=== PATIENT | male | born 1955 | race African-American/Black ===

== ENCOUNTER 2018-11-11 17:19 | Emergency (ER) | payer OTHER ==
[2018-11-11 18:23] LABS: Absolute Lymphocytes (CBC) 0.7 K/uL (0.7-4.9); Absolute Monocytes 1.1 K/uL (0.1-1.3); Absolute Neutrophil 7.7 K/uL (1.8-8.0); Basophils % 0.6 % (0-1.3); Eosinophils % 0.1 % (0-4.4); Hematocrit 41.5 % (39.6-49.0); Lymphocytes % 7.7 % (15.3-44.8); MPV 9.6 fL (7.6-11.3); Monocytes % 11.7 % (3.3-12.3); RBC Red Blood Cell Count 5.06 M/uL (4.33-5.43)
--- NOTE | 2018-11-11 18:27 | RAD REPORT ---
EXAM DESCRIPTION: Arnlod Single View11/11/2018 6:13 pm CLINICAL HISTORY: Chest pain COMPARISON: none FINDINGS: The lungs appear clear of acute infiltrate. The heart is mildly enlarged for IMPRESSION: No acute abnormalities displayed
[2018-11-11 18:48] LABS: ALT/SGPT 23 U/L (12-78); AST/SGOT 19 U/L (15-37); Albumin 4.2 g/dL (3.4-5.0); Alkaline Phosphatase 51 U/L (45-117); BUN Blood Urea Nitrogen 19 mg/dL (7-18); Bicarbonate 22 mmol/L (21-32); Bilirubin Direct 0.2 mg/dL (0-0.2); Bilirubin Total 0.6 mg/dL (0.2-1.0); Glucose Level 144 mg/dL (74-106); Magnesium 2.1 mg/dL (1.8-2.4); NT PRO-BNP 443 pg/mL (<125); Protein, Total 7.9 g/dL (6.4-8.2); Sodium Level 138 mmol/L (136-145); Troponin (Emerg Dept Use Only) < 0.02 ng/mL (0.0-0.045)
[2018-11-11] MEDS ORDERED: KETOROLAC 30 MG/ML INJ ONE ×2 (19:30→22:33)
[2018-11-11] MEDS ORDERED: FENTANYL CITR 100 MCG/2 ML ONE (20:06)
--- NOTE | 2018-11-11 20:35 | RAD REPORT ---
EXAM DESCRIPTION: CT - Angio Aorta For Dissection - 11/11/2018 8:13 pm CLINICAL HISTORY: . Chest and abd pain COMPARISON: None TECHNIQUE: Computed tomography angiography of the chest, abdomen pelvis were obtained. 100 cc Isovue 370 was administered intravenously. Coronal and sagittal reconstruction were performed. MIP 3D reconstruction was performed All CT scans are performed using dose optimization technique as appropriate and may include automated exposure control or mA/KV adjustment according to patient size. FINDINGS: A bovine aorta. An aortic dissection is not seen. An aortic aneurysm is not displayed. Mi nimal narrowing of the proximal descending thoracic aorta. The celiac, SMA and EMILY are patent . Mild left lower lobe opacities. Minimal left pleural effusion A pericardial effusion is not seen. 6 millimeter enhancing lesion left lobe liver. Spleen, pancreas, right adrenal and kidneys demonstrate no significant abnormality. 1 centimeter left adrenal nodule. The appendix is normal. There no evidence diverticulitis. Wall of the descending colon and sigmoid co yahaira appear mildly thickened Sclerosis involves the vertebral endplates of T6 and T7 vertebral bodies. Fusion involves the vertebral bodies of L3 and L4 presumably chronic. IMPRESSION: Negative for an aortic dissection. Minimal coarctation descending thoracic aorta Mild left lower lobe opacities probably pneumonia Mild apparent thickening of the wall of the left colon could indicate colitis or be secondary to inco mplete distention. Sclerosis involving the vertebral endplates of T6 and T7 could be degenerative in nature. An infectio us/inflammatory process can also have this appearance and should be correlated clinically with approp riate lab values. 1 centimeter left adrenal nodule
--- NOTE | 2018-11-11 21:28 | ER ---
Nurse's Notes [facility] [place] [place] Name: Adrian He Age: 63 yrs Sex: Male : 1955 Arrival Date: 11/11/2018 Time: 17:20 Bed 20 Private MD: Diagnosis: Chest pain, unspecified;Pneumonia, unspecified organism Presentation: 11/11 17:23 Presenting complaint: Patient states: i started having chest pain started this morning, tw2 my left shoulder area hurts and my clavicle hurts, it hurts to breath in hard. Transition of care: patient was not received from another setting of care. Onset of symptoms was November 11, 2018. Risk Assessment: Do you want to hurt yourself or someone else? Patient reports no desire to harm self or others. Initial Sepsis Screen: Does the patient meet any 2 criteria? No. Patient's initial sepsis screen is negative. Does the patient have a suspected source of infection? No. Patient's initial sepsis screen is negative. Care prior to arrival: None. 17:23 Method Of Arrival: Ambulatory tw2 17:23 Acuity: LACHELLE 3 tw2 Triage Assessment: 17:27 General: Appears uncomfortable, Behavior is cooperative. Pain: Complains of pain in tw2 chest. Cardiovascular: Reports chest pain, diaphoresis, pt is clammy. Historical: - Allergies: 17:26 No Known Allergies; tw2 - Home Meds: 17:26 amlodipine-benazepril 10-40 mg oral cap 1 cap once daily [Active]; levocetirizine 5 mg tw2 oral tab 1 tab once daily [Active]; Duexis 800-26.6 mg oral tab 1 tab 3 times per day [Active]; Janumet XR 100-1,000 mg oral TM24 1 tab once daily [Active]; Vitamin B-12 5000 mg Oral TbER [Active]; - PMHx: 17:26 Hypertension; tw2 - PSHx: 17:26 open heart surgery; tw2 - Immunization history:: Adult Immunizations. - Social history:: Smoking status: Patient uses tobacco products, chewing tobacco. - Ebola Screening: : Patient denies travel to an Ebola-affected area in the 21 days before illness onset. Screenin:58 Abuse screen: Denies threats or abuse. Denies injuries from another. Nutritional bp screening: No deficits noted. Tuberculosis screening: No symptoms or risk factors identified. Fall Risk None identified. Assessment: 17:30 General: Appears in no apparent distress. comfortable, Behavior is calm, cooperative, bp appropriate for age. Pain: Complains of pain in chest Pain radiates to left arm Pain began THIS MORNING. Neuro: No deficits noted. Cardiovascular: Rhythm is sinus rhythm. Respiratory: Airway is patent Respiratory effort is even, unlabored, Respiratory pattern is regular, symmetrical. GI: No signs and/or symptoms were reported involving the gastrointestinal system. : No signs and/or symptoms were reported regarding the genitourinary system. EENT: No deficits noted. Derm: No deficits noted. Musculoskeletal: Circulation, motion, and sensation intact. Range of motion: intact in all extremities. 19:15 Reassessment:. General: Appears in no apparent distress. uncomfortable, Behavior is cc3 calm, cooperative, appropriate for age. General: Received this male patient from morning shift RN Luis Carlos as a case of chest pain. With IV cannula gauge 22 at the right ACV saline locked.. Pain: Complains of pain in chest Pain radiates to left arm Pain began this morning. Neuro: Level of Consciousness is awake, alert, obeys commands, Oriented to person, place, time, situation, Appropriate for age. Cardiovascular: Rhythm is sinus rhythm. Respiratory: Airway is patent Respiratory effort is even, unlabored, Respiratory pattern is regular, symmetrical. GI: Abdomen is round non-distended. : No signs and/or symptoms were reported regarding the genitourinary system. EENT: No signs and/or symptoms were reported regarding the EENT system. Derm: No signs and/or symptoms reported regarding the dermatologic system. Musculoskeletal: Circulation, motion, and sensation intact. Range of motion: intact in all extremities. 20:19 Reassessment: Patient and/or family updated on plan of care and expected duration. Pain cc3 level reassessed. Patient is alert, oriented x 3, equal unlabored respirations, skin warm/dry/pink. Patient came back from CT scan department, awaiting result. Patient said his chest pain's relieved with NRS now of 2/10. 21:45 Reassessment: Patient appears in no apparent distress at this time. Patient and/or cc3 family updated on plan of care and expected duration. Pain level reassessed. Patient is alert, oriented x 3, equal unlabored respirations, skin warm/dry/pink. Dr. Lira discharged the patient home with prescription given. IV cannula removed and patient just went to the bathroom before leaving. Patient states symptoms have improved. 22:05 Reassessment: Patient and/or family updated on plan of care and expected duration. Pain cc3 level reassessed. Patient is alert, oriented x 3, equal unlabored respirations, skin warm/dry/pink. Patient came out of the bathroom and stated that he's having left side chest pain now, informed Dr. Lira and discharge on hold. 23:20 Reassessment: Patient appears in no apparent distress at this time. Patient and/or cc3 family updated on plan of care and expected duration. Pain level reassessed. Patient is alert, oriented x 3, equal unlabored respirations, skin warm/dry/pink. Patient denies pain at this time. Patient states feeling better. Patient states symptoms have improved. 23:50 Reassessment: Patient appears in no apparent distress at this time. Patient comfortably cc3 sleeping, kept undisturbed. 11/12 00:20 Reassessment: Patient appears in no apparent distress at this time. Patient and/or cc3 family updated on plan of care and expected duration. Pain level reassessed. Patient is alert, oriented x 3, equal unlabored respirations, skin warm/dry/pink. Patient for transfer to [facility], report called and handed over to staff Kelly Owens. Patient said his pain is relieved when he's not moving but when he moves that's when he's having pain again. Patient states symptoms have improved. 00:55 Reassessment: Patient appears in no apparent distress at this time. Patient and/or cc3 family updated on plan of care and expected duration. Pain level reassessed. Patient is alert, oriented x 3, equal unlabored respirations, skin warm/dry/pink. [facility] came for patient transport. Patient left ER vitally stable by ambulance stretcher. Patient states symptoms have improved. Vital Signs: 11/11 17:24 BP 150 / 73; Pulse 61; Resp 17; Temp 97.6(TE); Pulse Ox 98% on R/A; Weight 89.81 kg tw2 (R); Height 5 ft. 11 in. (180.34 cm) (R); Pain 5/10; 18:18 BP 161 / 77; Pulse 67; Resp 14; Pulse Ox 98% ; bp 19:22 BP 162 / 68; Pulse 66; Resp 17 S; Temp 98.6(O); Pulse Ox 96% on R/A; cc3 20:28 BP 160 / 66; Pulse 63; Resp 19 S; Temp 98.5(O); Pulse Ox 97% on R/A; Pain 2/10; cc3 21:45 BP 161 / 67; Pulse 63; Resp 19 S; Pulse Ox 97% on R/A; cc3 22:15 BP 168 / 76; Pulse 67; Resp 16 S; Temp 98.5(O); Pulse Ox 97% on R/A; cc3 23:38 BP 119 / 73; Pulse 63; Resp 20 S; Temp 98.5(O); Pulse Ox 96% on R/A; cc3 05 00:32 BP 124 / 66; Pulse 64; Resp 20 S; Temp 99.2(TE); Pulse Ox 97% on R/A; cc3 11/11 17:24 Body Mass Index 27.62 (89.81 kg, 180.34 cm) tw2 ED Course: 11/11 17:20 Patient arrived in ED. mr 17:23 Triage completed. tw2 17:23 Arm band placed on. EKG completed in triage. Results shown to MD. tw2 17:37 Luis Carlos Carter, RN is Primary Nurse. bp 17:54 Bryant Beaver MD is Attending Physician. kdr 17:57 Initial lab(s) drawn, by ga, sent to lab. Inserted saline lock: 22 gauge in right jb1 antecubital area, using aseptic technique. Blood collected. 17:58 Patient has correct armband on for positive identification. Bed in low position. Call bp light in reach. Side rails up X2. Adult w/ patient. clerk to justice on. Pulse ox on. NIBP on. 18:15 XRAY Chest (1 view) In Process Unspecified. EDMS 19:15 Patient maintains SpO2 saturation greater than 95% on room air. cc3 19:25 Attending Physician role handed off by Bryant Beaver MD gs 19:25 Aakash Lira MD is Attending Physician. gs 20:13 CT Aorta for Dissection In Process Unspecified. EDMS 21:40 IV discontinued, intact, bleeding controlled, No redness/swelling at site. Pressure cc3 dressing applied. 22:07 Primary Nurse role handed off by Luis Carlos Carter RN ed1 22:25 Inserted saline lock: 20 gauge in right antecubital area, using aseptic technique. cc3 Blood collected. inserted by cogeneration technician Zaki. 11/12 01:00 No provider procedures requiring assistance completed. Patient transferred, IV remains cc3 in place. Administered Medications: 11/11 19:17 Drug: TORadol - Ketorolac 15 mg Route: IVP; Site: right antecubital; cc3 19:45 Follow up: Response: No adverse reaction; Pain is unchanged, physician notified cc3 19:55 Drug: fentaNYL (PF) 50 mcg Route: IVP; Site: right antecubital; cc3 20:30 Follow up: Response: No adverse reaction; Pain is decreased cc3 22:08 CANCELLED (Physician Discretion): [place] 5 mg-325 mg 1 tabs PO once cc3 22:20 Drug: Albuterol 2.5 mg Route: Inhalation; cc3 22:45 Follow up: Response: No adverse reaction; Marked relief of symptoms cc3 22:35 Drug: NS 0.9% 1000 ml Route: IV; Rate: 125 ml/hr; Site: right antecubital; cc3 11/12 00:35 Follow up: Response: No adverse reaction; IV Status: Infusion continued upon transfer cc3 11/11 22:37 Drug: TORadol - Ketorolac 15 mg Route: IVP; Site: right antecubital; cc3 11/12 00:20 Follow up: Response: No adverse reaction; Pain is decreased cc3 11/11 22:50 Drug: Rocephin - (cefTRIAXone) 1 grams Route: IVPB; Infused Over: 30 mins; Site: right cc3 antecubital; 23:00 Follow up: Response: No adverse reaction; IV Status: Completed infusion; IV Intake: [id number] Intake: 23:00 IV: 10ml; Total: 10ml. cc3 Outcome: 21:28 Discharge ordered by MD. jurado 23:54 ER care complete, transfer ordered by MD. jurado 11/12 01:00 Transferred by ground EMS Transfer form completed. Note: [facility] cc3 Condition: stable Instructed on the need for transfer, Demonstrated understanding of instructions. 01:06 Patient left the ED. cc3 Signatures: Dispatcher [employer] EDMS Bassam Appiah jb1 Bryant Beaver MD MD kdr Rivera, Mary mr RenzoShelly, RN RN ed1 Flaca Mead RN RN tw2 Aakash Lira MD MD gs Peltier, Brian, RN RN Char Cao cc3 Corrections: (The following items were deleted from the chart) 11/11 20:27 20:19 Reassessment: Patient and/or family updated on plan of care and expected cc3 duration. Pain level reassessed. Patient is alert, oriented x 3, equal unlabored respirations, skin warm/dry/pink. Patient came back from CT scan department, awaiting result. cc3 23:32 22:05 Reassessment: Patient and/or family updated on plan of care and expected cc3 duration. Pain level reassessed. Patient is alert, oriented x 3, equal unlabored respirations, skin warm/dry/pink. Patient came out of the bathroom and stated that he's having left side chest pain now, informed Dr. Lira. cc3 23:36 20:28 BP 160 / 66; Pulse 63bpm; Resp 19bpm; Spontaneous; Pulse Ox 97% RA; Temp 98.5F cc3 Oral; cc3 11/12 00:33 00:32 BP 124 / 66; Pulse 64bpm; Resp 20bpm; Spontaneous; Pulse Ox 97% RA; cc3 cc3 00:38 11/11 09:55 fentaNYL (PF) 50 mcg IVP in right antecubital cc3 cc3 11/12 00:43 11/11 23:50 Reassessment: Patient appears in no apparent distress at this time. Patient cc3 and/or family updated on plan of care and expected duration. Pain level reassessed. Patient comfortably sleeping, kept undisturbed. cc3 11/12 00:46 00:32 BP 124 / 66; Pulse 64bpm; Resp 20bpm; Spontaneous; Pulse Ox 97% RA; Temp 98.1F cc3 Oral; cc3
--- NOTE | 2018-11-11 21:28 | EDPHYS ---
Physician Documentation [facility] Name: Adrian He Age: 63 yrs Sex: Male : 1955 Arrival Date: 11/11/2018 Time: 17:20 Bed 20 Private MD: ED Physician Aakash Lira HPI: 11/11 18:42 This 63 yrs old Black Male presents to ER via Ambulatory with complaints of Chest Pain. kdr 18:42 The patient or guardian reports chest pain that is located primarily in the Began in kdr his right shoulder this morning after he awoke. Then through the day, it migrated into his right chest and across into his left chest and shoulder. He had some associated SOB and diaphoresis. Pain still present in his left chest and shoulder. Onset: suddenly, this morning. Associated signs and symptoms: Pertinent positives: diaphoresis, nausea, shortness of breath. The chest pain is described as aching, crushing, sharp. Duration: The patient or guardian reports a single episode, that is still ongoing, and unchanged. Modifying factors: The symptoms are alleviated by nothing. the symptoms are aggravated by activity, cough, deep breath, exertion, movement, twisting torso. Severity of pain: At its worst the pain was moderate severe just prior to arrival, in the emergency department the pain is unchanged. The patient has not experienced similar symptoms in the past. Historical: - Allergies: 17:26 No Known Allergies; tw2 - Home Meds: 17:26 amlodipine-benazepril 10-40 mg oral cap 1 cap once daily [Active]; levocetirizine 5 mg tw2 oral tab 1 tab once daily [Active]; Duexis 800-26.6 mg oral tab 1 tab 3 times per day [Active]; Janumet XR 100-1,000 mg oral TM24 1 tab once daily [Active]; Vitamin B-12 5000 mg Oral TbER [Active]; - PMHx: 17:26 Hypertension; tw2 - PSHx: 17:26 open heart surgery; tw2 - Immunization history:: Adult Immunizations. - Social history:: Smoking status: Patient uses tobacco products, chewing tobacco. - Ebola Screening: : Patient denies travel to an Ebola-affected area in the 21 days before illness onset. ROS: 18:42 Constitutional: Negative for fever, chills, and weight loss, Eyes: Negative for injury, kdr pain, redness, and discharge, ENT: Negative for injury, pain, and discharge, Neck: Negative for injury, pain, and swelling, Back: Negative for injury and pain, : Negative for injury, bleeding, discharge, and swelling, MS/Extremity: Negative for injury and deformity, Skin: Negative for injury, rash, and discoloration, Neuro: Negative for headache, weakness, numbness, tingling, and seizure activity. Psych: Negative for depression, anxiety, suicide ideation, homicidal ideation, and hallucinations, Allergy/Immunology: Negative for hives, rash, and allergies, Endocrine: Negative for neck swelling, polydipsia, polyuria, polyphagia, and marked weight changes, Hematologic/Lymphatic: Negative for swollen nodes, abnormal bleeding, and unusual bruising. 18:42 Cardiovascular: Positive for chest pain, Negative for edema, orthopnea, palpitations. 18:42 Respiratory: Positive for shortness of breath, at rest. Negative for cough, dyspnea on exertion, hemoptysis. 18:42 Abdomen/GI: Positive for nausea, Negative for vomiting, diarrhea, constipation. Exam: 18:42 Constitutional: This is a well developed, well nourished patient who is awake, alert, kdr and in mild distress. Head/Face: Normocephalic, atraumatic. Eyes: Pupils equal round and reactive to light, extra-ocular motions intact. Lids and lashes normal. Conjunctiva and sclera are non-icteric and not injected. Cornea within normal limits. Periorbital areas with no swelling, redness, or edema. Neck: Trachea midline, no thyromegaly or masses palpated, and no cervical lymphadenopathy. Supple, full range of motion without nuchal rigidity, or vertebral point tenderness. No Meningismus. Chest/axilla: Normal chest wall appearance and motion. Nontender with no deformity. No lesions are appreciated. Cardiovascular: Regular rate and rhythm with a normal S1 and S2. No gallops, murmurs, or rubs. Normal PMI, no JVD. No pulse deficits. Respiratory: Lungs have equal breath sounds bilaterally, clear to auscultation and percussion. No rales, rhonchi or wheezes noted. No increased work of breathing, no retractions or nasal flaring. Abdomen/GI: Soft, non-tender, with normal bowel sounds. No distension or tympany. No guarding or rebound. No evidence of tenderness throughout. Back: No spinal tenderness. No costovertebral tenderness. Full range of motion. Skin: Warm, dry with normal turgor. Normal color with no rashes, no lesions, and no evidence of cellulitis. MS/ Extremity: Pulses equal, no cyanosis. Neurovascular intact. Full, normal range of motion. Neuro: Awake and alert, GCS 15, oriented to person, place, time, and situation. Cranial nerves II-XII grossly intact. Motor strength 5/5 in all extremities. Sensory grossly intact. Cerebellar exam normal. Normal gait. Psych: Awake, alert, with orientation to person, place and time. Behavior, mood, and affect are within normal limits. 21:28 ECG was reviewed by the Attending Physician. gs Vital Signs: 17:24 BP 150 / 73; Pulse 61; Resp 17; Temp 97.6(TE); Pulse Ox 98% on R/A; Weight 89.81 kg tw2 (R); Height 5 ft. 11 in. (180.34 cm) (R); Pain 5/10; 18:18 BP 161 / 77; Pulse 67; Resp 14; Pulse Ox 98% ; bp 19:22 BP 162 / 68; Pulse 66; Resp 17 S; Temp 98.6(O); Pulse Ox 96% on R/A; cc3 20:28 BP 160 / 66; Pulse 63; Resp 19 S; Temp 98.5(O); Pulse Ox 97% on R/A; Pain 2/10; cc3 21:45 BP 161 / 67; Pulse 63; Resp 19 S; Pulse Ox 97% on R/A; cc3 22:15 BP 168 / 76; Pulse 67; Resp 16 S; Temp 98.5(O); Pulse Ox 97% on R/A; cc3 23:38 BP 119 / 73; Pulse 63; Resp 20 S; Temp 98.5(O); Pulse Ox 96% on R/A; cc3 11/12 00:32 BP 124 / 66; Pulse 64; Resp 20 S; Temp 99.2(TE); Pulse Ox 97% on R/A; cc3 11/11 17:24 Body Mass Index 27.62 (89.81 kg, 180.34 cm) tw2 MDM: 11/11 19:25 Patient medically screened. gs 21:25 Differential diagnosis: abnormal EKG, acute myocardial infarction, chest wall pain, gs thoracic aortic disection. Data reviewed: vital signs, nurses notes. Counseling: I had a detailed discussion with the patient and/or guardian regarding: the historical points, exam findings, and any diagnostic results supporting the discharge/admit diagnosis, lab results, radiology results, the need for outpatient follow up. 11/11 17:56 Order name: Basic Metabolic Panel; Complete Time: 21: [facility] 11/11 17:56 Order name: CBC with Diff; Complete Time: 21: [facility] 11/11 17:56 Order name: LFT's; Complete Time: 21: [facility] 11/11 17:56 Order name: Magnesium; Complete Time: 21: [facility] 11/11 17:56 Order name: NT PRO-BNP; Complete Time: 21: [facility] 11/11 17:56 Order name: PT-INR; Complete Time: 21: [facility] 11/11 17:56 Order name: Troponin (emerg Dept Use Only); Complete Time: 21: [facility] 11/11 17:56 Order name: XRAY Chest (1 view); Complete Time: 21: [facility] 11/11 19:47 Order name: CT Aorta for Dissection; Complete Time: 21:15 cc3 11/11 19:48 Order name: Troponin (emerg Dept Use Only); Complete Time: 21:15 cc3 11/11 17:56 Order name: Cardiac monitoring; Complete Time: 17:57 [facility] 11/11 17:56 Order name: EKG - Nurse/Tech; Complete Time: 17:57 [facility] 11/11 17:56 Order name: IV Saline Lock; Complete Time: 17:57 [facility] 11/11 17:56 Order name: Labs collected and sent; Complete Time: 17:57 [facility] 11/11 17:56 Order name: O2 Per Protocol; Complete Time: 17:57 kdr 11/11 17:56 Order name: O2 Sat Monitoring; Complete Time: 17:57 [facility] 11/11 17:57 Order name: EKG Electrocardiogram; Complete Time: 17:57 EDMS 11/11 19:47 Order name: EKG; Complete Time: 19:48 cc3 11/11 19:47 Order name: EKG - Nurse/Tech; Complete Time: 20:12 cc3 11/11 22:14 Order name: IV Saline Lock; Complete Time: 22:46 gs EC:28 Rate is 64 beats/min. Rhythm is regular. OK interval is prolonged. QRS interval is gs prolonged. No ST changes noted. Clinical impression: Abnormal EKG without significant change. Interpreted by me. Administered Medications: 19:17 Drug: TORadol - Ketorolac 15 mg Route: IVP; Site: right antecubital; 3 19:45 Follow up: Response: No adverse reaction; Pain is unchanged, physician notified cc3 19:55 Drug: fentaNYL (PF) 50 mcg Route: IVP; Site: right antecubital; cc3 20:30 Follow up: Response: No adverse reaction; Pain is decreased cc3 22:08 CANCELLED (Physician Discretion): [place] 5 mg-325 mg 1 tabs PO once cc3 22:20 Drug: Albuterol 2.5 mg Route: Inhalation; cc3 22:45 Follow up: Response: No adverse reaction; Marked relief of symptoms cc3 22:35 Drug: NS 0.9% 1000 ml Route: IV; Rate: 125 ml/hr; Site: right antecubital; 3 11/12 00:35 Follow up: Response: No adverse reaction; IV Status: Infusion continued upon transfer 3 11/11 22:37 Drug: TORadol - Ketorolac 15 mg Route: IVP; Site: right antecubital; 3 11/12 00:20 Follow up: Response: No adverse reaction; Pain is decreased 3 11/11 22:50 Drug: Rocephin - (cefTRIAXone) 1 grams Route: IVPB; Infused Over: 30 mins; Site: right 3 antecubital; 23:00 Follow up: Response: No adverse reaction; IV Status: Completed infusion; IV Intake: [id number] Disposition: 23:53 Critical Care:. Disposition: 11/11/18 23:54 Transfer ordered to [facility]. Diagnosis are Chest pain, unspecified, Pneumonia, unspecified organism. - Reason for transfer: Higher level of care. - Accepting physician is daisha. - Condition is Stable. - Problem is new. - Symptoms have improved. Critical care time excluding procedures: 23:53 Critical care time: Bedside Care: 10 minutes, Consultation: 10 minutes, Family gs Intervention: 10 minutes. Total time: 30 minutes Signatures: Dispatcher [employer] EDMS Bryant Beaver MD MD [facility] Lydia Swanson RN RN Flaca Mead RN RN 2 Aakash Lira MD MD Char Murdock cc3 Corrections: (The following items were deleted from the chart) 22:08 22:03 [place] 5 mg-325 mg 1 tabs PO once ordered. cc3 cc3 22:08 22:08 [place] 5 mg-325 mg 1 tabs PO once ordered. cc3 cc3 22:14 21:28 11/11/2018 21:28 Discharged to Home. Impression: Chest pain, unspecified; Pneumonia, unspecified organism. Condition is Stable. Forms are Medication Reconciliation Form, Thank You Letter, Antibiotic Education, Prescription Opioid Use. Follow up: Private Physician; When: 1 - 2 days; Reason: Re-evaluation by your physician. 11/12 01:06 11/11 23:54 11/11/2018 23:54 Transfer ordered to [facility]. Diagnosis is Chest cc3 pain, unspecified; Pneumonia, unspecified organism. Reason for transfer: Higher level of care. Accepting physician is daisha. Condition is Stable. Problem is new. Symptoms have improved.
[2018-11-11] MEDS ORDERED: HYDROCODONE/APAP 5/325 MG TAB ONE (22:18)
[2018-11-11] MEDS ORDERED: ALBUTEROL 2.5 MG/3 ML NEB SOL ONE (22:33)
[2018-11-11] MEDS ORDERED: NA CHLORIDE 0.9% 1,000 ML ONE (22:33)
[2018-11-11] MEDS ORDERED: CEFTRIAXONE/SWI 1gm 1 GM/10 ML SYR ONE (22:33)
--- NOTE | 2018-11-12 07:26 | EKG ---
Test Date: 2018-11-11 Test Time: 19:59:37 Reading Interventionist: ASAD MEASUREMENT RESULTS: Intervals: Rate: 68 VT: 312 QRSD: 236 QT: 558 QTc: 593 [place]: P: -46 VT: 312 QRS: 128 T: 28 INTERPRETIVE STATEMENTS: Unusual P axis, possible ectopic atrial rhythm Right bundle branch block Left posterior fascicular block Bifascicular block Abnormal ECG Compared to ECG 11/11/2018 17:34:46 Sinus rhythm no longer present First degree AV block no longer present Bifascicular block still present Electronically Signed On 11-12-18 07:25:29 CDT by Mio Bravo
--- NOTE | 2018-11-12 07:26 | EKG ---
Test Date: 2018-11-11 Test Time: 17:34:46 Procurement Manager: ORLY MEASUREMENT RESULTS: Intervals: Rate: 64 CT: 344 QRSD: 234 QT: 516 QTc: 532 [place]: P: CT: 344 QRS: 118 T: 40 INTERPRETIVE STATEMENTS: Sinus rhythm with 1st degree AV block Right bundle branch block Left posterior fascicular block Bifascicular block Abnormal ECG Compared to ECG 08/22/2005 09:59:54 Left posterior fascicular block now present Ventricular premature complex(es) no longer present Left anterior fascicular block no longer present Bifascicular block still present Electronically Signed On 11-12-18 07:25:37 CDT by Mio Bravo
== END 2018-11-12 01:06 | disposition short-term general hospital (02) ==
LOC: ER 17:19
DX: J18.9 Pneumonia, unspecified organism (principal); I10 Essential (primary) hypertension; Z72.0 Tobacco use
CPT/HCPCS: 36415; 71045; 71275; 74175; 80048; 80076; 83735; 83880; 84484; 85025; 85610; 93005; 96361; 96374; 96375; 99285; J0696; J3010; J7030; Q9967

== ENCOUNTER 2023-06-01 16:26 | Emergency (ER) | payer OTHER ==
--- OUTSIDE RECORDS SUMMARY | 2023-06-01 16:38 | XMS REPORT | Continuity of Care Document ---
Author Name Unknown Address [address] [facility] [address] [place] [address] [facility] thconnect Address [address] [facility]. 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 Name Role Phone Jas Maravilla Primary Care Physician [phone] Rakesh Zacarias Attending Clinician UnavailRakesh Bonner Attending Clinician UnavailSHANTANU Hoang Attending Clinician Unavailable LOPEZ TUTTLE Attending Clinician Unavailable LOPEZ TUTTLE Attending Clinician Unavailable RADHA DALTON Attending Clinician UnavailROGE Fam Attending Clinician Unavailable ROGE BEDOYA Attending Clinician Unavailable Vtc-Lab Attending Clinician Unavailable SUSANNE IBRAHIM Attending Clinician Unav ailable Doctor Unassigned, [place] Attending Clinician U navailable [place] IBANEZ, Susanne Attending Clinician + Shantanu Garza MD Attending Clinician [phone], [facility] Attending Clinician Unavailable TIFFANY MENDEZ Attending Clinician Unavaila DARYL Vergara Attending Clinician Unavailable Daryl Awad MD Attending Clinician [phone] Jeremy Galeas MD Attending Clinician Unavailable JULIUS TODD Attending Clinician Unavailable Team, [facility] Attending Clinicia n Unavailable SHELLI JEAN Attending Clinician Unavailable JOSE LUIS WHITAKER Attending Clinician Unavailable Jose Luis Whitaker MD Attending Clinician [phone] Julius Todd MD Attending Clinician [phone] Only, [facility] Attending Clinician U navailable Jolene FORK REPAIRER, Sherketha S Attending Clinician Vanesa Magallanes MD, Brissa Zaragoza Attending Clinician [phone] BRISSA MAGALLANES Attending Clinician Unavailable LUIS CARLOS CHAN Attending Clinician Unavailable Yifan PT, Yehuda M Attending Clinician Luis Carlos Iverson MD Attending Clinician [phone] Justine Bahena PTA Attending Clinician Unav sharronable Zarina Muñoz PTA Attending Clinic blade Unavailable Isa Garcia MD Attending Clinician [phone] Stephanie Chaudhary MD Attending Clinician [phone] Aroldo BROOD HATCHERY MANAGER, Sarah Phipps Attending Clinician Unavaila Pavan Lewis MD Attending Clinician + [phone] Vls-Lab Attending Clinician Unavailable UBALDO WAN Attending Clinician Unavailable DEEPIKA OSUNA Attending Clinician Unavail able Deepika Osuna MD Attending Clinician [phone] CORKY CHA Attending Clinician Unavailable Corky Cha MD Attending Clinician [phone] [place]_C Attending Clinician Unavailable BYRON BALBUENA Attending Clinician UnavailByron Malik Attending Clinician [phone] LAVERNE SAMUELS Attending Clinician Rakesh Camarillo Admitting Clinician UnavailJULUIS Rivas Admitting Clinician Unavailable TANIA ELLIOTT Admitting Clinician WESLEY Crespo Admitting Clinician Unavailable CORKY CHA Admitting Clinician Unavailable Corky Cha MD Admitting Clinician Og[place]ree_C Admitting Clinician Unavailable Payers Payer Name Policy Type Policy Number Effective Date Expirati on Date Source [employer] (MEDICARE REPLACEMENT HMO) [id number] 00:00:00 MEDICARE PART A \\T\\ B [id number] 2020 00:00:00 [place]: [employer] [id number] 2020 00:00:00 [employer] [id number] 2011 00:00:00 Problems Condition Name Condition Details Condition Category Status Onset Date Resolution Date Last Treatment Date Treating Clinician Comments Source Positive FIT (fecal immunochem ical test) Positive FIT (fecal immunochem ical test) Disease Active 2021-06 00:00: 00 Overview: Formattin g of this note might be different from the original. Added automatic ally from request for surgery [id number] [facility] Iron deficiency Iron deficiency Disease Active 2021-06 00:00: 00 Overview: Formattin g of this note might be different from the original. Added automatic ally from request for surgery [id number] [facility] Acute pain of right shoulder due to trauma Acute pain of right shoulder due to trauma Disease Active 09-25 00:00: 00 [facility] Acute pain of right shoulder due to trauma Acute pain of right shoulder due to trauma Disease Active 09-25 00:00: 00 [facility] Decreased ROM of right shoulder Decreased ROM of right shoulder Disease Active 09-25 00:00: 00 [facility] Decreased strength of upper extremity Decreased strength of upper extremity Disease Active 09-25 00:00: 00 [facility] Low back pain without sciatica Low back pain without sciatica Disease Active 2022-0 4-06 00:00: 00 [facility] Decreased strength of lower extremity Decreased strength of lower extremity Disease Active 4 00:00: 00 [facility] Primary hypertensi on Primary hypertensi on Disease Active 2 00:00: 00 [facility] Diabetes Diabetes Disease Active 2 00:00: 00 [facility] Chronic systolic heart failure Chronic systolic heart failure Disease Active 08-16 00:00: 00 [facility] Pacemaker Pacemaker Disease Active 08-16 00:00: 00 [facility] Chest pain Chest pain Disease Active 11-12 00:00: 00 [facility] Allergies, Adverse Reactions, Alerts Allergy Name Allergy Type Status Severity Reaction(s) Onset Date Inactive Date Treating Clinician Comments Source No Known Allergie s Drug Active [facility] NO KNOWN ALLERGIE S Drug Class Active [facility] Social History Social Habit Start Date Stop Date Quantity Comments Source Gender identity [facility] Sexual orientation U [facility] Alcohol intake 2023-06-01 00:00:00 2023-06-01 00:00:00 0 /d [facility] Exposure to SARS-CoV-2 (event) 2022-10-20 00:00:00 2022-10-30 10:14:00 Not sure [facility] History of Social function 2022-05-20 00:00:00 2022-05-20 00:00:00 [facility] Sex Ass[birth year] At 1955 00:00:00 1955 00:00:00 [facility] Smoking Status Start Date Stop Date Source Never smoked tobacco [facility] Tobacco smoking consumption unknown [facility] Medications Ordered Medication Name Filled Medication Name Start Date Stop Date Current Medication? Ordering Clinician Indication Dosage Frequency Signature (SIG) Comments Components Source DUNIA ROOT, BULK, [facility] 2022-06 15:48: 22 Yes 750mg 750 mg. [facility] DUNIA ROOT, BULK, [facility] 2022-06 15:48: 22 Yes 750mg 750 mg. [facility] DUNIA ROOT, BULK, [facility] 2022-06 15:48: 22 Yes 750mg 750 mg. [facility] DUNIA ROOT, BULK, [facility] 2022-06 15:48: 22 Yes 750mg 750 mg. [facility] DUNIA ROOT, BULK, [facility] 2022-06 15:48: 22 Yes 750mg 750 mg. [facility] DUNIA ROOT, BULK, [facility] 2022-06 15:48: 22 Yes 750mg 750 mg. [facility] DUNIA ROOT, BULK, [facility] 2022-06 15:48: 22 Yes 750mg 750 mg. [facility] DUNIA ROOT, BULK, [facility] 2022-06 15:48: 22 Yes 750mg 750 mg. [facility] DUNIA ROOT, BULK, [facility] 2022-06 15:48: 22 Yes 750mg 750 mg. [facility] Garlic 1,000 mg Cap 2022-06 15:48: 17 Yes Take by mouth. [facility] Garlic 1,000 mg Cap 2022-06 15:48: 17 Yes Take by mouth. [facility] Garlic 1,000 mg Cap 2022-06 15:48: 17 Yes Take by mouth. [facility] Garlic 1,000 mg Cap 2022-06 15:48: 17 Yes Take by mouth. [facility] Garlic 1,000 mg Cap 2022-06 15:48: 17 Yes Take by mouth. [facility] Garlic 1,000 mg Cap 2022-06 15:48: 17 Yes Take by mouth. [facility] Garlic 1,000 mg Cap 2022-06 15:48: 17 Yes Take by mouth. [facility] Garlic 1,000 mg Cap 2022-06 15:48: 17 Yes Take by mouth. [facility] Garlic 1,000 mg Cap 2022-06 15:48: 17 Yes Take by mouth. [facility] docosahexae noic acid/epa (FISH OIL ORAL) 2022-06 15:48: 07 Yes Take by mouth. [facility] docosahexae noic acid/epa (FISH OIL ORAL) 2022-06 15:48: 07 Yes Take by mouth. [facility] docosahexae noic acid/epa (FISH OIL ORAL) 2022-06 15:48: 07 Yes Take by mouth. [facility] docosahexae noic acid/epa (FISH OIL ORAL) 2022-06 15:48: 07 Yes Take by mouth. [facility] docosahexae noic acid/epa (FISH OIL ORAL) 2022-06 15:48: 07 Yes Take by mouth. [facility] docosahexae noic acid/epa (FISH OIL ORAL) 2022-06 15:48: 07 Yes Take by mouth. [facility] docosahexae noic acid/epa (FISH OIL ORAL) 2022-06 15:48: 07 Yes Take by mouth. [facility] docosahexae noic acid/epa (FISH OIL ORAL) 2022-06 15:48: 07 Yes Take by mouth. [facility] docosahexae noic acid/epa (FISH OIL ORAL) 2022-06 15:48: 07 Yes Take by mouth. [facility] rosuvastati n 10 mg tablet 2022-06 15:46: 44 Yes 10mg Take 1 tablet by mouth at bedtime. [facility] rosuvastati n 10 mg tablet 2022-06 15:46: 44 Yes 10mg Take 1 tablet by mouth at bedtime. [facility] rosuvastati n 10 mg tablet 2022-06 15:46: 44 Yes 10mg Take 1 tablet by mouth at bedtime. [facility] rosuvastati n 10 mg tablet 2022-06 15:46: 44 Yes 10mg Take 1 tablet by mouth at bedtime. [facility] rosuvastati n 10 mg tablet 2022-06 15:46: 44 Yes 10mg Take 1 tablet by mouth at bedtime. [facility] rosuvastati n 10 mg tablet 2022-06 15:46: 44 Yes 10mg Take 1 tablet by mouth at bedtime. [facility] rosuvastati n 10 mg tablet 2022-06 15:46: 44 Yes 10mg Take 1 tablet by mouth at bedtime. [facility] furosemide 40 mg tablet 2022-06 15:43: 32 Yes 40mg Take 1 tablet by mouth in the morning. [facility] furosemide 40 mg tablet 2022-06 15:43: 32 Yes 40mg Take 1 tablet by mouth in the morning. [facility] furosemide 40 mg tablet 2022-06 15:43: 32 Yes 40mg Take 1 tablet by mouth in the morning. [facility] furosemide 40 mg tablet 2022-06 15:43: 32 Yes 40mg Take 1 tablet by mouth in the morning. [facility] furosemide 40 mg tablet 2022-06 15:43: 32 Yes 40mg Take 1 tablet by mouth in the morning. [facility] furosemide 40 mg tablet 2022-06 15:43: 32 Yes 40mg Take 1 tablet by mouth in the morning. [facility] furosemide 40 mg tablet 2022-06 15:43: 32 Yes 40mg Take 1 tablet by mouth in the morning. [facility] furosemide 40 mg tablet 2022-06 15:43: 32 Yes 40mg Take 1 tablet by mouth in the morning. [facility] furosemide 40 mg tablet 2022-06 15:43: 32 Yes 40mg Take 1 tablet by mouth in the morning. [facility] apixaban (ELIQUIS) 5 mg tablet 2022-06 15:43: 30 Yes Take by mouth. [facility] apixaban (ELIQUIS) 5 mg tablet 2022-06 15:43: 30 Yes Take by mouth. [facility] apixaban (ELIQUIS) 5 mg tablet 2022-06 15:43: 30 Yes Take by mouth. [facility] apixaban (ELIQUIS) 5 mg tablet 2022-06 15:43: 30 Yes Take by mouth. [facility] apixaban (ELIQUIS) 5 mg tablet 2022-06 15:43: 30 Yes Take by mouth. [facility] apixaban (ELIQUIS) 5 mg tablet 2022-06 15:43: 30 Yes Take by mouth. [facility] apixaban (ELIQUIS) 5 mg tablet 2022-06 15:43: 30 Yes Take by mouth. [facility] apixaban (ELIQUIS) 5 mg tablet 2022-06 15:43: 30 Yes Take by mouth. [facility] apixaban (ELIQUIS) 5 mg tablet 2022-06 15:43: 30 Yes Take by mouth. [facility] amiodarone 200 mg tablet 2022-06 15:43: 27 Yes 200mg Take 1 tablet by mouth. [facility] amiodarone 200 mg tablet 2022-06 15:43: 27 Yes 200mg Take 1 tablet by mouth. [facility] amiodarone 200 mg tablet 2022-06 15:43: 27 Yes 200mg Take 1 tablet by mouth. [facility] amiodarone 200 mg tablet 2022-06 15:43: 27 Yes 200mg Take 1 tablet by mouth. [facility] amiodarone 200 mg tablet 2022-06 15:43: 27 Yes 200mg Take 1 tablet by mouth. [facility] amiodarone 200 mg tablet 2022-06 15:43: 27 Yes 200mg Take 1 tablet by mouth. [facility] amiodarone 200 mg tablet 2022-06 15:43: 27 Yes 200mg Take 1 tablet by mouth. [facility] amiodarone 200 mg tablet 2022-06 15:43: 27 Yes 200mg Take 1 tablet by mouth. [facility] amiodarone 200 mg tablet 2022-06 15:43: 27 Yes 200mg Take 1 tablet by mouth. [facility] papaverine- phentolamin e-PGE1 150mg-5mg-5 0mcg Soln 2022-06 13:41: 59 04-07 00:00 :00 No Inject as directed. [facility] papaverine- phentolamin e-PGE1 150mg-5mg-5 0mcg Soln 2022-06 13:41: 59 04-07 00:00 :00 No Inject as directed. [facility] papaverine- phentolamin e-PGE1 150mg-5mg-5 0mcg [facility] 2022-06 13:41: 59 04-07 00:00 :00 No Inject as directed. [facility] papaverine- phentolamin e-PGE1 150mg-5mg-5 0mcg [facility] 2022-06 13:41: 59 04-07 00:00 :00 No Inject as directed. [facility] apixaban (ELIQUIS) 5 mg tablet 2022-06 08:28: 34 Yes Take by mouth. [facility] furosemide 40 mg tablet 2022-06 08:28: 34 Yes 40mg Take 1 tablet by mouth in the morning. [facility] DUNIA ROOT, BULK, MISC 2022-06 08:28: 34 Yes 750mg 750 mg. [facility] docosahexae noic acid/epa (FISH OIL ORAL) 2022-06 08:28: 34 Yes Take by mouth. [facility] Garlic 1,000 mg Cap 2022-06 08:28: 34 Yes Take by mouth. [facility] amiodarone 200 mg tablet 2022-06 08:28: 34 Yes 200mg Take 1 tablet by mouth. [facility] papaverine- phentolamin e-PGE1 150mg-5mg-5 0mcg Soln 2022-06 08:28: 34 Yes Inject as directed. [facility] apixaban (ELIQUIS) 5 mg tablet 2022-06 08:28: 34 Yes Take by mouth. [facility] furosemide 40 mg tablet 2022-06 08:28: 34 Yes 40mg Take 1 tablet by mouth in the morning. [facility] DUNIA ROOT, BULK, [facility] 2022-06 08:28: 34 Yes 750mg 750 mg. [facility] docosahexae noic acid/epa (FISH OIL ORAL) 2022-06 08:28: 34 Yes Take by mouth. [facility] Garlic 1,000 mg Cap 2022-06 08:28: 34 Yes Take by mouth. [facility] amiodarone 200 mg tablet 2022-06 08:28: 34 Yes 200mg Take 1 tablet by mouth. [facility] apixaban (ELIQUIS) 5 mg tablet 2022-06 08:28: 34 Yes Take by mouth. [facility] furosemide 40 mg tablet 2022-06 08:28: 34 Yes 40mg Take 1 tablet by mouth in the morning. [facility] DUNIA ROOT, BULK, [facility] 2022-06 08:28: 34 Yes 750mg 750 mg. [facility] docosahexae noic acid/epa (FISH OIL ORAL) 2022-06 08:28: 34 Yes Take by mouth. [facility] Garlic 1,000 mg Cap 2022-06 08:28: 34 Yes Take by mouth. [facility] amiodarone 200 mg tablet 2022-06 08:28: 34 Yes 200mg Take 1 tablet by mouth. [facility] apixaban (ELIQUIS) 5 mg tablet 2022-06 08:28: 34 Yes Take by mouth. [facility] furosemide 40 mg tablet 2022-06 08:28: 34 Yes 40mg Take 1 tablet by mouth in the morning. [facility] DUNIA ROOT, BULK, [facility] 2022-06 08:28: 34 Yes 750mg 750 mg. [facility] docosahexae noic acid/epa (FISH OIL ORAL) 2022-06 08:28: 34 Yes Take by mouth. [facility] Garlic 1,000 mg Cap 2022-06 08:28: 34 Yes Take by mouth. [facility] amiodarone 200 mg tablet 2022-06 08:28: 34 Yes 200mg Take 1 tablet by mouth. [facility] apixaban (ELIQUIS) 5 mg tablet 2022-06 08:28: 34 Yes Take by mouth. [facility] furosemide 40 mg tablet 2022-06 08:28: 34 Yes 40mg Take 1 tablet by mouth in the morning. [facility] DUNIA ROOT, BULK, [facility] 2022-06 08:28: 34 Yes 750mg 750 mg. [facility] docosahexae noic acid/epa (FISH OIL ORAL) 2022-06 08:28: 34 Yes Take by mouth. [facility] Garlic 1,000 mg Cap 2022-06 08:28: 34 Yes Take by mouth. [facility] amiodarone 200 mg tablet 2022-06 08:28: 34 Yes 200mg Take 1 tablet by mouth. [facility] apixaban (ELIQUIS) 5 mg tablet 2022-06 08:28: 34 Yes Take by mouth. [facility] furosemide 40 mg tablet 2022-06 08:28: 34 Yes 40mg Take 1 tablet by mouth in the morning. [facility] DUNIA ROOT, BULK, [facility] 2022-06 08:28: 34 Yes 750mg 750 mg. [facility] docosahexae noic acid/epa (FISH OIL ORAL) 2022-06 08:28: 34 Yes Take by mouth. [facility] Garlic 1,000 mg Cap 2022-06 08:28: 34 Yes Take by mouth. [facility] amiodarone 200 mg tablet 2022-06 08:28: 34 Yes 200mg Take 1 tablet by mouth. [facility] apixaban (ELIQUIS) 5 mg tablet 2022-06 08:28: 34 Yes Take by mouth. [facility] furosemide 40 mg tablet 2022-06 08:28: 34 Yes 40mg Take 1 tablet by mouth in the morning. [facility] DUNIA ROOT, BULK, [facility] 2022-06 08:28: 34 Yes 750mg 750 mg. [facility] docosahexae noic acid/epa (FISH OIL ORAL) 2022-06 08:28: 34 Yes Take by mouth. [facility] Garlic 1,000 mg Cap 2022-06 08:28: 34 Yes Take by mouth. [facility] amiodarone 200 mg tablet 2022-06 08:28: 34 Yes 200mg Take 1 tablet by mouth. [facility] apixaban (ELIQUIS) 5 mg tablet 2022-06 08:28: 34 Yes Take by mouth. [facility] furosemide 40 mg tablet 2022-06 08:28: 34 Yes 40mg Take 1 tablet by mouth in the morning. [facility] DUNIA ROOT, BULK, [facility] 2022-06 08:28: 34 Yes 750mg 750 mg. [facility] docosahexae noic acid/epa (FISH OIL ORAL) 2022-06 08:28: 34 Yes Take by mouth. [facility] Garlic 1,000 mg Cap 2022-06 08:28: 34 Yes Take by mouth. [facility] amiodarone 200 mg tablet 2022-06 08:28: 34 Yes 200mg Take 1 tablet by mouth. [facility] apixaban (ELIQUIS) 5 mg tablet 2022-06 08:28: 34 Yes Take by mouth. [facility] furosemide 40 mg tablet 2022-06 08:28: 34 Yes 40mg Take 1 tablet by mouth in the morning. [facility] DUNIA ROOT, BULK, MISC 2022-06 08:28: 34 Yes 750mg 750 mg. [facility] docosahexae noic acid/epa (FISH OIL ORAL) 2022-06 08:28: 34 Yes Take by mouth. [facility] Garlic 1,000 mg Cap 2022-06 08:28: 34 Yes Take by mouth. [facility] amiodarone 200 mg tablet 2022-06 08:28: 34 Yes 200mg Take 1 tablet by mouth. [facility] apixaban (ELIQUIS) 5 mg tablet 2022-06 08:28: 34 Yes Take by mouth. [facility] furosemide 40 mg tablet 2022-06 08:28: 34 Yes 40mg Take 1 tablet by mouth in the morning. [facility] DUNIA ROOT, BULK, [facility] 2022-06 08:28: 34 Yes 750mg 750 mg. [facility] docosahexae noic acid/epa (FISH OIL ORAL) 2022-06 08:28: 34 Yes Take by mouth. [facility] Garlic 1,000 mg Cap 2022-06 08:28: 34 Yes Take by mouth. [facility] amiodarone 200 mg tablet 2022-06 08:28: 34 Yes 200mg Take 1 tablet by mouth. [facility] apixaban (ELIQUIS) 5 mg tablet 2022-06 08:28: 34 Yes Take by mouth. [facility] furosemide 40 mg tablet 2022-06 08:28: 34 Yes 40mg Take 1 tablet by mouth in the morning. [facility] DUNIA ROOT, BULK, [facility] 2022-06 08:28: 34 Yes 750mg 750 mg. [facility] docosahexae noic acid/epa (FISH OIL ORAL) 2022-06 08:28: 34 Yes Take by mouth. [facility] Garlic 1,000 mg Cap 2022-06 08:28: 34 Yes Take by mouth. [facility] amiodarone 200 mg tablet 2022-06 08:28: 34 Yes 200mg Take 1 tablet by mouth. [facility] apixaban (ELIQUIS) 5 mg tablet 2022-06 08:28: 34 Yes Take by mouth. [facility] furosemide 40 mg tablet 2022-06 08:28: 34 Yes 40mg Take 1 tablet by mouth in the morning. [facility] DUNIA ROOT, BULK, [facility] 2022-06 08:28: 34 Yes 750mg 750 mg. [facility] docosahexae noic acid/epa (FISH OIL ORAL) 2022-06 08:28: 34 Yes Take by mouth. [facility] Garlic 1,000 mg Cap 2022-06 08:28: 34 Yes Take by mouth. [facility] amiodarone 200 mg tablet 2022-06 08:28: 34 Yes 200mg Take 1 tablet by mouth. [facility] apixaban (ELIQUIS) 5 mg tablet 2022-06 08:28: 34 Yes Take by mouth. [facility] furosemide 40 mg tablet 2022-06 08:28: 34 Yes 40mg Take 1 tablet by mouth in the morning. [facility] DUNIA ROOT, BULK, [facility] 2022-06 08:28: 34 Yes 750mg 750 mg. [facility] docosahexae noic acid/epa (FISH OIL ORAL) 2022-06 08:28: 34 Yes Take by mouth. [facility] Garlic 1,000 mg Cap 2023-1 0-17 08:28: 34 Yes Take by mouth. [facility] amiodarone 200 mg tablet 2022-06 017 08:28: 34 Yes 200mg Take 1 tablet by mouth. [facility] papaverine- phentolamin e-PGE1 150mg-5mg-5 0mcg Soln 2022-06 0-17 00:00: 00 Yes [id number] 7.5mL Inject 7.5 mL as directed as needed for Other (2-3 times/ week, every 48 hrs). [facility] papaverine- phentolamin e-PGE1 150mg-5mg-5 0mcg Soln 2022-06 0-17 00:00: 00 Yes [id number] 7.5mL Inject 7.5 mL as directed as needed for Other (2-3 times/ week, every 48 hrs). [facility] papaverine- phentolamin e-PGE1 150mg-5mg-5 0mcg Soln 2022-06 0-17 00:00: 00 Yes [id number] 7.5mL Inject 7.5 mL as directed as needed for Other (2-3 times/ week, every 48 hrs). [facility] papaverine- phentolamin e-PGE1 150mg-5mg-5 0mcg Soln 2022-06 0-17 00:00: 00 Yes [id number] 7.5mL Inject 7.5 mL as directed as needed for Other (2-3 times/ week, every 48 hrs). [facility] papaverine- phentolamin e-PGE1 150mg-5mg-5 0mcg Soln 2022- 0-17 00:00: 00 Yes [id number] 7.5mL Inject 7.5 mL as directed as needed for Other (2-3 times/ week, every 48 hrs). [facility] papaverine- phentolamin e-PGE1 150mg-5mg-5 0mcg Soln 2022- 0-17 00:00: 00 Yes [id number] 7.5mL Inject 7.5 mL as directed as needed for Other (2-3 times/ week, every 48 hrs). [facility] papaverine- phentolamin e-PGE1 150mg-5mg-5 0mcg Soln 2023-1 0-17 00:00: 00 Yes [id number] 7.5mL Inject 7.5 mL as directed as needed for Other (2-3 times/ week, every 48 hrs). [facility] papaverine- phentolamin e-PGE1 150mg-5mg-5 0mcg Soln 2023-1 0-17 00:00: 00 Yes [id number] 7.5mL Inject 7.5 mL as directed as needed for Other (2-3 times/ week, every 48 hrs). [facility] papaverine- phentolamin e-PGE1 150mg-5mg-5 0mcg Soln 2023-1 0-17 00:00: 00 Yes [id number] 7.5mL Inject 7.5 mL as directed as needed for Other (2-3 times/ week, every 48 hrs). [facility] papaverine- phentolamin e-PGE1 150mg-5mg-5 0mcg Soln 2023-1 0-17 00:00: 00 Yes [id number] 7.5mL Inject 7.5 mL as directed as needed for Other (2-3 times/ week, every 48 hrs). [facility] papaverine- phentolamin e-PGE1 150mg-5mg-5 0mcg Soln 2023-1 0-17 00:00: 00 Yes [id number] 7.5mL Inject 7.5 mL as directed as needed for Other (2-3 times/ week, every 48 hrs). [facility] papaverine- phentolamin e-PGE1 150mg-5mg-5 0mcg Soln 2023-1 0-17 00:00: 00 Yes [id number] 7.5mL Inject 7.5 mL as directed as needed for Other (2-3 times/ week, every 48 hrs). [facility] papaverine- phentolamin e-PGE1 150mg-5mg-5 0mcg Soln 2023-1 0-17 00:00: 00 Yes [id number] 7.5mL Inject 7.5 mL as directed as needed for Other (2-3 times/ week, every 48 hrs). [facility] papaverine- phentolamin e-PGE1 150mg-5mg-5 0mcg Soln 2023-1 0-17 00:00: 00 Yes [id number] 7.5mL Inject 7.5 mL as directed as needed for Other (2-3 times/ week, every 48 hrs). [facility] papaverine- phentolamin e-PGE1 150mg-5mg-5 0mcg Soln 2023-1 0-17 00:00: 00 Yes [id number] 7.5mL Inject 7.5 mL as directed as needed for Other (2-3 times/ week, every 48 hrs). [facility] papaverine- phentolamin e-PGE1 150mg-5mg-5 0mcg Soln 3-1 0-17 00:00: 00 Yes [id number] 7.5mL Inject 7.5 mL as directed as needed for Other (2-3 times/ week, every 48 hrs). [facility] papaverine- phentolamin e-PGE1 150mg-5mg-5 0mcg Soln 3-1 0-17 00:00: 00 Yes [id number] 7.5mL Inject 7.5 mL as directed as needed for Other (2-3 times/ week, every 48 hrs). [facility] papaverine- phentolamin e-PGE1 150mg-5mg-5 0mcg Soln 2023-1 0-17 00:00: 00 Yes [id number] 7.5mL Inject 7.5 mL as directed as needed for Other (2-3 times/ week, every 48 hrs). [facility] papaverine- phentolamin e-PGE1 150mg-5mg-5 0mcg Soln 2023-1 0-17 00:00: 00 Yes [id number] 7.5mL Inject 7.5 mL as directed as needed for Other (2-3 times/ week, every 48 hrs). [facility] papaverine- phentolamin e-PGE1 150mg-5mg-5 0mcg Soln 3- 0-17 00:00: 00 Yes [id number] 7.5mL Inject 7.5 mL as directed as needed for Other (2-3 times/ week, every 48 hrs). [facility] papaverine- phentolamin e-PGE1 150mg-5mg-5 0mcg Soln 2022-06 0-17 00:00: 00 Yes [id number] 7.5mL Inject 7.5 mL as directed as needed for Other (2-3 times/ week, every 48 hrs). [facility] papaverine- phentolamin e-PGE1 150mg-5mg-5 0mcg Soln 2022-06 0-17 00:00: 00 04-07 00:00 :00 No [id number] 7.5mL Inject 7.5 mL as directed as needed for Other (2-3 times/ week, every 48 hrs). [facility] papaverine- phentolamin e-PGE1 150mg-5mg-5 0mcg Soln 2022-06 0-17 00:00: 00 04-07 00:00 :00 No [id number] 7.5mL Inject 7.5 mL as directed as needed for Other (2-3 times/ week, every 48 hrs). [facility] DUNIA ROOT, BULK, [facility] 03-02 13:48: 20 Yes 750mg 750 mg. [facility] Garlic 1,000 mg Cap 03-02 13:48: 20 Yes Take by mouth. [facility] DUNIA ROOT, BULK, [facility] 03-02 13:48: 20 Yes 750mg 750 mg. [facility] Garlic 1,000 mg Cap 03-02 13:48: 20 Yes Take by mouth. [facility] DUNIA ROOT, BULK, [facility] 03-02 13:48: 20 Yes 750mg 750 mg. [facility] Garlic 1,000 mg Cap 03-02 13:48: 20 Yes Take by mouth. [facility] DUNIA ROOT, BULK, MISC 03-02 13:48: 20 Yes 750mg 750 mg. [facility] Garlic 1,000 mg Cap 03-02 13:48: 20 Yes Take by mouth. [facility] DUNIA ROOT, BULK, MISC 03-02 13:48: 20 Yes 750mg 750 mg. [facility] Garlic 1,000 mg Cap 03-02 13:48: 20 Yes Take by mouth. [facility] furosemide 40 mg tablet 03-02 13:48: 14 Yes 40mg Take 40 mg by mouth daily. [facility] furosemide 40 mg tablet 03-02 13:48: 14 Yes 40mg Take 40 mg by mouth daily. [facility] furosemide 40 mg tablet 03-02 13:48: 14 Yes 40mg Take 40 mg by mouth daily. [facility] furosemide 40 mg tablet 03-02 13:48: 14 Yes 40mg Take 40 mg by mouth daily. [facility] furosemide 40 mg tablet 03-02 13:48: 14 Yes 40mg Take 40 mg by mouth daily. [facility] docosahexae noic acid/epa (FISH OIL ORAL) 03-02 13:48: 09 Yes Take by mouth. [facility] docosahexae noic acid/epa (FISH OIL ORAL) 03-02 13:48: 09 Yes Take by mouth. [facility] docosahexae noic acid/epa (FISH OIL ORAL) 03-02 13:48: 09 Yes Take by mouth. [facility] docosahexae noic acid/epa (FISH OIL ORAL) 03-02 13:48: 09 Yes Take by mouth. [facility] docosahexae noic acid/epa (FISH OIL ORAL) 03-02 13:48: 09 Yes Take by mouth. [facility] apixaban (ELIQUIS) 5 mg tablet 2022-0 11 13:48: 06 Yes Take by mouth. [facility] apixaban (ELIQUIS) 5 mg tablet 2022-0 9-11 13:48: 06 Yes Take by mouth. [facility] apixaban (ELIQUIS) 5 mg tablet 2022-0 9-11 13:48: 06 Yes Take by mouth. [facility] apixaban (ELIQUIS) 5 mg tablet 2022-0 -11 13:48: 06 Yes Take by mouth. [facility] apixaban (ELIQUIS) 5 mg tablet 2022-0 9-11 13:48: 06 Yes Take by mouth. [facility] amiodarone 200 mg tablet 2022-0 -11 13:48: 02 Yes 200mg Take 200 mg by mouth. [facility] amiodarone 200 mg tablet 2022-0 - 13:48: 02 Yes 200mg Take 200 mg by mouth. [facility] amiodarone 200 mg tablet 2022-0 11 13:48: 02 Yes 200mg Take 200 mg by mouth. [facility] amiodarone 200 mg tablet 2022-0 11 13:48: 02 Yes 200mg Take 200 mg by mouth. [facility] amiodarone 200 mg tablet 2022-0 -11 13:48: 02 Yes 200mg Take 200 mg by mouth. [facility] rosuvastati n 10 mg tablet 2022-0 02-19 12:18: 47 02-19 00:00 :00 No 10mg Take 10 mg by mouth. [facility] rosuvastati n 10 mg tablet 2022-0 02-19 12:18: 47 02-19 00:00 :00 No 10mg Take 10 mg by mouth. [facility] rosuvastati n 10 mg tablet 2022-0 02-19 00:00: 00 Yes [id number] 10mg Take 1 tablet by mouth at bedtime. [facility] rosuvastati n 10 mg tablet 2022-0 02-19 00:00: 00 Yes [id number] 10mg Take 1 tablet by mouth at bedtime. [facility] rosuvastati n 10 mg tablet 2022-0 8 00:00: 00 Yes [id number] 10mg Take 1 tablet by mouth at bedtime. [facility] rosuvastati n 10 mg tablet 0 8 00:00: 00 Yes [id number] 10mg Take 1 tablet by mouth at bedtime. [facility] rosuvastati n 10 mg tablet 2022-0 8 00:00: 00 Yes [id number] 10mg Take 1 tablet by mouth at bedtime. [facility] rosuvastati n 10 mg tablet 2022-0 8 00:00: 00 Yes [id number] 10mg Take 1 tablet by mouth at bedtime. [facility] rosuvastati n 10 mg tablet 0 02-19 00:00: 00 04-07 00:00 :00 No [id number] 10mg Take 1 tablet by mouth at bedtime. [facility] rosuvastati n 10 mg tablet 0 02-19 00:00: 00 04-07 00:00 :00 No [id number] 10mg Take 1 tablet by mouth at bedtime. [facility] rosuvastati n 10 mg tablet 0 02-19 00:00: 00 04-07 00:00 :00 No [id number] 10mg Take 1 tablet by mouth at bedtime. [facility] rosuvastati n 10 mg tablet 0 02-19 00:00: 00 04-07 00:00 :00 No [id number] 10mg Take 1 tablet by mouth at bedtime. [facility] blood sugar diagnostic (ACCU-CHEK SMARTVIEW TEST STRIP) strip 8 00:00: 00 Yes [id number] Use as directed [facility] blood sugar diagnostic (ACCU-CHEK SMARTVIEW TEST STRIP) strip 0 8 00:00: 00 Yes [id number] Use as directed [facility] blood sugar diagnostic (ACCU-CHEK SMARTVIEW TEST STRIP) strip 2022-0 8- 00:00: 00 Yes [id number] Use as directed [facility] blood sugar diagnostic (ACCU-CHEK SMARTVIEW TEST STRIP) strip 0 8- 00:00: 00 Yes [id number] Use as directed [facility] blood sugar diagnostic (ACCU-CHEK SMARTVIEW TEST STRIP) strip 2022-0 8- 00:00: 00 Yes [id number] Use as directed [facility] blood sugar diagnostic (ACCU-CHEK SMARTVIEW TEST STRIP) strip 2022-0 8- 00:00: 00 Yes [id number] Use as directed [facility] blood sugar diagnostic (ACCU-CHEK SMARTVIEW TEST STRIP) strip 2022-0 8- 00:00: 00 Yes [id number] Use as directed [facility] blood sugar diagnostic (ACCU-CHEK SMARTVIEW TEST STRIP) strip 2022-0 8- 00:00: 00 Yes [id number] Use as directed [facility] blood sugar diagnostic (ACCU-CHEK SMARTVIEW TEST STRIP) strip 2022-0 8- 00:00: 00 Yes [id number] Use as directed [facility] blood sugar diagnostic (ACCU-CHEK SMARTVIEW TEST STRIP) strip 0 8- 00:00: 00 Yes [id number] Use as directed [facility] blood sugar diagnostic (ACCU-CHEK SMARTVIEW TEST STRIP) strip 2022-0 8- 00:00: 00 Yes [id number] Use as directed [facility] blood sugar diagnostic (ACCU-CHEK SMARTVIEW TEST STRIP) strip 2022-0 8- 00:00: 00 Yes [id number] Use as directed [facility] blood sugar diagnostic (ACCU-CHEK SMARTVIEW TEST STRIP) strip 0 8- 00:00: 00 Yes [id number] Use as directed [facility] blood sugar diagnostic (ACCU-CHEK SMARTVIEW TEST STRIP) strip 2022-0 8- 00:00: 00 Yes [id number] Use as directed [facility] blood sugar diagnostic (ACCU-CHEK SMARTVIEW TEST STRIP) strip 3-0 8- 00:00: 00 Yes [id number] Use as directed [facility] blood sugar diagnostic (ACCU-CHEK SMARTVIEW TEST STRIP) strip 2022-0 8- 00:00: 00 Yes [id number] Use as directed [facility] blood sugar diagnostic (ACCU-CHEK SMARTVIEW TEST STRIP) strip 2022-0 8- 00:00: 00 Yes [id number] Use as directed [facility] blood sugar diagnostic (ACCU-CHEK SMARTVIEW TEST STRIP) strip 2022-0 8- 00:00: 00 Yes [id number] Use as directed [facility] blood sugar diagnostic (ACCU-CHEK SMARTVIEW TEST STRIP) strip 2022-0 8- 00:00: 00 Yes [id number] Use as directed [facility] blood sugar diagnostic (ACCU-CHEK SMARTVIEW TEST STRIP) strip 2022-0 8- 00:00: 00 Yes [id number] Use as directed [facility] blood sugar diagnostic (ACCU-CHEK SMARTVIEW TEST STRIP) strip 2022-0 8- 00:00: 00 Yes [id number] Use as directed [facility] blood sugar diagnostic (ACCU-CHEK SMARTVIEW TEST STRIP) strip 2022-0 8- 00:00: 00 Yes [id number] Use as directed [facility] blood sugar diagnostic (ACCU-CHEK SMARTVIEW TEST STRIP) strip 2022-0 8- 00:00: 00 Yes [id number] Use as directed [facility] blood sugar diagnostic (ACCU-CHEK SMARTVIEW TEST STRIP) strip 2022-0 8- 00:00: 00 Yes [id number] Use as directed [facility] blood sugar diagnostic (ACCU-CHEK SMARTVIEW TEST STRIP) strip 2022-0 8- 00:00: 00 Yes [id number] Use as directed [facility] blood sugar diagnostic (ACCU-CHEK SMARTVIEW TEST STRIP) strip 2022-0 8- 00:00: 00 Yes [id number] Use as directed [facility] blood sugar diagnostic (ACCU-CHEK SMARTVIEW TEST STRIP) strip 0 8 00:00: 00 Yes [id number] Use as directed [facility] blood sugar diagnostic (ACCU-CHEK SMARTVIEW TEST STRIP) strip 0 8- 00:00: 00 Yes [id number] Use as directed [facility] blood sugar diagnostic (ACCU-CHEK SMARTVIEW TEST STRIP) strip 0 8- 00:00: 00 Yes [id number] Use as directed [facility] blood sugar diagnostic (ACCU-CHEK SMARTVIEW TEST STRIP) strip 0 8- 00:00: 00 Yes [id number] Use as directed [facility] blood sugar diagnostic (ACCU-CHEK SMARTVIEW TEST STRIP) strip 0 8- 00:00: 00 Yes [id number] Use as directed [facility] glimepiride 1 mg tablet 0 12-22 00:00: 00 Yes [id number] 1mg Take 1 tablet by mouth daily with breakfast. [facility] glimepiride 1 mg tablet 0 12-22 00:00: 00 Yes [id number] 1mg Take 1 tablet by mouth daily with breakfast. [facility] glimepiride 1 mg tablet 0 12-22 00:00: 00 Yes [id number] 1mg Take 1 tablet by mouth daily with breakfast. [facility] glimepiride 1 mg tablet 0 12-22 00:00: 00 Yes [id number] 1mg Take 1 tablet by mouth daily with breakfast. [facility] glimepiride 1 mg tablet 2022-0 12-22 00:00: 00 Yes [id number] 1mg Take 1 tablet by mouth daily with breakfast. [facility] glimepiride 1 mg tablet 0 12-22 00:00: 00 Yes [id number] 1mg Take 1 tablet by mouth daily with breakfast. [facility] glimepiride 1 mg tablet 2022-0 12-22 00:00: 00 Yes [id number] 1mg Take 1 tablet by mouth daily with breakfast. [facility] glimepiride 1 mg tablet 2022-0 - 00:00: 00 03-02 00:00 :00 No [id number] 1mg Take 1 tablet by mouth daily with breakfast. [facility] glimepiride 1 mg tablet 2022-0 7- 00:00: 00 03-02 00:00 :00 No [id number] 1mg Take 1 tablet by mouth daily with breakfast. [facility] sacubitriL- valsartan (ENTRESTO) 24-26 mg tablet 2022-0 10-30 00:00: 00 Yes 1{tbl} Take 1 tablet by mouth in the morning. [facility] sacubitriL- valsartan (ENTRESTO) 49-51 mg tablet 2022-0 10-30 00:00: 00 Yes 1{tbl} Take 1 tablet by mouth in the morning. [facility] sacubitriL- valsartan (ENTRESTO) 24-26 mg tablet 2022-0 10-30 00:00: 00 Yes 1{tbl} Take 1 tablet by mouth in the morning. [facility] sacubitriL- valsartan (ENTRESTO) 49-51 mg tablet 2022-0 10-30 00:00: 00 Yes 1{tbl} Take 1 tablet by mouth in the morning. [facility] sacubitriL- valsartan (ENTRESTO) 24-26 mg tablet 3-0 10-30 00:00: 00 Yes 1{tbl} Take 1 tablet by mouth in the morning. [facility] sacubitriL- valsartan (ENTRESTO) 49-51 mg tablet 2022-0 - 00:00: 00 Yes 1{tbl} Take 1 tablet by mouth in the morning. [facility] sacubitriL- valsartan (ENTRESTO) 24-26 mg tablet 3-0 - 00:00: 00 Yes 1{tbl} Take 1 tablet by mouth in the morning. [facility] sacubitriL- valsartan (ENTRESTO) 49-51 mg tablet 2023-0 5-11 00:00: 00 Yes 1{tbl} Take 1 tablet by mouth in the morning. [facility] sacubitriL- valsartan (ENTRESTO) 24-26 mg tablet 2023-0 5-11 00:00: 00 Yes 1{tbl} Take 1 tablet by mouth in the morning. [facility] sacubitriL- valsartan (ENTRESTO) 49-51 mg tablet 2023-0 5-11 00:00: 00 Yes 1{tbl} Take 1 tablet by mouth in the morning. [facility] sacubitriL- valsartan (ENTRESTO) 24-26 mg tablet 2023-0 5-11 00:00: 00 Yes 1{tbl} Take 1 tablet by mouth in the morning. [facility] sacubitriL- valsartan (ENTRESTO) 49-51 mg tablet 2023-0 5-11 00:00: 00 Yes 1{tbl} Take 1 tablet by mouth in the morning. [facility] sacubitriL- valsartan (ENTRESTO) 24-26 mg tablet 2023-0 5-11 00:00: 00 Yes 1{tbl} Take 1 tablet by mouth in the morning. [facility] sacubitriL- valsartan (ENTRESTO) 49-51 mg tablet 2023-0 5-11 00:00: 00 Yes 1{tbl} Take 1 tablet by mouth in the morning. [facility] sacubitriL- valsartan (ENTRESTO) 24-26 mg tablet 2023-0 5-11 00:00: 00 Yes 1{tbl} Take 1 tablet by mouth in the morning. [facility] sacubitriL- valsartan (ENTRESTO) 49-51 mg tablet 2023-0 5-11 00:00: 00 Yes 1{tbl} Take 1 tablet by mouth in the morning. [facility] sacubitriL- valsartan (ENTRESTO) 24-26 mg tablet 2023-0 5-11 00:00: 00 Yes 1{tbl} Take 1 tablet by mouth in the morning. [facility] sacubitriL- valsartan (ENTRESTO) 49-51 mg tablet 2023-0 5-11 00:00: 00 Yes 1{tbl} Take 1 tablet by mouth in the morning. [facility] sacubitriL- valsartan (ENTRESTO) 24-26 mg tablet 2023-0 5-11 00:00: 00 Yes 1{tbl} Take 1 tablet by mouth in the morning. [facility] sacubitriL- valsartan (ENTRESTO) 49-51 mg tablet 2023-0 5-11 00:00: 00 Yes 1{tbl} Take 1 tablet by mouth in the morning. [facility] sacubitriL- valsartan (ENTRESTO) 49-51 mg tablet 2023-0 5-11 00:00: 00 Yes 1{tbl} Take 1 tablet by mouth in the morning. [facility] sacubitriL- valsartan (ENTRESTO) 49-51 mg tablet 2023-0 5-11 00:00: 00 Yes 1{tbl} Take 1 tablet by mouth in the morning. [facility] sacubitriL- valsartan (ENTRESTO) 49-51 mg tablet 3-0 5-11 00:00: 00 Yes 1{tbl} Take 1 tablet by mouth in the morning. [facility] sacubitriL- valsartan (ENTRESTO) 49-51 mg tablet 2023-0 5-11 00:00: 00 Yes 1{tbl} Take 1 tablet by mouth in the morning. [facility] sacubitriL- valsartan (ENTRESTO) 49-51 mg tablet 2023-0 5-11 00:00: 00 Yes 1{tbl} Take 1 tablet by mouth in the morning. [facility] sacubitriL- valsartan (ENTRESTO) 49-51 mg tablet 2023-0 5-11 00:00: 00 Yes 1{tbl} Take 1 tablet by mouth in the morning. [facility] sacubitriL- valsartan (ENTRESTO) 49-51 mg tablet 2023-0 5-11 00:00: 00 Yes 1{tbl} Take 1 tablet by mouth in the morning. [facility] sacubitriL- valsartan (ENTRESTO) 49-51 mg tablet 2023-0 5-11 00:00: 00 Yes 1{tbl} Take 1 tablet by mouth in the morning. [facility] sacubitriL- valsartan (ENTRESTO) 49-51 mg tablet 2023-0 5-11 00:00: 00 Yes 1{tbl} Take 1 tablet by mouth in the morning. [facility] sacubitriL- valsartan (ENTRESTO) 49-51 mg tablet 2023-0 5-11 00:00: 00 Yes 1{tbl} Take 1 tablet by mouth in the morning. [facility] sacubitriL- valsartan (ENTRESTO) 49-51 mg tablet 2023-0 5-11 00:00: 00 Yes 1{tbl} Take 1 tablet by mouth in the morning. [facility] sacubitriL- valsartan (ENTRESTO) 49-51 mg tablet 2023-0 5-11 00:00: 00 Yes 1{tbl} Take 1 tablet by mouth in the morning. [facility] sacubitriL- valsartan (ENTRESTO) 49-51 mg tablet 2023-0 5-11 00:00: 00 Yes 1{tbl} Take 1 tablet by mouth in the morning. [facility] sacubitriL- valsartan (ENTRESTO) 49-51 mg tablet 2023-0 5-11 00:00: 00 Yes 1{tbl} Take 1 tablet by mouth in the morning. [facility] sacubitriL- valsartan (ENTRESTO) 49-51 mg tablet 2023-0 5-11 00:00: 00 Yes 1{tbl} Take 1 tablet by mouth in the morning. [facility] sacubitriL- valsartan (ENTRESTO) 49-51 mg tablet 2023-0 5-11 00:00: 00 Yes 1{tbl} Take 1 tablet by mouth in the morning. [facility] sacubitriL- valsartan (ENTRESTO) 49-51 mg tablet 2023-0 5-11 00:00: 00 Yes 1{tbl} Take 1 tablet by mouth in the morning. [facility] sacubitriL- valsartan (ENTRESTO) 49-51 mg tablet 2023-0 5-11 00:00: 00 Yes 1{tbl} Take 1 tablet by mouth in the morning. [facility] sacubitriL- valsartan (ENTRESTO) 49-51 mg tablet 2023-0 5-11 00:00: 00 Yes 1{tbl} Take 1 tablet by mouth in the morning. [facility] sacubitriL- valsartan (ENTRESTO) 49-51 mg tablet 2023-0 5-11 00:00: 00 Yes 1{tbl} Take 1 tablet by mouth in the morning. [facility] sacubitriL- valsartan (ENTRESTO) 49-51 mg tablet 2023-0 5-11 00:00: 00 Yes 1{tbl} Take 1 tablet by mouth in the morning. [facility] sacubitriL- valsartan (ENTRESTO) 49-51 mg tablet 2023-0 5-11 00:00: 00 Yes 1{tbl} Take 1 tablet by mouth in the morning. [facility] sacubitriL- valsartan (ENTRESTO) 49-51 mg tablet 2023-0 5-11 00:00: 00 Yes 1{tbl} Take 1 tablet by mouth in the morning. [facility] sacubitriL- valsartan (ENTRESTO) 49-51 mg tablet 2023-0 5-11 00:00: 00 Yes 1{tbl} Take 1 tablet by mouth in the morning. [facility] sacubitriL- valsartan (ENTRESTO) 49-51 mg tablet 2023-0 5-11 00:00: 00 Yes 1{tbl} Take 1 tablet by mouth in the morning. [facility] sacubitriL- valsartan (ENTRESTO) 49-51 mg tablet 10-30 00:00: 00 Yes 1{tbl} Take 1 tablet by mouth in the morning. [facility] sacubitriL- valsartan (ENTRESTO) 24-26 mg tablet 10-30 00:00: 00 03-02 00:00 :00 No 1{tbl} Take 1 tablet by mouth in the morning. [facility] sacubitriL- valsartan (ENTRESTO) 24-26 mg tablet 10-30 00:00: 00 03-02 00:00 :00 No 1{tbl} Take 1 tablet by mouth in the morning. [facility] iron sucrose (VENOFER) 500 mg in NaCl 0.9% (NS) 250 mL infusion 08-13 02:30: 00 09-10 01:29 :00 No [id number] 500mg [facility] ferric derisomalto se (MONOFERRIC ) 1,000 mg in NaCl 0.9% (NS) 100 mL infusion 07-15 06:00: 00 07-15 17:59 :00 No [id number] 1000mg [facility] ferric derisomalto se (MONOFERRIC ) 1,000 mg in NaCl 0.9% (NS) 100 mL infusion 07-15 06:00: 00 07-15 17:59 :00 No [id number] 1000mg [facility] ferric derisomalto se (MONOFERRIC ) 1,000 mg in NaCl 0.9% (NS) 100 mL infusion 07-15 06:00: 00 07-15 17:59 :00 No [id number] 1000mg [facility] ferric derisomalto se (MONOFERRIC ) 1,000 mg in NaCl 0.9% (NS) 100 mL infusion 07-15 06:00: 00 07-15 17:59 :00 No [id number] 1000mg [facility] ferric derisomalto se (MONOFERRIC ) 1,000 mg in NaCl 0.9% (NS) 100 mL infusion 07-14 18:00: 00 07-14 17:19 :08 No [id number] 1000mg [facility] ferric derisomalto se (MONOFERRIC ) 1,000 mg in NaCl 0.9% (NS) 100 mL infusion 07-14 18:00: 00 07-14 17:19 :08 No [id number] 1000mg [facility] ferric derisomalto se (MONOFERRIC ) 1,000 mg in NaCl 0.9% (NS) 100 mL infusion 07-14 18:00: 00 07-14 17:19 :08 No [id number] 1000mg [facility] terbinafine HCL 250 mg tablet 07-07 00:00: 00 Yes [id number] 250mg Take 1 tablet by mouth in the morning. [facility] terbinafine HCL 250 mg tablet 07-07 00:00: 00 Yes [id number] 250mg Take 1 tablet by mouth in the morning. [facility] terbinafine HCL 250 mg tablet 07-07 00:00: 00 Yes [id number] 250mg Take 1 tablet by mouth in the morning. [facility] terbinafine HCL 250 mg tablet 07-07 00:00: 00 Yes [id number] 250mg Take 1 tablet by mouth in the morning. [facility] terbinafine HCL 250 mg tablet 07-07 00:00: 00 Yes [id number] 250mg Take 1 tablet by mouth in the morning. [facility] terbinafine HCL 250 mg tablet 0 16 00:00: 00 Yes [id number] 250mg Take 1 tablet by mouth in the morning. [facility] terbinafine HCL 250 mg tablet 16 00:00: 00 Yes [id number] 250mg Take 1 tablet by mouth in the morning. [facility] terbinafine HCL 250 mg tablet 0 16 00:00: 00 Yes [id number] 250mg Take 1 tablet by mouth in the morning. [facility] terbinafine HCL 250 mg tablet 3-0 -16 00:00: 00 Yes [id number] 250mg Take 1 tablet by mouth in the morning. [facility] terbinafine HCL 250 mg tablet 3-0 -16 00:00: 00 Yes [id number] 250mg Take 1 tablet by mouth in the morning. [facility] terbinafine HCL 250 mg tablet 2022-0 -16 00:00: 00 Yes [id number] 250mg Take 1 tablet by mouth in the morning. [facility] terbinafine HCL 250 mg tablet 3-0 -16 00:00: 00 Yes [id number] 250mg Take 1 tablet by mouth in the morning. [facility] terbinafine HCL 250 mg tablet 2022-0 -16 00:00: 00 Yes [id number] 250mg Take 1 tablet by mouth in the morning. [facility] terbinafine HCL 250 mg tablet 2022-0 -16 00:00: 00 Yes [id number] 250mg Take 1 tablet by mouth in the morning. [facility] terbinafine HCL 250 mg tablet 2022-0 16 00:00: 00 Yes [id number] 250mg Take 1 tablet by mouth in the morning. [facility] terbinafine HCL 250 mg tablet 2022-0 -16 00:00: 00 Yes [id number] 250mg Take 1 tablet by mouth in the morning. [facility] terbinafine HCL 250 mg tablet 2022-0 -16 00:00: 00 Yes [id number] 250mg Take 1 tablet by mouth in the morning. [facility] terbinafine HCL 250 mg tablet 3-0 -16 00:00: 00 Yes [id number] 250mg Take 1 tablet by mouth in the morning. [facility] terbinafine HCL 250 mg tablet 3-0 -16 00:00: 00 03-02 00:00 :00 No [id number] 250mg Take 1 tablet by mouth in the morning. [facility] terbinafine HCL 250 mg tablet 16 00:00: 00 03-02 00:00 :00 No [id number] 250mg Take 1 tablet by mouth in the morning. [facility] ENTRESTO 49-51 mg tablet 0 07-03 00:00: 00 Yes [facility] ENTRESTO 49-51 mg tablet 0 07-03 00:00: 00 Yes [facility] ENTRESTO 49-51 mg tablet 0 07-03 00:00: 00 Yes [facility] ENTRESTO 49-51 mg tablet 0 07-03 00:00: 00 Yes [facility] ENTRESTO 49-51 mg tablet 0 07-03 00:00: 00 Yes [facility] ENTRESTO 49-51 mg tablet 0 07-03 00:00: 00 Yes [facility] ENTRESTO 49-51 mg tablet 0 07-03 00:00: 00 Yes [facility] ENTRESTO 49-51 mg tablet 0 07-03 00:00: 00 10-30 00:00 :00 No [facility] ENTRESTO 49-51 mg tablet 0 07-03 00:00: 00 10-30 00:00 :00 No [facility] glimepiride 1 mg tablet 0 06-30 00:00: 00 Yes [id number] 1mg Take 1 tablet by mouth daily with breakfast. [facility] glimepiride 1 mg tablet 2022-0 06-30 00:00: 00 Yes [id number] 1mg Take 1 tablet by mouth daily with breakfast. [facility] glimepiride 1 mg tablet 2022-0 06-30 00:00: 00 Yes [id number] 1mg Take 1 tablet by mouth daily with breakfast. [facility] glimepiride 1 mg tablet 2022-0 06-30 00:00: 00 Yes [id number] 1mg Take 1 tablet by mouth daily with breakfast. [facility] glimepiride 1 mg tablet 06-30 00:00: 00 Yes [id number] 1mg Take 1 tablet by mouth daily with breakfast. [facility] glimepiride 1 mg tablet 06-30 00:00: 00 Yes [id number] 1mg Take 1 tablet by mouth daily with breakfast. [facility] glimepiride 1 mg tablet 06-30 00:00: 00 Yes [id number] 1mg Take 1 tablet by mouth daily with breakfast. [facility] glimepiride 1 mg tablet 06-30 00:00: 00 Yes [id number] 1mg Take 1 tablet by mouth daily with breakfast. [facility] glimepiride 1 mg tablet 06-30 00:00: 00 Yes [id number] 1mg Take 1 tablet by mouth daily with breakfast. [facility] glimepiride 1 mg tablet 06-30 00:00: 00 Yes [id number] 1mg Take 1 tablet by mouth daily with breakfast. [facility] glimepiride 1 mg tablet 06-30 00:00: 00 Yes [id number] 1mg Take 1 tablet by mouth daily with breakfast. [facility] glimepiride 1 mg tablet 06-30 00:00: 00 Yes [id number] 1mg Take 1 tablet by mouth daily with breakfast. [facility] glimepiride 1 mg tablet 06-30 00:00: 00 Yes [id number] 1mg Take 1 tablet by mouth daily with breakfast. [facility] glimepiride 1 mg tablet 06-30 00:00: 00 12-22 00:00 :00 No [id number] 1mg Take 1 tablet by mouth daily with breakfast. [facility] glimepiride 1 mg tablet 06-30 00:00: 00 12-22 00:00 :00 No [id number] 1mg Take 1 tablet by mouth daily with breakfast. [facility] terbinafine HCL 250 mg tablet 2021-06 00:00: 00 Yes [id number] 250mg Take 1 tablet by mouth in the morning. [facility] terbinafine HCL 250 mg tablet 2021-06 00:00: 00 Yes [id number] 250mg Take 1 tablet by mouth in the morning. [facility] terbinafine HCL 250 mg tablet 2021-06 00:00: 00 Yes [id number] 250mg Take 1 tablet by mouth in the morning. [facility] terbinafine HCL 250 mg tablet 2021-06 00:00: 00 Yes [id number] 250mg Take 1 tablet by mouth in the morning. [facility] terbinafine HCL 250 mg tablet 2021-06 00:00: 00 Yes [id number] 250mg Take 1 tablet by mouth in the morning. [facility] terbinafine HCL 250 mg tablet 2021-06 00:00: 00 Yes [id number] 250mg Take 1 tablet by mouth in the morning. [facility] terbinafine HCL 250 mg tablet 2021-06 00:00: 00 Yes [id number] 250mg Take 1 tablet by mouth in the morning. [facility] terbinafine HCL 250 mg tablet 2021-06 00:00: 00 Yes [id number] 250mg Take 1 tablet by mouth in the morning. [facility] terbinafine HCL 250 mg tablet 2021-06 00:00: 00 Yes [id number] 250mg Take 1 tablet by mouth in the morning. [facility] terbinafine HCL 250 mg tablet 2021-06 00:00: 00 Yes [id number] 250mg Take 1 tablet by mouth in the morning. [facility] terbinafine HCL 250 mg tablet 2021-06 00:00: 00 07-07 00:00 :00 No [id number] 250mg Take 1 tablet by mouth in the morning. [facility] glimepiride 1 mg tablet 2021-06 0-14 00:00: 00 Yes [id number] 1mg Take 1 tablet by mouth daily with breakfast. [facility] terbinafine HCL 250 mg tablet 2021-06 014 00:00: 00 Yes [id number] 250mg Take 1 tablet by mouth in the morning. [facility] glimepiride 1 mg tablet 2021-06 014 00:00: 00 Yes [id number] 1mg Take 1 tablet by mouth daily with breakfast. [facility] terbinafine HCL 250 mg tablet 2021-0614 00:00: 00 Yes [id number] 250mg Take 1 tablet by mouth in the morning. [facility] glimepiride 1 mg tablet 2021-06 00:00: 00 Yes [id number] 1mg Take 1 tablet by mouth daily with breakfast. [facility] terbinafine HCL 250 mg tablet 2021-06 00:00: 00 Yes [id number] 250mg Take 1 tablet by mouth in the morning. [facility] glimepiride 1 mg tablet 2021-06 00:00: 00 Yes [id number] 1mg Take 1 tablet by mouth daily with breakfast. [facility] terbinafine HCL 250 mg tablet 2021-06 00:00: 00 Yes [id number] 250mg Take 1 tablet by mouth in the morning. [facility] glimepiride 1 mg tablet 2021-06 00:00: 00 Yes [id number] 1mg Take 1 tablet by mouth daily with breakfast. [facility] terbinafine HCL 250 mg tablet 2021-06 00:00: 00 Yes [id number] 250mg Take 1 tablet by mouth in the morning. [facility] glimepiride 1 mg tablet 2021-0614 00:00: 00 Yes [id number] 1mg Take 1 tablet by mouth daily with breakfast. [facility] terbinafine HCL 250 mg tablet 2021-06 014 00:00: 00 Yes [id number] 250mg Take 1 tablet by mouth in the morning. [facility] glimepiride 1 mg tablet 2021-06 0 00:00: 00 Yes [id number] 1mg Take 1 tablet by mouth daily with breakfast. [facility] terbinafine HCL 250 mg tablet 2021-06 014 00:00: 00 Yes [id number] 250mg Take 1 tablet by mouth in the morning. [facility] glimepiride 1 mg tablet 2021-06 00:00: 00 Yes [id number] 1mg Take 1 tablet by mouth daily with breakfast. [facility] terbinafine HCL 250 mg tablet 2021-06 00:00: 00 Yes [id number] 250mg Take 1 tablet by mouth in the morning. [facility] glimepiride 1 mg tablet 2021-06 00:00: 00 Yes [id number] 1mg Take 1 tablet by mouth daily with breakfast. [facility] terbinafine HCL 250 mg tablet 2021-06 00:00: 00 Yes [id number] 250mg Take 1 tablet by mouth in the morning. [facility] glimepiride 1 mg tablet 2021-06 00:00: 00 Yes [id number] 1mg Take 1 tablet by mouth daily with breakfast. [facility] glimepiride 1 mg tablet 2021-06 00:00: 00 Yes [id number] 1mg Take 1 tablet by mouth daily with breakfast. [facility] glimepiride 1 mg tablet 2021-06 00:00: 00 Yes [id number] 1mg Take 1 tablet by mouth daily with breakfast. [facility] glimepiride 1 mg tablet 2021-06 00:00: 00 Yes [id number] 1mg Take 1 tablet by mouth daily with breakfast. [facility] glimepiride 1 mg tablet 2021-06 00:00: 00 Yes [id number] 1mg Take 1 tablet by mouth daily with breakfast. [facility] glimepiride 1 mg tablet 2021-06 00:00: 00 Yes [id number] 1mg Take 1 tablet by mouth daily with breakfast. [facility] glimepiride 1 mg tablet 2022-1 0-14 00:00: 00 Yes [id number] 1mg Take 1 tablet by mouth daily with breakfast. [facility] glimepiride 1 mg tablet 2021-06 0-14 00:00: 00 Yes [id number] 1mg Take 1 tablet by mouth daily with breakfast. [facility] glimepiride 1 mg tablet 2021-06 0-14 00:00: 00 Yes [id number] 1mg Take 1 tablet by mouth daily with breakfast. [facility] glimepiride 1 mg tablet 2021-06 0-14 00:00: 00 Yes [id number] 1mg Take 1 tablet by mouth daily with breakfast. [facility] glimepiride 1 mg tablet 2021-06 0-14 00:00: 00 Yes [id number] 1mg Take 1 tablet by mouth daily with breakfast. [facility] glimepiride 1 mg tablet 2021-06 0-14 00:00: 00 Yes [id number] 1mg Take 1 tablet by mouth daily with breakfast. [facility] terbinafine HCL 250 mg tablet 2021-06 0-14 00:00: 00 Yes [id number] 250mg Take 1 tablet by mouth in the morning. [facility] glimepiride 1 mg tablet 2021-06 0-14 00:00: 00 06-30 00:00 :00 No [id number] 1mg Take 1 tablet by mouth daily with breakfast. [facility] glimepiride 1 mg tablet 2021-06 0-14 00:00: 00 06-30 00:00 :00 No [id number] 1mg Take 1 tablet by mouth daily with breakfast. [facility] terbinafine HCL 250 mg tablet 2021-06 0-14 00:00: 00 05-20 00:00 :00 No [id number] 250mg Take 1 tablet by mouth in the morning. [facility] terbinafine HCL 250 mg tablet 2021-06 0-14 00:00: 00 05-20 00:00 :00 No [id number] 250mg Take 1 tablet by mouth in the morning. [facility] terbinafine HCL 250 mg tablet 2021-06 0-14 00:00: 00 05-20 00:00 :00 No [id number] 250mg Take 1 tablet by mouth in the morning. [facility] terbinafine HCL 250 mg tablet 2021-06 0-14 00:00: 00 05-20 00:00 :00 No [id number] 250mg Take 1 tablet by mouth in the morning. [facility] terbinafine HCL 250 mg tablet 2021-06 0-14 00:00: 00 05-20 00:00 :00 No [id number] 250mg Take 1 tablet by mouth in the morning. [facility] pioglitazon e (ACTOS) 15 mg tablet 2021-06 0-13 00:00: 00 Yes [id number] 15mg Take 1 tablet by mouth in the morning. [facility] pioglitazon e (ACTOS) 15 mg tablet 2021-06 0-13 00:00: 00 Yes [id number] 15mg Take 1 tablet by mouth in the morning. [facility] pioglitazon e (ACTOS) 15 mg tablet 2021-06 0-13 00:00: 00 Yes [id number] 15mg Take 1 tablet by mouth in the morning. [facility] pioglitazon e (ACTOS) 15 mg tablet 2021-06 0-13 00:00: 00 Yes [id number] 15mg Take 1 tablet by mouth in the morning. [facility] pioglitazon e (ACTOS) 15 mg tablet 2021-06 0-13 00:00: 00 Yes [id number] 15mg Take 1 tablet by mouth in the morning. [facility] pioglitazon e (ACTOS) 15 mg tablet 2021-06 0-13 00:00: 00 Yes [id number] 15mg Take 1 tablet by mouth in the morning. [facility] pioglitazon e (ACTOS) 15 mg tablet 2021-06 0-13 00:00: 00 Yes [id number] 15mg Take 1 tablet by mouth in the morning. [facility] pioglitazon e (ACTOS) 15 mg tablet 2021-06 0-13 00:00: 00 Yes [id number] 15mg Take 1 tablet by mouth in the morning. [facility] pioglitazon e (ACTOS) 15 mg tablet 2021-06 0-13 00:00: 00 Yes [id number] 15mg Take 1 tablet by mouth in the morning. [facility] pioglitazon e (ACTOS) 15 mg tablet 2021-06 0-13 00:00: 00 Yes [id number] 15mg Take 1 tablet by mouth in the morning. [facility] pioglitazon e (ACTOS) 15 mg tablet 2021-06 0-13 00:00: 00 Yes [id number] 15mg Take 1 tablet by mouth in the morning. [facility] pioglitazon e (ACTOS) 15 mg tablet 2021-06 0-13 00:00: 00 Yes [id number] 15mg Take 1 tablet by mouth in the morning. [facility] pioglitazon e (ACTOS) 15 mg tablet 2021-06 0-13 00:00: 00 Yes [id number] 15mg Take 1 tablet by mouth in the morning. [facility] pioglitazon e (ACTOS) 15 mg tablet 2021-06 0-13 00:00: 00 Yes [id number] 15mg Take 1 tablet by mouth in the morning. [facility] pioglitazon e (ACTOS) 15 mg tablet 2021-06 0-13 00:00: 00 05-20 00:00 :00 No [id number] 15mg Take 1 tablet by mouth in the morning. [facility] pioglitazon e (ACTOS) 15 mg tablet 2021-06 0-13 00:00: 00 05-20 00:00 :00 No [id number] 15mg Take 1 tablet by mouth in the morning. [facility] pioglitazon e (ACTOS) 15 mg tablet 2021-06 0-13 00:00: 00 05-20 00:00 :00 No [id number] 15mg Take 1 tablet by mouth in the morning. [facility] pioglitazon e (ACTOS) 15 mg tablet 2021-06 0-13 00:00: 00 05-20 00:00 :00 No [id number] 15mg Take 1 tablet by mouth in the morning. [facility] 15 mg tablet 2021-06 0- 00:00: 00 05-20 00:00 :00 No [id number] 15mg Take 1 tablet by mouth in the morning. [facility] pioglitazon e (ACTOS) 15 mg tablet 2021-06 0 00:00: 00 04-03 00:00 :00 No [id number] 15mg Take 1 tablet by mouth in the morning. [facility] pioglit[facility] (ACTOS) 15 mg tablet 2021-06 00:00: 00 04-03 00:00 :00 No [id number] 15mg Take 1 tablet by mouth in the morning. [facility] lancets 31 gauge Misc 0 03-12 00:00: 00 Yes [id number] Use as directed [facility] sugar diagnostic (ACCU-CHEK SMARTVIEW TEST STRIP) strip 0 03-12 00:00: 00 Yes [id number] Use as directed [facility] lancets 31 gauge [facility] [place] 03-12 00:00: 00 Yes [id number] Use as directed [facility] (ACCU-CHEK SMARTVIEW TEST STRIP) strip 0 03-12 00:00: 00 Yes [id number] Use as directed [facility] lancets 31 gauge Misc 2021-0 03-12 00:00: 00 Yes [id number] Use as directed [facility] blood sugar diagnostic (ACCU-CHEK SMARTVIEW TEST STRIP) strip 0 03-12 00:00: 00 Yes [id number] Use as directed [facility] lancets 31 gauge Misc 2021-0 03-12 00:00: 00 Yes [id number] Use [facility] directed [facility] (ACCU-CHEK SMARTVIEW TEST STRIP) strip 0 9-21 00:00: 00 Yes [id number] Use as directed [facility] lancets 31 gauge Misc 2-0 9-21 00:00: 00 Yes [id number] Use as directed [facility] blood sugar diagnostic (ACCU-CHEK SMARTVIEW TEST STRIP) strip 2021-0 - 00:00: 00 Yes [id number] Use as directed [facility] lancets 31 gauge Misc 2-0 -21 00:00: 00 Yes [id number] Use as directed [facility] blood sugar diagnostic (ACCU-CHEK SMARTVIEW TEST STRIP) strip 2021-0 03-12 00:00: 00 Yes [id number] Use as directed [facility] - [facility] Yes [id number] Use as directed [facility] blood sugar diagnostic (ACCU-CHEK SMARTVIEW TEST STRIP) strip 2021-0 03-12 00:00: 00 Yes [id number] Use as directed [facility]ancets [facility] 2021-0 03-12 00:00: 00 Yes [id number] Use as directed [facility] blood sugar diagnostic (ACCU-CHEK SMARTVIEW TEST STRIP) strip 2021-0 03-12 00:00: 00 Yes [id number] Use as directed [facility] lancets 31 gauge Misc 2-0 21 00:00: 00 Yes [id number] Use as directed [facility] blood sugar diagnostic (ACCU-CHEK SMARTVIEW TEST STRIP) strip 2021-0 03-12 00:00: 00 Yes [id number] Use as directed [facility] lancets 31 gauge Misc 2-0 -21 00:00: 00 Yes [id number] Use as directed [facility] blood sugar diagnostic (ACCU-CHEK SMARTVIEW TEST STRIP) strip 2021-0 - 00:00: 00 Yes [id number] Use as directed [facility] lancets 31 gauge Misc 2-0 9-21 00:00: 00 Yes [id number] Use as directed [facility] blood sugar diagnostic (ACCU-CHEK SMARTVIEW TEST STRIP) strip 2-0 9-21 00:00: 00 Yes [id number] Use as directed [facility] lancets 31 gauge Misc 2-0 9-21 00:00: 00 Yes [id number] Use as directed [facility] blood sugar diagnostic (ACCU-CHEK SMARTVIEW TEST STRIP) strip 2021-0 9-21 00:00: 00 Yes [id number] Use as directed [facility] 2021-0 9-21 00:00: 00 Yes [id number] Use as directed [facility] blood sugar diagnostic (ACCU-CHEK SMARTVIEW TEST STRIP) strip 2021-0 - 00:00: 00 Yes [id number] Use as directed [facility] lancets 31 gauge [facility] [place]-0 9-21 00:00: 00 Yes [id number] Use as directed [facility] blood sugar diagnostic (ACCU-CHEK SMARTVIEW TEST STRIP) strip 2021-0 03-12 00:00: 00 Yes [id number] Use as directed [facility] lancets 31 gauge [facility] [place]-0 -21 00:00: 00 Yes [id number] Use as directed [facility] blood sugar diagnostic (ACCU-CHEK SMARTVIEW TEST STRIP) strip 2021-0 03-12 00:00: 00 Yes [id number] Use as directed [facility]ets [facility] -[facility]:00: 00 Yes [id number] Use as directed [facility] blood sugar diagnostic (ACCU-CHEK SMARTVIEW TEST STRIP) strip 2021-0 9-21 00:00: 00 Yes [id number] Use as directed [facility] lancets 31 gauge Misc 2-0 9-21 00:00: 00 Yes [id number] Use as directed [facility] blood sugar diagnostic (ACCU-CHEK SMARTVIEW TEST STRIP) strip 2-0 9-21 00:00: 00 Yes [id number] Use as directed [facility] lancets 31 gauge Misc 2022-0 9-21 00:00: 00 Yes [id number] Use as directed [facility] blood sugar diagnostic (ACCU-CHEK SMARTVIEW TEST STRIP) strip 2021-0 - 00:00: 00 Yes [id number] Use as directed [facility] lancets 31 [facility] 0 - 00:00: 00 Yes [id number] Use as directed [facility] blood sugar diagnostic (ACCU-CHEK SMARTVIEW TEST STRIP) strip 0 03-12 00:00: 00 Yes [id number] Use as directed [facility] lancets 31 [facility] 0 03-12 00:00: 00 Yes [id number] Use as directed [facility] blood sugar diagnostic (ACCU-CHEK SMARTVIEW TEST STRIP) strip 2021-0 03-12 00:00: 00 Yes [id number] Use as directed [facility] lancets 31 [facility] 0 03-12 00:00: 00 Yes [id number] Use as directed [facility] blood sugar diagnostic (ACCU-CHEK SMARTVIEW TEST STRIP) strip 0 03-12 00:00: 00 Yes [id number] Use as directed [facility] lancets 31 [facility] 0 03-12 00:00: 00 Yes [id number] Use as directed [facility] blood sugar diagnostic (ACCU-CHEK SMARTVIEW TEST STRIP) strip 2021-0 03-12 00:00: 00 Yes [id number] Use as directed [facility] lancets 31 [facility] 0 03-12 00:00: 00 Yes [id number] Use as directed [facility] blood sugar diagnostic (ACCU-CHEK SMARTVIEW TEST STRIP) strip 2021-0 - 00:00: 00 Yes [id number] Use as directed [facility] lancets 31 [facility] 2021-0 03-12 00:00: 00 Yes [id number] Use as directed [facility] blood sugar diagnostic (ACCU-CHEK SMARTVIEW TEST STRIP) strip 0 9-21 00:00: 00 Yes [id number] Use as directed [facility] lancets 31 gauge Misc 2-0 9-21 00:00: 00 Yes [id number] Use as directed [facility] blood sugar diagnostic (ACCU-CHEK SMARTVIEW TEST STRIP) strip 2021-0 - 00:00: 00 Yes [id number] Use as directed [facility] lancets 31 gauge Misc 2-0 -21 00:00: 00 Yes [id number] Use as directed [facility] blood sugar diagnostic (ACCU-CHEK SMARTVIEW TEST STRIP) strip 2021-0 03-12 00:00: 00 Yes [id number] Use as directed [facility] - [facility] Yes [id number] Use as directed [facility] blood sugar diagnostic (ACCU-CHEK SMARTVIEW TEST STRIP) strip 2021-0 03-12 00:00: 00 Yes [id number] Use as directed [facility] 2021-0 03-12 00:00: 00 Yes [id number] Use as directed [facility] blood sugar diagnostic (ACCU-CHEK SMARTVIEW TEST STRIP) strip 2021-0 03-12 00:00: 00 Yes [id number] Use as directed [facility] lancets 31 gauge Misc 2-0 21 00:00: 00 Yes [id number] Use as directed [facility] blood sugar diagnostic (ACCU-CHEK SMARTVIEW TEST STRIP) strip 2021-0 03-12 00:00: 00 Yes [id number] Use as directed [facility] lancets 31 gauge Misc 2-0 -21 00:00: 00 Yes [id number] Use as directed [facility] blood sugar diagnostic (ACCU-CHEK SMARTVIEW TEST STRIP) strip 2021-0 - 00:00: 00 Yes [id number] Use as directed [facility] lancets 31 gauge Misc 2-0 9-21 00:00: 00 Yes [id number] Use as directed [facility] blood sugar diagnostic (ACCU-CHEK SMARTVIEW TEST STRIP) strip 2-0 9-21 00:00: 00 Yes [id number] Use as directed [facility] lancets 31 gauge Misc 2-0 9-21 00:00: 00 Yes [id number] Use as directed [facility] blood sugar diagnostic (ACCU-CHEK SMARTVIEW TEST STRIP) strip 2-0 9-21 00:00: 00 Yes [id number] Use as directed [facility] lancets 31 gauge Misc 2-0 9-21 00:00: 00 Yes [id number] Use as directed [facility] blood sugar diagnostic (ACCU-CHEK SMARTVIEW TEST STRIP) strip 2-0 9-21 00:00: 00 Yes [id number] Use as directed [facility] lancets 31 gauge Misc 2-0 9-21 00:00: 00 Yes [id number] Use as directed [facility] blood sugar diagnostic (ACCU-CHEK SMARTVIEW TEST STRIP) strip 2021-0 -21 00:00: 00 Yes [id number] Use as directed [facility] lancets 31 gauge Misc 2-0 9-21 00:00: 00 Yes [id number] Use as directed [facility] blood sugar diagnostic (ACCU-CHEK SMARTVIEW TEST STRIP) strip 2-0 21 00:00: 00 Yes [id number] Use as directed [facility] lancets 31 gauge Misc 2-0 9-21 00:00: 00 Yes [id number] Use as directed [facility] blood sugar diagnostic (ACCU-CHEK SMARTVIEW TEST STRIP) strip 2-0 9-21 00:00: 00 Yes [id number] Use as directed [facility] lancets 31 gauge Misc 2-0 9-21 00:00: 00 Yes [id number] Use as directed [facility] lancets 31 gauge Misc 2-0 9-21 00:00: 00 Yes [id number] Use as directed [facility] lancets 31 gauge Misc 2022-0 9-21 00:00: 00 Yes [id number] Use as directed [facility] lancets 31 gauge Misc 2022-0 9-21 00:00: 00 Yes [id number] Use as directed [facility] lancets 31 gauge Misc 2022-0 9-21 00:00: 00 Yes [id number] Use as directed [facility] lancets 31 gauge Misc 2022-0 9-21 00:00: 00 Yes [id number] Use as directed [facility] lancets 31 gauge Misc 2022-0 9-21 00:00: 00 Yes [id number] Use as directed [facility] lancets 31 gauge Misc 2022-0 9-21 00:00: 00 Yes [id number] Use as directed [facility] lancets 31 gauge Misc 2022-0 9-21 00:00: 00 Yes [id number] Use as directed [facility] lancets 31 gauge Misc 2022-0 9-21 00:00: 00 Yes [id number] Use as directed [facility] lancets 31 gauge Misc 2022-0 9-21 00:00: 00 Yes [id number] Use as directed [facility] lancets 31 gauge Misc 2022-0 9-21 00:00: 00 Yes [id number] Use as directed [facility] lancets 31 gauge Misc 2022-0 9-21 00:00: 00 Yes [id number] Use as directed [facility] lancets 31 gauge Misc 2022-0 9-21 00:00: 00 Yes [id number] Use as directed [facility] lancets 31 gauge Misc 2022-0 9-21 00:00: 00 Yes [id number] Use as directed [facility] lancets 31 gauge Misc 2022-0 9-21 00:00: 00 Yes [id number] Use as directed [facility] lancets 31 gauge Misc 2022-0 9-21 00:00: 00 Yes [id number] Use as directed [facility] lancets 31 gauge Misc 2022-0 9-21 00:00: 00 Yes [id number] Use as directed [facility] lancets 31 gauge Misc 2-0 9-21 00:00: 00 Yes [id number] Use as directed [facility] lancets 31 gauge Misc 2-0 9-21 00:00: 00 Yes [id number] Use as directed [facility] lancets 31 gauge Misc 2-0 9-21 00:00: 00 Yes [id number] Use as directed [facility] lancets 31 gauge Misc 2022-0 9-21 00:00: 00 Yes [id number] Use as directed [facility] lancets 31 gauge Misc 2-0 9-21 00:00: 00 Yes [id number] Use as directed [facility] lancets 31 gauge Misc 2-0 9-21 00:00: 00 Yes [id number] Use as directed [facility] 9-21 00:00: 00 Yes [id number] Use as directed [facility] lancets 31 gauge Misc 2-0 9-21 00:00: 00 Yes [id number] Use as directed [facility] lancets 31 [facility] Misc 2-0 9-21 00:00: 00 Yes [id number] Use as directed [facility] lancets 31 [facility] Misc 2-0 9-21 00:00: 00 Yes [id number] Use as directed [facility] lancets 31 [facility] Misc 2-0 9-21 00:00: 00 Yes [id number] Use as directed [facility] lancets 31 gauge Misc 2-0 9-21 00:00: 00 Yes [id number] Use as directed [facility] lancets 31 [facility] Misc 2-0 9-21 00:00: 00 Yes [id number] Use as directed [facility] lancets 31 gauge Misc 2-0 9-21 00:00: 00 Yes [id number] Use as directed [facility] SITagliptin -metformin (JANUMET XR) 100-1,000 mg per tablet 2021-0 9-21 00:00: 00 Yes [id number] 1{tbl} Take 1 tablet by mouth in the morning. [facility] lancets 31 [facility] 0 03-12 00:00: 00 Yes [id number] Use as directed [facility] blood sugar diagnostic (ACCU-CHEK SMARTVIEW TEST STRIP) strip 03-12 00:00: 00 Yes [id number] Use as directed [facility] SITagliptin -metformin (JANUMET XR) 100-1,000 mg per tablet 03-12 00:00: 00 Yes [id number] 1{tbl} Take 1 tablet by mouth in the morning. [facility] lancets 31 [facility] 03-12 00:00: 00 Yes [id number] Use as directed [facility] blood sugar diagnostic (ACCU-CHEK SMARTVIEW TEST STRIP) strip 03-12 00:00: 00 Yes [id number] Use as directed [facility] SITagliptin -metformin (JANUMET XR) 100-1,000 mg per tablet 03-12 00:00: 00 Yes [id number] 1{tbl} Take 1 tablet by mouth in the morning. [facility] lancets 31 [facility] 03-12 00:00: 00 Yes [id number] Use as directed [facility] blood sugar diagnostic (ACCU-CHEK SMARTVIEW TEST STRIP) strip 03-12 00:00: 00 Yes [id number] Use as directed [facility] lancets 31 [facility] 0 03-12 00:00: 00 Yes [id number] Use as directed [facility] blood sugar diagnostic (ACCU-CHEK SMARTVIEW TEST STRIP) strip 0 03-12 00:00: 00 Yes [id number] Use as directed [facility] lancets 31 [facility] 0 03-12 00:00: 00 Yes [id number] Use as directed [facility] blood sugar diagnostic (ACCU-CHEK SMARTVIEW TEST STRIP) strip 0 03-12 00:00: 00 Yes [id number] Use as directed [facility] lancets 31 gauge Misc 0 03-12 00:00: 00 Yes [id number] Use as directed [facility] blood sugar diagnostic (ACCU-CHEK SMARTVIEW TEST STRIP) strip 0 03-12 00:00: 00 Yes [id number] Use as directed [facility] lancets 31 gauge Misc 0 03-12 00:00: 00 Yes [id number] Use as directed [facility] blood sugar diagnostic (ACCU-CHEK SMARTVIEW TEST STRIP) strip 0 03-12 00:00: 00 Yes [id number] Use as directed [facility] lancets 31 gauge Misc 0 03-12 00:00: 00 Yes [id number] Use as directed [facility] blood sugar diagnostic (ACCU-CHEK SMARTVIEW TEST STRIP) strip 0 03-12 00:00: 00 Yes [id number] Use as directed [facility] blood sugar diagnostic (ACCU-CHEK SMARTVIEW TEST STRIP) strip 0 03-12 00:00: 00 01-20 00:00 :00 No [id number] [facility] -[facility] (JANUMET XR) 100-1,000 mg per tablet 03-12 00:00: 00 04-03 00:00 :00 No [id number] 1{tbl} Take 1 tablet by mouth in the morning. [facility] SITagliptin -metformin (JANUMET XR) 100-1,000 mg per tablet 03-12 00:00: 00 04-03 00:00 :00 No [id number] 1{tbl} Take 1 tablet by mouth in the morning. [facility] losartan 25 mg tablet 03-03 00:00: 00 Yes [facility] losartan 25 mg tablet 03-03 00:00: 00 Yes [facility] losartan 25 mg tablet 03-03 00:00: 00 Yes [facility] losartan 25 mg tablet 2021-0 12 00:00: 00 Yes [facility] losartan 25 mg tablet 2-0 03-03 00:00: 00 Yes [facility] losartan 25 mg tablet 2-0 03-03 00:00: 00 Yes [facility] losartan 25 mg tablet 2-0 03-03 00:00: 00 Yes [facility] losartan 25 mg tablet 2-0 03-03 00:00: 00 Yes [facility] losartan 25 mg tablet 2-0 03-03 00:00: 00 Yes [facility] losartan 25 mg tablet 2-0 03-03 00:00: 00 Yes [facility] losartan 25 mg tablet 2-0 03-03 00:00: 00 Yes [facility] losartan 25 mg tablet 2-0 03-03 00:00: 00 Yes [facility] losartan 25 mg tablet 2-0 03-03 00:00: 00 Yes [facility] losartan 25 mg tablet 2-0 03-03 00:00: 00 Yes [facility] losartan 25 mg tablet 2-0 03-03 00:00: 00 Yes [facility] losartan 25 mg tablet 2-0 03-03 00:00: 00 Yes [facility] losartan 25 mg tablet 2-0 03-03 00:00: 00 Yes [facility] losartan 25 mg tablet 2-0 03-03 00:00: 00 Yes [facility] losartan 25 mg tablet 2-0 03-03 00:00: 00 Yes [facility] losartan 25 mg tablet 2-0 03-03 00:00: 00 Yes [facility] losartan 25 mg tablet 2-0 03-03 00:00: 00 Yes [facility] losartan 25 mg tablet 2-0 03-03 00:00: 00 Yes [facility] losartan 25 mg tablet 2-0 03-03 00:00: 00 Yes [facility] losartan 25 mg tablet 2-0 03-03 00:00: 00 Yes [facility] losartan 25 mg tablet 2-0 -12 00:00: 00 Yes [facility] losartan 25 mg tablet 2-0 -12 00:00: 00 Yes [facility] losartan 25 mg tablet 2-0 -12 00:00: 00 Yes [facility] losartan 25 mg tablet 2-0 -12 00:00: 00 Yes [facility] losartan 25 mg tablet 2-0 -12 00:00: 00 Yes [facility] losartan 25 mg tablet 2-0 -12 00:00: 00 Yes [facility] losartan 25 mg tablet 2-0 -12 00:00: 00 07-14 00:00 :00 No [facility] losartan 25 mg tablet 2021-0 12 00:00: 00 07-14 00:00 :00 No [facility] losartan 25 mg tablet 2-0 03-03 00:00: 00 07-14 00:00 :00 No [facility] SILDENAFIL 100 mg tablet 2021-0 11-14 00:00: 00 Yes [id number] 100mg Take 1 tablet by mouth as needed for Other (Erectile Dysfunctio n). [facility] SILDENAFIL 100 mg tablet 2021-0 11-14 00:00: 00 Yes [id number] 100mg Take 1 tablet by mouth as needed for Other (Erectile Dysfunctio n). [facility] SILDENAFIL 100 mg tablet 2021-0 11-14 00:00: 00 Yes [id number] 100mg Take 1 tablet by mouth as needed for Other (Erectile Dysfunctio n). [facility] SILDENAFIL 100 mg tablet 2-0 11-14 00:00: 00 Yes [id number] 100mg Take 1 tablet by mouth as needed for Other (Erectile Dysfunctio n). [facility] SILDENAFIL 100 mg tablet 2-0 -26 00:00: 00 Yes [id number] 100mg Take 1 tablet by mouth as needed for Other (Erectile Dysfunctio n). [facility] SILDENAFIL 100 mg tablet 2021-0 11-14 00:00: 00 Yes [id number] 100mg Take 1 tablet by mouth as needed for Other (Erectile Dysfunctio n). [facility] SILDENAFIL 100 mg tablet 0 11-14 00:00: 00 Yes [id number] 100mg Take 1 tablet by mouth as needed for Other (Erectile Dysfunctio n). [facility] SILDENAFIL 100 mg tablet 0 11-14 00:00: 00 Yes [id number] 100mg Take 1 tablet by mouth as needed for Other (Erectile Dysfunctio n). [facility] SILDENAFIL 100 mg tablet 0 11-14 00:00: 00 Yes [id number] 100mg Take 1 tablet by mouth as needed for Other (Erectile Dysfunctio n). [facility] SILDENAFIL 100 mg tablet 0 11-14 00:00: 00 Yes [id number] 100mg Take 1 tablet by mouth as needed for Other (Erectile Dysfunctio n). [facility] SILDENAFIL 100 mg tablet 0 11-14 00:00: 00 Yes [id number] 100mg Take 1 tablet by mouth as needed for Other (Erectile Dysfunctio n). [facility] SILDENAFIL 100 mg tablet 0 11-14 00:00: 00 Yes [id number] 100mg Take 1 tablet by mouth as needed for Other (Erectile Dysfunctio n). [facility] SILDENAFIL 100 mg tablet 2021-0 11-14 00:00: 00 Yes [id number] 100mg Take 1 tablet by mouth as needed for Other (Erectile Dysfunctio n). [facility] SILDENAFIL 100 mg tablet 2021-0 11-14 00:00: 00 Yes [id number] 100mg Take 1 tablet by mouth as needed for Other (Erectile Dysfunctio n). [facility] SILDENAFIL 100 mg tablet 2021-0 11-14 00:00: 00 Yes [id number] 100mg Take 1 tablet by mouth as needed for Other (Erectile Dysfunctio n). [facility] SILDENAFIL 100 mg tablet 2021-0 11-14 00:00: 00 Yes [id number] 100mg Take 1 tablet by mouth as needed for Other (Erectile Dysfunctio n). [facility] SILDENAFIL 100 mg tablet 0 11-14 00:00: 00 Yes [id number] 100mg Take 1 tablet by mouth as needed for Other (Erectile Dysfunctio n). [facility] SILDENAFIL 100 mg tablet 0 11-14 00:00: 00 Yes [id number] 100mg Take 1 tablet by mouth as needed for Other (Erectile Dysfunctio n). [facility] SILDENAFIL 100 mg tablet 0 11-14 00:00: 00 Yes [id number] 100mg Take 1 tablet by mouth as needed for Other (Erectile Dysfunctio n). [facility] SILDENAFIL 100 mg tablet 2021-0 11-14 00:00: 00 Yes [id number] 100mg Take 1 tablet by mouth as needed for Other (Erectile Dysfunctio n). [facility] SILDENAFIL 100 mg tablet 0 11-14 00:00: 00 Yes [id number] 100mg Take 1 tablet by mouth as needed for Other (Erectile Dysfunctio n). [facility] SILDENAFIL 100 mg tablet 0 11-14 00:00: 00 Yes [id number] 100mg Take 1 tablet by mouth as needed for Other (Erectile Dysfunctio n). [facility] SILDENAFIL 100 mg tablet 0 11-14 00:00: 00 Yes [id number] 100mg Take 1 tablet by mouth as needed for Other (Erectile Dysfunctio n). [facility] SILDENAFIL 100 mg tablet 2021-0 11-14 00:00: 00 Yes [id number] 100mg Take 1 tablet by mouth as needed for Other (Erectile Dysfunctio n). [facility] SILDENAFIL 100 mg tablet 2021-0 11-14 00:00: 00 Yes [id number] 100mg Take 1 tablet by mouth as needed for Other (Erectile Dysfunctio n). [facility] SILDENAFIL 100 mg tablet 2021-0 11-14 00:00: 00 Yes [id number] 100mg Take 1 tablet by mouth as needed for Other (Erectile Dysfunctio n). [facility] SILDENAFIL 100 mg tablet 2021-0 11-14 00:00: 00 Yes [id number] 100mg Take 1 tablet by mouth as needed for Other (Erectile Dysfunctio n). [facility] SILDENAFIL 100 mg tablet 2021-0 11-14 00:00: 00 Yes [id number] 100mg Take 1 tablet by mouth as needed for Other (Erectile Dysfunctio n). [facility] SILDENAFIL 100 mg tablet 2021-0 11-14 00:00: 00 Yes [id number] 100mg Take 1 tablet by mouth as needed for Other (Erectile Dysfunctio n). [facility] SILDENAFIL 100 mg tablet 0 11-14 00:00: 00 Yes [id number] 100mg Take 1 tablet by mouth as needed for Other (Erectile Dysfunctio n). [facility] SILDENAFIL 100 mg tablet 2021-0 11-14 00:00: 00 Yes [id number] 100mg Take 1 tablet by mouth as needed for Other (Erectile Dysfunctio n). [facility] SILDENAFIL 100 mg tablet 0 11-14 00:00: 00 Yes [id number] 100mg Take 1 tablet by mouth as needed for Other (Erectile Dysfunctio n). [facility] SILDENAFIL 100 mg tablet 2021-0 11-14 00:00: 00 Yes [id number] 100mg Take 1 tablet by mouth as needed for Other (Erectile Dysfunctio n). [facility] SILDENAFIL 100 mg tablet 2021-0 11-14 00:00: 00 Yes [id number] 100mg Take 1 tablet by mouth as needed for Other (Erectile Dysfunctio n). [facility] SILDENAFIL 100 mg tablet 2021-0 11-14 00:00: 00 Yes [id number] 100mg Take 1 tablet by mouth as needed for Other (Erectile Dysfunctio n). [facility] SILDENAFIL 100 mg tablet 2-0 11-14 00:00: 00 Yes [id number] 100mg Take 1 tablet by mouth as needed for Other (Erectile Dysfunctio n). [facility] SILDENAFIL 100 mg tablet 0 11-14 00:00: 00 Yes [id number] 100mg Take 1 tablet by mouth as needed for Other (Erectile Dysfunctio n). [facility] SILDENAFIL 100 mg tablet 0 11-14 00:00: 00 Yes [id number] 100mg Take 1 tablet by mouth as needed for Other (Erectile Dysfunctio n). [facility] SILDENAFIL 100 mg tablet 2021-0 11-14 00:00: 00 Yes [id number] 100mg Take 1 tablet by mouth as needed for Other (Erectile Dysfunctio n). [facility] SILDENAFIL 100 mg tablet 0 11-14 00:00: 00 Yes [id number] 100mg Take 1 tablet by mouth as needed for Other (Erectile Dysfunctio n). [facility] SILDENAFIL 100 mg tablet 0 11-14 00:00: 00 Yes [id number] 100mg Take 1 tablet by mouth as needed for Other (Erectile Dysfunctio n). [facility] SILDENAFIL 100 mg tablet 0 11-14 00:00: 00 Yes [id number] 100mg Take 1 tablet by mouth as needed for Other (Erectile Dysfunctio n). [facility] SILDENAFIL 100 mg tablet 0 11-14 00:00: 00 Yes [id number] 100mg Take 1 tablet by mouth as needed for Other (Erectile Dysfunctio n). [facility] SILDENAFIL 100 mg tablet 0 11-14 00:00: 00 Yes [id number] 100mg Take 1 tablet by mouth as needed for Other (Erectile Dysfunctio n). [facility] SILDENAFIL 100 mg tablet 2021-0 11-14 00:00: 00 Yes [id number] 100mg Take 1 tablet by mouth as needed for Other (Erectile Dysfunctio n). [facility] SILDENAFIL 100 mg tablet 2021-0 11-14 00:00: 00 Yes [id number] 100mg Take 1 tablet by mouth as needed for Other (Erectile Dysfunctio n). [facility] SILDENAFIL 100 mg tablet 2021-0 11-14 00:00: 00 Yes [id number] 100mg Take 1 tablet by mouth as needed for Other (Erectile Dysfunctio n). [facility] SILDENAFIL 100 mg tablet 2021-0 11-14 00:00: 00 Yes [id number] 100mg Take 1 tablet by mouth as needed for Other (Erectile Dysfunctio n). [facility] SILDENAFIL 100 mg tablet 2021-0 11-14 00:00: 00 Yes [id number] 100mg Take 1 tablet by mouth as needed for Other (Erectile Dysfunctio n). [facility] SILDENAFIL 100 mg tablet 2021-0 11-14 00:00: 00 Yes [id number] 100mg Take 1 tablet by mouth as needed for Other (Erectile Dysfunctio n). [facility] SILDENAFIL 100 mg tablet 2021-0 11-14 00:00: 00 Yes [id number] 100mg Take 1 tablet by mouth as needed for Other (Erectile Dysfunctio n). [facility] SILDENAFIL 100 mg tablet 2021-0 11-14 00:00: 00 Yes [id number] 100mg Take 1 tablet by mouth as needed for Other (Erectile Dysfunctio n). [facility] SILDENAFIL 100 mg tablet 2021-0 11-14 00:00: 00 Yes [id number] 100mg Take 1 tablet by mouth as needed for Other (Erectile Dysfunctio n). [facility] SILDENAFIL 100 mg tablet 2021-0 11-14 00:00: 00 Yes [id number] 100mg Take 1 tablet by mouth as needed for Other (Erectile Dysfunctio n). [facility] SILDENAFIL 100 mg tablet 2-0 11-14 00:00: 00 Yes [id number] 100mg Take 1 tablet by mouth as needed for Other (Erectile Dysfunctio n). [facility] SILDENAFIL 100 mg tablet 2-0 11-14 00:00: 00 Yes [id number] 100mg Take 1 tablet by mouth as needed for Other (Erectile Dysfunctio n). [facility] SILDENAFIL 100 mg tablet 0 11-14 00:00: 00 Yes [id number] 100mg Take 1 tablet by mouth as needed for Other (Erectile Dysfunctio n). [facility] SILDENAFIL 100 mg tablet 0 11-14 00:00: 00 Yes [id number] 100mg Take 1 tablet by mouth as needed for Other (Erectile Dysfunctio n). [facility] SILDENAFIL 100 mg tablet 0 11-14 00:00: 00 Yes [id number] 100mg Take 1 tablet by mouth as needed for Other (Erectile Dysfunctio n). [facility] SILDENAFIL 100 mg tablet 0 11-14 00:00: 00 Yes [id number] 100mg Take 1 tablet by mouth as needed for Other (Erectile Dysfunctio n). [facility] SILDENAFIL 100 mg tablet 0 11-14 00:00: 00 Yes [id number] 100mg Take 1 tablet by mouth as needed for Other (Erectile Dysfunctio n). [facility] SILDENAFIL 100 mg tablet 0 11-14 00:00: 00 Yes [id number] 100mg Take 1 tablet by mouth as needed for Other (Erectile Dysfunctio n). [facility] SILDENAFIL 100 mg tablet 0 11-14 00:00: 00 Yes [id number] 100mg Take 1 tablet by mouth as needed for Other (Erectile Dysfunctio n). [facility] SILDENAFIL 100 mg tablet 0 11-14 00:00: 00 Yes [id number] 100mg Take 1 tablet by mouth as needed for Other (Erectile Dysfunctio n). [facility] SILDENAFIL 100 mg tablet 0 11-14 00:00: 00 Yes [id number] 100mg Take 1 tablet by mouth as needed for Other (Erectile Dysfunctio n). [facility] SILDENAFIL 100 mg tablet 0 11-14 00:00: 00 Yes [id number] 100mg Take 1 tablet by mouth as needed for Other (Erectile Dysfunctio n). [facility] SILDENAFIL 100 mg tablet 0 11-14 00:00: 00 Yes [id number] 100mg Take 1 tablet by mouth as needed for Other (Erectile Dysfunctio n). [facility] SILDENAFIL 100 mg tablet 0 11-14 00:00: 00 Yes [id number] 100mg Take 1 tablet by mouth as needed for Other (Erectile Dysfunctio n). [facility] SILDENAFIL 100 mg tablet 0 11-14 00:00: 00 Yes [id number] 100mg Take 1 tablet by mouth as needed for Other (Erectile Dysfunctio n). [facility] SILDENAFIL 100 mg tablet 0 11-14 00:00: 00 Yes [id number] 100mg Take 1 tablet by mouth as needed for Other (Erectile Dysfunctio n). [facility] SILDENAFIL 100 mg tablet 0 11-14 00:00: 00 Yes [id number] 100mg Take 1 tablet by mouth as needed for Other (Erectile Dysfunctio n). [facility] SILDENAFIL 100 mg tablet 0 11-14 00:00: 00 Yes [id number] 100mg Take 1 tablet by mouth as needed for Other (Erectile Dysfunctio n). [facility] SILDENAFIL 100 mg tablet 0 11-14 00:00: 00 Yes [id number] 100mg Take 1 tablet by mouth as needed for Other (Erectile Dysfunctio n). [facility] SILDENAFIL 100 mg tablet 0 11-14 00:00: 00 Yes [id number] 100mg Take 1 tablet by mouth as needed for Other (Erectile Dysfunctio n). [facility] SILDENAFIL 100 mg tablet 0 11-14 00:00: 00 Yes [id number] 100mg Take 1 tablet by mouth as needed for Other (Erectile Dysfunctio n). [facility] SILDENAFIL 100 mg tablet 2021-0 11-14 00:00: 00 Yes [id number] 100mg Take 1 tablet by mouth as needed for Other (Erectile Dysfunctio n). [facility] SILDENAFIL 100 mg tablet 2021-0 11-14 00:00: 00 Yes [id number] 100mg Take 1 tablet by mouth as needed for Other (Erectile Dysfunctio n). [facility] SILDENAFIL 100 mg tablet 2021-0 11-14 00:00: 00 Yes [id number] 100mg Take 1 tablet by mouth as needed for Other (Erectile Dysfunctio n). [facility] SILDENAFIL 100 mg tablet 2021-0 11-14 00:00: 00 Yes [id number] 100mg Take 1 tablet by mouth as needed for Other (Erectile Dysfunctio n). [facility] SILDENAFIL 100 mg tablet 2021-0 11-14 00:00: 00 Yes [id number] 100mg Take 1 tablet by mouth as needed for Other (Erectile Dysfunctio n). [facility] rosuvastati n 10 mg tablet 2021-0 15 14:24: 28 Yes 10mg Take 10 mg by mouth. [facility] amiodarone 200 mg tablet 2021-0 15 14:24: 28 Yes 200mg Take 200 mg by mouth. [facility] rosuvastati n 10 mg tablet 2021-0 -15 14:24: 28 Yes 10mg Take 10 mg by mouth. [facility] amiodarone 200 mg tablet 2021-0 15 14:24: 28 Yes 200mg Take 200 mg by mouth. [facility] rosuvastati n 10 mg tablet 2021-0 15 14:24: 28 Yes 10mg Take 10 mg by mouth. [facility] amiodarone 200 mg tablet 2021-0 15 14:24: 28 Yes 200mg Take 200 mg by mouth. [facility] rosuvastati n 10 mg tablet 2021-0 -15 14:24: 28 Yes 10mg Take 10 mg by mouth. [facility] amiodarone 200 mg tablet 2021-0 -15 14:24: 28 Yes 200mg Take 200 mg by mouth. [facility] rosuvastati n 10 mg tablet 2021-0 -15 14:24: 28 Yes 10mg Take 10 mg by mouth. [facility] amiodarone 200 mg tablet 2021-0 3-15 14:24: 28 Yes 200mg Take 200 mg by mouth. [facility] rosuvastati n 10 mg tablet 2021-0 15 14:24: 28 Yes 10mg Take 10 mg by mouth. [facility] amiodarone 200 mg tablet 2021-0 15 14:24: 28 Yes 200mg Take 200 mg by mouth. [facility] rosuvastati n 10 mg tablet 2021-0 15 14:24: 28 Yes 10mg Take 10 mg by mouth. [facility] amiodarone 200 mg tablet 2021-0 15 14:24: 28 Yes 200mg Take 200 mg by mouth. [facility] rosuvastati n 10 mg tablet 2021-0 15 14:24: 28 Yes 10mg Take 10 mg by mouth. [facility] amiodarone 200 mg tablet 2021-0 09-03 14:24: 28 Yes 200mg Take 200 mg by mouth. [facility] rosuvastati n 10 mg tablet 2021-0 15 14:24: 28 Yes 10mg Take 10 mg by mouth. [facility] amiodarone 200 mg tablet 2021-0 15 14:24: 28 Yes 200mg Take 200 mg by mouth. [facility] rosuvastati n 10 mg tablet 2021-0 15 14:24: 28 Yes 10mg Take 10 mg by mouth. [facility] amiodarone 200 mg tablet 2021-0 15 14:24: 28 Yes 200mg Take 200 mg by mouth. [facility] rosuvastati n 10 mg tablet 2021-0 15 14:24: 28 Yes 10mg Take 10 mg by mouth. [facility] amiodarone 200 mg tablet 2021-0 15 14:24: 28 Yes 200mg Take 200 mg by mouth. [facility] rosuvastati n 10 mg tablet 2021-0 15 14:24: 28 Yes 10mg Take 10 mg by mouth. [facility] amiodarone 200 mg tablet 2021-0 15 14:24: 28 Yes 200mg Take 200 mg by mouth. [facility] rosuvastati n 10 mg tablet 2021-0 15 14:24: 28 Yes 10mg Take 10 mg by mouth. [facility] amiodarone 200 mg tablet 2021-0 15 14:24: 28 Yes 200mg Take 200 mg by mouth. [facility] rosuvastati n 10 mg tablet 2021-0 15 14:24: 28 Yes 10mg Take 10 mg by mouth. [facility] amiodarone 200 mg tablet 2021-0 15 14:24: 28 Yes 200mg Take 200 mg by mouth. [facility] rosuvastati n 10 mg tablet 2021-0 15 14:24: 28 Yes 10mg Take 10 mg by mouth. [facility] amiodarone 200 mg tablet 2021-0 15 14:24: 28 Yes 200mg Take 200 mg by mouth. [facility] rosuvastati n 10 mg tablet 2021-0 15 14:24: 28 Yes 10mg Take 10 mg by mouth. [facility] amiodarone 200 mg tablet 2021-0 15 14:24: 28 Yes 200mg Take 200 mg by mouth. [facility] rosuvastati n 10 mg tablet 2021-0 15 14:24: 28 Yes 10mg Take 10 mg by mouth. [facility] amiodarone 200 mg tablet 2021-0 15 14:24: 28 Yes 200mg Take 200 mg by mouth. [facility] rosuvastati n 10 mg tablet 2021-0 15 14:24: 28 Yes 10mg Take 10 mg by mouth. [facility] amiodarone 200 mg tablet 2021-0 15 14:24: 28 Yes 200mg Take 200 mg by mouth. [facility] rosuvastati n 10 mg tablet 2021-0 15 14:24: 28 Yes 10mg Take 10 mg by mouth. [facility] amiodarone 200 mg tablet 2021-0 15 14:24: 28 Yes 200mg Take 200 mg by mouth. [facility] rosuvastati n 10 mg tablet 2021-0 15 14:24: 28 Yes 10mg Take 10 mg by mouth. [facility] amiodarone 200 mg tablet 2021-0 15 14:24: 28 Yes 200mg Take 200 mg by mouth. [facility] rosuvastati n 10 mg tablet 2021-0 15 14:24: 28 Yes 10mg Take 10 mg by mouth. [facility] amiodarone 200 mg tablet 2021-0 15 14:24: 28 Yes 200mg Take 200 mg by mouth. [facility] rosuvastati n 10 mg tablet 2021-0 15 14:24: 28 Yes 10mg Take 10 mg by mouth. [facility] amiodarone 200 mg tablet 2021-0 15 14:24: 28 Yes 200mg Take 200 mg by mouth. [facility] rosuvastati n 10 mg tablet 2021-0 15 14:24: 28 Yes 10mg Take 10 mg by mouth. [facility] amiodarone 200 mg tablet 2021-0 15 14:24: 28 Yes 200mg Take 200 mg by mouth. [facility] rosuvastati n 10 mg tablet 2021-0 15 14:24: 28 Yes 10mg Take 10 mg by mouth. [facility] amiodarone 200 mg tablet 2021-0 15 14:24: 28 Yes 200mg Take 200 mg by mouth. [facility] rosuvastati n 10 mg tablet 2021-0 15 14:24: 28 Yes 10mg Take 10 mg by mouth. [facility] amiodarone 200 mg tablet 2021-0 15 14:24: 28 Yes 200mg Take 200 mg by mouth. [facility] rosuvastati n 10 mg tablet 2021-0 15 14:24: 28 Yes 10mg Take 10 mg by mouth. [facility] amiodarone 200 mg tablet 2021-0 15 14:24: 28 Yes 200mg Take 200 mg by mouth. [facility] rosuvastati n 10 mg tablet 2021-0 15 14:24: 28 Yes 10mg Take 10 mg by mouth. [facility] amiodarone 200 mg tablet 2021-0 09-03 14:24: 28 Yes 200mg Take 200 mg by mouth. [facility] rosuvastati n 10 mg tablet 2021-0 09-03 14:24: 28 Yes 10mg Take 10 mg by mouth. [facility] amiodarone 200 mg tablet 2021-0 09-03 14:24: 28 Yes 200mg Take 200 mg by mouth. [facility] rosuvastati n 10 mg tablet 2021-0 09-03 14:24: 28 Yes 10mg Take 10 mg by mouth. [facility] amiodarone 200 mg tablet 2021-0 09-03 14:24: 28 Yes 200mg Take 200 mg by mouth. [facility] rosuvastati n 10 mg tablet 0 09-03 14:24: 28 Yes 10mg Take 10 mg by mouth. [facility] amiodarone 200 mg tablet 2021-0 09-03 14:24: 28 Yes 200mg Take 200 mg by mouth. [facility] rosuvastati n 10 mg tablet 2021-0 15 14:24: 28 Yes 10mg Take 10 mg by mouth. [facility] amiodarone 200 mg tablet 2021-0 09-03 14:24: 28 Yes 200mg Take 200 mg by mouth. [facility] rosuvastati n 10 mg tablet 2021-0 15 14:24: 28 Yes 10mg Take 10 mg by mouth. [facility] amiodarone 200 mg tablet 2021-0 15 14:24: 28 Yes 200mg Take 200 mg by mouth. [facility] rosuvastati n 10 mg tablet 2021-0 15 14:24: 28 Yes 10mg Take 10 mg by mouth. [facility] amiodarone 200 mg tablet 2021-0 15 14:24: 28 Yes 200mg Take 200 mg by mouth. [facility] rosuvastati n 10 mg tablet 2021-0 15 14:24: 28 Yes 10mg Take 10 mg by mouth. [facility] amiodarone 200 mg tablet 2021-0 15 14:24: 28 Yes 200mg Take 200 mg by mouth. [facility] rosuvastati n 10 mg tablet 2021-0 15 14:24: 28 Yes 10mg Take 10 mg by mouth. [facility] amiodarone 200 mg tablet 2021-0 15 14:24: 28 Yes 200mg Take 200 mg by mouth. [facility] rosuvastati n 10 mg tablet 2021-0 15 14:24: 28 Yes 10mg Take 10 mg by mouth. [facility] amiodarone 200 mg tablet 2021-0 09-03 14:24: 28 Yes 200mg Take 200 mg by mouth. [facility] rosuvastati n 10 mg tablet 2021-0 15 14:24: 28 Yes 10mg Take 10 mg by mouth. [facility] amiodarone 200 mg tablet 2021-0 09-03 14:24: 28 Yes 200mg Take 200 mg by mouth. [facility] rosuvastati n 10 mg tablet 2021-0 15 14:24: 28 Yes 10mg Take 10 mg by mouth. [facility] amiodarone 200 mg tablet 2021-0 15 14:24: 28 Yes 200mg Take 200 mg by mouth. [facility] rosuvastati n 10 mg tablet 2021-0 15 14:24: 28 Yes 10mg Take 10 mg by mouth. [facility] amiodarone 200 mg tablet 2021-0 15 14:24: 28 Yes 200mg Take 200 mg by mouth. [facility] amiodarone 200 mg tablet 2021-0 15 14:24: 28 Yes 200mg Take 200 mg by mouth. [facility] amiodarone 200 mg tablet 2021-0 15 14:24: 28 Yes 200mg Take 200 mg by mouth. [facility] rosuvastati n 10 mg tablet 2021-0 15 14:24: 28 Yes 10mg Take 10 mg by mouth. [facility] amiodarone 200 mg tablet 2021-0 15 14:24: 28 Yes 200mg Take 200 mg by mouth. [facility] rosuvastati n 10 mg tablet 2021-0 15 14:24: 28 Yes 10mg Take 10 mg by mouth. [facility] amiodarone 200 mg tablet 2021-0 15 14:24: 28 Yes 200mg Take 200 mg by mouth. [facility] rosuvastati n 10 mg tablet 2021-0 09-03 14:24: 28 Yes 10mg Take 10 mg by mouth. [facility] amiodarone 200 mg tablet 2021-0 09-03 14:24: 28 Yes 200mg Take 200 mg by mouth. [facility] rosuvastati n 10 mg tablet 0 09-03 14:24: 28 Yes 10mg Take 10 mg by mouth. [facility] amiodarone 200 mg tablet 2021-0 09-03 14:24: 28 Yes 200mg Take 200 mg by mouth. [facility] rosuvastati n 10 mg tablet 2021-0 15 14:24: 28 Yes 10mg Take 10 mg by mouth. [facility] amiodarone 200 mg tablet 2021-0 09-03 14:24: 28 Yes 200mg Take 200 mg by mouth. [facility] rosuvastati n 10 mg tablet 2021-0 15 14:24: 28 Yes 10mg Take 10 mg by mouth. [facility] amiodarone 200 mg tablet 2021-0 15 14:24: 28 Yes 200mg Take 200 mg by mouth. [facility] rosuvastati n 10 mg tablet 2021-0 15 14:24: 28 Yes 10mg Take 10 mg by mouth. [facility] amiodarone 200 mg tablet 2021-0 15 14:24: 28 Yes 200mg Take 200 mg by mouth. [facility] rosuvastati n 10 mg tablet 09-03 14:24: 28 Yes 10mg Take 10 mg by mouth. [facility] amiodarone 200 mg tablet 09-03 14:24: 28 Yes 200mg Take 200 mg by mouth. [facility] rosuvastati n 10 mg tablet 09-03 14:24: 28 Yes 10mg Take 10 mg by mouth. [facility] amiodarone 200 mg tablet 09-03 14:24: 28 Yes 200mg Take 200 mg by mouth. [facility] rosuvastati n 10 mg tablet 09-03 14:24: 28 Yes 10mg Take 10 mg by mouth. [facility] amiodarone 200 mg tablet 09-03 14:24: 28 Yes 200mg Take 200 mg by mouth. [facility] rosuvastati n 10 mg tablet 09-03 14:24: 28 Yes 10mg Take 10 mg by mouth. [facility] amiodarone 200 mg tablet 09-03 14:24: 28 Yes 200mg Take 200 mg by mouth. [facility] rosuvastati n 10 mg tablet 09-03 14:24: 28 Yes 10mg Take 10 mg by mouth. [facility] amiodarone 200 mg tablet 09-03 14:24: 28 Yes 200mg Take 200 mg by mouth. [facility] DUNIA ROOT, BULK, [facility] 08-14 12:49: 52 Yes 750mg 750 mg. [facility] docosahexae noic acid/epa (FISH OIL ORAL) 08-14 12:49: 52 Yes Take by mouth. [facility] Garlic 1,000 mg Cap 08-14 12:49: 52 Yes Take by mouth. [facility] DUNIA ROOT, BULK, [facility] 08-14 12:49: 52 Yes 750mg 750 mg. [facility] docosahexae noic acid/epa (FISH OIL ORAL) 08-14 12:49: 52 Yes Take by mouth. [facility],000 [facility] Cap 08-14 12:49: 52 Yes Take by mouth. [facility], BULK, [facility] 08-14 12:49: 52 Yes 750mg 750 mg. [facility] docosahexae noic acid/epa (FISH OIL ORAL) 08-14 12:49: 52 Yes Take by mouth. [facility] Gar[facility] 1,000 mg Cap 08-14 12:49: 52 Yes Take by mouth. [facility] DUNIA ROOT, BULK, [facility] 08-14 12:49: 52 Yes 750mg 750 mg. [facility] docosahexae noic acid/epa (FISH OIL ORAL) 08-14 12:49: 52 Yes Take by mouth. [facility] Gar[facility] 1,000 mg Cap 08-14 12:49: 52 Yes Take by mouth. [facility] DUNIA ROOT, BULK, [facility] 08-14 12:49: 52 Yes 750mg 750 mg. [facility] docosahexae noic acid/epa (FISH OIL ORAL) 08-14 12:49: 52 Yes Take by mouth. [facility] Gar[facility] 1,000 mg Cap 08-14 12:49: 52 Yes Take by mouth. [facility] DUNIA ROOT, BULK, [facility] 08-14 12:49: 52 Yes 750mg 750 mg. [facility] docosahexae noic acid/epa (FISH OIL ORAL) 08-14 12:49: 52 Yes Take by mouth. [facility] Gar[facility] 1,000 mg Cap 08-14 12:49: 52 Yes Take by mouth. [facility] DUNIA ROOT, BULK, [facility] 08-14 12:49: 52 Yes 750mg 750 mg. [facility] docosahexae noic acid/epa (FISH OIL ORAL) 08-14 12:49: 52 Yes Take by mouth. [facility] Garlic 1,000 mg Cap 08-14 12:49: 52 Yes Take by mouth. [facility], BULK, [facility] 08-14 12:49: 52 Yes 750mg 750 mg. [facility] docosahexae noic acid/epa (FISH OIL ORAL) 08-14 12:49: 52 Yes Take by mouth. [facility] Garlic 1,000 mg Cap 08-14 12:49: 52 Yes Take by mouth. [facility] DUNIA ROOT, BULK, [facility] 08-14 12:49: 52 Yes 750mg 750 mg. [facility] docosahexae noic acid/epa (FISH OIL ORAL) 08-14 12:49: 52 Yes Take by mouth. [facility] Garlic 1,000 mg Cap 08-14 12:49: 52 Yes Take by mouth. [facility] DUNIA ROOT, BULK, [facility] 08-14 12:49: 52 Yes 750mg 750 mg. [facility] docosahexae noic acid/epa (FISH OIL ORAL) 08-14 12:49: 52 Yes Take by mouth. [facility] Garlic 1,000 mg Cap 08-14 12:49: 52 Yes Take by mouth. [facility] DUNIA ROOT, BULK, [facility] 08-14 12:49: 52 Yes 750mg 750 mg. [facility] docosahexae noic acid/epa (FISH OIL ORAL) 08-14 12:49: 52 Yes Take by mouth. [facility] Garlic 1,000 mg Cap 08-14 12:49: 52 Yes Take by mouth. [facility] DUNIA ROOT, BULK, [facility] 08-14 12:49: 52 Yes 750mg 750 mg. [facility] docosahexae noic acid/epa (FISH OIL ORAL) 08-14 12:49: 52 Yes Take by mouth. [facility] Garlic 1,000 mg Cap 08-14 12:49: 52 Yes Take by mouth. [facility] ROOT, BULK, [facility] 08-14 12:49: 52 Yes 750mg 750 mg. [facility] docosahexae noic acid/epa (FISH OIL ORAL) 08-14 12:49: 52 Yes Take by mouth. [facility] Garlic 1,000 mg Cap 08-14 12:49: 52 Yes Take by mouth. [facility], BULK, [facility] 08-14 12:49: 52 Yes 750mg 750 mg. [facility] docosahexae noic acid/epa (FISH OIL ORAL) 08-14 12:49: 52 Yes Take by mouth. [facility] Garlic 1,000 mg Cap 08-14 12:49: 52 Yes Take by mouth. [facility] DUNIA ROOT, BULK, [facility] 08-14 12:49: 52 Yes 750mg 750 mg. [facility] docosahexae noic acid/epa (FISH OIL ORAL) 08-14 12:49: 52 Yes Take by mouth. [facility] Garlic 1,000 mg Cap 08-14 12:49: 52 Yes Take by mouth. [facility], BULK, [facility] 08-14 12:49: 52 Yes 750mg 750 mg. [facility] docosahexae noic acid/epa (FISH OIL ORAL) 08-14 12:49: 52 Yes Take by mouth. [facility] Garlic 1,000 mg Cap 08-14 12:49: 52 Yes Take by mouth. [facility], BULK, [facility] 08-14 12:49: 52 Yes 750mg 750 mg. [facility] docosahexae noic acid/epa (FISH OIL ORAL) 08-14 12:49: 52 Yes Take by mouth. [facility] Garlic 1,000 mg Cap 08-14 12:49: 52 Yes Take by mouth. [facility] DUNIA ROOT, BULK, [facility] 08-14 12:49: 52 Yes 750mg 750 mg. [facility] docosahexae noic acid/epa (FISH OIL ORAL) 08-14 12:49: 52 Yes Take by mouth. [facility] Garlic 1,000 mg Cap 08-14 12:49: 52 Yes Take by mouth. [facility] DUNIA ROOT, BULK, [facility] 08-14 12:49: 52 Yes 750mg 750 mg. [facility] docosahexae noic acid/epa (FISH OIL ORAL) 08-14 12:49: 52 Yes Take by mouth. [facility] Garlic 1,000 mg Cap 08-14 12:49: 52 Yes Take by mouth. [facility] DUNIA ROOT, BULK, [facility] 08-14 12:49: 52 Yes 750mg 750 mg. [facility] docosahexae noic acid/epa (FISH OIL ORAL) 08-14 12:49: 52 Yes Take by mouth. [facility] Garlic 1,000 mg Cap 08-14 12:49: 52 Yes Take by mouth. [facility] DUNIA ROOT, BULK, [facility] 08-14 12:49: 52 Yes 750mg 750 mg. [facility] docosahexae noic acid/epa (FISH OIL ORAL) 08-14 12:49: 52 Yes Take by mouth. [facility] Garlic 1,000 mg Cap 08-14 12:49: 52 Yes Take by mouth. [facility] DUNIA ROOT, BULK, [facility] 08-14 12:49: 52 Yes 750mg 750 mg. [facility] docosahexae noic acid/epa (FISH OIL ORAL) 08-14 12:49: 52 Yes Take by mouth. [facility] Garlic 1,000 mg Cap 08-14 12:49: 52 Yes Take by mouth. [facility] DUNIA ROOT, BULK, [facility] 08-14 12:49: 52 Yes 750mg 750 mg. [facility] docosahexae noic acid/epa (FISH OIL ORAL) 08-14 12:49: 52 Yes Take by mouth. [facility] Garlic 1,000 mg Cap 08-14 12:49: 52 Yes Take by mouth. [facility] DUNIA ROOT, BULK, [facility] 08-14 12:49: 52 Yes 750mg 750 mg. [facility] docosahexae noic acid/epa (FISH OIL ORAL) 08-14 12:49: 52 Yes Take by mouth. [facility] Garlic 1,000 mg Cap 08-14 12:49: 52 Yes Take by mouth. [facility] DUNIA ROOT, BULK, [facility] 08-14 12:49: 52 Yes 750mg 750 mg. [facility] docosahexae noic acid/epa (FISH OIL ORAL) 08-14 12:49: 52 Yes Take by mouth. [facility] Garlic 1,000 mg Cap 08-14 12:49: 52 Yes Take by mouth. [facility]UNIA [facility], BULK, [facility] 08-14 12:49: 52 Yes 750mg 750 mg. [facility] docosahexae noic acid/epa (FISH OIL ORAL) 08-14 12:49: 52 Yes Take by mouth. [facility] Garlic 1,000 mg Cap 08-14 12:49: 52 Yes Take by mouth. [facility] DUNIA ROOT, BULK, [facility] 08-14 12:49: 52 Yes 750mg 750 mg. [facility] docosahexae noic acid/epa (FISH OIL ORAL) 08-14 12:49: 52 Yes Take by mouth. [facility] Garlic 1,000 mg Cap 08-14 12:49: 52 Yes Take by mouth. [facility] DUNIA [facility]OT, BULK, [facility] 08-14 12:49: 52 Yes 750mg 750 mg. [facility] docosahexae noic acid/epa (FISH OIL ORAL) 08-14 12:49: 52 Yes Take by mouth. [facility] Garlic 1,000 mg Cap 08-14 12:49: 52 Yes Take by mouth. [facility], BULK, [facility] 08-14 12:49: 52 Yes 750mg 750 mg. [facility] docosahexae noic acid/epa (FISH OIL ORAL) 08-14 12:49: 52 Yes Take by mouth. [facility] Garlic 1,000 mg Cap 08-14 12:49: 52 Yes Take by mouth. [facility] DUNIA [facility]OT, BULK, [facility] 08-14 12:49: 52 Yes 750mg 750 mg. [facility] docosahexae noic acid/epa (FISH OIL ORAL) 08-14 12:49: 52 Yes Take by mouth. [facility] Garlic 1,000 mg Cap 08-14 12:49: 52 Yes Take by mouth. [facility] DUNIA ROOT, BULK, [facility] 08-14 12:49: 52 Yes 750mg 750 mg. [facility] docosahexae noic acid/epa (FISH OIL ORAL) 08-14 12:49: 52 Yes Take by mouth. [facility] Garlic 1,000 mg Cap 08-14 12:49: 52 Yes Take by mouth. [facility] DUNIA [facility]OT, BULK, [facility] 08-14 12:49: 52 Yes 750mg 750 mg. [facility] docosahexae noic acid/epa (FISH OIL ORAL) 08-14 12:49: 52 Yes Take by mouth. [facility] Garlic 1,000 mg Cap 08-14 12:49: 52 Yes Take by mouth. [facility] DUNIA ROOT, BULK, [facility] 08-14 12:49: 52 Yes 750mg 750 mg. [facility] docosahexae noic acid/epa (FISH OIL ORAL) 08-14 12:49: 52 Yes Take by mouth. [facility] Garlic 1,000 mg Cap 08-14 12:49: 52 Yes Take by mouth. [facility] DUNIA ROOT, BULK, [facility] 08-14 12:49: 52 Yes 750mg 750 mg. [facility] docosahexae noic acid/epa (FISH OIL ORAL) 08-14 12:49: 52 Yes Take by mouth. [facility] Garlic 1,000 mg Cap 08-14 12:49: 52 Yes Take by mouth. [facility] DUNIA ROOT, BULK, [facility] 08-14 12:49: 52 Yes 750mg 750 mg. [facility] docosahexae noic acid/epa (FISH OIL ORAL) 08-14 12:49: 52 Yes Take by mouth. [facility] Garlic 1,000 mg Cap 08-14 12:49: 52 Yes Take by mouth. [facility], BULK, [facility] 08-14 12:49: 52 Yes 750mg 750 mg. [facility] docosahexae noic acid/epa (FISH OIL ORAL) 08-14 12:49: 52 Yes Take by mouth. [facility] Garlic 1,000 mg Cap 08-14 12:49: 52 Yes Take by mouth. [facility], BUL[facility], [facility] 08-14 12:49: 52 Yes 750mg 750 mg. [facility] docosahexae noic acid/epa (FISH OIL ORAL) 08-14 12:49: 52 Yes Take by mouth. [facility] Garlic 1,000 mg Cap 08-14 12:49: 52 Yes Take by mouth. [facility]IA [facility], BULK, [facility] 08-14 12:49: 52 Yes 750mg 750 mg. [facility] docosahexae noic acid/epa (FISH OIL ORAL) 08-14 12:49: 52 Yes Take by mouth. [facility] Garlic 1,000 mg Cap 08-14 12:49: 52 Yes Take by mouth. [facility]UNIA [facility]OT, BULK, [facility] 08-14 12:49: 52 Yes 750mg 750 mg. [facility] docosahexae noic acid/epa (FISH OIL ORAL) 08-14 12:49: 52 Yes Take by mouth. [facility] Garlic 1,000 mg Cap 08-14 12:49: 52 Yes Take by mouth. [facility] DUNIA ROOT, BULK, [facility] 08-14 12:49: 52 Yes 750mg 750 mg. [facility] docosahexae noic acid/epa (FISH OIL ORAL) 08-14 12:49: 52 Yes Take by mouth. [facility] Garlic 1,000 mg Cap 08-14 12:49: 52 Yes Take by mouth. [facility] DUNIA ROOT, BULK, [facility] 08-14 12:49: 52 Yes 750mg 750 mg. [facility] docosahexae noic acid/epa (FISH OIL ORAL) 08-14 12:49: 52 Yes Take by mouth. [facility] Garlic 1,000 mg Cap 08-14 12:49: 52 Yes Take by mouth. [facility] D[place]IA ROOT, BULK, [facility] 08-14 12:49: 52 Yes 750mg 750 mg. [facility] doc[facility]hex[facility] noic [facility]/epa (FISH OIL ORAL) 08-14 12:49: 52 Yes Take by mouth. [facility] Garlic 1,000 mg Cap 08-14 12:49: 52 Yes Take by mouth. [facility], [facility] 08-14 12:49: 52 Yes 750mg 750 mg. [facility] doc[facility]hexae noic acid/epa (FISH OIL ORAL) 08-14 12:49: 52 Yes Take by mouth. [facility] Garlic 1,000 mg Cap 08-14 12:49: 52 Yes Take by mouth. [facility] DUNIA ROOT, BULK, [facility] 08-14 12:49: 52 Yes 750mg 750 mg. [facility] docosahexae noic acid/epa (FISH OIL ORAL) 08-14 12:49: 52 Yes Take by mouth. [facility] 1,000 mg Cap 08-14 12:49: 52 Yes Take by mouth. [facility] [place] [facility], [facility] 08-14 12:49: 52 Yes 750mg 750 mg. [facility] docosahexae noic acid/epa (FISH OIL ORAL) 08-14 12:49: 52 Yes Take by mouth. [facility] Garlic 1,000 mg Cap 08-14 12:49: 52 Yes Take by mouth. [facility] [place] [facility], [facility] 08-14 12:49: 52 Yes 750mg 750 mg. [facility] docosahexae noic acid/epa (FISH OIL ORAL) 08-14 12:49: 52 Yes Take by mouth. [facility] Garlic 1,000 mg Cap 08-14 12:49: 52 Yes Take by mouth. [facility] DUNIA ROOT, BULK, [facility] 08-14 12:49: 52 Yes 750mg 750 mg. [facility] docosahexae noic acid/epa (FISH OIL ORAL) 08-14 12:49: 52 Yes Take by mouth. [facility] Garlic 1,000 mg Cap 08-14 12:49: 52 Yes Take by mouth. [facility] DUNIA ROOT, BULK, [facility] 08-14 12:49: 52 Yes 750mg 750 mg. [facility] docosahexae noic acid/epa (FISH OIL ORAL) 08-14 12:49: 52 Yes Take by mouth. [facility] Garlic 1,000 mg Cap 08-14 12:49: 52 Yes Take by mouth. [facility] DUNIA ROOT, BULK, [facility] 08-14 12:49: 52 Yes 750mg 750 mg. [facility] docosahexae noic acid/epa (FISH OIL ORAL) 08-14 12:49: 52 Yes Take by mouth. [facility] Garlic 1,000 mg Cap 08-14 12:49: 52 Yes Take by mouth. [facility] DUNIA ROOT, BULK, [facility] 08-14 12:49: 52 Yes 750mg 750 mg. [facility] docosahexae noic acid/epa (FISH OIL ORAL) 08-14 12:49: 52 Yes Take by mouth. [facility] Garlic 1,000 mg Cap 08-14 12:49: 52 Yes Take by mouth. [facility] DUNIA ROOT, BULK, [facility] 08-14 12:49: 52 Yes 750mg 750 mg. [facility] docosahexae noic acid/epa (FISH OIL ORAL) 08-14 12:49: 52 Yes Take by mouth. [facility] Garlic 1,000 mg Cap 08-14 12:49: 52 Yes Take by mouth. [facility] DUNIA ROOT, BULK, MISC 08-14 12:49: 52 Yes 750mg 750 mg. [facility] docosahexae noic acid/epa (FISH OIL ORAL) 08-14 12:49: 52 Yes Take by mouth. [facility] Garlic 1,000 mg Cap 08-14 12:49: 52 Yes Take by mouth. [facility] DUNIA ROOT, BULK, [facility] 08-14 12:49: 52 Yes 750mg 750 mg. [facility] docosahexae noic acid/epa (FISH OIL ORAL) 08-14 12:49: 52 Yes Take by mouth. [facility] Garlic 1,000 mg Cap 08-14 12:49: 52 Yes Take by mouth. [facility] apixaban (ELIQUIS) 5 mg tablet 08-14 12:48: 15 Yes Take by mouth. [facility] furosemide 40 mg tablet 08-14 12:48: 15 Yes 40mg Take 40 mg by mouth daily. [facility] apixaban (ELIQUIS) 5 mg tablet 08-14 12:48: 15 Yes Take by mouth. [facility] furosemide 40 mg tablet 08-14 12:48: 15 Yes 40mg Take 40 mg by mouth daily. [facility] apixaban (ELIQUIS) 5 mg tablet 08-14 12:48: 15 Yes Take by mouth. [facility] furosemide 40 mg tablet 08-14 12:48: 15 Yes 40mg Take 40 mg by mouth daily. [facility] apixaban (ELIQUIS) 5 mg tablet 08-14 12:48: 15 Yes Take by mouth. [facility] furosemide 40 mg tablet 2021-0 08-14 12:48: 15 Yes 40mg Take 40 mg by mouth daily. [facility] apixaban (ELIQUIS) 5 mg tablet 0 08-14 12:48: 15 Yes Take by mouth. [facility] furosemide 40 mg tablet 2021-0 08-14 12:48: 15 Yes 40mg Take 40 mg by mouth daily. [facility] apixaban (ELIQUIS) 5 mg tablet 0 08-14 12:48: 15 Yes Take by mouth. [facility] furosemide 40 mg tablet 2021-0 08-14 12:48: 15 Yes 40mg Take 40 mg by mouth daily. [facility] apixaban (ELIQUIS) 5 mg tablet 08-14 12:48: 15 Yes Take by mouth. [facility] furosemide 40 mg tablet 08-14 12:48: 15 Yes 40mg Take 40 mg by mouth daily. [facility] apixaban (ELIQUIS) 5 mg tablet 0 08-14 12:48: 15 Yes Take by mouth. [facility] furosemide 40 mg tablet 0 08-14 12:48: 15 Yes 40mg Take 40 mg by mouth daily. [facility] apixaban (ELIQUIS) 5 mg tablet 0 08-14 12:48: 15 Yes Take by mouth. [facility] furosemide 40 mg tablet 2021-0 08-14 12:48: 15 Yes 40mg Take 40 mg by mouth daily. [facility] apixaban (ELIQUIS) 5 mg tablet 0 08-14 12:48: 15 Yes Take by mouth. [facility] furosemide 40 mg tablet 2021-0 08-14 12:48: 15 Yes 40mg Take 40 mg by mouth daily. [facility] apixaban (ELIQUIS) 5 mg tablet 2021-0 08-14 12:48: 15 Yes Take by mouth. [facility] furosemide 40 mg tablet 2021-0 08-14 12:48: 15 Yes 40mg Take 40 mg by mouth daily. [facility] apixaban (ELIQUIS) 5 mg tablet 08-14 12:48: 15 Yes Take by mouth. [facility] furosemide 40 mg tablet 2021-0 08-14 12:48: 15 Yes 40mg Take 40 mg by mouth daily. [facility] apixaban (ELIQUIS) 5 mg tablet 08-14 12:48: 15 Yes Take by mouth. [facility] furosemide 40 mg tablet 0 08-14 12:48: 15 Yes 40mg Take 40 mg by mouth daily. [facility] apixaban (ELIQUIS) 5 mg tablet 08-14 12:48: 15 Yes Take by mouth. [facility] furosemide 40 mg tablet 08-14 12:48: 15 Yes 40mg Take 40 mg by mouth daily. [facility] apixaban (ELIQUIS) 5 mg tablet 08-14 12:48: 15 Yes Take by mouth. [facility] furosemide 40 mg tablet 0 08-14 12:48: 15 Yes 40mg Take 40 mg by mouth daily. [facility] apixaban (ELIQUIS) 5 mg tablet 08-14 12:48: 15 Yes Take by mouth. [facility] furosemide 40 mg tablet 0 08-14 12:48: 15 Yes 40mg Take 40 mg by mouth daily. [facility] apixaban (ELIQUIS) 5 mg tablet 0 08-14 12:48: 15 Yes Take by mouth. [facility] furosemide 40 mg tablet 2021-0 08-14 12:48: 15 Yes 40mg Take 40 mg by mouth daily. [facility] apixaban (ELIQUIS) 5 mg tablet 0 08-14 12:48: 15 Yes Take by mouth. [facility] furosemide 40 mg tablet 0 08-14 12:48: 15 Yes 40mg Take 40 mg by mouth daily. [facility] apixaban (ELIQUIS) 5 mg tablet 08-14 12:48: 15 Yes Take by mouth. [facility] furosemide 40 mg tablet 0 08-14 12:48: 15 Yes 40mg Take 40 mg by mouth daily. [facility] apixaban (ELIQUIS) 5 mg tablet 08-14 12:48: 15 Yes Take by mouth. [facility] furosemide 40 mg tablet 08-14 12:48: 15 Yes 40mg Take 40 mg by mouth daily. [facility] apixaban (ELIQUIS) 5 mg tablet 08-14 12:48: 15 Yes Take by mouth. [facility] furosemide 40 mg tablet 08-14 12:48: 15 Yes 40mg Take 40 mg by mouth daily. [facility] apixaban (ELIQUIS) 5 mg tablet 08-14 12:48: 15 Yes Take by mouth. [facility] furosemide 40 mg tablet 08-14 12:48: 15 Yes 40mg Take 40 mg by mouth daily. [facility] apixaban (ELIQUIS) 5 mg tablet 08-14 12:48: 15 Yes Take by mouth. [facility] furosemide 40 mg tablet 08-14 12:48: 15 Yes 40mg Take 40 mg by mouth daily. [facility] apixaban (ELIQUIS) 5 mg tablet 08-14 12:48: 15 Yes Take by mouth. [facility] furosemide 40 mg tablet 0 08-14 12:48: 15 Yes 40mg Take 40 mg by mouth daily. [facility] apixaban (ELIQUIS) 5 mg tablet 0 08-14 12:48: 15 Yes Take by mouth. [facility] furosemide 40 mg tablet 0 08-14 12:48: 15 Yes 40mg Take 40 mg by mouth daily. [facility] apixaban (ELIQUIS) 5 mg tablet 0 08-14 12:48: 15 Yes Take by mouth. [facility] furosemide 40 mg tablet 2021-0 08-14 12:48: 15 Yes 40mg Take 40 mg by mouth daily. [facility] apixaban (ELIQUIS) 5 mg tablet 0 08-14 12:48: 15 Yes Take by mouth. [facility] furosemide 40 mg tablet 2021-0 08-14 12:48: 15 Yes 40mg Take 40 mg by mouth daily. [facility] apixaban (ELIQUIS) 5 mg tablet 0 08-14 12:48: 15 Yes Take by mouth. [facility] furosemide 40 mg tablet 0 08-14 12:48: 15 Yes 40mg Take 40 mg by mouth daily. [facility] apixaban (ELIQUIS) 5 mg tablet 08-14 12:48: 15 Yes Take by mouth. [facility] furosemide 40 mg tablet 08-14 12:48: 15 Yes 40mg Take 40 mg by mouth daily. [facility] apixaban (ELIQUIS) 5 mg tablet 0 08-14 12:48: 15 Yes Take by mouth. [facility] furosemide 40 mg tablet 0 08-14 12:48: 15 Yes 40mg Take 40 mg by mouth daily. [facility] apixaban (ELIQUIS) 5 mg tablet 08-14 12:48: 15 Yes Take by mouth. [facility] furosemide 40 mg tablet 0 08-14 12:48: 15 Yes 40mg Take 40 mg by mouth daily. [facility] apixaban (ELIQUIS) 5 mg tablet 0 08-14 12:48: 15 Yes Take by mouth. [facility] furosemide 40 mg tablet 2021-0 08-14 12:48: 15 Yes 40mg Take 40 mg by mouth daily. [facility] apixaban (ELIQUIS) 5 mg tablet 2021-0 08-14 12:48: 15 Yes Take by mouth. [facility] furosemide 40 mg tablet 2021-0 08-14 12:48: 15 Yes 40mg Take 40 mg by mouth daily. [facility] apixaban (ELIQUIS) 5 mg tablet 2021-0 08-14 12:48: 15 Yes Take by mouth. [facility] furosemide 40 mg tablet 2021-0 08-14 12:48: 15 Yes 40mg Take 40 mg by mouth daily. [facility] apixaban (ELIQUIS) 5 mg tablet 0 08-14 12:48: 15 Yes Take by mouth. [facility] furosemide 40 mg tablet 2021-0 08-14 12:48: 15 Yes 40mg Take 40 mg by mouth daily. [facility] apixaban (ELIQUIS) 5 mg tablet 0 08-14 12:48: 15 Yes Take by mouth. [facility] furosemide 40 mg tablet 2021-0 08-14 12:48: 15 Yes 40mg Take 40 mg by mouth daily. [facility] apixaban (ELIQUIS) 5 mg tablet 0 08-14 12:48: 15 Yes Take by mouth. [facility] furosemide 40 mg tablet 2021-0 08-14 12:48: 15 Yes 40mg Take 40 mg by mouth daily. [facility] apixaban (ELIQUIS) 5 mg tablet 0 08-14 12:48: 15 Yes Take by mouth. [facility] furosemide 40 mg tablet 2021-0 08-14 12:48: 15 Yes 40mg Take 40 mg by mouth daily. [facility] apixaban (ELIQUIS) 5 mg tablet 2021-0 08-14 12:48: 15 Yes Take by mouth. [facility] furosemide 40 mg tablet 2021-0 08-14 12:48: 15 Yes 40mg Take 40 mg by mouth daily. [facility] apixaban (ELIQUIS) 5 mg tablet 2021-0 08-14 12:48: 15 Yes Take by mouth. [facility] furosemide 40 mg tablet 2021-0 08-14 12:48: 15 Yes 40mg Take 40 mg by mouth daily. [facility] apixaban (ELIQUIS) 5 mg tablet 2021-0 08-14 12:48: 15 Yes Take by mouth. [facility] furosemide 40 mg tablet 2021-0 08-14 12:48: 15 Yes 40mg Take 40 mg by mouth daily. [facility] apixaban (ELIQUIS) 5 mg tablet 08-14 12:48: 15 Yes Take by mouth. [facility] furosemide 40 mg tablet 2021-0 08-14 12:48: 15 Yes 40mg Take 40 mg by mouth daily. [facility] apixaban (ELIQUIS) 5 mg tablet 0 08-14 12:48: 15 Yes Take by mouth. [facility] furosemide 40 mg tablet 08-14 12:48: 15 Yes 40mg Take 40 mg by mouth daily. [facility] apixaban (ELIQUIS) 5 mg tablet 08-14 12:48: 15 Yes Take by mouth. [facility] furosemide 40 mg tablet 08-14 12:48: 15 Yes 40mg Take 40 mg by mouth daily. [facility] apixaban (ELIQUIS) 5 mg tablet 0 08-14 12:48: 15 Yes Take by mouth. [facility] furosemide 40 mg tablet 0 08-14 12:48: 15 Yes 40mg Take 40 mg by mouth daily. [facility] apixaban (ELIQUIS) 5 mg tablet 08-14 12:48: 15 Yes Take by mouth. [facility] furosemide 40 mg tablet 2021-0 08-14 12:48: 15 Yes 40mg Take 40 mg by mouth daily. [facility] apixaban (ELIQUIS) 5 mg tablet 0 08-14 12:48: 15 Yes Take by mouth. [facility] furosemide 40 mg tablet 2021-0 08-14 12:48: 15 Yes 40mg Take 40 mg by mouth daily. [facility] apixaban (ELIQUIS) 5 mg tablet 0 08-14 12:48: 15 Yes Take by mouth. [facility] furosemide 40 mg tablet 2021-0 08-14 12:48: 15 Yes 40mg Take 40 mg by mouth daily. [facility] apixaban (ELIQUIS) 5 mg tablet 0 08-14 12:48: 15 Yes Take by mouth. [facility] furosemide 40 mg tablet 2021-0 08-14 12:48: 15 Yes 40mg Take 40 mg by mouth daily. [facility] apixaban (ELIQUIS) 5 mg tablet 0 08-14 12:48: 15 Yes Take by mouth. [facility] furosemide 40 mg tablet 2021-0 08-14 12:48: 15 Yes 40mg Take 40 mg by mouth daily. [facility] apixaban (ELIQUIS) 5 mg tablet 08-14 12:48: 15 Yes Take by mouth. [facility] furosemide 40 mg tablet 0 08-14 12:48: 15 Yes 40mg Take 40 mg by mouth daily. [facility] apixaban (ELIQUIS) 5 mg tablet 0 08-14 12:48: 15 Yes Take by mouth. [facility] furosemide 40 mg tablet 0 08-14 12:48: 15 Yes 40mg Take 40 mg by mouth daily. [facility] apixaban (ELIQUIS) 5 mg tablet 08-14 12:48: 15 Yes Take by mouth. [facility] furosemide 40 mg tablet 0 08-14 12:48: 15 Yes 40mg Take 40 mg by mouth daily. [facility] metoprolol succinate XL 100 mg 24 hr tablet 2021-0 08-14 00:00: 00 Yes TAKE 1 TABLET BY MOUTH TWICE A DAY FOR 90 DAYS [facility] metoprolol succinate XL 100 mg 24 hr tablet 2021-0 08-14 00:00: 00 Yes TAKE 1 TABLET BY MOUTH TWICE A DAY FOR 90 DAYS [facility] metoprolol succinate XL 100 mg 24 hr tablet 2021-0 08-14 00:00: 00 Yes TAKE 1 TABLET BY MOUTH TWICE A DAY FOR 90 DAYS [facility] metoprolol succinate XL 100 mg 24 hr tablet 2021-0 2 00:00: 00 Yes TAKE 1 TABLET BY MOUTH TWICE A DAY FOR 90 DAYS [facility] metoprolol succinate XL 100 mg 24 hr tablet 2021-0 08-14 00:00: 00 Yes TAKE 1 TABLET BY MOUTH TWICE A DAY FOR 90 DAYS [facility] metoprolol succinate XL 100 mg 24 hr tablet 2021-0 08-14 00:00: 00 Yes TAKE 1 TABLET BY MOUTH TWICE A DAY FOR [facility] DAYS [facility] metoprol[facility] succinate XL 100 mg 24 hr tablet 2021-0 08-14 00:00: 00 Yes TAKE 1 TABLET BY MOUTH TWICE A DAY FOR 90 DAYS [facility] metoprolol succinate XL 100 mg 24 hr tablet 2021-0 08-14 00:00: 00 Yes TAKE 1 TABLET BY MOUTH TWICE A DAY FOR 90 DAYS [facility] metoprolol succinate XL 100 mg 24 hr tablet 2021-0 08-14 00:00: 00 Yes TAKE 1 TABLET BY MOUTH TWICE A DAY FOR 90 DAYS [facility] metoprolol succinate XL 100 mg 24 hr tablet 2021-0 08-14 00:00: 00 Yes TAKE 1 TABLET BY MOUTH TWICE A DAY FOR 90 DAYS [facility] metoprolol succinate XL 100 mg 24 hr tablet 2021-0 08-14 00:00: 00 Yes TAKE 1 TABLET BY MOUTH TWICE A DAY FOR 90 DAYS [facility] metoprolol succinate XL 100 mg 24 hr tablet 2021-0 08-14 00:00: 00 Yes TAKE 1 TABLET BY MOUTH TWICE A DAY FOR 90 DAYS [facility] metoprolol succinate XL 100 mg 24 hr tablet 2021-0 08-14 00:00: 00 Yes TAKE 1 TABLET BY MOUTH TWICE A DAY FOR 90 DAYS [facility] metoprolol succinate XL 100 mg 24 hr tablet 2021-0 08-14 00:00: 00 Yes TAKE 1 TABLET BY MOUTH TWICE A DAY FOR 90 DAYS [facility] metoprolol succinate XL 100 mg 24 hr tablet 2021-0 08-14 00:00: 00 Yes TAKE 1 TABLET BY MOUTH TWICE A DAY FOR 90 DAYS [facility] metoprolol succinate XL 100 mg 24 hr tablet 2021-0 2 00:00: 00 Yes TAKE 1 TABLET BY MOUTH TWICE A DAY FOR 90 DAYS [facility] metoprolol succinate XL 100 mg 24 hr tablet 2021-0 2 00:00: 00 Yes TAKE 1 TABLET BY MOUTH TWICE A DAY FOR 90 DAYS [facility] metoprolol succinate XL 100 mg 24 hr tablet 2021-0 2 00:00: 00 Yes TAKE 1 TABLET BY MOUTH TWICE A DAY FOR 90 DAYS [facility] metoprolol succinate XL 100 mg 24 hr tablet 2021-0 2 00:00: 00 Yes TAKE 1 TABLET BY MOUTH TWICE A DAY FOR [facility]YS [facility] XL 100 mg 24 hr tablet 2021-0 08-14 00:00: 00 Yes TAKE 1 TABLET BY MOUTH TWICE A DAY FOR 90 DAYS [facility] metoprolol succinate XL 100 mg 24 hr tablet 2021-0 08-14 00:00: 00 Yes TAKE 1 TABLET BY MOUTH TWICE A DAY FOR 90 DAYS [facility] metoprolol succinate XL 100 mg 24 hr tablet 2021-0 08-14 00:00: 00 Yes TAKE 1 TABLET BY MOUTH TWICE A DAY FOR 90 DAYS [facility] metoprolol succinate XL 100 mg 24 hr tablet 2021-0 08-14 00:00: 00 Yes TAKE 1 TABLET BY MOUTH TWICE A DAY FOR 90 DAYS [facility] metoprolol succinate XL 100 mg 24 hr tablet 2021-0 08-14 00:00: 00 Yes TAKE 1 TABLET BY MOUTH TWICE A DAY FOR 90 DAYS [facility] metoprolol succinate XL 100 mg 24 hr tablet 2021-0 08-14 00:00: 00 Yes TAKE 1 TABLET BY MOUTH TWICE A DAY FOR 90 DAYS [facility] metoprolol succinate XL 100 mg 24 hr tablet 2021-0 2 00:00: 00 Yes TAKE 1 TABLET BY MOUTH TWICE A DAY FOR 90 DAYS [facility] metoprolol succinate XL 100 mg 24 hr tablet 2021-0 2 00:00: 00 Yes TAKE 1 TABLET BY MOUTH TWICE A DAY FOR 90 DAYS [facility] succinate XL 100 mg 24 hr tablet 2021-0 2 00:00: 00 Yes TAKE 1 TABLET BY MOUTH TWICE A DAY FOR 90 DAYS [facility] metoprolol succinate XL 100 mg 24 hr tablet 2021-0 2 00:00: 00 Yes TAKE 1 TABLET BY MOUTH TWICE A DAY FOR 90 DAYS [facility] metoprolol succinate XL 100 mg 24 hr tablet 2021-0 08-14 00:00: 00 Yes TAKE 1 TABLET BY MOUTH TWICE A DAY FOR 90 DAYS [facility] metoprolol succinate XL 100 mg 24 hr tablet 2021-0 08-14 00:00: 00 Yes TAKE 1 TABLET BY MOUTH TWICE A DAY FOR 90 DAYS [facility] metoprolol succinate XL 100 mg 24 hr tablet 2021-0 08-14 00:00: 00 Yes TAKE 1 TABLET BY MOUTH TWICE A DAY FOR 90 DAYS [facility] metoprolol succinate XL 100 mg 24 hr tablet 2021-0 08-14 00:00: 00 Yes TAKE 1 TABLET BY MOUTH TWICE A DAY FOR 90 DAYS [facility] metoprolol succinate XL 100 mg 24 hr tablet 2021-0 08-14 00:00: 00 Yes TAKE 1 TABLET BY MOUTH TWICE A DAY FOR 90 DAYS [facility] metoprolol succinate XL 100 mg 24 hr tablet 2021-0 08-14 00:00: 00 Yes TAKE 1 TABLET BY MOUTH TWICE A DAY FOR 90 DAYS [facility] metoprolol succinate XL 100 mg 24 hr tablet 2021-0 08-14 00:00: 00 Yes TAKE 1 TABLET BY MOUTH TWICE A DAY FOR 90 DAYS [facility] metoprolol succinate XL 100 mg 24 hr tablet 2021-0 08-14 00:00: 00 Yes TAKE 1 TABLET BY MOUTH TWICE A DAY FOR 90 DAYS [facility] metoprolol succinate XL 100 mg 24 hr tablet 2021-0 08-14 00:00: 00 Yes TAKE 1 TABLET BY MOUTH TWICE A DAY FOR 90 DAYS [facility] metoprolol succinate XL 100 mg 24 hr tablet 2021-0 08-14 00:00: 00 Yes TAKE 1 TABLET BY MOUTH TWICE A DAY FOR 90 DAYS [facility] metoprolol succinate XL 100 mg 24 hr tablet 2021-0 2 00:00: 00 Yes TAKE 1 TABLET BY MOUTH TWICE A DAY FOR 90 DAYS [facility] metoprolol succinate XL 100 mg 24 hr tablet 2021-0 2 00:00: 00 Yes TAKE 1 TABLET BY MOUTH TWICE A DAY FOR 90 DAYS [facility] metoprolol succinate XL 100 mg 24 hr tablet 2021-0 2 00:00: 00 Yes TAKE 1 TABLET BY MOUTH TWICE A DAY FOR 90 DAYS [facility] metoprolol succinate XL 100 mg 24 hr tablet 2021-0 2 00:00: 00 Yes TAKE 1 TABLET BY MOUTH TWICE A DAY FOR 90 DAYS [facility] metoprolol succinate XL 100 mg 24 hr tablet 2021-0 08-14 00:00: 00 Yes TAKE 1 TABLET BY MOUTH TWICE A DAY FOR 90 DAYS [facility] metoprolol succinate XL 100 mg 24 hr tablet 2021-0 08-14 00:00: 00 Yes TAKE 1 TABLET BY MOUTH TWICE A DAY FOR 90 DAYS [facility] metoprolol succinate XL 100 mg 24 hr tablet 2021-0 08-14 00:00: 00 Yes TAKE 1 TABLET BY MOUTH TWICE A DAY FOR 90 DAYS [facility] metoprolol succinate XL 100 mg 24 hr tablet 2021-0 08-14 00:00: 00 Yes TAKE 1 TABLET BY MOUTH TWICE A DAY FOR 90 DAYS [facility] metoprolol succinate XL 100 mg 24 hr tablet 2021-0 08-14 00:00: 00 Yes TAKE 1 TABLET BY MOUTH TWICE A DAY FOR 90 DAYS [facility] metoprolol succinate XL 100 mg 24 hr tablet 2021-0 08-14 00:00: 00 Yes TAKE 1 TABLET BY MOUTH TWICE A DAY FOR 90 DAYS [facility] metoprolol succinate XL 100 mg 24 hr tablet 2021-0 08-14 00:00: 00 Yes TAKE 1 TABLET BY MOUTH TWICE A DAY FOR 90 DAYS [facility] metoprolol succinate XL 100 mg 24 hr tablet 2021-0 2 00:00: 00 Yes TAKE 1 TABLET BY MOUTH TWICE A DAY FOR 90 DAYS [facility] metoprolol succinate XL 100 mg 24 hr tablet 2021-0 2 00:00: 00 Yes TAKE 1 TABLET BY MOUTH TWICE A DAY FOR 90 DAYS [facility] metoprolol succinate XL 100 mg 24 hr tablet 2021-0 2 00:00: 00 Yes TAKE 1 TABLET BY MOUTH TWICE A DAY FOR 90 DAYS [facility] metoprolol succinate XL 100 mg 24 hr tablet 2021-0 2 00:00: 00 Yes TAKE 1 TABLET BY MOUTH TWICE A DAY FOR 90 DAYS [facility] metoprolol succinate XL 100 mg 24 hr tablet 2021-0 2 00:00: 00 Yes TAKE 1 TABLET BY MOUTH TWICE A DAY FOR [facility] DAYS [facility] succ[facility] XL 100 mg 24 hr tablet 2021-0 08-14 00:00: 00 Yes TAKE 1 TABLET BY MOUTH TWICE A DAY [facility] mg 24 hr tablet 2021-0 08-14 00:00: 00 Yes TAKE 1 TABLET BY MOUTH TWICE A DAY FOR [facility] DAYS [facility] 100 mg 24 hr tablet 2021-0 08-14 00:00: 00 Yes TAKE 1 TABLET BY MOUTH TWICE A DAY FOR 90 DAYS [facility] 100 mg 24 hr tablet 2021-0 08-14 00:00: 00 Yes TAKE 1 TABLET BY MOUTH TWICE A DAY FOR 90 DAYS [facility] metoprolol succinate XL 100 mg 24 hr tablet 2021-0 08-14 00:00: 00 Yes TAKE 1 TABLET BY MOUTH TWICE A DAY FOR [facility] DAYS [facility] succinate XL 100 mg 24 hr tablet 2021-0 2 00:00: 00 Yes TAKE 1 TABLET BY MOUTH TWICE A DAY FOR 90 DAYS [facility] metoprolol succinate XL 100 mg 24 hr tablet 2021-0 08-14 00:00: 00 Yes TAKE 1 TABLET BY MOUTH TWICE A DAY FOR 90 DAYS [facility]ol succinate XL 100 mg 24 hr tablet 2021-0 08-14 00:00: 00 Yes TAKE 1 TABLET BY MOUTH TWICE A DAY FOR [facility] DAYS [facility] 100 mg 24 hr tablet 2021-0 2 00:00: 00 Yes TAKE 1 TABLET BY MOUTH TWICE A DAY FOR 90 DAYS [facility] metoprolol succinate XL 100 mg 24 hr tablet 2021-0 223 00:00: 00 Yes TAKE 1 TABLET BY MOUTH TWICE A DAY FOR 90 DAYS [facility] metoprolol succinate XL 100 mg 24 hr tablet 2021-0 223 00:00: 00 Yes TAKE 1 TABLET BY MOUTH TWICE A DAY FOR 90 DAYS [facility]ol succinate XL 100 mg 24 hr tablet 2021-0 2 00:00: 00 Yes TAKE 1 TABLET BY MOUTH TWICE A DAY FOR 90 DAYS [facility] metoprolol succinate XL 100 mg 24 hr tablet 2021-0 2 00:00: 00 Yes TAKE 1 TABLET BY MOUTH TWICE A DAY FOR 90 DAYS [facility] metoprolol succinate XL 50 mg 24 hr tablet 2021-0 08-14 00:00: 00 Yes 100mg Take 2 tablets by mouth 2 (two) times daily. [facility] 100 mg 24 hr tablet 2021-0 2 00:00: 00 Yes TAKE 1 TABLET BY MOUTH TWICE A DAY FOR 90 DAYS [facility] metoprolol succinate XL 50 mg 24 hr tablet 2021-0 08-14 00:00: 00 Yes 100mg Take 2 tablets by mouth 2 (two) times daily. [facility] metoprolol succinate XL 100 mg 24 hr tablet 2021-0 08-14 00:00: 00 Yes TAKE 1 TABLET BY MOUTH TWICE A DAY FOR 90 DAYS [facility] metoprolol succinate XL 50 mg 24 hr tablet 2021-0 08-14 00:00: 00 Yes 100mg Take 2 tablets by mouth 2 (two) times daily. [facility] metoprolol succinate XL 100 mg 24 hr tablet 2021-0 2 00:00: 00 Yes TAKE 1 TABLET BY MOUTH TWICE A DAY FOR 90 DAYS [facility] metoprolol succinate XL 50 mg 24 hr tablet 2021-0 2 00:00: 00 Yes 100mg Take 2 tablets by mouth 2 (two) times daily. [facility] metoprolol succinate XL 100 mg 24 hr tablet 2021-0 2- 00:00: 00 Yes TAKE 1 TABLET BY MOUTH TWICE A DAY FOR 90 DAYS [facility] metoprolol succinate XL 50 mg 24 hr tablet 2021-0 223 00:00: 00 Yes 100mg Take 2 tablets by mouth 2 (two) times daily. [facility] 100 mg 24 hr tablet 2021-0 2-23 00:00: 00 Yes TAKE 1 TABLET BY MOUTH TWICE A DAY FOR 90 DAYS [facility] metoprolol succinate XL 50 mg 24 hr tablet 2021-0 2 00:00: 00 Yes 100mg Take 2 tablets by mouth 2 (two) times daily. [facility] metoprolol succinate XL 100 mg 24 hr tablet 2021-0 2 00:00: 00 Yes TAKE 1 TABLET BY MOUTH TWICE A DAY FOR 90 DAYS [facility] metoprolol succinate XL 50 mg 24 hr tablet 2021-0 08-14 00:00: 00 Yes 100mg Take 2 tablets by mouth 2 (two) times daily. [facility] metoprolol succinate XL 100 mg 24 hr tablet 2021-0 08-14 00:00: 00 Yes TAKE 1 TABLET BY MOUTH TWICE A DAY FOR 90 DAYS [facility] metoprolol succinate XL 50 mg 24 hr tablet 2021-0 08-14 00:00: 00 Yes 100mg Take 2 tablets by mouth 2 (two) times daily. [facility] metoprolol succinate XL 100 mg 24 hr tablet 2021-0 2 00:00: 00 Yes TAKE 1 TABLET BY MOUTH TWICE A DAY FOR 90 DAYS [facility] metoprolol succinate XL 50 mg 24 hr tablet 2021-0 2 00:00: 00 Yes 100mg Take 2 tablets by mouth 2 (two) times daily. [facility] metoprolol succinate XL 100 mg 24 hr tablet 2021-0 2- 00:00: 00 Yes TAKE 1 TABLET BY MOUTH TWICE A DAY FOR 90 DAYS [facility] metoprolol succinate XL 100 mg 24 hr tablet 2021-0 2- 00:00: 00 Yes TAKE 1 TABLET BY MOUTH TWICE A DAY FOR 90 DAYS [facility] metoprolol succinate XL 100 mg 24 hr tablet 2021-0 2 00:00: 00 Yes TAKE 1 TABLET BY MOUTH TWICE A DAY FOR 90 DAYS [facility] metoprolol succinate XL 100 mg 24 hr tablet 2 00:00: 00 Yes TAKE 1 TABLET BY MOUTH TWICE A DAY FOR 90 DAYS [facility] metoprolol succinate XL 50 mg 24 hr tablet 08-14 00:00: 00 04-04 00:00 :00 No 100mg Take 2 tablets by mouth 2 (two) times daily. [facility] metoprolol succinate XL 50 mg 24 hr tablet 08-14 00:00: 00 04-04 00:00 :00 No 100mg Take 2 tablets by mouth 2 (two) times daily. [facility] metoprolol succinate XL 50 mg 24 hr tablet 08-14 00:00: 00 04-04 00:00 :00 No 100mg Take 2 tablets by mouth 2 (two) times daily. [facility] JANUMET XR 100-1,000 mg per tablet 2020-06 00:00: 00 Yes 1{tbl} Take 1 tablet by mouth every morning. [facility] JANUMET XR 100-1,000 mg per tablet 2020-0616 00:00: 00 Yes 1{tbl} Take 1 tablet by mouth every morning. [facility] JANUMET XR 100-1,000 mg per tablet 2020-0616 00:00: 00 Yes 1{tbl} Take 1 tablet by mouth every morning. [facility] JANUMET XR 100-1,000 mg per tablet 2020-0616 00:00: 00 03-12 00:00 :00 No 1{tbl} Take 1 tablet by mouth every morning. [facility] JANUMET XR 100-1,000 mg per tablet 2020-0616 00:00: 00 03-12 00:00 :00 No 1{tbl} Take 1 tablet by mouth every morning. [facility] Immunizations Ordered Immunization Name Filled Immunization Name Date Status Comments Source TD 2021-07-01 00:00:00 Completed [facility] TDAP 2021-07-01 00:00:00 [facility] 2021-07-01 00:00:00 Completed [facility] TDAP 2021-07-01 00:00:00 Completed [facility] TDAP 2021-07-01 00:00:00 Completed [facility] TDAP 2021-07-01 00:00:00 Completed [facility] TDAP 2021-07-01 00:00:00 Completed [facility] TDAP 2021-07-01 00:00:00 [facility] 2021-07-01 00:00:00 Completed [facility] TDAP 2021-07-01 00:00:00 Completed [facility] TDAP 2021-07-01 00:00:00 Completed [facility] TDAP 2021-07-01 00:00:00 Completed [facility] TDAP 2021-07-01 00:00:00 Completed [facility] TDAP 2021-07-01 00:00:00 Completed [facility] TDAP 2021-07-01 00:00:00 Completed [facility] TDAP 2021-07-01 00:00:00 Completed [facility] TDAP 2021-07-01 00:00:00 Completed [facility] TDAP 2021-07-01 00:00:00 Completed [facility] TDAP 2021-07-01 00:00:00 Completed [facility] TDAP 2021-07-01 00:00:00 Completed [facility] TDAP 2021-07-01 00:00:00 Completed [facility] TDAP 2021-07-01 00:00:00 Completed [facility] TDAP 2021-07-01 00:00:00 Completed [facility] [place] TDAP 2021-07-01 00:00:00 Completed [facility] TDAP 2021-07-01 00:00:00 Completed [facility] TDAP 2021-07-01 00:00:00 Completed [facility] [place] TDAP 2021-07-01 00:00:00 Completed [facility] TDAP 2021-07-01 00:00:00 Completed [facility] TDAP 2021-07-01 00:00:00 Completed [facility] TDAP 2021-07-01 00:00:00 Completed [facility] TDAP 2021-07-01 00:00:00 Completed [facility] TDAP 2021-07-01 00:00:00 Completed [facility] TDAP 2021-07-01 00:00:00 Completed [facility] TDAP 2021-07-01 00:00:00 Completed [facility] TDAP 2021-07-01 00:00:00 Completed [facility] TDAP 2021-07-01 00:00:00 Completed [facility] TDAP 2021-07-01 00:00:00 Completed [facility] TDAP 2021-07-01 00:00:00 Completed [facility] TDAP 2021-07-01 00:00:00 Completed [facility] TDAP 2021-07-01 00:00:00 Completed [facility] TDAP 2021-07-01 00:00:00 Completed [facility] TDAP 2021-07-01 00:00:00 Completed [facility] TDAP 2021-07-01 00:00:00 Completed [facility] [place] TDAP 2021-07-01 00:00:00 Completed [facility] [place] TDAP 2021-07-01 00:00:00 Completed [facility] TDAP 2021-07-01 00:00:00 Completed [facility] [place] TDAP 2021-07-01 00:00:00 Completed [facility] [place] TDAP 2021-07-01 00:00:00 Completed [facility] TDAP 2021-07-01 00:00:00 Completed [facility] TDAP 2021-07-01 00:00:00 Completed [facility] TDAP 2021-07-01 00:00:00 Completed [facility] [place] TDAP 2021-07-01 00:00:00 Completed [facility] [place] TDAP 2021-07-01 00:00:00 Completed [facility] [place] TDAP 2021-07-01 00:00:00 Completed [facility] TDAP 2021-07-01 00:00:00 Completed [facility] TDAP 2021-07-01 00:00:00 Completed [facility] SARS-COV-2 COVID-19 VACCINE - (MODERNA) 2020-11-28 00:00:00 Completed [facility] SARS-COV-2 COVID-19 VACCINE - (MODERNA) 2020-11-28 00:00:00 Completed [facility] SARS-COV-2 COVID-19 VACCINE - (MODERNA) 2020-11-28 00:00:00 Completed [facility] SARS-COV-2 COVID-19 VACCINE - (MODERNA) 2020-11-28 00:00:00 Completed [facility] SARS-COV-2 COVID-19 VACCINE - (MODERNA) 2020-11-28 00:00:00 Completed [facility] SARS-COV-2 COVID-19 VACCINE - (MODERNA) 2020-11-28 00:00:00 Completed [facility] SARS-COV-2 COVID-19 VACCINE - (MODERNA) 2020-11-28 00:00:00 Completed [facility] SARS-COV-2 COVID-19 VACCINE - (MODERNA) 2020-11-28 00:00:00 Completed [facility] SARS-COV-2 COVID-19 VACCINE - (MODERNA) 2020-11-28 00:00:00 Completed [facility] SARS-COV-2 COVID-19 VACCINE - (MODERNA) 2020-11-28 00:00:00 Completed [facility] SARS-COV-2 COVID-19 VACCINE - (MODERNA) 2020-11-28 00:00:00 Completed [facility] SARS-COV-2 COVID-19 VACCINE - (MODERNA) 2020-11-28 00:00:00 Completed [facility] SARS-COV-2 COVID-19 VACCINE - (MODERNA) 2020-11-28 00:00:00 Completed [facility] SARS-COV-2 COVID-19 VACCINE - (MODERNA) 2020-11-28 00:00:00 Completed [facility] SARS-COV-2 COVID-19 VACCINE - (MODERNA) 2020-11-28 00:00:00 Completed [facility] SARS-COV-2 COVID-19 VACCINE - (MODERNA) 2020-11-28 00:00:00 Completed [facility] SARS-COV-2 COVID-19 VACCINE - (MODERNA) 2020-11-28 00:00:00 Completed [facility] SARS-COV-2 COVID-19 VACCINE - (MODERNA) 2020-11-28 00:00:00 Completed [facility] SARS-COV-2 COVID-19 VACCINE - (MODERNA) 2020-11-28 00:00:00 Completed [facility] SARS-COV-2 COVID-19 VACCINE - (MODERNA) 2020-11-28 00:00:00 Completed [facility] SARS-COV-2 COVID-19 VACCINE - (MODERNA) 2020-10-31 00:00:00 Completed [facility] SARS-COV-2 COVID-19 VACCINE - (MODERNA) 2020-10-31 00:00:00 Completed [facility] SARS-COV-2 COVID-19 VACCINE - (MODERNA) 2020-10-31 00:00:00 Completed [facility] SARS-COV-2 COVID-19 VACCINE - (MODERNA) 2020-10-31 00:00:00 Completed [facility] SARS-COV-2 COVID-19 VACCINE - (MODERNA) 2020-10-31 00:00:00 Completed [facility] SARS-COV-2 COVID-19 VACCINE - (MODERNA) 2020-10-31 00:00:00 Completed [facility] SARS-COV-2 COVID-19 VACCINE - (MODERNA) 2020-10-31 00:00:00 Completed [facility] SARS-COV-2 COVID-19 VACCINE - (MODERNA) 2020-10-31 00:00:00 Completed [facility] SARS-COV-2 COVID-19 VACCINE - (MODERNA) 2020-10-31 00:00:00 Completed [facility] SARS-COV-2 COVID-19 VACCINE - (MODERNA) 2020-10-31 00:00:00 Completed [facility] SARS-COV-2 COVID-19 VACCINE - (MODERNA) 2020-10-31 00:00:00 Completed [facility] SARS-COV-2 COVID-19 VACCINE - (MODERNA) 2020-10-31 00:00:00 Completed [facility] SARS-COV-2 COVID-19 VACCINE - (MODERNA) 2020-10-31 00:00:00 Completed [facility] SARS-COV-2 COVID-19 VACCINE - (MODERNA) 2020-10-31 00:00:00 Completed [facility] SARS-COV-2 COVID-19 VACCINE - (MODERNA) 2020-10-31 00:00:00 Completed [facility] SARS-COV-2 COVID-19 VACCINE - (MODERNA) 2020-10-31 00:00:00 Completed [facility] SARS-COV-2 COVID-19 VACCINE - (MODERNA) 2020-10-31 00:00:00 Completed [facility] SARS-COV-2 COVID-19 VACCINE - (MODERNA) 2020-10-31 00:00:00 Completed [facility] SARS-COV-2 COVID-19 VACCINE - (MODERNA) 2020-10-31 00:00:00 Completed [facility] SARS-COV-2 COVID-19 VACCINE - (MODERNA) 2020-10-31 00:00:00 Completed [facility] SARS-COV-2 COVID-19 VACCINE - (MODERNA) 2020-10-31 00:00:00 Completed [facility] SARS-COV-2 COVID-19 VACCINE - (MODERNA) 2020-10-31 00:00:00 Completed [facility] SARS-COV-2 COVID-19 VACCINE - (MODERNA) 2020-10-31 00:00:00 Completed [facility] SARS-COV-2 COVID-19 VACCINE - (MODERNA) 2020-10-31 00:00:00 Completed [facility] SARS-COV-2 COVID-19 VACCINE - (MODERNA) 2020-10-31 00:00:00 Completed [facility] SARS-COV-2 COVID-19 VACCINE - (MODERNA) 2020-10-31 00:00:00 Completed [facility] SARS-COV-2 COVID-19 VACCINE - (MODERNA) 2020-10-31 00:00:00 Completed [facility] SARS-COV-2 COVID-19 VACCINE - (MODERNA) 2020-10-31 00:00:00 Completed [facility] SARS-COV-2 COVID-19 VACCINE - (MODERNA) 2020-10-31 00:00:00 Completed [facility] SARS-COV-2 COVID-19 VACCINE - (MODERNA) 2020-10-31 00:00:00 Completed [facility] SARS-COV-2 COVID-19 VACCINE - (MODERNA) 2020-10-31 00:00:00 Completed [facility] SARS-COV-2 COVID-19 VACCINE - (MODERNA) 2020-10-31 00:00:00 Completed [facility] SARS-COV-2 COVID-19 VACCINE - (MODERNA) 2020-10-31 00:00:00 Completed [facility] SARS-COV-2 COVID-19 VACCINE - (MODERNA) 2020-10-31 00:00:00 Completed [facility] SARS-COV-2 COVID-19 VACCINE - (MODERNA) 2020-10-31 00:00:00 Completed [facility] SARS-COV-2 COVID-19 VACCINE - (MODERNA) 2020-10-31 00:00:00 Completed [facility] SARS-COV-2 COVID-19 VACCINE - (MODERNA) 2020-10-31 00:00:00 Completed [facility] SARS-COV-2 COVID-19 VACCINE - (MODERNA) 2020-10-31 00:00:00 Completed [facility] SARS-COV-2 COVID-19 VACCINE - (MODERNA) 2020-10-31 00:00:00 Completed [facility] SARS-COV-2 COVID-19 VACCINE - (MODERNA) 2020-10-31 00:00:00 Completed [facility] Pneumococcal Polysaccharide, PPSV23 (PNEUMOVAX) 2018-11-12 00:00:00 Completed [facility] Pneumococcal Polysaccharide, PPSV23 (PNEUMOVAX) 2018-11-12 00:00:00 Completed [facility] Pneumococcal Polysaccharide, PPSV23 (PNEUMOVAX) 2018-11-12 00:00:00 Completed [facility] Pneumococcal Polysaccharide, PPSV23 (PNEUMOVAX) 2018-11-12 00:00:00 Completed [facility] Pneumococcal Polysaccharide, PPSV23 (PNEUMOVAX) 2018-11-12 00:00:00 Completed [facility] Pneumococcal Polysaccharide, PPSV23 (PNEUMOVAX) 2018-11-12 00:00:00 Completed [facility] Pneumococcal Polysaccharide, PPSV23 (PNEUMOVAX) 2018-11-12 00:00:00 Completed [facility] Pneumococcal Polysaccharide, PPSV23 (PNEUMOVAX) 2018-11-12 00:00:00 Completed [facility] Pneumococcal Polysaccharide, PPSV23 (PNEUMOVAX) 2018-11-12 00:00:00 Completed [facility] Pneumococcal Polysaccharide, PPSV23 (PNEUMOVAX) 2018-11-12 00:00:00 Completed [facility] Pneumococcal Polysaccharide, PPSV23 (PNEUMOVAX) 2018-11-12 00:00:00 Completed [facility] Pneumococcal Polysaccharide, PPSV23 (PNEUMOVAX) 2018-11-12 00:00:00 Completed [facility] Pneumococcal Polysaccharide, PPSV23 (PNEUMOVAX) 2018-11-12 00:00:00 Completed [facility] Pneumococcal Polysaccharide, PPSV23 (PNEUMOVAX) 2018-11-12 00:00:00 Completed [facility] Pneumococcal Polysaccharide, PPSV23 (PNEUMOVAX) 2018-11-12 00:00:00 Completed [facility] Pneumococcal Polysaccharide, PPSV23 (PNEUMOVAX) 2018-11-12 00:00:00 Completed [facility] Pneumococcal Polysaccharide, PPSV23 (PNEUMOVAX) 2018-11-12 00:00:00 Completed [facility] Pneumococcal Polysaccharide, PPSV23 (PNEUMOVAX) 2018-11-12 00:00:00 Completed [facility] Pneumococcal Polysaccharide, PPSV23 (PNEUMOVAX) 2018-11-12 00:00:00 Completed [facility] Pneumococcal Polysaccharide, PPSV23 (PNEUMOVAX) 2018-11-12 00:00:00 Completed [facility] Pneumococcal Polysaccharide, PPSV23 (PNEUMOVAX) 2018-11-12 00:00:00 Completed [facility] Pneumococcal Polysaccharide, PPSV23 (PNEUMOVAX) 2018-11-12 00:00:00 Completed [facility] Pneumococcal Polysaccharide, PPSV23 (PNEUMOVAX) 2018-11-12 00:00:00 Completed [facility] Pneumococcal Polysaccharide, PPSV23 (PNEUMOVAX) 2018-11-12 00:00:00 Completed [facility] Pneumococcal Polysaccharide, PPSV23 (PNEUMOVAX) 2018-11-12 00:00:00 Completed [facility] Pneumococcal Polysaccharide, PPSV23 (PNEUMOVAX) 2018-11-12 00:00:00 Completed [facility] Pneumococcal Polysaccharide, PPSV23 (PNEUMOVAX) 2018-11-12 00:00:00 Completed [facility] Pneumococcal Polysaccharide, PPSV23 (PNEUMOVAX) 2018-11-12 00:00:00 Completed [facility] Pneumococcal Polysaccharide, PPSV23 (PNEUMOVAX) 2018-11-12 00:00:00 Completed [facility] Pneumococcal Polysaccharide, PPSV23 (PNEUMOVAX) 2018-11-12 00:00:00 Completed [facility] Pneumococcal Polysaccharide, PPSV23 (PNEUMOVAX) 2018-11-12 00:00:00 Completed [facility] Pneumococcal Polysaccharide, PPSV23 (PNEUMOVAX) 2018-11-12 00:00:00 Completed [facility] Pneumococcal Polysaccharide, PPSV23 (PNEUMOVAX) 2018-11-12 00:00:00 Completed [facility] Pneumococcal Polysaccharide, PPSV23 (PNEUMOVAX) 2018-11-12 00:00:00 Completed [facility] Pneumococcal Polysaccharide, PPSV23 (PNEUMOVAX) 2018-11-12 00:00:00 Completed [facility] Pneumococcal Polysaccharide, PPSV23 (PNEUMOVAX) 2018-11-12 00:00:00 Completed [facility] Pneumococcal Polysaccharide, PPSV23 (PNEUMOVAX) 2018-11-12 00:00:00 Completed [facility] Pneumococcal Polysaccharide, PPSV23 (PNEUMOVAX) 2018-11-12 00:00:00 Completed [facility] Pneumococcal Polysaccharide, PPSV23 (PNEUMOVAX) 2018-11-12 00:00:00 Completed [facility] Pneumococcal Polysaccharide, PPSV23 (PNEUMOVAX) 2018-11-12 00:00:00 Completed [facility] Pneumococcal Polysaccharide, PPSV23 (PNEUMOVAX) 2018-11-12 00:00:00 Completed [facility] Pneumococcal Polysaccharide, PPSV23 (PNEUMOVAX) 2018-11-12 00:00:00 Completed [facility] Pneumococcal Polysaccharide, PPSV23 (PNEUMOVAX) 2018-11-12 00:00:00 Completed [facility] Pneumococcal Polysaccharide, PPSV23 (PNEUMOVAX) 2018-11-12 00:00:00 Completed [facility] [facility] Pneumococcal Polysaccharide, PPSV23 (PNEUMOVAX) 2018-11-12 00:00:00 Completed [facility] Pneumococcal Polysaccharide, PPSV23 (PNEUMOVAX) 2018-11-12 00:00:00 Completed [facility] Pneumococcal Polysaccharide, PPSV23 (PNEUMOVAX) 2018-11-12 00:00:00 Completed [facility] Pneumococcal Polysaccharide, PPSV23 (PNEUMOVAX) 2018-11-12 00:00:00 Completed [facility] Pneumococcal Polysaccharide, PPSV23 (PNEUMOVAX) 2018-11-12 00:00:00 Completed [facility] Pneumococcal Polysaccharide, PPSV23 (PNEUMOVAX) 2018-11-12 00:00:00 Completed [facility] Pneumococcal Polysaccharide, PPSV23 (PNEUMOVAX) 2018-11-12 00:00:00 Completed [facility] Pneumococcal Polysaccharide, PPSV23 (PNEUMOVAX) 2018-11-12 00:00:00 Completed [facility] Pneumococcal Polysaccharide, PPSV23 (PNEUMOVAX) 2018-11-12 00:00:00 Completed [facility] Pneumococcal Polysaccharide, PPSV23 (PNEUMOVAX) 2018-11-12 00:00:00 Completed [facility] Pneumococcal Polysaccharide, PPSV23 (PNEUMOVAX) 2018-11-12 00:00:00 Completed [facility] Pneumococcal Polysaccharide, PPSV23 (PNEUMOVAX) 2018-11-12 00:00:00 Completed [facility] Pneumococcal Polysaccharide, PPSV23 (PNEUMOVAX) Unknown Completed [facility] TDAP Unknown Completed [facility] SARS-COV-2 COVID-19 VACCINE - (MODERNA) Unknown Completed [facility] SARS-COV-2 COVID-19 VACCINE - (MODERNA) Unknown Completed [facility] SARS-COV-2 COVID-19 VACCINE - (MODERNA) Unknown Completed [facility] Pneumococcal Polysaccharide, PPSV23 (PNEUMOVAX) Unknown Completed [facility] TDAP Unknown Completed [facility] SARS-COV-2 COVID-19 VACCINE - (MODERNA) Unknown Completed [facility] SARS-COV-2 COVID-19 VACCINE - (MODERNA) Unknown Completed [facility] SARS-COV-2 COVID-19 VACCINE - (MODERNA) Unknown Completed [facility] Pneumococcal Polysaccharide, PPSV23 (PNEUMOVAX) Unknown Completed [facility] TDAP Unknown Completed [facility] SARS-COV-2 COVID-19 VACCINE - (MODERNA) Unknown Completed [facility] SARS-COV-2 COVID-19 VACCINE - (MODERNA) Unknown Completed [facility] SARS-COV-2 COVID-19 VACCINE - (MODERNA) Unknown Completed [facility] Pneumococcal Polysaccharide, PPSV23 (PNEUMOVAX) Unknown Completed [facility] TDAP Unknown Completed [facility] SARS-COV-2 COVID-19 VACCINE - (MODERNA) Unknown Completed [facility] SARS-COV-2 COVID-19 VACCINE - (MODERNA) Unknown Completed [facility] SARS-COV-2 COVID-19 VACCINE - (MODERNA) Unknown Completed [facility] Pneumococcal Polysaccharide, PPSV23 (PNEUMOVAX) Unknown Completed [facility] TDAP Unknown Completed [facility] SARS-COV-2 COVID-19 VACCINE - (MODERNA) Unknown Completed [facility] SARS-COV-2 COVID-19 VACCINE - (MODERNA) Unknown Completed [facility] SARS-COV-2 COVID-19 VACCINE - (MODERNA) Unknown Completed [facility] Pneumococcal Polysaccharide, PPSV23 (PNEUMOVAX) Unknown Completed [facility] TDAP Unknown Completed [facility] SARS-COV-2 COVID-19 VACCINE - (MODERNA) Unknown Completed [facility] SARS-COV-2 COVID-19 VACCINE - (MODERNA) Unknown Completed [facility] SARS-COV-2 COVID-19 VACCINE - (MODERNA) Unknown Completed [facility] Pneumococcal Polysaccharide, PPSV23 (PNEUMOVAX) Unknown Completed [facility] TDAP Unknown Completed [facility] SARS-COV-2 COVID-19 VACCINE - (MODERNA) Unknown Completed [facility] SARS-COV-2 COVID-19 VACCINE - (MODERNA) Unknown Completed [facility] SARS-COV-2 COVID-19 VACCINE - (MODERNA) Unknown Completed [facility] Pneumococcal Polysaccharide, PPSV23 (PNEUMOVAX) Unknown Completed [facility] TDAP Unknown Completed [facility] SARS-COV-2 COVID-19 VACCINE - (MODERNA) Unknown Completed [facility] SARS-COV-2 COVID-19 VACCINE - (MODERNA) Unknown Completed [facility] SARS-COV-2 COVID-19 VACCINE - (MODERNA) Unknown Completed [facility] Pneumococcal Polysaccharide, PPSV23 (PNEUMOVAX) Unknown Completed [facility] TDAP Unknown Completed [facility] SARS-COV-2 COVID-19 VACCINE - (MODERNA) Unknown Completed [facility] SARS-COV-2 COVID-19 VACCINE - (MODERNA) Unknown Completed [facility] SARS-COV-2 COVID-19 VACCINE - (MODERNA) Unknown Completed [facility] Pneumococcal Polysaccharide, PPSV23 (PNEUMOVAX) Unknown Completed [facility] TDAP Unknown Completed [facility] SARS-COV-2 COVID-19 VACCINE - (MODERNA) Unknown Completed [facility] SARS-COV-2 COVID-19 VACCINE - (MODERNA) Unknown Completed [facility] SARS-COV-2 COVID-19 VACCINE - (MODERNA) Unknown Completed [facility] Pneumococcal Polysaccharide, PPSV23 (PNEUMOVAX) Unknown Completed [facility] TDAP Unknown Completed [facility] SARS-COV-2 COVID-19 VACCINE - (MODERNA) Unknown Completed [facility] SARS-COV-2 COVID-19 VACCINE - (MODERNA) Unknown Completed [facility] SARS-COV-2 COVID-19 VACCINE - (MODERNA) Unknown Completed [facility] Pneumococcal Polysaccharide, PPSV23 (PNEUMOVAX) Unknown Completed [facility] TDAP Unknown Completed [facility] SARS-COV-2 COVID-19 VACCINE - (MODERNA) Unknown Completed [facility] SARS-COV-2 COVID-19 VACCINE - (MODERNA) Unknown Completed [facility] SARS-COV-2 COVID-19 VACCINE - (MODERNA) Unknown Completed [facility] Pneumococcal Polysaccharide, PPSV23 (PNEUMOVAX) Unknown Completed [facility] TDAP Unknown Completed [facility] SARS-COV-2 COVID-19 VACCINE - (MODERNA) Unknown Completed [facility] SARS-COV-2 COVID-19 VACCINE - (MODERNA) Unknown Completed [facility] SARS-COV-2 COVID-19 VACCINE - (MODERNA) Unknown Completed [facility] Pneumococcal Polysaccharide, PPSV23 (PNEUMOVAX) Unknown Completed [facility] TDAP Unknown Completed [facility] SARS-COV-2 COVID-19 VACCINE - (MODERNA) Unknown Completed [facility] SARS-COV-2 COVID-19 VACCINE - (MODERNA) Unknown Completed [facility] SARS-COV-2 COVID-19 VACCINE - (MODERNA) Unknown Completed [facility] Pneumococcal Polysaccharide, PPSV23 (PNEUMOVAX) Unknown Completed [facility] TDAP Unknown Completed [facility] SARS-COV-2 COVID-19 VACCINE - (MODERNA) Unknown Completed [facility] SARS-COV-2 COVID-19 VACCINE - (MODERNA) Unknown Completed [facility] SARS-COV-2 COVID-19 VACCINE - (MODERNA) Unknown Completed [facility] Pneumococcal Polysaccharide, PPSV23 (PNEUMOVAX) Unknown Completed [facility] TDAP Unknown Completed [facility] SARS-COV-2 COVID-19 VACCINE - (MODERNA) Unknown Completed [facility] SARS-COV-2 COVID-19 VACCINE - (MODERNA) Unknown Completed [facility] SARS-COV-2 COVID-19 VACCINE - (MODERNA) Unknown Completed [facility] Pneumococcal Polysaccharide, PPSV23 (PNEUMOVAX) Unknown Completed [facility] TDAP Unknown Completed [facility] SARS-COV-2 COVID-19 VACCINE - (MODERNA) Unknown Completed [facility] SARS-COV-2 COVID-19 VACCINE - (MODERNA) Unknown Completed [facility] SARS-COV-2 COVID-19 VACCINE - (MODERNA) Unknown Completed [facility] Pneumococcal Polysaccharide, PPSV23 (PNEUMOVAX) Unknown Completed [facility] TDAP Unknown Completed [facility] SARS-COV-2 COVID-19 VACCINE - (MODERNA) Unknown Completed [facility] SARS-COV-2 COVID-19 VACCINE - (MODERNA) Unknown Completed [facility] SARS-COV-2 COVID-19 VACCINE - (MODERNA) Unknown Completed [facility] Pneumococcal Polysaccharide, PPSV23 (PNEUMOVAX) Unknown Completed [facility] TDAP Unknown Completed [facility] SARS-COV-2 COVID-19 VACCINE - (MODERNA) Unknown Completed [facility] SARS-COV-2 COVID-19 VACCINE - (MODERNA) Unknown Completed [facility] SARS-COV-2 COVID-19 VACCINE - (MODERNA) Unknown Completed [facility] Pneumococcal Polysaccharide, PPSV23 (PNEUMOVAX) Unknown Completed [facility] TDAP Unknown Completed [facility] SARS-COV-2 COVID-19 VACCINE - (MODERNA) Unknown Completed [facility] SARS-COV-2 COVID-19 VACCINE - (MODERNA) Unknown Completed [facility] SARS-COV-2 COVID-19 VACCINE - (MODERNA) Unknown Completed [facility] Pneumococcal Polysaccharide, PPSV23 (PNEUMOVAX) Unknown Completed [facility] TDAP Unknown Completed [facility] SARS-COV-2 COVID-19 VACCINE - (MODERNA) Unknown Completed [facility] SARS-COV-2 COVID-19 VACCINE - (MODERNA) Unknown Completed [facility] SARS-COV-2 COVID-19 VACCINE - (MODERNA) Unknown Completed [facility] Pneumococcal Polysaccharide, PPSV23 (PNEUMOVAX) Unknown Completed [facility] TDAP Unknown Completed [facility] SARS-COV-2 COVID-19 VACCINE - (MODERNA) Unknown Completed [facility] SARS-COV-2 COVID-19 VACCINE - (MODERNA) Unknown Completed [facility] SARS-COV-2 COVID-19 VACCINE - (MODERNA) Unknown Completed [facility] Pneumococcal Polysaccharide, PPSV23 (PNEUMOVAX) Unknown Completed [facility] TDAP Unknown Completed [facility] SARS-COV-2 COVID-19 VACCINE - (MODERNA) Unknown Completed [facility] SARS-COV-2 COVID-19 VACCINE - (MODERNA) Unknown Completed [facility] SARS-COV-2 COVID-19 VACCINE - (MODERNA) Unknown Completed [facility] Pneumococcal Polysaccharide, PPSV23 (PNEUMOVAX) Unknown Completed [facility] TDAP Unknown Completed [facility] SARS-COV-2 COVID-19 VACCINE - (MODERNA) Unknown Completed [facility] SARS-COV-2 COVID-19 VACCINE - (MODERNA) Unknown Completed [facility] SARS-COV-2 COVID-19 VACCINE - (MODERNA) Unknown Completed [facility] Vital Signs Vital Name Observation Time Observation Value Comments S ource Systolic blood pressure 2023-05-18 21:03:00 131 mm[Hg] [facility] Diastolic blood pressure 2023-05-18 21:03:00 77 mm[Hg] [facility] Heart rate 2023-05-18 21:03:00 58 /min [facility] Body temperature 2023-05-18 21:01:00 35.44 Vida [facility] Body height 2023-05-18 21:01:00 180.3 cm [facility] 2023-05-18 21:01:00 85.639 kg Univ [facility] BMI 2023-05-18 21:01:00 26.33 kg/m2 [facility] Oxygen saturation in Arterial blood by Pulse oximetry 2023-05-18 21:01:00 95 /min [facility] Body height 2023-05-05 14:56:00 180.3 cm [facility] 2023-05-05 14:56:00 86.183 kg [facility] BMI 2023-05-05 14:56:00 26.50 kg/m2 [facility] Systolic blood pressure 2023-04-23 13:52:00 116 mm[Hg] [facility] Diastolic blood pressure 2023-04-23 13:52:00 74 mm[Hg] [facility] Heart rate 2023-04-23 13:52:00 60 /min [facility] Body temperature 2023-04-23 13:52:00 36.44 [facility] Respiratory rate 2023-04-23 13:52:00 16 /min [facility] Body height 2023-04-23 13:52:00 180.3 cm [facility] Body weight 2023-04-23 13:52:00 86.274 kg [facility] BMI 2023-04-23 13:52:00 26.53 kg/m2 [facility] Oxygen saturation in Arterial blood by Pulse oximetry 2023-04-23 13:52:00 97 /min [facility] Systolic blood pressure 2023-04-07 13:30:00 121 mm[Hg] [facility] Diastolic blood pressure 2023-04-07 13:30:00 68 mm[Hg] [facility] Heart rate 2023-04-07 13:30:00 60 /min [facility] Body temperature 2023-04-07 13:30:00 35.44 Vida [facility] Respiratory rate 2023-04-07 13:30:00 16 /min [facility] Body height 2023-04-07 13:30:00 180.3 cm [facility] 2023-04-07 13:30:00 83.779 kg [facility] BMI 2023-04-07 13:30:00 25.76 kg/m2 [facility] Oxygen saturation in Arterial blood by Pulse oximetry 2023-04-07 13:30:00 97 /min [facility] Systolic blood pressure 2023-03-02 18:04:00 101 mm[Hg] [facility] Diastolic blood pressure 2023-03-02 18:04:00 59 mm[Hg] [facility] Heart rate 2023-03-02 18:03:00 61 /min [facility] Body temperature 2023-03-02 18:03:00 36.5 Vida [facility] Respiratory rate 2023-03-02 18:03:00 16 /min [facility] Body height 2023-03-02 18:03:00 180.3 cm [facility] Body weight 2023-03-02 18:03:00 87.862 kg [facility] BMI 2023-03-02 18:03:00 27.02 kg/m2 [facility] Systolic blood pressure 2023-02-19 15:33:00 148 mm[Hg] [facility] Diastolic blood pressure 2023-02-19 15:33:00 87 mm[Hg] [facility] Heart rate 2023-02-19 15:30:00 60 /min [facility] Body temperature 2023-02-19 15:30:00 36.44 Vida [facility] Respiratory rate 2023-02-19 15:30:00 16 /min [facility] Body height 2023-02-19 15:30:00 180.3 cm [facility] Body weight 2023-02-19 15:30:00 83.961 kg [facility] BMI 2023-02-19 15:30:00 25.82 kg/m2 [facility] Oxygen saturation in Arterial blood by Pulse oximetry 2023-02-19 15:30:00 98 /min [facility] Systolic blood pressure 2022-10-30 15:28:00 154 mm[Hg] [facility] Diastolic blood pressure 2022-10-30 15:28:00 92 mm[Hg] [facility] Heart rate 2022-10-30 15:26:00 60 /min [facility] Body temperature 2022-10-30 15:26:00 36.83 Vida [facility] Respiratory rate 2022-10-30 15:26:00 20 /min [facility] Body height 2022-10-30 15:26:00 180.3 cm [facility] Body weight 2022-10-30 15:26:00 86.546 kg [facility] BMI 2022-10-30 15:26:00 26.61 kg/m2 [facility] Systolic blood pressure 2022-08-01 20:43:00 123 mm[Hg] [facility] Diastolic blood pressure 2022-08-01 20:43:00 75 mm[Hg] [facility] Heart rate 2022-08-01 20:43:00 61 /min [facility] Body temperature 2022-08-01 20:43:00 36.39 Vida [facility] Respiratory rate 2022-08-01 20:43:00 18 /min [facility] Body height 2022-08-01 20:43:00 180.3 cm [facility] Body weight 2022-08-01 20:43:00 85.276 kg [facility] BMI 2022-08-01 20:43:00 26.22 kg/m2 [facility] Oxygen saturation in Arterial blood by Pulse oximetry 2022-08-01 20:43:00 97 /min [facility] Systolic blood pressure 2022-07-14 16:43:00 116 mm[Hg] [facility] Diastolic blood pressure 2022-07-14 16:43:00 77 mm[Hg] [facility] Heart rate 2022-07-14 16:43:00 60 /min [facility] Body temperature 2022-07-14 16:43:00 36.56 Vida [facility] Respiratory rate 2022-07-14 16:43:00 18 /min [facility] Body weight 2022-07-14 16:43:00 83.462 kg [facility] BMI 2022-07-14 16:43:00 25.66 kg/m2 [facility] Oxygen saturation in Arterial blood by Pulse oximetry 2022-07-14 16:43:00 100 /min [facility] Systolic blood pressure 2022-06-17 14:52:00 138 mm[Hg] [facility] Diastolic blood pressure 2022-06-17 14:52:00 84 mm[Hg] [facility] Heart rate 2022-06-17 14:52:00 60 /min [facility] Body temperature 2022-06-17 14:52:00 36.72 Vida [facility] Respiratory rate 2022-06-17 14:52:00 16 /min [facility] Body height 2022-06-17 14:52:00 180.3 cm [facility] Body weight 2022-06-17 14:52:00 86.456 kg [facility] BMI 2022-06-17 14:52:00 26.58 kg/m2 [facility] Oxygen saturation in Arterial blood by Pulse oximetry 2022-06-17 14:52:00 98 /min [facility] Systolic blood pressure 2022-05-20 16:17:00 138 mm[Hg] [facility] Diastolic blood pressure 2022-05-20 16:17:00 88 mm[Hg] [facility] Heart rate 2022-05-20 16:17:00 62 /min [facility] Body temperature 2022-05-20 16:17:00 36.67 Vida [facility] Respiratory rate 2022-05-20 16:17:00 18 /min [facility] Body weight 2022-05-20 16:17:00 89.359 kg [facility] BMI 2022-05-20 16:17:00 27.48 kg/m2 [facility] Oxygen saturation in Arterial blood by Pulse oximetry 2022-05-20 16:17:00 100 /min [facility] Systolic blood pressure 2022-05-13 15:12:00 144 mm[Hg] [facility] Diastolic blood pressure 2022-05-13 15:12:00 85 mm[Hg] [facility] Heart rate 2022-05-13 15:12:00 60 /min [facility] Body temperature 2022-05-13 15:10:00 35.44 Vida [facility] Respiratory rate 2022-05-13 15:10:00 16 /min [facility] Body height 2022-05-13 15:10:00 180.3 cm [facility] Body weight 2022-05-13 15:10:00 89.721 kg [facility] BMI 2022-05-13 15:10:00 27.59 kg/m2 [facility] Oxygen saturation in Arterial blood by Pulse oximetry 2022-05-13 15:10:00 99 /min [facility] Systolic blood pressure 2022-05-01 15:35:00 137 mm[Hg] [facility] Diastolic blood pressure 2022-05-01 15:35:00 87 mm[Hg] [facility] Heart rate 2022-05-01 15:35:00 60 /min [facility] Body temperature 2022-05-01 15:35:00 36.39 Vida [facility] Respiratory rate 2022-05-01 15:35:00 18 /min [facility] Body height 2022-05-01 15:35:00 180.3 cm [facility] Body weight 2022-05-01 15:35:00 87.998 kg [facility] BMI 2022-05-01 15:35:00 27.06 kg[facility]m2 [facility] saturation in Arterial blood by Pulse oximetry 2022-05-01 15:35:00 99 /min [facility] Systolic blood pressure 2022-04-03 15:16:00 168 mm[Hg] [facility] Diastolic blood pressure 2022-04-03 15:16:00 94 mm[Hg] [facility] Heart rate 2022-04-03 15:16:00 60 /min [facility] Body temperature 2022-04-03 15:16:00 36.33 Vida [facility] Respiratory rate 2022-04-03 15:16:00 20 /min [facility] Body height 2022-04-03 15:16:00 180.3 cm [facility] Body weight 2022-04-03 15:16:00 85.412 kg [facility] BMI 2022-04-03 15:16:00 26.26 kg/m2 [facility] Procedures Procedure Date / Time Performed Performing Clinician Source PATIENT QUESTIONNAIRE 2023-04-07 05:01:00 Doctor Unassigned, [place] [facility] LIPID PANEL ([id number])(TOTAL CHOLESTEROL, TRIGLYCERIDES, HDL) 2022-10-30 16:28:00 Susanne Ibrahim [facility] US ABDOMEN LIMITED WITH DOPPLER 2022-05-21 21:38:44 Julius Todd [facility] EXTERNAL PROVIDER RECORDS 2022-05-19 06:01:00 Do ctor Unassigned, [place] [facility] FERRITIN SERUM 2022-05-13 16:21:00 [facility]/BILI CONJUG 2022-05-13 16:21:00 Julius Todd [facility] COMP. METABOLIC PANEL ([id number]) 2022-05-13 16:21:00 Susanne Ibrahim [facility] ALPHA FETOPROTEIN 2022-05-13 16:21:00 Julius Todd [facility] CBC WITH DIFF 2022-05-13 16:21:00 Julius Todd [facility] PROTHROMBIN TIME / INR 2022-05-13 16:21:00 Jose Todd [facility] MISCELLANEOUS SEND OUT TEST 2022-05-13 16:21:00 Julius Todd [facility] EXTERNAL PROVIDER RECORDS 2022-04-28 06:01:00 Do ctor Unassigned, [place] [facility] EXTERNAL PROVIDER RECORDS 2022-04-18 05:01:00 Do ctor Unassigned, [place] [facility] US RETROPERITONEAL LIMITED 2022-04-10 19:34:37 Jayy Richkaitvalente [facility] COMP. METABOLIC PANEL ([id number]) 2022-04-03 16:21:00 Desirae-[facility] LIPID PANEL ([id number])(TOTAL CHOLESTEROL, TRIGLYCERIDES, HDL) 2022-04-03 16:21:00 Desirae-[facility] GLYCOSYLATED HEMOGLOBIN (A1C) 2022-04-03 16:21:00 [facility] of [place] MEDICATION CORRESPONDENCE 2022-03-27 05:01:00 Do ctor Unassigned, [place] [facility] MEDICATION CORRESPONDENCE 2022-02-26 05:01:00 Do ctor Unassigned, [place] [facility] MEDICATION CORRESPONDENCE 2021-12-04 05:01:00 Do ctor Unassigned, [place] [facility] MEDICATION CORRESPONDENCE 2021-11-13 05:01:00 Do ctor Unassigned, [place] [facility] US EXT LOWER VENOUS DOPPLER BILAT 2021-02-01 20:00:00 Semaj [facility] EXT LOWER VENOUS DOPPLER BILAT 2021-02-01 20:00:00 Semaj [facility] DOPPLER VENOUS ARMS BILATERAL 2021-02-01 19:30:00 Semaj [facility] DOPPLER VENOUS ARMS BILATERAL 2021-02-01 19:30:00 Semaj [facility] ECG 12-LEAD 2021-01-30 14:34:07 [facility] ECG 12-LEAD 2021-01-30 14:34:07 [facility] Encounters Start Date/Time End Date/Time Encounter Type Admission Type Attending Clinicians Care Facility Care Department Encounter ID Source 2019-09-15 16:24:00 Inpatient Rakesh Zacarias Dom[facility] CRD [id number] [facility] 2023-06-01 12:00:00 2023-06-01 12:15:00 Gate Agent Visit [facility] 1.2.840.114 350.1.13.10 4.2.7.2.686 [id number] [facility] 2023-06-01 12:00:00 2023-06-01 12:00:00 Outpatient LOPEZ LA[facility] [place] [id number] [facility] 2023-06-01 00:00:00 2023-06-01 00:00:00 [facility] 1.2.840.114 350.1.13.10 4.2.7.2.686 [id number] [facility] 2023-06-01 00:00:00 2023-06-01 00:00:00 Patient Secure Msg [facility] 1.2.840.114 350.1.13.10 4.2.7.2.686 [id number] [facility] 2023-05-18 16:00:00 2023-05-18 16:15:00 Gate Agent Visit [facility] 1.2.840.114 350.1.13.10 4.2.7.2.686 [id number] [facility] 2023-05-18 15:00:00 2023-05-18 16:14:37 Outpatient LOPEZ LAU [facility] [place] [id number] [facility] 2023-05-18 15:00:00 2023-05-18 16:14:37 Office Visit Lopez [facility]uttle [facility] 1.2.840.114 350.1.13.10 4.2.7.2.686 [id number] [facility] 2023-05-13 14:00:00 2023-05-13 14:00:00 Outpatient SHANTANU JULIEN [facility] [id number] [facility] 2023-05-05 09:00:00 2023-05-05 09:49:13 Outpatient ROGE MCINTOSH [facility] [id number] [facility] 2023-05-05 09:00:00 2023-05-05 09:49:13 [facility] 1.840.114 350.1.13.10 4.2.7.2.686 [id number] [facility] 2023-04-28 00:00:00 2023-04-28 00:00:00 Patient Secure Msg Doctor Unassigned, [place] [facility] 1.2.840.114 350.1.13.10 4.2.7.2.686 [id number] [facility] 2023-04-28 00:00:00 2023-04-28 00:00:00 Patient Secure Msg Doctor Unassigned, [place] [facility] 1.2.840.114 350.1.13.10 4.2.7.2.686 [id number] [id number] [facility] 2023-04-23 09:00:00 2023-04-23 09:30:00 Office Visit Susanne Ibrahim [facility] 1.2840.114 350.1.13.10 4.2.7.2.686 [id number] [facility] 2023-04-23 09:00:00 2023-04-23 09:00:00 Outpatient R SUSANNE IBRAHIM [facility] [id number] [facility] 2023-04-15 00:00:00 2023-04-15 00:00:00 Outpatient DMG DMG [id number] [facility] 2023-04-08 00:00:00 2023-04-08 00:00:00 Telephone Sophie [facility] 1.0.114 350.1.13.10 4.2.7.2.686 [id number] [facility] 2023-04-07 10:30:00 2023-04-07 10:45:00 Gate Agent Visit 2, [facility] 1..114 350.1.13.10 4.2.7.2.686 [id number] [facility] 2023-04-07 09:00:00 2023-04-07 10:09:16 Outpatient R SOPHIE [facility] [id number] [facility] 2023-04-07 09:00:00 2023-04-07 10:09:16 Office Visit [facility] 1..114 350.1.13.10 4.2.7.2.686 [id number] [facility] 2023-04-07 00:00:00 2023-04-07 00:00:00 Orders Only Doctor Unassigned, [place] [facility] 1..114 350.1.13.10 4.2.7.2.686 [id number] [facility] 2023-04-06 00:00:00 2023-04-06 00:00:00 Telephone [facility] 1.840.114 350.1.13.10 4.2.7.2.686 [id number] [id number] [facility] 2023-04-02 09:30:00 2023-04-02 09:30:00 Outpatient R TIFFANY MENDEZ [facility] [id number] [facility] 2023-03-02 13:30:00 2023-03-02 13:57:13 Outpatient R DARYL AWAD [facility] [id number] [facility] 2023-03-02 13:30:00 2023-03-02 13:57:13 Office Visit Daryl Awad [facility] 1.2840.114 350.1.13.10 4.2.7.2.686 [id number] 044 [id number] [facility] 2023-03-02 00:00:00 2023-03-02 00:00:00 [facility] 1.840.114 350.1.13.10 4.2.7.2.686 [id number] 044 [id number] [facility] 2023-02-19 10:30:00 2023-02-19 11:02:51 [facility] [id number] [facility] 2023-02-19 10:30:00 2023-02-19 11:02:51 Office Visit [facility]Critical [facility] CLINIC 1.840.114 350.1.13.10 4.2.7.2.686 [id number] 044 [id number] [facility] 2023-01-29 00:00:00 2023-01-29 00:00:00 Telephone David [facility]Critical access hospital CLINIC 1.840.114 350.1.13.10 4.2.7.2.686 [id number] 044 [id number] [facility] 2023-01-20 00:00:00 2023-01-20 00:00:00 PiotrMamadou Hernandezis [facility] 1.2.840.114 350.1.13.10 4.2.7.2.686 [id number] 044 [id number] [facility] 2022-12-22 00:00:00 2022-12-22 00:00:00 Telephone [facility] CLINIC 1.840.114 350.1.13.10 4.2.7.2.686 [id number] 044 [id number] [facility] 2022-11-19 00:00:00 2022-11-19 00:00:00 Telephone [place] [facility] CLINIC 1.0.114 350.1.13.10 4.2.7.2.686 [id number] 044 [id number] [facility] 2022-10-30 10:30:00 2022-10-30 11:15:00 Outpatient R [facility] [id number] [facility] 2022-10-30 10:30:00 2022-10-30 11:15:00 Office Visit [place] [facility] CLINIC 1.20.114 350.1.13.10 4.2.7.2.686 [id number] 044 [id number] [facility] 2022-09-23 00:00:00 2022-09-23 00:00:00 Telephone Team, [facility] 1.2840.114 350.1.13.10 4.2.7.2.686 [id number] [id number] [facility] 2022-08-01 15:00:00 2022-08-01 15:45:18 Outpatient R GAMALIELSUSANNE GUZMAN [facility] [id number] [facility] 2022-08-01 15:00:00 2022-08-01 15:45:18 [facility] 1.2.840.114 350.1.13.10 4.2.7.2.686 [id number] [facility] 2022-07-14 11:29:21 2022-07-14 23:59:00 Outpatient R JOSE LUIS WHITAKER [facility] [id number] [facility] 2022-07-14 11:29:21 2022-07-14 23:59:00 Hospital Encounter Linus Whitakeru [facility] 1.2.840.114 350.1.13.10 4.2.7.2.686 [id number] [facility] 2022-07-14 10:30:00 2022-07-14 11:13:14 Office Visit Linus Whitakermary Shelton [facility] 1.2.840.114 350.1.13.10 4.2.7.2.686 [id number] [facility] 2022-07-04 00:00:00 2022-07-04 00:00:00 Refill Jeremy Galeas [facility] 1.2.840.114 350.1.13.10 4.2.7.2.686 [id number] 044 [id number] [facility] 2022-07-01 00:00:00 2022-07-01 00:00:00 Refill [place] [facility] 1.2.840.114 350.1.13.10 4.2.7.2.686 [id number] 044 [id number] [facility] 2022-06-28 00:00:00 2022-06-28 00:00:00 [facility]ill [facility] 1..114 350.1.13.10 4.2.7.2.686 [id number] 044 [id number] [facility] 2022-06-24 00:00:00 2022-06-24 00:00:00 Telephone [place] [facility] 1..114 350.1.13.10 4.2.7.2.686 [id number] [id number] [facility] 2022-06-17 09:30:00 2022-06-17 10:00:00 [facility] 1..114 350.1.13.10 4.2.7.2.686 [id number] [facility] 2022-06-17 09:30:00 2022-06-17 09:30:00 [facility] [id number] 2022-06-17 00:00:00 2022-06-17 00:00:00 [facility] 1.84.114 350.1.13.10 4.2.7.2.686 [id number] [facility] 2022-05-21 14:34:15 2022-05-21 23:59:00 Outpatient R [facility] [id number] [facility] 2022-05-21 14:34:15 2022-05-21 23:59:00 Hospital Encounter RuiMikki [facility] 1..114 350.1.13.10 4.2.7.2.686 [id number] [facility] 2022-05-20 10:30:00 2022-05-20 10:47:44 Outpatient R [facility] [id number] [facility] 2022-05-20 10:30:00 2022-05-20 10:47:44 Office Visit Jeremy Galeas [facility] 1..114 350.1.13.10 4.2.7.2.686 [id number] [id number] [facility] 2022-05-19 00:00:00 2022-05-19 00:00:00 Orders Only Doctor Unassigned, [place] [facility] 1.0.114 350.1.13.10 4.2.7.2.686 [id number] [facility] 2022-05-19 00:00:00 2022-05-19 00:00:00 Telephone [facility] 1.840.114 350.1.13.10 4.2.7.2.686 [id number] [id number] [facility] 2022-05-19 00:00:00 2022-05-19 00:00:00 [facility]phone [facility] 1.2840.114 350.1.13.10 4.2.7.2.686 [id number] 072 [id number] [facility] 2022-05-13 09:00:00 2022-05-13 09:30:00 Office [facility] 1.2840.114 350.1.13.10 4.2.7.2.686 [id number] [facility] 2022-05-13 09:00:00 2022-05-13 09:00:00 Outpatient R [facility] [id number] [facility] 2022-05-12 00:00:00 2022-05-12 00:00:00 Telephone Peyton [facility] [place] 1.2.840.114 350.1.13.10 4.2.7.2.686 [id number] [facility] 2022-05-01 10:00:00 2022-05-01 10:15:24 Outpatient [facility] [id number] [facility] 2022-05-01 10:00:00 2022-05-01 10:15:24 Office Visit [facility] 1.2840.114 350.1.13.10 4.2.7.2.686 [id number] [facility] 2022-04-28 00:00:00 2022-04-28 00:00:00 Orders Only Doctor Unassigned, [place] [facility] 1.840.114 350.1.13.10 4.2.7.2.686 [id number] [facility] 2022-04-23 00:00:00 2022-04-23 00:00:00 Patient Secure Msg Doctor Unassigned, [place] [facility] 1.2840.114 350.1.13.10 4.2.7.2.686 [id number] [id number] [facility] 2022-04-18 00:00:00 2022-04-18 00:00:00 Orders Only Doctor Unassigned, [place] [facility] 1.2840.114 350.1.13.10 4.2.7.2.686 [id number] [facility] 2022-04-12 00:00:00 2022-04-12 00:00:00 Patient Secure Msg Doctor Unassigned, [place] [facility] 1.2840.114 350.1.13.10 4.2.7.2.686 [id number] [facility] 2022-04-10 14:11:22 2022-04-10 23:59:00 Hospital Encounter DesiraeGonzálezGlenn [facility] 1.840.114 350.1.13.10 4.2.7.2.686 [id number] [facility] 2022-04-10 14:11:22 2022-04-10 23:59:00 Outpatient R [facility] [id number] [facility] 2022-04-10 09:15:00 2022-04-10 09:30:00 Nurse Visit Only, [facility] 1.840.114 350.1.13.10 4.2.7.2.686 [id number] [facility] 2022-04-03 10:30:00 2022-04-03 11:00:00 Office Visit DesiraeGlenn [facility] 1.840.114 350.1.13.10 4.2.7.2.686 [id number] [facility] 2022-04-03 10:30:00 2022-04-03 10:30:00 Outpatient R [facility]LENN [facility] [id number] [facility] 2022-04-03 00:00:00 2022-04-03 00:00:00 Pre Visit Outreach Alex Fernández [facility] 1.2840.114 350.1.13.10 4.2.7.2.686 [id number] [facility] 2022-04-03 00:00:00 2022-04-03 00:00:00 [facility] 1.2.840.114 350.1.13.10 4.2.7.2.686 [id number] 044 [id number] [facility] 2022-04-03 00:00:00 2022-04-03 00:00:00 Telephone [facility] 1.2.840.114 350.1.13.10 4.2.7.2.686 [id number] 044 [id number] [facility] 2022-03-27 00:00:00 2022-03-27 00:00:00 Orders Only Doctor Unassigned, [place] [facility] 1.2.840.114 350.1.13.10 4.2.7.2.686 [id number] [facility] 2022-03-04 00:00:00 2022-03-04 00:00:00 [facility] 1.2.840.114 350.1.13.10 4.2.7.2.686 [id number] 044 [id number] [facility] 2022-02-26 00:00:00 2022-02-26 00:00:00 Orders Only Doctor Unassigned, [place] [facility] 1.2.840.114 350.1.13.10 4.2.7.2.686 [id number] [id number] [facility] 2021-12-04 00:00:00 2021-12-04 00:00:00 Telephone [facility] 1.2.840.114 350.1.13.10 4.2.7.2.686 [id number] 044 [id number] [facility] 2021-12-04 00:00:00 2021-12-04 00:00:00 Orders Only Doctor Unassigned, [place] [facility] 1.2840.114 350.1.13.10 4.2.7.2.686 [id number] [facility] 2021-11-13 00:00:00 2021-11-13 00:00:00 Refsyeda Elpidio [facility] 1.840.114 350.1.13.10 4.2.7.2.686 [id number] 044 [id number] [facility] 2021-11-13 00:00:00 2021-11-13 00:00:00 Orders Only Doctor Unassigned, [place] [facility] 1.20.114 350.1.13.10 4.2.7.2.686 [id number] [id number] [facility] 2021-10-30 15:40:00 2021-10-30 16:13:46 Outpatient Meera MAGALLANES [facility] [id number] [facility] 2021-10-30 15:40:00 2021-10-30 16:13:46 [facility] 1..114 350.1.13.10 4.2.7.2.686 [id number] 044 [id number] [facility] 2021-10-30 15:40:00 2021-10-30 16:13:46 Outpatient Meera MAGALLANES [facility] [id number] [facility] 2021-10-09 09:00:00 2021-10-09 09:45:22 Outpatient LUIS CARLOS JACOBSEN [facility] [id number] [facility] 2021-10-09 09:00:00 2021-10-09 09:45:22 Ancillary Visit Yehuda Saha Brian A [facility] 1..114 350.1.13.10 4.2.7.2.686 [id number] [facility] 2021-10-07 09:30:00 2021-10-07 10:15:00 Ancillary Visit Justine Bahena Brian A [facility] 1.2.840.114 350.1.13.10 4.2.7.2.686 [id number] [facility] 2021-10-03 08:15:00 2021-10-03 09:08:22 Ancillary Visit Zarina Muñoz Brian A [facility] 1.20.114 350.1.13.10 4.2.7.2.686 [id number] [facility] 2021-09-19 09:45:00 2021-09-19 10:37:16 Outpatient R LUIS CARLOS CHAN [facility] [id number] [facility] 2021-09-19 09:45:00 2021-09-19 10:37:16 Ancillary Visit Yehuda Saha Brian A [facility] 1.20.114 350.1.13.10 4.2.7.2.686 [id number] [facility] 2021-09-19 09:45:00 2021-09-19 09:45:00 Outpatient LUIS CARLOS [facility]BS[facility] [id number] [facility] 2021-09-03 09:13:30 2021-09-03 23:59:00 Outpatient R BRISSA MAGALLANES [facility] [id number] [facility] 2021-09-03 09:13:30 2021-09-03 23:59:00 Hospital Encounter Brissa Magallanes [facility] 1.2840.114 350.1.13.10 4.2.7.2.686 [id number] [facility] 2021-09-03 14:00:00 2021-09-03 14:30:00 Office Visit Brissa Magallanes [facility] 1.2.840.114 350.1.13.10 4.2.7.2.686 [id number] 044 [id number] [facility] 2021-09-03 09:13:30 2021-09-03 09:13:30 Outpatient R BRISSA MAGALLANES [facility] [id number] [facility] 2021-09-03 00:00:00 2021-09-03 00:00:00 Telephone Radha [facility] 1.2.840.114 350.1.13.10 4.2.7.2.686 [id number] 044 [id number] [facility] 2021-09-03 00:00:00 2021-09-03 00:00:00 Telephone Radha [facility] access hospital 1.2.840.114 350.1.13.10 4.2.7.2.686 [id number] 044 [id number] [facility] 2021-09-02 00:00:00 2021-09-02 00:00:00 Pre Visit Outreach Jolene Alex [facility] 1.2.840.114 350.1.13.10 4.2.7.2.686 [id number] [id number] [facility] 2021-09-02 00:00:00 2021-09-02 00:00:00 Telephone Stephanie Chaudhary [facility] 1.2.840.114 350.1.13.10 4.2.7.2.686 [id number] 044 [id number] [facility] 2021-08-29 00:00:00 2021-08-29 00:00:00 Patient Outreach Sarah Kendrick [facility] 1.2.840.114 350.1.13.10 4.2.7.2.686 [id number] 044 [id number] [facility] 2021-08-29 00:00:00 2021-08-29 00:00:00 Telephone Pavan Black [facility] 1.2.840.114 350.1.13.10 4.2.7.2.686 [id number] 044 [id number] [facility] 2021-08-29 00:00:00 2021-08-29 00:00:00 Telephone Stephanie Chaudhary [facility] [address] 1.2.840.114 350.1.13.10 4.2.7.2.686 [id number] [facility] 2021-08-28 10:10:00 2021-08-28 11:24:37 Office Visit Isa Garcia Syed [facility] 1.2840.114 350.1.13.10 4.2.7.2.686 [id number] 044 [id number] [facility] 2021-08-28 10:10:00 2021-08-28 11:24:37 Outpatient BRISSA CARBAJAL [facility] [id number] [facility] 2021-08-28 10:10:00 2021-08-28 10:10:00 Outpatient BRISSA CARBAJAL [facility] [id number] [facility] 2021-08-27 11:30:00 2021-08-27 11:45:00 Gate Agent Visit Vls-Lab Susanne Ibrahim [facility] 1.840.114 350.1.13.10 4.2.7.2.686 [id number] [facility] 2021-08-27 11:30:00 2021-08-27 11:30:00 Outpatient SUSANNE LEDBETTER [facility] [id number] [facility] 2021-08-14 13:00:00 2021-08-14 14:06:31 Outpatient R Jayy IBRAHIMLIBERTYUNVALENTE [facility] [id number] [facility] 2021-08-14 13:00:00 2021-08-14 14:06:31 Office Visit Stephanie Chaudhary Jayy Ibrahimesperanzaquincytahmina [facility] 1.114 350.1.13.10 4.2.7.2.686 [id number] 044 [id number] [facility] 2021-08-14 00:00:00 2021-08-14 00:00:00 Orders Only Doctor Unassigned, [place] [facility] 1.114 350.1.13.10 4.2.7.2.686 [id number] [id number] [facility] 2021-08-07 19:47:00 2021-08-11 15:55:00 Inpatient E UBALDO WAN [facility] [id number] [facility] 2021-07-01 15:45:00 2021-07-01 18:02:00 Emergency X DEEPIKA OSUNA [facility] ERT [id number] [facility] 2021-07-01 15:45:00 2021-07-01 18:02:00 Emergency Deepika Osuna [facility] 1.114 350.1.13.10 4.2.7.2.686 [id number] [id number] [facility] 2021-02-01 13:52:00 2021-02-03 17:33:00 Inpatient U CORKY CHA [facility] [id number] [facility] 2021-01-30 00:00:00 2021-01-30 00:00:00 EXT [facility] OP Corky Cha EXT MSRDP LOCATION 1.114 350.1.13.58 9.2.7.2.686 [id number] [facility] 2021-01-30 00:00:00 2021-01-30 00:00:00 EXT [facility] OP Corky Cha EXT MSRDP LOCATION 1.2.840.114 350.1.13.58 9.2.7.2.686 [id number] [facility] 2021-01-02 03:20:00 2021-01-02 03:20:00 Outpatient Ogletree_C [facility] [id number] [facility] 2020-12-14 07:17:00 2020-12-14 23:59:[address] [facility] [address] [facility] 2020-12-07 00:00:00 2020-12-07 00:00:00 EXT M[facility] OP EXT MSRDP LOCATION 1.2.840.114 350.1.13.58 9.2.7.2.686 [id number] 0 [id number] [facility] 2020-12-07 00:00:00 2020-12-07 00:00:00 EXT [facility] OP EXT MSRDP LOCATION 1.2.840.114 350.1.13.58 9.2.7.2.686 [id number] 0 [id number] [facility] 2020-12-06 00:00:00 2020-12-06 00:00:00 EXT [facility] OP Byron Balbuena EXT MSRDP LOCATION 1.2.840.114 350.1.13.58 9.2.7.2.686 [id number] 0 [id number] [facility] 2020-12-06 00:00:00 2020-12-06 00:00:00 EXT [facility] OP Byron Balbuena EXT MSRDP LOCATION 1.2.840.114 350.1.13.58 9.2.7.2.686 [id number] 0 [id number] [facility] 2020-09-21 07:02:00 2020-09-21 13:00:00 Outpatient LAVERNE SAMUELS [facility] MED [address] [facility] Notes Date/Time Note Provider Source 2023-03-02 12:06:28 [id number]:06:28F ormatting of this note might be different from the original.Called pt to schedule appt, pt declined stating that he and discussed lowering blood sugar medication and he would like that to be done. I informed that I would send this message to his Doctor, he stated that he was down the road and he is on the way her.Informed Ibidapo 14447-7Plvmnhiyi encounter AcyqYM4938-10-63M78:09:01Telephone encounter NoteTXT1.2.840.836618.1.13.104.2.7 .2.438460|[id number] for patient [id number] N T[id number] 82SZEEXXDYZKUMELNAXCSHBX0676-32-12 T12:09:011.2.840.839344.1.72.3.15| 1.2.840.812514.1.13.104.2.7.2.7278 [id number] Sissy Maciel RN [facility] 2023-03-02 10:52:58 4523-66-87E58:52:58F ormatting of this note might be different from the original.Alfred He is a 68 year old malePt states his BS dropped last night and EMS had to be called. He requesting a call back to discuss changing his medication 98243-8Joewtdaay encounter WlenUF2622-14-08L76:54:08Telephone encounter NoteTXT1.2.840.084338.1.13.104.2.7 .2.515832|[id number] for patient yrbw80535-2ElihLVBJZYGGEH[id number] 36HKMGZYMTSLXWKKPZCGJAZM2861-32-33 T10:54:081.2.840.685628.1.72.3.15| 1.2.840.937513.1.13.104.2.7.2.7278 [id number] [facility] 2023-02-04 08:16:17 8793-82-13V58:16:17F ormatting of this note might be different from the original.Specialty medication.Needs to see Urology. Pebbles Robles Professor [facility] 74332-1Oppmiiszg encounter NgqwZE2875-82-53M61:16:42Telephone encounter [id number] .[id number] for patient flli91597-1OpxyIIWILTXCZP[address] Co[id number] 32XQNQXDUYZZJEOWGGCBAWYA5377-66-11 T08:16:421.2.840.512391.1.72.3.15| 1.2.840.526229.1.13.104.2.7.2.7278 [id number] [facility] 2023-01-30 08:42:10 0597-04-37H81:42:10F ormatting of this note might be different from the original.Routing to provider for review 78625-4Mctgkpowf encounter SxcsFM3552-49-45Q09:42:35Telephone encounter NoteTXT1.2.840.676799.1.13.104.2.7 .2.025573|[id number] for patient [id number] Jeffers [id number] 20RWMMFCHUKDLFOIUYRKNSTU7109-93-90 T08:42:351.2.840.593561.1.72.3.15| 1.2.840.309922.1.13.104.2.7.2.7278 [id number] Sigrid Gonzalez [facility] 2023-01-29 15:49:55 1125-84-96W80:49:55F ormatting of this note might be different from the original.Alfred He is a 67 year old male Patient is calling to let Be aware that he takes tri-mix for ED and was told that he needs to have his pcp prescribe it. Broadcast Field Supervisor does not prescribeRevive rx [phone] signed by Veena Luis at 01/29/2023 3:56 PM [id number] encounter SbmtLO6916-91-48X08:56:42Telephone encounter NoteTXT1.2.840.188493.1.13.104.2.7 .2.798457|[id number] for patient oyaf01364-3NzykIOBWARMKGV[address]Et[id number] 77FXFOOENZBTUSYMAZXUSBMX1563-78-35 T15:56:421.2.840.997866.1.72.3.15| 1.2.840.427859.1.13.104.2.7.2.7278 [id number] [facility]
[2023-06-01 18:42] LABS: Hematocrit 37.1 % (39.6-49.0); MCV 88.6 fL (80-100); MPV 8.4 fL (7.6-11.3); Platelets 124 thou/uL (152-406); RBC Red Blood Cell Count 4.19 M/uL (4.33-5.43)
[2023-06-01 19:11] LABS: Magnesium 2.8 mg/dL (1.6-2.4); Potassium 5.2 mEq/L (3.5-5.1); Troponin High Sensitivity 17.8 pg/mL (<58.9)
--- NOTE | 2023-06-01 19:19 | EDPHYS ---
Physician Documentation [facility] Name: Adrian He Age: 68 yrs Sex: Male : 1955 Arrival Date: 06/01/2023 Time: 16:26 Bed IW10 Private MD: ED Physician Joe Benz HPI: 06/01 17:27 This 68 yrs old Black Male presents to ER via Ambulatory with complaints of Abnormal sb4 Lab Results. 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 He is asymptomatic at this time, no chest pain, shortness of breath, nausea. BMP reviewed by me shows a potassium of 6.1, BUN 58, creatinine 2.59. Historical: - Allergies: 17:15 No Known Allergies; cm10 - PMHx: 17:15 Hypertension; Diabetes mellitus; Myocardial infarction; cm10 - PSHx: 17:15 Pacemaker; cm10 - Immunization history:: Adult Immunizations not immunized. - Social history:: Smoking status: Patient reports the use of cigarette tobacco products, denies chronic smoking, but will smoke occasionally. ROS: 17:27 Constitutional: Negative for fever, chills, and weight loss, sb4 17:27 All other systems are negative, Exam: 17:27 Constitutional: This is a well developed, well nourished patient who is awake, alert, sb4 and in no acute distress. Head/Face: Normocephalic, atraumatic. Eyes: Extra-ocular motions intact. Periorbital areas with no swelling, redness, or edema. ENT: Mucous membranes moist. Cardiovascular: Regular rate and rhythm with a normal S1 and S2. Respiratory: Lungs have equal breath sounds bilaterally, clear to auscultation and percussion. No rales, rhonchi or wheezes noted. No increased work of breathing, no retractions or nasal flaring. Abdomen/GI: Soft, non-tender, no distension. Skin: Warm, dry with normal turgor. Normal color with no rashes, no lesions, and no evidence of cellulitis. MS/ Extremity: Pulses equal, no cyanosis. Neurovascular intact. Full, normal range of motion. Neuro: Awake and alert, GCS 15, oriented to person, place, time, and situation. Motor strength 5/5 in all extremities. Sensory grossly intact. Vital Signs: 17:14 BP 119 / 96; Pulse 60; Resp 16; Temp 97.1; Pulse Ox 99% on R/A; Weight 83.91 kg; Height cm10 5 ft. 11 in. ; Pain 0/10; 19:41 BP 95 / 56; Pulse 60; Resp 18; Pulse Ox 100% on R/A; kl 17:14 Body Mass Index 25.80 (83.91 kg, 180.34 cm) cm10 17:14 Pain Scale: Adult cm10 MDM: 17:26 Patient medically screened. sb4 17:54 Differential diagnosis: hyperkalemia, lab error, renal failure. sb4 19:18 Data reviewed: vital signs, nurses notes, lab test result(s), EKG, I have discussed the sb4 patient's presentation/case with the attending Emergency Department Physician; and as a result, I will discharge patient. Consideration of Admission/Observation Escalation of care including admission/observation considered. Care significantly affected by the following chronic conditions: Diabetes, Hypertension. Counseling: I had a detailed discussion with the patient and/or guardian regarding the historical points, exam findings, and any diagnostic results supporting the discharge/admit diagnosis, lab results, the need for outpatient follow up, nephrology, to return to the emergency department if symptoms worsen or persist or if there are any questions or concerns that arise at home. 19:19 ED course: kidney function is at baseline. potassium only slightly elevated. will sb4 administer Kayexalate and dispo home with close follow up. 06/01 17:26 Order name: BMP; Complete Time: 19:12 sb4 06/01 17:26 Order name: Troponin High Sensitivity; Complete Time: 19:12 sb4 06/01 17:26 Order name: CBC w/o diff; Complete Time: 18:45 sb4 06/01 17:26 Order name: Magnesium; Complete Time: 19:12 sb4 06/01 17:25 Order name: EKG; Complete Time: 18:34 cm10 06/01 17:25 Order name: EKG - Nurse/Tech; Complete Time: 17:25 cm10 06/01 17:27 Order name: IV Start; Complete Time: 18:29 sb4 EC:27 Rate is 60 beats/min. Rhythm is regular, Paced. QRS interval is normal at 292 msec. QT sb4 interval is prolonged at 636 msec. Interpreted by me. Reviewed by me. Administered Medications: 19:39 Drug: Kayexalate PO 30 grams PO once Route: PO; justo Disposition: 18:22 I was immediately available on-site in the Emergency Department for consultation in the ms3 care of the patient. Disposition Summary: 06/01/23 19:19 Discharge Ordered Notes: Location: Home sb4 Problem: new sb4 Symptoms: have improved sb4 Condition: Stable sb4 Diagnosis - Hyperkalemia sb4 Followup: sb4 - With: Private Physician - When: 1 - 2 days - Reason: Recheck today's complaints, Re-evaluation by your physician Discharge Instructions: - Discharge Summary Sheet sb4 - Hyperkalemia, Aeov-vm-Tniq sb4 Forms: - Medication Reconciliation Form sb4 - Thank You Letter sb4 - Antibiotic Education sb4 - Prescription Opioid Use sb4 - Patient Portal Instructions sb4 - Leadership Thank You Letter sb4 Signatures: Dispatcher [employer] EDMS Aidee Maharaj, RN RN Joe Genao DO DO ms3 Meggan Quinonez, PA-C PA-C sb4 Jyotsna Coombs, RN RN cm10
--- NOTE | 2023-06-01 19:19 | ER ---
Nurse's Notes [facility] Name: Adrian He Age: 68 yrs Sex: Male : 1955 Arrival Date: 06/01/2023 Time: 16:26 Bed IW10 Private MD: Diagnosis: Hyperkalemia Presentation: 06/01 17:14 Chief complaint: Patient states: He was told to come to the ED for elevated potassium. cm10 Pt states that his PCP told him that his potassium was 6.0. Coronavirus screen: Vaccine status: Patient reports being unvaccinated. Client denies travel out of the [place] in the last 14 days. Ebola Screen: Patient denies travel to an Ebola-affected area in the 21 days before illness onset. No symptoms or risks identified at this time. Initial Sepsis Screen: Does the patient meet any 2 criteria? No. Patient's initial sepsis screen is negative. Does the patient have a suspected source of infection? No. Patient's initial sepsis screen is negative. Risk Assessment: Do you want to hurt yourself or someone else? Patient reports no desire to harm self or others. Onset of symptoms was June 01, 2023. 17:14 Method Of Arrival: Ambulatory cm10 17:14 Acuity: LACHELLE 3 cm10 Triage Assessment: 17:16 General: Appears in no apparent distress. comfortable, Behavior is calm, cooperative. cm10 Pain: Denies pain. Neuro: No deficits noted. Level of Consciousness is awake, alert, obeys commands, Oriented to person, place, time, situation. Respiratory: No deficits noted. Airway is patent Respiratory effort is even, unlabored, Respiratory pattern is regular, symmetrical. Historical: - Allergies: 17:15 No Known Allergies; cm10 - PMHx: 17:15 Hypertension; Diabetes mellitus; Myocardial infarction; cm10 - PSHx: 17:15 Pacemaker; cm10 - Immunization history:: Adult Immunizations not immunized. - Social history:: Smoking status: Patient reports the use of cigarette tobacco products, denies chronic smoking, but will smoke occasionally. Screenin:42 [facility] ED Fall Risk Assessment (Adult) History of falling in the last 3 months, kl including since admission No falls in past 3 months (0 pts) Confusion or Disorientation No (0 pts) Intoxicated or Sedated No (0 pts) Impaired Gait No (0 pts) Mobility Assist Device Used No (0 pt) Altered Elimination No (0 pt) Score/Fall Risk Level 0 - 2 = Low Risk Oriented to surroundings, Maintained a safe environment. Abuse screen: Denies threats or abuse. Nutritional screening: No deficits noted. Tuberculosis screening: No symptoms or risk factors identified. Assessment: 19:40 General: Appears in no apparent distress. comfortable, Behavior is calm, cooperative. kl Pain: Denies pain. Neuro: No deficits noted. Cardiovascular: Rhythm is Respiratory: No deficits noted. GI: No deficits noted. No signs and/or symptoms were reported involving the gastrointestinal system. : No deficits noted. No signs and/or symptoms were reported regarding the genitourinary system. Vital Signs: 17:14 BP 119 / 96; Pulse 60; Resp 16; Temp 97.1; Pulse Ox 99% on R/A; Weight 83.91 kg; Height cm10 5 ft. 11 in. ; Pain 0/10; 19:41 BP 95 / 56; Pulse 60; Resp 18; Pulse Ox 100% on R/A; kl 17:14 Body Mass Index 25.80 (83.91 kg, 180.34 cm) cm10 17:14 Pain Scale: Adult cm10 ED Course: 16:30 Patient arrived in ED. mr 16:36 Meggan Quinonez PA-C [facility]. sb4 16:36 Joe Benz DO is Attending Physician. sb4 17:15 Triage completed. cm10 17:16 Arm band placed on Patient placed in waiting room. cm10 18:29 Initial lab(s) drawn, by wi, sent to lab. Inserted saline lock: 20 gauge in right cm10 antecubital area, using aseptic technique. Blood collected. 19:43 No provider procedures requiring assistance completed. IV discontinued, intact, kl bleeding controlled, No redness/swelling at site. Pressure dressing applied. Administered Medications: 19:39 Drug: Kayexalate PO 30 grams PO once Route: PO; kl Medication: 19:42 VIS not applicable for this client. kl Outcome: 19:19 Discharge ordered by . sb4 19:43 Discharged to home ambulatory, kl 19:43 Condition: stable 19:43 Discharge instructions given to patient, family, Instructed on discharge instructions, follow up and referral plans. Demonstrated understanding of instructions, follow-up care, 19:44 Patient left the ED. kl Signatures: Aidee Maharaj, RN RN justo Todd, Kristan, [facility] Reg mr Meggan Quinonez, MARGIE HANSON sb4 Jyotsna Coombs, RN RN cm10
[2023-06-01] MEDS ORDERED: SOD POLYSTYREN SUL 15 GM/60 ML UCUP ONE (19:40)
[2023-06-01 19:54] VITALS: TEMP 97.1
[2023-06-01 19:56] VITALS: BP 95/56; O2SAT 100
--- NOTE | 2023-06-02 13:41 | EKG ---
Test Date: 2023-06-01 Test Time: 17:21:53 Truck Safety Inspector: SAVANAH MEASUREMENT RESULTS: Intervals: Rate: 60 [place]: QRSD: 292 QT: 636 QTc: 636 [place]: P: [place]: QRS: -69 T: 108 INTERPRETIVE STATEMENTS: Ventricular-paced rhythm Abnormal ECG Compared to ECG 11/11/2018 19:59:37 Right bundle-branch block no longer present Left posterior fascicular block no longer present Bifascicular block no longer present Electronically Signed On 06-02-23 13:39:26 ASSISTANT CUSTOMER SERVICE MANAGER by Kyle Queen
== END 2023-06-01 19:44 | disposition home or self-care (01) ==
LOC: ER 16:26
DX: E87.5 Hyperkalemia (principal); I10 Essential (primary) hypertension; F17.210 Nicotine dependence, cigarettes, uncomplicated; E11.9 Type 2 diabetes mellitus without complications; I25.2 Old myocardial infarction; Z95.0 Presence of cardiac pacemaker
CPT/HCPCS: 36415; 80048; 83735; 84484; 85027; 93005; 99284

== ENCOUNTER → 2023-07-02 | Emergency (ER) | payer OTHER, MEDICARE ==
--- OUTSIDE RECORDS SUMMARY | 2023-07-02 10:49 | XMS REPORT | Continuity of Care Document ---
Author Name Unknown Address [address] [facility] [address] [place] [address] [facility] thconnect Address [address] [facility] [place] [address] Care Team Providers Care Ice Crusher Name Role Phone Jas Maravilla Primary Care Physician [phone] Rakesh Zacarias Attending Clinician Unavaila Rakesh Hernandez Attending Clinician Unavaila SHANTANU Esposito Attending Clinician Unavailable BRAVO TUTTLE Attending Clinician Unavailable BRAVO TUTTLE Attending Clinician Unavailable RADHA DALTON Attending Clinician Unavailcolton Ibrahim MD, Oyetokunbo Attending Clinician + Barbara Bedoya OD Attending Clinician BARBARA BEDOYA Attending Clinician Unavailable Vtc-Lab Attending Clinician Unavailable SUSANNE IBRAHIM Attending Clinician Unav ailable Doctor Unassigned, Twilight Attending Clinician U Shantanu Whitley MD Attending Clinician [phone], [facility] Attending Clinician Unavailable TIFFANY MENDEZ Attending Clinician Unavaila DARYL Vergara Attending Clinician Unavailable Daryl Awad MD Attending Clinician [phone] Jeremy Galeas MD Attending Clinician Unavailable JULIUS TODD Attending Clinician Unavailable Team, [facility] Attending Clinicia n Unavailable SHELLI JEAN Attending Clinician Unavailable JOSE LUIS WHITAKER Attending Clinician Unavailable Jose Luis Whitaker MD Attending Clinician [phone] Julius Todd MD Attending Clinician [phone] Only, [facility] Attending Clinician U arnulfoable Jolene STATE AUDITOR, Sherketha S Attending Clinician Brissa Smith MD Attending Clinician [phone] BRISSA MAGALLANES Attending Clinician Unavailable LUIS CARLOS CHAN Attending Clinician Unavailable Yifan PT, Yehuda M Attending Clinician Luis Carlos Iverson MD Attending Clinician [phone] Justine Bahena PTA Attending Clinician UnaZarina Rojo PTA Attending Clinic blade Unavailable Radha IBANEZ, Isa Attending Clinician [phone] Stephanie Chaudhary MD Attending Clinician [phone] Sarah Kendrick LMSW Attending Clinician Unavaila Pavan Lewis MD Attending Clinician + [phone] Vls-Lab Attending Clinician Unavailable UBALDO WAN Attending Clinician Unavailable DEEPIKA OSUNA Attending Clinician Unavail able Deepika Osuna MD Attending Clinician [phone] CORKY CHA Attending Clinician Unavailable Corky Cha MD Attending Clinician [phone] [place]_C Attending Clinician Unavailable BYRON BALBUENA Attending Clinician Unavaila Byron Hammer Attending Clinician [phone] LAVERNE SAMUELS Attending Clinician Rakesh Camarillo Admitting Clinician UnavailJULIUS Rivas Admitting Clinician Unavailable TANIA ELLIOTT Admitting Clinician WESLEY Crespo Admitting Clinician Unavailable CORKY CHA Admitting Clinician Unavailable Corky Cha MD Admitting Clinician Ogletree_C Admitting Clinician Unavailable Payers Payer Name Policy Type Policy Number Effective Date Expirati on Date Source [employer] (MEDICARE REPLACEMENT HMO) [id number] 00:00:00 MEDICARE PART A \\T\\ B [id number] 2020 00:00:00 [place]: [employer] [id number] 2020 00:00:00 [facility] [id number] 2011 00:00:00 Problems Condition Name Condition Details Condition Category Status Onset Date Resolution Date Last Treatment Date Treating Clinician Comments Source Stage 3b chronic kidney disease Stage 3b chronic kidney disease Disease Active 2022-06 00:00: 00 [facility] Positive FIT (fecal immunochem ical test) Positive FIT (fecal immunochem ical test) Disease Active 2021-06 00:00: 00 Overview: Formattin g of this note might be different from the original. Added automatic ally from request for surgery [id number] [facility] Iron deficiency Iron deficiency Disease Active 2021-06 00:00: 00 Overview: Formattin g of this note might be different from the original. Added automatic ally from request for surgery [id number] [facility] Acute pain of right shoulder due to trauma Acute pain of right shoulder due to trauma Disease Active 09-25 00:00: 00 [facility] Acute pain of right shoulder due to trauma Acute pain of right shoulder due to trauma Disease Active 09-25 00:00: 00 [facility] Decreased ROM of right shoulder Decreased ROM of right shoulder Disease Active 09-25 00:00: 00 [facility] Decreased strength of upper extremity Decreased strength of upper extremity Disease Active - 00:00: 00 [facility] Low back pain without sciatica Low back pain without sciatica Disease Active 4 00:00: 00 [facility] Decreased strength of lower extremity Decreased strength of lower extremity Disease Active 4 00:00: 00 [facility] Primary hypertensi on Primary hypertensi on Disease Active 2- 00:00: 00 [facility] Diabetes Diabetes Disease Active 2- 00:00: 00 [facility] Chronic systolic heart failure Chronic systolic heart failure Disease Active 2 00:00: 00 [facility] Pacemaker Pacemaker Disease Active 08-16 00:00: 00 [facility] Chest pain Chest pain Disease Active 524 00:00: 00 [facility] Allergies, Adverse Reactions, Alerts Allergy Name Allergy Type Status Severity Reaction(s) Onset Date Inactive Date Treating Clinician Comments Source No Known Allergie s Drug Active [facility] NO KNOWN ALLERGIE S Drug Class Active [facility] Social History Social Habit Start Date Stop Date Quantity Comments Source Gender identity [facility] Sexual orientation U [facility] Alcohol intake 2023-06-04 00:00:00 2023-06-04 00:00:00 0 /d [facility] Exposure to SARS-CoV-2 (event) 2022-10-20 00:00:00 2022-10-30 10:14:00 Not sure [facility] History of Social function 2022-05-20 00:00:00 2022-05-20 00:00:00 [facility] Sex Ass[birth year] At 1955 00:00:00 1955 00:00:00 [facility] Smoking Status Start Date Stop Date Source Tobacco smoking consumption unknown [facility] Never smoked tobacco [facility] Medications Ordered Medication Name Filled Medication Name Start Date Stop Date Current Medication? Ordering Clinician Indication Dosage Frequency Signature (SIG) Comments Components Source rosuvastati n 10 mg tablet 2022-06 12:55: 40 06-17 00:00 :00 No 10mg Take 1 tablet by mouth at bedtime. [facility] rosuvastati n 10 mg tablet 2022-06 00:00: 00 Yes [id number] 10mg Take 1 tablet by mouth at bedtime. [facility] BITTER MELON EXTRACT ORAL 2022-06 21:10: 02 06-01 00:00 :00 No 1{capsu le} Take 1 capsule by mouth in the morning. [facility] BITTER MELON EXTRACT ORAL 2022-06 21:10: 02 06-01 00:00 :00 No 1{capsu le} Take 1 capsule by mouth in the morning. [facility] docosahexae noic acid/epa (FISH OIL ORAL) 2022-06 21:08: 46 Yes Take by mouth. [facility] docosahexae noic acid/epa (FISH OIL ORAL) 2022-06 21:08: 46 Yes Take by mouth. [facility] docosahexae noic acid/epa (FISH OIL ORAL) 2022-06 21:08: 46 Yes Take by mouth. [facility] docosahexae noic acid/epa (FISH OIL ORAL) 2022-06 21:08: 46 Yes Take by mouth. [facility] docosahexae noic acid/epa (FISH OIL ORAL) 2022-06 21:08: 46 Yes Take by mouth. [facility] docosahexae noic acid/epa (FISH OIL ORAL) 2022-06 21:08: 46 Yes Take by mouth. [facility] rosuvastati n 10 mg tablet 2022-06 21:08: 40 Yes 10mg Take 1 tablet by mouth at bedtime. [facility] rosuvastati n 10 mg tablet 2022-06 21:08: 40 Yes 10mg Take 1 tablet by mouth at bedtime. [facility] rosuvastati n 10 mg tablet 2022-06 21:08: 40 Yes 10mg Take 1 tablet by mouth at bedtime. [facility] rosuvastati n 10 mg tablet 2022-06 21:08: 40 Yes 10mg Take 1 tablet by mouth at bedtime. [facility] rosuvastati n 10 mg tablet 2022-06 21:08: 40 Yes 10mg Take 1 tablet by mouth at bedtime. [facility] apixaban (ELIQUIS) 5 mg tablet 2022-06 21:08: 37 Yes Take by mouth. [facility] apixaban (ELIQUIS) 5 mg tablet 2022-06 21:08: 37 Yes Take by mouth. [facility] apixaban (ELIQUIS) 5 mg tablet 2022-06 21:08: 37 Yes Take by mouth. [facility] apixaban (ELIQUIS) 5 mg tablet 2022-06 21:08: 37 Yes Take by mouth. [facility] apixaban (ELIQUIS) 5 mg tablet 2022-06 21:08: 37 Yes Take by mouth. [facility] apixaban (ELIQUIS) 5 mg tablet 2022-06 21:08: 37 Yes Take by mouth. [facility] [place] [facility] [place] 21:08: 34 Yes 750mg 750 mg. [facility] [place] [facility] [place]22-06 21:08: 34 Yes 750mg 750 mg. [facility] [place] [facility] [place]-06 21:08: 34 Yes 750mg 750 mg. [facility] [place] [place]22-06 21:08: 34 Yes 750mg 750 mg. [facility] [place] [place]22-06 21:08: 34 Yes 750mg 750 mg. [facility] [place] [facility] [place]22-06 21:08: 34 Yes 750mg 750 mg. [facility] Garlic 1,000 mg Cap 2022-06 21:08: 32 Yes Take by mouth. [facility] Garlic 1,000 mg Cap 2022-06 21:08: 32 Yes Take by mouth. [facility] Garlic 1,000 mg Cap 2022-06 21:08: 32 Yes Take by mouth. [facility] Garlic 1,000 mg Cap 2022-06 21:08: 32 Yes Take by mouth. [facility] Garlic 1,000 mg Cap 2022-06 21:08: 32 Yes Take by mouth. [facility] Garlic 1,000 mg Cap 2022-06 21:08: 32 Yes Take by mouth. [facility] amiodarone 200 mg tablet 2022-06 21:08: 30 Yes 200mg Take 1 tablet by mouth. [facility] amiodarone 200 mg tablet 2022-06 21:08: 30 Yes 200mg Take 1 tablet by mouth. [facility] amiodarone 200 mg tablet 2022-06 21:08: 30 Yes 200mg Take 1 tablet by mouth. [facility] amiodarone 200 mg tablet 2022-06 21:08: 30 Yes 200mg Take 1 tablet by mouth. [facility] amiodarone 200 mg tablet 2022-06 21:08: 30 Yes 200mg Take 1 tablet by mouth. [facility] amiodarone 200 mg tablet 2022-06 21:08: 30 Yes 200mg Take 1 tablet by mouth. [facility] furosemide 40 mg tablet 2022-06 21:08: 18 Yes 40mg Take 1 tablet by mouth in the morning. [facility] furosemide 40 mg tablet 2022-06 21:08: 18 Yes 40mg Take 1 tablet by mouth in the morning. [facility] furosemide 40 mg tablet 2022-06 21:08: 18 Yes 40mg Take 1 tablet by mouth in the morning. [facility] furosemide 40 mg tablet 2022-06 21:08: 18 Yes 40mg Take 1 tablet by mouth in the morning. [facility] furosemide 40 mg tablet 2022-06 21:08: 18 Yes 40mg Take 1 tablet by mouth in the morning. [facility] furosemide 40 mg tablet 2022-06 21:08: 18 Yes 40mg Take 1 tablet by mouth in the morning. [facility] [place] [facility] [facility] [place]06 15:48: 22 Yes 750mg 750 mg. [facility] [place] [facility] [place]22-06 15:48: 22 Yes 750mg 750 mg. [facility] [place] [facility] [place]22-06 15:48: 22 Yes 750mg 750 mg. [facility] [place] [place]22-06 15:48: 22 Yes 750mg 750 mg. [facility] [place] [facility] [place]22-06 15:48: 22 Yes 750mg 750 mg. [facility] [place] [place]22-06 15:48: 22 Yes 750mg 750 mg. [facility] [place] [place]22-06 15:48: 22 Yes 750mg 750 mg. [facility] [place] [place]22-06 15:48: 22 Yes 750mg 750 mg. [facility] [place] [place] [place]-06 15:48: 22 Yes 750mg 750 mg. [facility] Garlic 1,000 mg Cap 2022-06 15:48: 17 Yes Take by mouth. [facility] Garlic 1,000 mg Cap 2022-06 15:48: 17 Yes Take by mouth. [facility] Garlic 1,000 mg Cap 2022-06 15:48: 17 Yes Take by mouth. [facility] Garlic 1,000 mg Cap 2022-06 15:48: 17 Yes Take by mouth. [facility] Garlic 1,000 mg Cap 2022-06 15:48: 17 Yes Take by mouth. [facility] Garlic 1,000 mg Cap 2022-06 15:48: 17 Yes Take by mouth. [facility] Garlic 1,000 mg Cap 2022-06 15:48: 17 Yes Take by mouth. [facility] Garlic 1,000 mg Cap 2022-06 15:48: 17 Yes Take by mouth. [facility] Garlic 1,000 mg Cap 2022-06 15:48: 17 Yes Take by mouth. [facility] docosahexae noic acid/epa (FISH OIL ORAL) 2022-06 15:48: 07 Yes Take by mouth. [facility] docosahexae noic acid/epa (FISH OIL ORAL) 2022-06 15:48: 07 Yes Take by mouth. [facility] docosahexae noic acid/epa (FISH OIL ORAL) 2022-06 15:48: 07 Yes Take by mouth. [facility] docosahexae noic acid/epa (FISH OIL ORAL) 2022-06 15:48: 07 Yes Take by mouth. [facility] docosahexae noic acid/epa (FISH OIL ORAL) 2022-06 15:48: 07 Yes Take by mouth. [facility] docosahexae noic acid/epa (FISH OIL ORAL) 2022-06 15:48: 07 Yes Take by mouth. [facility] docosahexae noic acid/epa (FISH OIL ORAL) 2022-06 15:48: 07 Yes Take by mouth. [facility] docosahexae noic acid/epa (FISH OIL ORAL) 2022-06 15:48: 07 Yes Take by mouth. [facility] docosahexae noic acid/epa (FISH OIL ORAL) 2022-06 15:48: 07 Yes Take by mouth. [facility] rosuvastati n 10 mg tablet 2022-06 15:46: 44 Yes 10mg Take 1 tablet by mouth at bedtime. [facility] rosuvastati n 10 mg tablet 2022-06 15:46: 44 Yes 10mg Take 1 tablet by mouth at bedtime. [facility] rosuvastati n 10 mg tablet 2022-06 15:46: 44 Yes 10mg Take 1 tablet by mouth at bedtime. [facility] rosuvastati n 10 mg tablet 2022-06 15:46: 44 Yes 10mg Take 1 tablet by mouth at bedtime. [facility] rosuvastati n 10 mg tablet 2022-06 15:46: 44 Yes 10mg Take 1 tablet by mouth at bedtime. [facility] rosuvastati n 10 mg tablet 2022-06 15:46: 44 Yes 10mg Take 1 tablet by mouth at bedtime. [facility] rosuvastati n 10 mg tablet 2022-06 15:46: 44 Yes 10mg Take 1 tablet by mouth at bedtime. [facility] furosemide 40 mg tablet 2022-06 15:43: 32 Yes 40mg Take 1 tablet by mouth in the morning. [facility] furosemide 40 mg tablet 2022-06 15:43: 32 Yes 40mg Take 1 tablet by mouth in the morning. [facility] furosemide 40 mg tablet 2022-06 15:43: 32 Yes 40mg Take 1 tablet by mouth in the morning. [facility] furosemide 40 mg tablet 2022-06 15:43: 32 Yes 40mg Take 1 tablet by mouth in the morning. [facility] furosemide 40 mg tablet 2022-06 15:43: 32 Yes 40mg Take 1 tablet by mouth in the morning. [facility] furosemide 40 mg tablet 2022-06 15:43: 32 Yes 40mg Take 1 tablet by mouth in the morning. [facility] furosemide 40 mg tablet 2022-06 15:43: 32 Yes 40mg Take 1 tablet by mouth in the morning. [facility] furosemide 40 mg tablet 2022-06 15:43: 32 Yes 40mg Take 1 tablet by mouth in the morning. [facility] furosemide 40 mg tablet 2022-06 15:43: 32 Yes 40mg Take 1 tablet by mouth in the morning. [facility] apixaban (ELIQUIS) 5 mg tablet 2022-06 15:43: 30 Yes Take by mouth. [facility] apixaban (ELIQUIS) 5 mg tablet 2022-06 15:43: 30 Yes Take by mouth. [facility] apixaban (ELIQUIS) 5 mg tablet 2022-06 15:43: 30 Yes Take by mouth. [facility] apixaban (ELIQUIS) 5 mg tablet 2022-06 15:43: 30 Yes Take by mouth. [facility] apixaban (ELIQUIS) 5 mg tablet 2022-06 15:43: 30 Yes Take by mouth. [facility] apixaban (ELIQUIS) 5 mg tablet 2022-06 15:43: 30 Yes Take by mouth. [facility] apixaban (ELIQUIS) 5 mg tablet 2022-06 15:43: 30 Yes Take by mouth. [facility] apixaban (ELIQUIS) 5 mg tablet 2022-06 15:43: 30 Yes Take by mouth. [facility] apixaban (ELIQUIS) 5 mg tablet 2022-06 15:43: 30 Yes Take by mouth. [facility] amiodarone 200 mg tablet 2022-06 15:43: 27 Yes 200mg Take 1 tablet by mouth. [facility] amiodarone 200 mg tablet 2022-06 15:43: 27 Yes 200mg Take 1 tablet by mouth. [facility] amiodarone 200 mg tablet 2022-06 15:43: 27 Yes 200mg Take 1 tablet by mouth. [facility] amiodarone 200 mg tablet 2022-06 15:43: 27 Yes 200mg Take 1 tablet by mouth. [facility] amiodarone 200 mg tablet 2022-06 15:43: 27 Yes 200mg Take 1 tablet by mouth. [facility] amiodarone 200 mg tablet 2022-06 15:43: 27 Yes 200mg Take 1 tablet by mouth. [facility] amiodarone 200 mg tablet 2022-06 15:43: 27 Yes 200mg Take 1 tablet by mouth. [facility] amiodarone 200 mg tablet 2022-06 15:43: 27 Yes 200mg Take 1 tablet by mouth. [facility] amiodarone 200 mg tablet 2022-06 15:43: 27 Yes 200mg Take 1 tablet by mouth. [facility] papaverine- phentolamin e-PGE1 150mg-5mg-5 0mcg [facility] 2022-06 13:41: 59 04-07 00:00 :00 No Inject as directed. [facility] papaverine- phentolamin e-PGE1 150mg-5mg-5 0mcg [facility] 2022-06 13:41: 59 04-07 00:00 :00 No Inject as directed. [facility] papaverine- phentolamin e-PGE1 150mg[facility]5mg-5 [facility]g [facility] 13:41: 59 04-07 00:00 :00 No Inject as directed. [facility] papaverine- phentolamin e-PGE1 150mg-5mg-5 0mcg [facility] 2022-06 13:41: 59 04-07 00:00 :00 No Inject as directed. [facility] apixaban (ELIQUIS) 5 mg tablet 2022-06 08:28: 34 Yes Take by mouth. [facility] furosemide 40 mg tablet 2022-06 08:28: 34 Yes 40mg Take 1 tablet by mouth in the morning. [facility] [place] [place] 08:28: 34 Yes 750mg 750 mg. [facility] docosahexae noic acid/epa (FISH OIL ORAL) 2022-06 08:28: 34 Yes Take by mouth. [facility] Garlic 1,000 mg Cap 2022-06 08:28: 34 Yes Take by mouth. [facility] amiodarone 200 mg tablet 2022-06 08:28: 34 Yes 200mg Take 1 tablet by mouth. [facility] papaverine- phentolamin e-PGE1 150mg-5mg-5 0mcg Soln 2022-06 08:28: 34 Yes Inject as directed. [facility] apixaban (ELIQUIS) 5 mg tablet 2022-06 08:28: 34 Yes Take by mouth. [facility] furosemide 40 mg tablet 2022-06 08:28: 34 Yes 40mg Take 1 tablet by mouth in the morning. [facility] [place] [place] 08:28: 34 Yes 750mg 750 mg. [facility] docosahexae noic acid/epa (FISH OIL ORAL) 2022-06 08:28: 34 Yes Take by mouth. [facility] Garlic 1,000 mg Cap 2022-06 08:28: 34 Yes Take by mouth. [facility] amiodarone 200 mg tablet 2022-06 08:28: 34 Yes 200mg Take 1 tablet by mouth. [facility] apixaban (ELIQUIS) 5 mg tablet 2022-06 08:28: 34 Yes Take by mouth. [facility] furosemide 40 mg tablet 2022-06 08:28: 34 Yes 40mg Take 1 tablet by mouth in the morning. [facility] [place] [place]22-06 08:28: 34 Yes 750mg 750 mg. [facility] docosahexae noic acid/epa (FISH OIL ORAL) 2022-06 08:28: 34 Yes Take by mouth. [facility] Garlic 1,000 mg Cap 2022-06 08:28: 34 Yes Take by mouth. [facility] amiodarone 200 mg tablet 2022-06 08:28: 34 Yes 200mg Take 1 tablet by mouth. [facility] apixaban (ELIQUIS) 5 mg tablet 2022-06 08:28: 34 Yes Take by mouth. [facility] furosemide 40 mg tablet 2022-06 08:28: 34 Yes 40mg Take 1 tablet by mouth in the morning. [facility] [place] [place]06 08:28: 34 Yes 750mg 750 mg. [facility] docosahexae noic acid/epa (FISH OIL ORAL) 2022-06 08:28: 34 Yes Take by mouth. [facility] Garlic 1,000 mg Cap 2022-06 08:28: 34 Yes Take by mouth. [facility] amiodarone 200 mg tablet 2022-06 08:28: 34 Yes 200mg Take 1 tablet by mouth. [facility] apixaban (ELIQUIS) 5 mg tablet 2022-06 08:28: 34 Yes Take by mouth. [facility] furosemide 40 mg tablet 2022-06 08:28: 34 Yes 40mg Take 1 tablet by mouth in the morning. [facility] [place] [place]06 08:28: 34 Yes 750mg 750 mg. [facility] docosahexae noic acid/epa (FISH OIL ORAL) 2022-06 08:28: 34 Yes Take by mouth. [facility] Garlic 1,000 mg Cap 2022-06 08:28: 34 Yes Take by mouth. [facility] amiodarone 200 mg tablet 2022-06 08:28: 34 Yes 200mg Take 1 tablet by mouth. [facility] apixaban (ELIQUIS) 5 mg tablet 2022-06 08:28: 34 Yes Take by mouth. [facility] furosemide 40 mg tablet 2022-06 08:28: 34 Yes 40mg Take 1 tablet by mouth in the morning. [facility] [place] [place]-06 08:28: 34 Yes 750mg 750 mg. [facility] docosahexae noic acid/epa (FISH OIL ORAL) 2022-06 08:28: 34 Yes Take by mouth. [facility] Garlic 1,000 mg Cap 2022-06 08:28: 34 Yes Take by mouth. [facility] amiodarone 200 mg tablet 2022-06 08:28: 34 Yes 200mg Take 1 tablet by mouth. [facility] apixaban (ELIQUIS) 5 mg tablet 2022-06 08:28: 34 Yes Take by mouth. [facility] furosemide 40 mg tablet 2022-06 08:28: 34 Yes 40mg Take 1 tablet by mouth in the morning. [facility] [place] [place]06 08:28: 34 Yes 750mg 750 mg. [facility] docosahexae noic acid/epa (FISH OIL ORAL) 2022-06 08:28: 34 Yes Take by mouth. [facility] Garlic 1,000 mg Cap 2022-06 08:28: 34 Yes Take by mouth. [facility] amiodarone 200 mg tablet 2022-06 08:28: 34 Yes 200mg Take 1 tablet by mouth. [facility] apixaban (ELIQUIS) 5 mg tablet 2022-06 08:28: 34 Yes Take by mouth. [facility] furosemide 40 mg tablet 2022-06 0 08:28: 34 Yes 40mg Take 1 tablet by mouth in the morning. [facility] [place] [place]-06 0 08:28: 34 Yes 750mg 750 mg. [facility] docosahexae noic acid/epa (FISH OIL ORAL) 2022-06 0 08:28: 34 Yes Take by mouth. [facility] Garlic 1,000 mg Cap 2022-06 08:28: 34 Yes Take by mouth. [facility] amiodarone 200 mg tablet 2022-06 08:28: 34 Yes 200mg Take 1 tablet by mouth. [facility] apixaban (ELIQUIS) 5 mg tablet 2022-06 08:28: 34 Yes Take by mouth. [facility] furosemide 40 mg tablet 2022-06 08:28: 34 Yes 40mg Take 1 tablet by mouth in the morning. [facility] [place] [place]06 08:28: 34 Yes 750mg 750 mg. [facility] docosahexae noic acid/epa (FISH OIL ORAL) 2022-06 08:28: 34 Yes Take by mouth. [facility] Garlic 1,000 mg Cap 2022-06 08:28: 34 Yes Take by mouth. [facility] amiodarone 200 mg tablet 2022-06 08:28: 34 Yes 200mg Take 1 tablet by mouth. [facility] apixaban (ELIQUIS) 5 mg tablet 2022-06 08:28: 34 Yes Take by mouth. [facility] furosemide 40 mg tablet 2022-06 08:28: 34 Yes 40mg Take 1 tablet by mouth in the morning. [facility] [place] [facility] [place] 08[place]28: 34 Yes 750mg 750 mg. [facility] docosahexae noic acid/epa (FISH OIL ORAL) 2022-06 0 08:28: 34 Yes Take by mouth. [facility] Garlic 1,000 mg Cap 2022-06 0 08:28: 34 Yes Take by mouth. [facility] amiodarone 200 mg tablet 2022-06 017 08:28: 34 Yes 200mg Take 1 tablet by mouth. [facility] apixaban (ELIQUIS) 5 mg tablet 2022-06 0 08:28: 34 Yes Take by mouth. [facility] furosemide 40 mg tablet 2022-06 08:28: 34 Yes 40mg Take 1 tablet by mouth in the morning. [facility] [place] [facility] [place] 08:28: 34 Yes 750mg 750 mg. [facility] docosahexae noic acid/epa (FISH OIL ORAL) 2022-06 08:28: 34 Yes Take by mouth. [facility] Garlic 1,000 mg Cap 2022-06 08:28: 34 Yes Take by mouth. [facility] amiodarone 200 mg tablet 2022-06 08:28: 34 Yes 200mg Take 1 tablet by mouth. [facility] apixaban (ELIQUIS) 5 mg tablet 2022-06 08:28: 34 Yes Take by mouth. [facility] furosemide 40 mg tablet 2022-06 08:28: 34 Yes 40mg Take 1 tablet by mouth in the morning. [facility] [place] [facility] [place] 08:28: 34 Yes 750mg 750 mg. [facility] docosahexae noic acid/epa (FISH OIL ORAL) 2022-06 08:28: 34 Yes Take by mouth. [facility] Garlic 1,000 mg Cap 2022-06 0 08:28: 34 Yes Take by mouth. [facility] amiodarone 200 mg tablet 2022-06 0 08:28: 34 Yes 200mg Take 1 tablet by mouth. [facility] apixaban (ELIQUIS) 5 mg tablet 2022-06 08:28: 34 Yes Take by mouth. [facility] furosemide 40 mg tablet 2022-06 08:28: 34 Yes 40mg Take 1 tablet by mouth in the morning. [facility] DUNIA ROOT, BULK, M[facility] 2022-06 08:28: 34 Yes 750mg 750 mg. [facility] docosahexae noic acid/epa (FISH OIL ORAL) 2022-06 08:28: 34 Yes Take by mouth. [facility] Garlic 1,000 mg Cap 2022-06 08:28: 34 Yes Take by mouth. [facility] amiodarone 200 mg tablet 2022-06 08:28: 34 Yes 200mg Take 1 tablet by mouth. [facility] papaverine- phentolamin e-PGE1 150mg-5mg-5 0mcg [facility] 2022-06 00:00: 00 Yes [id number] 7.5mL Inject 7.5 mL as directed as needed for Other (2-3 times/ week, every 48 hrs). [facility] papaverine- phentolamin e-PGE1 150mg-5mg-5 0mcg [facility] 2022-06 00:00: 00 Yes [id number] 7.5mL Inject 7.5 mL as directed as needed for Other (2-3 times/ week, every 48 hrs). [facility] papaverine- phentolamin e-PGE1 150mg-5mg-5 0mcg [facility] 2022-06 00:00: 00 Yes [id number] 7.5mL Inject 7.5 mL as directed as needed for Other (2-3 times/ week, every 48 hrs). [facility] papaverine- phentolamin e-PGE1 150mg-5mg-5 0mcg [facility] 2022-06 00:00: 00 Yes [id number] 7.5mL Inject 7.5 mL as directed as needed for Other (2-3 times/ week, every 48 hrs). [facility] papaverine- phentolamin e-PGE1 150mg-5mg-5 0mcg Soln 2023-1 0-17 00:00: 00 Yes [id number] 7.5mL Inject 7.5 mL as directed as needed for Other (2-3 times/ week, every 48 hrs). [facility] papaverine- phentolamin e-PGE1 150mg-5mg-5 0mcg Soln 3-1 0-17 00:00: 00 Yes [id number] 7.5mL Inject 7.5 mL as directed as needed for Other (2-3 times/ week, every 48 hrs). [facility] papaverine- phentolamin e-PGE1 150mg-5mg-5 0mcg Soln 3-1 0-17 00:00: 00 Yes [id number] 7.5mL Inject 7.5 mL as directed as needed for Other (2-3 times/ week, every 48 hrs). [facility] papaverine- phentolamin e-PGE1 150mg-5mg-5 0mcg Soln 3-1 0-17 00:00: 00 Yes [id number] 7.5mL Inject 7.5 mL as directed as needed for Other (2-3 times/ week, every 48 hrs). [facility] papaverine- phentolamin e-PGE1 150mg-5mg-5 0mcg Soln 3-1 0-17 00:00: 00 Yes [id number] 7.5mL Inject 7.5 mL as directed as needed for Other (2-3 times/ week, every 48 hrs). [facility] papaverine- phentolamin e-PGE1 150mg-5mg-5 0mcg Soln 2023-1 0-17 00:00: 00 Yes [id number] 7.5mL Inject 7.5 mL as directed as needed for Other (2-3 times/ week, every 48 hrs). [facility] papaverine- phentolamin e-PGE1 150mg-5mg-5 0mcg Soln 2023-1 0-17 00:00: 00 Yes [id number] 7.5mL Inject 7.5 mL as directed as needed for Other (2-3 times/ week, every 48 hrs). [facility] papaverine- phentolamin e-PGE1 150mg-5mg-5 0mcg Soln 3-1 0-17 00:00: 00 Yes [id number] 7.5mL Inject 7.5 mL as directed as needed for Other (2-3 times/ week, every 48 hrs). [facility] papaverine- phentolamin e-PGE1 150mg-5mg-5 0mcg Soln 3- 0-17 00:00: 00 Yes [id number] 7.5mL Inject 7.5 mL as directed as needed for Other (2-3 times/ week, every 48 hrs). [facility] papaverine- phentolamin e-PGE1 150mg-5mg-5 0mcg Soln 3- 0-17 00:00: 00 Yes [id number] 7.5mL Inject 7.5 mL as directed as needed for Other (2-3 times/ week, every 48 hrs). [facility] papaverine- phentolamin e-PGE1 150mg-5mg-5 0mcg Soln 3- 0-17 00:00: 00 Yes [id number] 7.5mL Inject 7.5 mL as directed as needed for Other (2-3 times/ week, every 48 hrs). [facility] papaverine- phentolamin e-PGE1 150mg-5mg-5 0mcg Soln 3-1 0-17 00:00: 00 Yes [id number] 7.5mL Inject 7.5 mL as directed as needed for Other (2-3 times/ week, every 48 hrs). [facility] papaverine- phentolamin e-PGE1 150mg-5mg-5 0mcg Soln 3-1 0-17 00:00: 00 Yes [id number] 7.5mL Inject 7.5 mL as directed as needed for Other (2-3 times/ week, every 48 hrs). [facility] papaverine- phentolamin e-PGE1 150mg-5mg-5 0mcg Soln 2023-1 0-17 00:00: 00 Yes [id number] 7.5mL Inject 7.5 mL as directed as needed for Other (2-3 times/ week, every 48 hrs). [facility] papaverine- phentolamin e-PGE1 150mg-5mg-5 0mcg Soln 2023-1 0-17 00:00: 00 Yes [id number] 7.5mL Inject 7.5 mL as directed as needed for Other (2-3 times/ week, every 48 hrs). [facility] papaverine- phentolamin e-PGE1 150mg-5mg-5 0mcg Soln 2023-1 0-17 00:00: 00 Yes [id number] 7.5mL Inject 7.5 mL as directed as needed for Other (2-3 times/ week, every 48 hrs). [facility] papaverine- phentolamin e-PGE1 150mg-5mg-5 0mcg Soln 2023-1 0-17 00:00: 00 Yes [id number] 7.5mL Inject 7.5 mL as directed as needed for Other (2-3 times/ week, every 48 hrs). [facility] papaverine- phentolamin e-PGE1 150mg-5mg-5 0mcg Soln 2023-1 0-17 00:00: 00 Yes [id number] 7.5mL Inject 7.5 mL as directed as needed for Other (2-3 times/ week, every 48 hrs). [facility] papaverine- phentolamin e-PGE1 150mg-5mg-5 0mcg Soln 2023-1 0-17 00:00: 00 Yes [id number] 7.5mL Inject 7.5 mL as directed as needed for Other (2-3 times/ week, every 48 hrs). [facility] papaverine- phentolamin e-PGE1 150mg-5mg-5 0mcg Soln 2023-1 0-17 00:00: 00 Yes [id number] 7.5mL Inject 7.5 mL as directed as needed for Other (2-3 times/ week, every 48 hrs). [facility] papaverine- phentolamin e-PGE1 150mg-5mg-5 0mcg Soln 2022-06 0-17 00:00: 00 Yes [id number] 7.5mL Inject 7.5 mL as directed as needed for Other (2-3 times/ week, every 48 hrs). [facility] papaverine- phentolamin e-PGE1 150mg-5mg-5 0mcg Soln 2022-06 017 00:00: 00 Yes [id number] 7.5mL Inject 7.5 mL as directed as needed for Other (2-3 times/ week, every 48 hrs). [facility] papaverine- phentolamin e-PGE1 150mg[facility]5mg-5 [facility]mcg [facility]17 [facility]:00: 00 Yes [id number] 7.5mL Inject 7.5 mL as directed as needed for Other (2-3 times/ week, every 48 hrs). [facility] papaverine- phentolamin e-PGE1 150mg-5mg-5 0mcg [facility] 00:[facility]: 00 04-07 00:00 :00 No [id number] 7.5mL Inject 7.5 mL as directed as needed for Other (2-3 times/ week, every 48 hrs). [facility] papaverine- phentolamin e-PGE1 150mg[facility]5mg-5 [facility]mcg [facility] 017 00:00: 00 04-07 00:00 :00 No [id number] 7.5mL Inject 7.5 mL as directed as needed for Other (2-3 times/ week, every 48 hrs). [facility] DUNIA ROOT, BULK, MISC 03-02 13:48: 20 Yes 750mg 750 mg. [facility] Garlic 1,000 mg Cap 03-02 13:48: 20 Yes Take by mouth. [facility] DUNIA ROOT, BULK, MISC 03-02 13:48: 20 Yes 750mg 750 mg. [facility] Garlic 1,000 mg Cap 03-02 13:48: 20 Yes Take by mouth. [facility] DUNIA ROOT, BULK, MISC 03-02 13:48: 20 Yes 750mg 750 mg. [facility] Garlic 1,000 mg Cap 03-02 13:48: 20 Yes Take by mouth. [facility] RO[facility]K, [facility] 03-02 13:48: 20 Yes 750mg 750 mg. [facility] Garlic 1,000 mg Cap 03-02 13:48: 20 Yes Take by mouth. [facility] [place] [facility] [place]-02 13:48: 20 Yes 750mg 750 mg. [facility] Garlic 1,000 mg Cap 03-02 13:48: 20 Yes Take by mouth. [facility] furosemide 40 mg tablet 03-02 13:48: 14 Yes 40mg Take 40 mg by mouth daily. [facility] furosemide 40 mg tablet 03-02 13:48: 14 Yes 40mg Take 40 mg by mouth daily. [facility] furosemide 40 mg tablet 03-02 13:48: 14 Yes 40mg Take 40 mg by mouth daily. [facility] furosemide 40 mg tablet 03-02 13:48: 14 Yes 40mg Take 40 mg by mouth daily. [facility] furosemide 40 mg tablet 03-02 13:48: 14 Yes 40mg Take 40 mg by mouth daily. [facility] docosahexae noic acid/epa (FISH OIL ORAL) 03-02 13:48: 09 Yes Take by mouth. [facility] docosahexae noic acid/epa (FISH OIL ORAL) 03-02 13:48: 09 Yes Take by mouth. [facility] docosahexae noic acid/epa (FISH OIL ORAL) 03-02 13:48: 09 Yes Take by mouth. [facility] docosahexae noic acid/epa (FISH OIL ORAL) 03-02 13:48: 09 Yes Take by mouth. [facility] docosahexae noic acid/epa (FISH OIL ORAL) 03-02 13:48: 09 Yes Take by mouth. [facility] apixaban (ELIQUIS) 5 mg tablet 0 03-02 13:48: 06 Yes Take by mouth. [facility] apixaban (ELIQUIS) 5 mg tablet 03-02 13:48: 06 Yes Take by mouth. [facility] apixaban (ELIQUIS) 5 mg tablet 0 03-02 13:48: 06 Yes Take by mouth. [facility] apixaban (ELIQUIS) 5 mg tablet 0 03-02 13:48: 06 Yes Take by mouth. [facility] apixaban (ELIQUIS) 5 mg tablet 0 03-02 13:48: 06 Yes Take by mouth. [facility] amiodarone 200 mg tablet 0 03-02 13:48: 02 Yes 200mg Take 200 mg by mouth. [facility] amiodarone 200 mg tablet 03-02 13:48: 02 Yes 200mg Take 200 mg by mouth. [facility] amiodarone 200 mg tablet 0 03-02 13:48: 02 Yes 200mg Take 200 mg by mouth. [facility] amiodarone 200 mg tablet 03-02 13:48: 02 Yes 200mg Take 200 mg by mouth. [facility] amiodarone 200 mg tablet 0 03-02 13:48: 02 Yes 200mg Take 200 mg by mouth. [facility] rosuvastati n 10 mg tablet 02-19 12:18: 47 02-19 00:00 :00 No 10mg Take 10 mg by mouth. [facility] rosuvastati n 10 mg tablet 2022-0 8 12:18: 47 02-19 00:00 :00 No 10mg Take 10 mg by mouth. [facility] rosuvastati n 10 mg tablet 2022-0 8 00:00: 00 Yes [id number] 10mg Take 1 tablet by mouth at bedtime. [facility] rosuvastati n 10 mg tablet 2022-0 8 00:00: 00 Yes [id number] 10mg Take 1 tablet by mouth at bedtime. [facility] rosuvastati n 10 mg tablet 2022-0 8 00:00: 00 Yes [id number] 10mg Take 1 tablet by mouth at bedtime. [facility] rosuvastati n 10 mg tablet 2022-0 8 00:00: 00 Yes [id number] 10mg Take 1 tablet by mouth at bedtime. [facility] rosuvastati n 10 mg tablet 0 02-19 00:00: 00 Yes [id number] 10mg Take 1 tablet by mouth at bedtime. [facility] rosuvastati n 10 mg tablet 0 02-19 00:00: 00 Yes [id number] 10mg Take 1 tablet by mouth at bedtime. [facility] rosuvastati n 10 mg tablet 2022-0 02-19 00:00: 00 04-07 00:00 :00 No [id number] 10mg Take 1 tablet by mouth at bedtime. [facility] rosuvastati n 10 mg tablet 2022-0 02-19 00:00: 00 04-07 00:00 :00 No [id number] 10mg Take 1 tablet by mouth at bedtime. [facility] rosuvastati n 10 mg tablet 2022-0 02-19 00:00: 00 04-07 00:00 :00 No [id number] 10mg Take 1 tablet by mouth at bedtime. [facility] rosuvastati n 10 mg tablet 2022-0 8 00:00: 00 04-07 00:00 :00 No [id number] 10mg Take 1 tablet by mouth at bedtime. [facility] blood sugar diagnostic (ACCU-CHEK SMARTVIEW TEST STRIP) strip 0 8- 00:00: 00 Yes [id number] Use as directed [facility] blood sugar diagnostic (ACCU-CHEK SMARTVIEW TEST STRIP) strip 0 8- 00:00: 00 Yes [id number] Use as directed [facility] blood sugar diagnostic (ACCU-CHEK SMARTVIEW TEST STRIP) strip 0 8- 00:00: 00 Yes [id number] Use as directed [facility] blood sugar diagnostic (ACCU-CHEK SMARTVIEW TEST STRIP) strip 8- 00:00: 00 Yes [id number] Use as directed [facility] blood sugar diagnostic (ACCU-CHEK SMARTVIEW TEST STRIP) strip 0 8- 00:00: 00 Yes [id number] Use as directed [facility] blood sugar diagnostic (ACCU-CHEK SMARTVIEW TEST STRIP) strip 0 8- 00:00: 00 Yes [id number] Use as directed [facility] blood sugar diagnostic (ACCU-CHEK SMARTVIEW TEST STRIP) strip 0 8- 00:00: 00 Yes [id number] Use as directed [facility] blood sugar diagnostic (ACCU-CHEK SMARTVIEW TEST STRIP) strip 0 8- 00:00: 00 Yes [id number] Use as directed [facility] blood sugar diagnostic (ACCU-CHEK SMARTVIEW TEST STRIP) strip 0 8- 00:00: 00 Yes [id number] Use as directed [facility] blood sugar diagnostic (ACCU-CHEK SMARTVIEW TEST STRIP) strip 0 8- 00:00: 00 Yes [id number] Use as directed [facility] blood sugar diagnostic (ACCU-CHEK SMARTVIEW TEST STRIP) strip 2022-0 8- 00:00: 00 Yes [id number] Use as directed [facility] blood sugar diagnostic (ACCU-CHEK SMARTVIEW TEST STRIP) strip 2022-0 8- 00:00: 00 Yes [id number] Use as directed [facility] blood sugar diagnostic (ACCU-CHEK SMARTVIEW TEST STRIP) strip 2022-0 8- 00:00: 00 Yes [id number] Use as directed [facility] blood sugar diagnostic (ACCU-CHEK SMARTVIEW TEST STRIP) strip 2022-0 8- 00:00: 00 Yes [id number] Use as directed [facility] blood sugar diagnostic (ACCU-CHEK SMARTVIEW TEST STRIP) strip 2022-0 8- 00:00: 00 Yes [id number] Use as directed [facility] blood sugar diagnostic (ACCU-CHEK SMARTVIEW TEST STRIP) strip 2022-0 8- 00:00: 00 Yes [id number] Use as directed [facility] blood sugar diagnostic (ACCU-CHEK SMARTVIEW TEST STRIP) strip 2022-0 8- 00:00: 00 Yes [id number] Use as directed [facility] blood sugar diagnostic (ACCU-CHEK SMARTVIEW TEST STRIP) strip 2022-0 8- 00:00: 00 Yes [id number] Use as directed [facility] blood sugar diagnostic (ACCU-CHEK SMARTVIEW TEST STRIP) strip 2022-0 8- 00:00: 00 Yes [id number] Use as directed [facility] blood sugar diagnostic (ACCU-CHEK SMARTVIEW TEST STRIP) strip 2022-0 8- 00:00: 00 Yes [id number] Use as directed [facility] blood sugar diagnostic (ACCU-CHEK SMARTVIEW TEST STRIP) strip 2022-0 8- 00:00: 00 Yes [id number] Use as directed [facility] blood sugar diagnostic (ACCU-CHEK SMARTVIEW TEST STRIP) strip 2022-0 8- 00:00: 00 Yes [id number] Use as directed [facility] blood sugar diagnostic (ACCU-CHEK SMARTVIEW TEST STRIP) strip 2022-0 8- 00:00: 00 Yes [id number] Use as directed [facility] blood sugar diagnostic (ACCU-CHEK SMARTVIEW TEST STRIP) strip 3-0 8- 00:00: 00 Yes [id number] Use as directed [facility] blood sugar diagnostic (ACCU-CHEK SMARTVIEW TEST STRIP) strip 0 8- 00:00: 00 Yes [id number] Use as directed [facility] blood sugar diagnostic (ACCU-CHEK SMARTVIEW TEST STRIP) strip 2022-0 8- 00:00: 00 Yes [id number] Use as directed [facility] blood sugar diagnostic (ACCU-CHEK SMARTVIEW TEST STRIP) strip 2022-0 8- 00:00: 00 Yes [id number] Use as directed [facility] blood sugar diagnostic (ACCU-CHEK SMARTVIEW TEST STRIP) strip 0 8- 00:00: 00 Yes [id number] Use as directed [facility] blood sugar diagnostic (ACCU-CHEK SMARTVIEW TEST STRIP) strip 2022-0 8- 00:00: 00 Yes [id number] Use as directed [facility] blood sugar diagnostic (ACCU-CHEK SMARTVIEW TEST STRIP) strip 2022-0 8- 00:00: 00 Yes [id number] Use as directed [facility] blood sugar diagnostic (ACCU-CHEK SMARTVIEW TEST STRIP) strip 0 8- 00:00: 00 Yes [id number] Use as directed [facility] blood sugar diagnostic (ACCU-CHEK SMARTVIEW TEST STRIP) strip 2022-0 8- 00:00: 00 Yes [id number] Use as directed [facility] blood sugar diagnostic (ACCU-CHEK SMARTVIEW TEST STRIP) strip 2022-0 8- 00:00: 00 Yes [id number] Use as directed [facility] blood sugar diagnostic (ACCU-CHEK SMARTVIEW TEST STRIP) strip 0 8- 00:00: 00 Yes [id number] Use as directed [facility] blood sugar diagnostic (ACCU-CHEK SMARTVIEW TEST STRIP) strip 2022-0 8- 00:00: 00 Yes [id number] Use as directed [facility] blood sugar diagnostic (ACCU-CHEK SMARTVIEW TEST STRIP) strip 01-20 00:00: 00 Yes [id number] Use as directed [facility] blood sugar diagnostic (ACCU-CHEK SMARTVIEW TEST STRIP) strip 01-20 00:00: 00 Yes [id number] Use as directed [facility] glimepiride 1 mg tablet 12-22 00:00: 00 Yes [id number] 1mg Take 1 tablet by mouth daily with breakfast. [facility] glimepiride 1 mg tablet 12-22 00:00: 00 Yes [id number] 1mg Take 1 tablet by mouth daily with breakfast. [facility] glimepiride 1 mg tablet 12-22 00:00: 00 Yes [id number] 1mg Take 1 tablet by mouth daily with breakfast. [facility] glimepiride 1 mg tablet 12-22 00:00: 00 Yes [id number] 1mg Take 1 tablet by mouth daily with breakfast. [facility] glimepiride 1 mg tablet 12-22 00:00: 00 Yes [id number] 1mg Take 1 tablet by mouth daily with breakfast. [facility] glimepiride 1 mg tablet 12-22 00:00: 00 Yes [id number] 1mg Take 1 tablet by mouth daily with breakfast. [facility] glimepiride 1 mg tablet 12-22 00:00: 00 Yes [id number] 1mg Take 1 tablet by mouth daily with breakfast. [facility] glimepiride 1 mg tablet 12-22 00:00: 00 03-02 00:00 :00 No [id number] 1mg Take 1 tablet by mouth daily with breakfast. [facility] glimepiride 1 mg tablet 12-22 00:00: 00 03-02 00:00 :00 No [id number] 1mg Take 1 tablet by mouth daily with breakfast. [facility] sacubitriL- valsartan (ENTRESTO) 24-26 mg tablet 2023-0 5-11 00:00: 00 Yes 1{tbl} Take 1 tablet by mouth in the morning. [facility] sacubitriL- valsartan (ENTRESTO) 49-51 mg tablet 2023-0 5-11 00:00: 00 Yes 1{tbl} Take 1 tablet by mouth in the morning. [facility] sacubitriL- valsartan (ENTRESTO) 24-26 mg tablet 2023-0 5-11 00:00: 00 Yes 1{tbl} Take 1 tablet by mouth in the morning. [facility] sacubitriL- valsartan (ENTRESTO) 49-51 mg tablet 2023-0 5-11 00:00: 00 Yes 1{tbl} Take 1 tablet by mouth in the morning. [facility] sacubitriL- valsartan (ENTRESTO) 24-26 mg tablet 2023-0 5-11 00:00: 00 Yes 1{tbl} Take 1 tablet by mouth in the morning. [facility] sacubitriL- valsartan (ENTRESTO) 49-51 mg tablet 2023-0 5-11 00:00: 00 Yes 1{tbl} Take 1 tablet by mouth in the morning. [facility] sacubitriL- valsartan (ENTRESTO) 24-26 mg tablet 2023-0 5-11 00:00: 00 Yes 1{tbl} Take 1 tablet by mouth in the morning. [facility] sacubitriL- valsartan (ENTRESTO) 49-51 mg tablet 2023-0 5-11 00:00: 00 Yes 1{tbl} Take 1 tablet by mouth in the morning. [facility] sacubitriL- valsartan (ENTRESTO) 24-26 mg tablet 2023-0 5-11 00:00: 00 Yes 1{tbl} Take 1 tablet by mouth in the morning. [facility] sacubitriL- valsartan (ENTRESTO) 49-51 mg tablet 2023-0 5-11 00:00: 00 Yes 1{tbl} Take 1 tablet by mouth in the morning. [facility] sacubitriL- valsartan (ENTRESTO) 24-26 mg tablet 2023-0 5-11 00:00: 00 Yes 1{tbl} Take 1 tablet by mouth in the morning. [facility] sacubitriL- valsartan (ENTRESTO) 49-51 mg tablet 2023-0 5-11 00:00: 00 Yes 1{tbl} Take 1 tablet by mouth in the morning. [facility] sacubitriL- valsartan (ENTRESTO) 24-26 mg tablet 2023-0 5-11 00:00: 00 Yes 1{tbl} Take 1 tablet by mouth in the morning. [facility] sacubitriL- valsartan (ENTRESTO) 49-51 mg tablet 2023-0 5-11 00:00: 00 Yes 1{tbl} Take 1 tablet by mouth in the morning. [facility] sacubitriL- valsartan (ENTRESTO) 24-26 mg tablet 2023-0 5-11 00:00: 00 Yes 1{tbl} Take 1 tablet by mouth in the morning. [facility] sacubitriL- valsartan (ENTRESTO) 49-51 mg tablet 2023-0 5-11 00:00: 00 Yes 1{tbl} Take 1 tablet by mouth in the morning. [facility] sacubitriL- valsartan (ENTRESTO) 24-26 mg tablet 2023-0 5-11 00:00: 00 Yes 1{tbl} Take 1 tablet by mouth in the morning. [facility] sacubitriL- valsartan (ENTRESTO) 49-51 mg tablet 2023-0 5-11 00:00: 00 Yes 1{tbl} Take 1 tablet by mouth in the morning. [facility] sacubitriL- valsartan (ENTRESTO) 24-26 mg tablet 2023-0 5-11 00:00: 00 Yes 1{tbl} Take 1 tablet by mouth in the morning. [facility] sacubitriL- valsartan (ENTRESTO) 49-51 mg tablet 2023-0 5-11 00:00: 00 Yes 1{tbl} Take 1 tablet by mouth in the morning. [facility] sacubitriL- valsartan (ENTRESTO) 49-51 mg tablet 2023-0 5-11 00:00: 00 Yes 1{tbl} Take 1 tablet by mouth in the morning. [facility] sacubitriL- valsartan (ENTRESTO) 49-51 mg tablet 2023-0 5-11 00:00: 00 Yes 1{tbl} Take 1 tablet by mouth in the morning. [facility] sacubitriL- valsartan (ENTRESTO) 49-51 mg tablet 2023-0 5-11 00:00: 00 Yes 1{tbl} Take 1 tablet by mouth in the morning. [facility] sacubitriL- valsartan (ENTRESTO) 49-51 mg tablet 2023-0 5-11 00:00: 00 Yes 1{tbl} Take 1 tablet by mouth in the morning. [facility] sacubitriL- valsartan (ENTRESTO) 49-51 mg tablet 2023-0 5-11 00:00: 00 Yes 1{tbl} Take 1 tablet by mouth in the morning. [facility] sacubitriL- valsartan (ENTRESTO) 49-51 mg tablet 2023-0 5-11 00:00: 00 Yes 1{tbl} Take 1 tablet by mouth in the morning. [facility] sacubitriL- valsartan (ENTRESTO) 49-51 mg tablet 2023-0 5-11 00:00: 00 Yes 1{tbl} Take 1 tablet by mouth in the morning. [facility] sacubitriL- valsartan (ENTRESTO) 49-51 mg tablet 2023-0 5-11 00:00: 00 Yes 1{tbl} Take 1 tablet by mouth in the morning. [facility] sacubitriL- valsartan (ENTRESTO) 49-51 mg tablet 2023-0 5-11 00:00: 00 Yes 1{tbl} Take 1 tablet by mouth in the morning. [facility] sacubitriL- valsartan (ENTRESTO) 49-51 mg tablet 2023-0 5-11 00:00: 00 Yes 1{tbl} Take 1 tablet by mouth in the morning. [facility] sacubitriL- valsartan (ENTRESTO) 49-51 mg tablet 2023-0 5-11 00:00: 00 Yes 1{tbl} Take 1 tablet by mouth in the morning. [facility] sacubitriL- valsartan (ENTRESTO) 49-51 mg tablet 2023-0 5-11 00:00: 00 Yes 1{tbl} Take 1 tablet by mouth in the morning. [facility] sacubitriL- valsartan (ENTRESTO) 49-51 mg tablet 2023-0 5-11 00:00: 00 Yes 1{tbl} Take 1 tablet by mouth in the morning. [facility] [facility]- valsartan (ENTRESTO) 49-51 mg tablet 2023-0 5-11 00:00: 00 Yes 1{tbl} Take 1 tablet by mouth in the morning. [facility] sacubitriL- valsartan (ENTRESTO) 49-51 mg tablet 3-0 5-11 00:00: 00 Yes 1{tbl} Take 1 tablet by mouth in the morning. [facility] sacubitriL- valsartan (ENTRESTO) 49-51 mg tablet 2023-0 5-11 00:00: 00 Yes 1{tbl} Take 1 tablet by mouth in the morning. [facility] sacubitriL- valsartan (ENTRESTO) 49-51 mg tablet 2023-0 5-11 00:00: 00 Yes 1{tbl} Take 1 tablet by mouth in the morning. [facility] sacubitriL- valsartan (ENTRESTO) 49-51 mg tablet 2023-0 5-11 00:00: 00 Yes 1{tbl} Take 1 tablet by mouth in the morning. [facility] sacubitriL- valsartan (ENTRESTO) 49-51 mg tablet 2023-0 5-11 00:00: 00 Yes 1{tbl} Take 1 tablet by mouth in the morning. [facility] sacubitriL- valsartan (ENTRESTO) 49-51 mg tablet 2023-0 5-11 00:00: 00 Yes 1{tbl} Take 1 tablet by mouth in the morning. [facility] sacubitriL- valsartan (ENTRESTO) 49-51 mg tablet 2023-0 5-11 00:00: 00 Yes 1{tbl} Take 1 tablet by mouth in the morning. [facility] sacubitriL- valsartan (ENTRESTO) 49-51 mg tablet 2023-0 5-11 00:00: 00 Yes 1{tbl} Take 1 tablet by mouth in the morning. [facility] sacubitriL- valsartan (ENTRESTO) 49-51 mg tablet 2023-0 5-11 00:00: 00 Yes 1{tbl} Take 1 tablet by mouth in the morning. [facility] sacubitriL- valsartan (ENTRESTO) 49-51 mg tablet 2023-0 5-11 00:00: 00 Yes 1{tbl} Take 1 tablet by mouth in the morning. [facility] sacubitriL- valsartan (ENTRESTO) 49-51 mg tablet 2023-0 5-11 00:00: 00 Yes 1{tbl} Take 1 tablet by mouth in the morning. [facility] sacubitriL- valsartan (ENTRESTO) 49-51 mg tablet 2023-0 5-11 00:00: 00 Yes 1{tbl} Take 1 tablet by mouth in the morning. [facility] sacubitriL- valsartan (ENTRESTO) 49-51 mg tablet 2023-0 5-11 00:00: 00 Yes 1{tbl} Take 1 tablet by mouth in the morning. [facility] sacubitriL- valsartan (ENTRESTO) 49-51 mg tablet 2023-0 5-11 00:00: 00 Yes 1{tbl} Take 1 tablet by mouth in the morning. [facility] sacubitriL- valsartan (ENTRESTO) 49-51 mg tablet 2022-0 10-30 00:00: 00 Yes 1{tbl} Take 1 tablet by mouth in the morning. [facility] sacubitriL- valsartan (ENTRESTO) 49-51 mg tablet 0 10-30 00:00: 00 Yes 1{tbl} Take 1 tablet by mouth in the morning. [facility] sacubitriL- valsartan (ENTRESTO) 49-51 mg tablet 2022-0 10-30 00:00: 00 Yes 1{tbl} Take 1 tablet by mouth in the morning. [facility] sacubitriL- valsartan (ENTRESTO) 49-51 mg tablet 2022-0 10-30 00:00: 00 Yes 1{tbl} Take 1 tablet by mouth in the morning. [facility] sacubitriL- valsartan (ENTRESTO) 24-26 mg tablet 2022-10-30 00:00: 00 03-02 00:00 :00 No 1{tbl} Take 1 tablet by mouth in the morning. [facility] sacubitriL- valsartan (ENTRESTO) 24-26 mg tablet 10-30 00:00: 00 03-02 00:00 :00 No 1{tbl} Take 1 tablet by mouth in the morning. [facility] iron sucrose (VENOFER) 500 mg in NaCl 0.9% (NS) 250 mL infusion 2- 02:30: 00 09-10 01:29 :00 No [id number] 500mg [facility] ferric derisomalto se (MONOFERRIC ) 1,000 mg in NaCl 0.9% (NS) 100 mL infusion 1-24 06:00: 00 07-15 17:59 :00 No [id number] 1000mg [facility] ferric derisomalto se (MONOFERRIC ) 1,000 mg in NaCl 0.9% (NS) 100 mL infusion 07-15 06:00: 00 07-15 17:59 :00 No [id number] 1000mg [facility] ferric derisomalto se (MONOFERRIC ) 1,000 mg in NaCl 0.9% (NS) 100 mL infusion 07-15 06:00: 00 07-15 17:59 :00 No [id number] 1000mg [facility] ferric derisomalto se (MONOFERRIC ) 1,000 mg in NaCl 0.9% (NS) 100 mL infusion 07-15 06:00: 00 07-15 17:59 :00 No [id number] 1000mg [facility] ferric derisomalto se (MONOFERRIC ) 1,000 mg in NaCl 0.9% (NS) 100 mL infusion 07-14 18:00: 00 07-14 17:19 :08 No [id number] 1000mg [facility] ferric derisomalto se (MONOFERRIC ) 1,000 mg in NaCl 0.9% (NS) 100 mL infusion 07-14 18:00: 00 07-14 17:19 :08 No [id number] 1000mg [facility] ferric derisomalto se (MONOFERRIC ) 1,000 mg in NaCl 0.9% (NS) 100 mL infusion 07-14 18:00: 00 07-14 17:19 :08 No [id number] 1000mg [facility] terbinafine HCL 250 mg tablet 07-07 00:00: 00 Yes [id number] 250mg Take 1 tablet by mouth in the morning. [facility] terbinafine HCL 250 mg tablet 07-07 00:00: 00 Yes [id number] 250mg Take 1 tablet by mouth in the morning. [facility] terbinafine HCL 250 mg tablet 07-07 00:00: 00 Yes [id number] 250mg Take 1 tablet by mouth in the morning. [facility] terbinafine HCL 250 mg tablet 2022-0 -16 00:00: 00 Yes [id number] 250mg Take 1 tablet by mouth in the morning. [facility] terbinafine HCL 250 mg tablet 3-0 -16 00:00: 00 Yes [id number] 250mg Take 1 tablet by mouth in the morning. [facility] terbinafine HCL 250 mg tablet 3-0 -16 00:00: 00 Yes [id number] 250mg Take 1 tablet by mouth in the morning. [facility] terbinafine HCL 250 mg tablet 3-0 -16 00:00: 00 Yes [id number] 250mg Take 1 tablet by mouth in the morning. [facility] terbinafine HCL 250 mg tablet 3-0 16 00:00: 00 Yes [id number] 250mg Take 1 tablet by mouth in the morning. [facility] terbinafine HCL 250 mg tablet 3-0 -16 00:00: 00 Yes [id number] 250mg Take 1 tablet by mouth in the morning. [facility] terbinafine HCL 250 mg tablet 3-0 16 00:00: 00 Yes [id number] 250mg Take 1 tablet by mouth in the morning. [facility] terbinafine HCL 250 mg tablet 2022-0 16 00:00: 00 Yes [id number] 250mg Take 1 tablet by mouth in the morning. [facility] terbinafine HCL 250 mg tablet 3-0 -16 00:00: 00 Yes [id number] 250mg Take 1 tablet by mouth in the morning. [facility] terbinafine HCL 250 mg tablet 3-0 -16 00:00: 00 Yes [id number] 250mg Take 1 tablet by mouth in the morning. [facility] terbinafine HCL 250 mg tablet 3-0 -16 00:00: 00 Yes [id number] 250mg Take 1 tablet by mouth in the morning. [facility] terbinafine HCL 250 mg tablet 3-0 -16 00:00: 00 Yes [id number] 250mg Take 1 tablet by mouth in the morning. [facility] terbinafine HCL 250 mg tablet 2022-0 1-16 00:00: 00 Yes [id number] 250mg Take 1 tablet by mouth in the morning. [facility] terbinafine HCL 250 mg tablet 2022-0 16 00:00: 00 Yes [id number] 250mg Take 1 tablet by mouth in the morning. [facility] terbinafine HCL 250 mg tablet 2022-0 16 00:00: 00 Yes [id number] 250mg Take 1 tablet by mouth in the morning. [facility] terbinafine HCL 250 mg tablet 2022-0 16 00:00: 00 03-02 00:00 :00 No [id number] 250mg Take 1 tablet by mouth in the morning. [facility] terbinafine HCL 250 mg tablet 2022-0 16 00:00: 00 03-02 00:00 :00 No [id number] 250mg Take 1 tablet by mouth in the morning. [facility] ENTRESTO 49-51 mg tablet 2022-0 07-03 00:00: 00 Yes [facility] ENTRESTO 49-51 mg tablet 2022-0 07-03 00:00: 00 Yes [facility] ENTRESTO 49-51 mg tablet 2022-0 07-03 00:00: 00 Yes [facility] ENTRESTO 49-51 mg tablet 2022-0 07-03 00:00: 00 Yes [facility] ENTRESTO 49-51 mg tablet 2022-0 - 00:00: 00 Yes [facility] ENTRESTO 49-51 mg tablet 3-0 07-03 00:00: 00 Yes [facility] ENTRESTO 49-51 mg tablet 2022-0 07-03 00:00: 00 Yes [facility] ENTRESTO 49-51 mg tablet 3-0 07-03 00:00: 00 10-30 00:00 :00 No [facility] ENTRESTO 49-51 mg tablet 2022-0 07-03 00:00: 00 10-30 00:00 :00 No [facility] glimepiride 1 mg tablet 2022-0 06-30 00:00: 00 Yes [id number] 1mg Take 1 tablet by mouth daily with breakfast. [facility] glimepiride 1 mg tablet 0 06-30 00:00: 00 Yes [id number] 1mg Take 1 tablet by mouth daily with breakfast. [facility] glimepiride 1 mg tablet 0 06-30 00:00: 00 Yes [id number] 1mg Take 1 tablet by mouth daily with breakfast. [facility] glimepiride 1 mg tablet 0 06-30 00:00: 00 Yes [id number] 1mg Take 1 tablet by mouth daily with breakfast. [facility] glimepiride 1 mg tablet 0 06-30 00:00: 00 Yes [id number] 1mg Take 1 tablet by mouth daily with breakfast. [facility] glimepiride 1 mg tablet 0 06-30 00:00: 00 Yes [id number] 1mg Take 1 tablet by mouth daily with breakfast. [facility] glimepiride 1 mg tablet 0 06-30 00:00: 00 Yes [id number] 1mg Take 1 tablet by mouth daily with breakfast. [facility] glimepiride 1 mg tablet 0 06-30 00:00: 00 Yes [id number] 1mg Take 1 tablet by mouth daily with breakfast. [facility] glimepiride 1 mg tablet 2022-0 06-30 00:00: 00 Yes [id number] 1mg Take 1 tablet by mouth daily with breakfast. [facility] glimepiride 1 mg tablet 2022-0 06-30 00:00: 00 Yes [id number] 1mg Take 1 tablet by mouth daily with breakfast. [facility] glimepiride 1 mg tablet 2022-0 06-30 00:00: 00 Yes [id number] 1mg Take 1 tablet by mouth daily with breakfast. [facility] glimepiride 1 mg tablet 2022-06-30 00:00: 00 Yes [id number] 1mg Take 1 tablet by mouth daily with breakfast. [facility] glimepiride 1 mg tablet 06-30 00:00: 00 Yes [id number] 1mg Take 1 tablet by mouth daily with breakfast. [facility] glimepiride 1 mg tablet 06-30 00:00: 00 12-22 00:00 :00 No [id number] 1mg Take 1 tablet by mouth daily with breakfast. [facility] glimepiride 1 mg tablet 06-30 00:00: 00 12-22 00:00 :00 No [id number] 1mg Take 1 tablet by mouth daily with breakfast. [facility] terbinafine HCL 250 mg tablet 2021-06 00:00: 00 Yes [id number] 250mg Take 1 tablet by mouth in the morning. [facility] terbinafine HCL 250 mg tablet 2021-06 00:00: 00 Yes [id number] 250mg Take 1 tablet by mouth in the morning. [facility] terbinafine HCL 250 mg tablet 2021-06 00:00: 00 Yes [id number] 250mg Take 1 tablet by mouth in the morning. [facility] terbinafine HCL 250 mg tablet 2021-06 00:00: 00 Yes [id number] 250mg Take 1 tablet by mouth in the morning. [facility] terbinafine HCL 250 mg tablet 2021-06 00:00: 00 Yes [id number] 250mg Take 1 tablet by mouth in the morning. [facility] terbinafine HCL 250 mg tablet 2021-06 00:00: 00 Yes [id number] 250mg Take 1 tablet by mouth in the morning. [facility] terbinafine HCL 250 mg tablet 2021-06 00:00: 00 Yes [id number] 250mg Take 1 tablet by mouth in the morning. [facility] terbinafine HCL 250 mg tablet 2021-06 00:00: 00 Yes [id number] 250mg Take 1 tablet by mouth in the morning. [facility] terbinafine HCL 250 mg tablet 2021-06 00:00: 00 Yes [id number] 250mg Take 1 tablet by mouth in the morning. [facility] terbinafine HCL 250 mg tablet 2021-06 00:00: 00 Yes [id number] 250mg Take 1 tablet by mouth in the morning. [facility] terbinafine HCL 250 mg tablet 2021-06 00:00: 00 07-07 00:00 :00 No [id number] 250mg Take 1 tablet by mouth in the morning. [facility] glimepiride 1 mg tablet 2021-06 0 00:00: 00 Yes [id number] 1mg Take 1 tablet by mouth daily with breakfast. [facility] terbinafine HCL 250 mg tablet 2021-06 0 00:00: 00 Yes [id number] 250mg Take 1 tablet by mouth in the morning. [facility] glimepiride 1 mg tablet 2021-06 0 00:00: 00 Yes [id number] 1mg Take 1 tablet by mouth daily with breakfast. [facility] terbinafine HCL 250 mg tablet 2021-06 0 00:00: 00 Yes [id number] 250mg Take 1 tablet by mouth in the morning. [facility] glimepiride 1 mg tablet 2021-06 014 00:00: 00 Yes [id number] 1mg Take 1 tablet by mouth daily with breakfast. [facility] terbinafine HCL 250 mg tablet 2021-06 014 00:00: 00 Yes [id number] 250mg Take 1 tablet by mouth in the morning. [facility] glimepiride 1 mg tablet 2021-06 0-14 00:00: 00 Yes [id number] 1mg Take 1 tablet by mouth daily with breakfast. [facility] terbinafine HCL 250 mg tablet 2021-06 0-14 00:00: 00 Yes [id number] 250mg Take 1 tablet by mouth in the morning. [facility] glimepiride 1 mg tablet 2021-06 014 00:00: 00 Yes [id number] 1mg Take 1 tablet by mouth daily with breakfast. [facility] terbinafine HCL 250 mg tablet 2021-06 014 00:00: 00 Yes [id number] 250mg Take 1 tablet by mouth in the morning. [facility] glimepiride 1 mg tablet 2021-06 014 00:00: 00 Yes [id number] 1mg Take 1 tablet by mouth daily with breakfast. [facility] terbinafine HCL 250 mg tablet 2021-0614 00:00: 00 Yes [id number] 250mg Take 1 tablet by mouth in the morning. [facility] glimepiride 1 mg tablet 2021-06 0 00:00: 00 Yes [id number] 1mg Take 1 tablet by mouth daily with breakfast. [facility] terbinafine HCL 250 mg tablet 2021-06 00:00: 00 Yes [id number] 250mg Take 1 tablet by mouth in the morning. [facility] glimepiride 1 mg tablet 2021-06 00:00: 00 Yes [id number] 1mg Take 1 tablet by mouth daily with breakfast. [facility] terbinafine HCL 250 mg tablet 2021-06 0 00:00: 00 Yes [id number] 250mg Take 1 tablet by mouth in the morning. [facility] glimepiride 1 mg tablet 2021-06 00:00: 00 Yes [id number] 1mg Take 1 tablet by mouth daily with breakfast. [facility] terbinafine HCL 250 mg tablet 2021-06 014 00:00: 00 Yes [id number] 250mg Take 1 tablet by mouth in the morning. [facility] glimepiride 1 mg tablet 2021-06 014 00:00: 00 Yes [id number] 1mg Take 1 tablet by mouth daily with breakfast. [facility] glimepiride 1 mg tablet 2021-06 014 00:00: 00 Yes [id number] 1mg Take 1 tablet by mouth daily with breakfast. [facility] glimepiride 1 mg tablet 2021-06 014 00:00: 00 Yes [id number] 1mg Take 1 tablet by mouth daily with breakfast. [facility] glimepiride 1 mg tablet 2021-06 0 00:00: 00 Yes [id number] 1mg Take 1 tablet by mouth daily with breakfast. [facility] glimepiride 1 mg tablet 2021-06 00:00: 00 Yes [id number] 1mg Take 1 tablet by mouth daily with breakfast. [facility] glimepiride 1 mg tablet 2021-06 00:00: 00 Yes [id number] 1mg Take 1 tablet by mouth daily with breakfast. [facility] glimepiride 1 mg tablet 2021-06 00:00: 00 Yes [id number] 1mg Take 1 tablet by mouth daily with breakfast. [facility] glimepiride 1 mg tablet 2021-06 00:00: 00 Yes [id number] 1mg Take 1 tablet by mouth daily with breakfast. [facility] glimepiride 1 mg tablet 2021-06 00:00: 00 Yes [id number] 1mg Take 1 tablet by mouth daily with breakfast. [facility] glimepiride 1 mg tablet 2021-06 00:00: 00 Yes [id number] 1mg Take 1 tablet by mouth daily with breakfast. [facility] glimepiride 1 mg tablet 2021-06 00:00: 00 Yes [id number] 1mg Take 1 tablet by mouth daily with breakfast. [facility] glimepiride 1 mg tablet 2021-06 00:00: 00 Yes [id number] 1mg Take 1 tablet by mouth daily with breakfast. [facility] terbinafine HCL 250 mg tablet 2021-06 00:00: 00 Yes [id number] 250mg Take 1 tablet by mouth in the morning. [facility] glimepiride 1 mg tablet 2021-06 00:00: 00 06-30 00:00 :00 No [id number] 1mg Take 1 tablet by mouth daily with breakfast. [facility] glimepiride 1 mg tablet 2021-06 0-14 00:00: 00 06-30 00:00 :00 No [id number] 1mg Take 1 tablet by mouth daily with breakfast. [facility] terbinafine HCL 250 mg tablet 2021-06 0-14 00:00: 00 05-20 00:00 :00 No [id number] 250mg Take 1 tablet by mouth in the morning. [facility] terbinafine HCL 250 mg tablet 2021-06 0-14 00:00: 00 05-20 00:00 :00 No [id number] 250mg Take 1 tablet by mouth in the morning. [facility] terbinafine HCL 250 mg tablet 2021-06 0-14 00:00: 00 05-20 00:00 :00 No [id number] 250mg Take 1 tablet by mouth in the morning. [facility] terbinafine HCL 250 mg tablet 2021-06 0-14 00:00: 00 05-20 00:00 :00 No [id number] 250mg Take 1 tablet by mouth in the morning. [facility] terbinafine HCL 250 mg tablet 2021-06 0-14 00:00: 00 05-20 00:00 :00 No [id number] 250mg Take 1 tablet by mouth in the morning. [facility] pioglitazon e (ACTOS) 15 mg tablet 2021-06 0-13 00:00: 00 Yes [id number] 15mg Take 1 tablet by mouth in the morning. [facility] pioglitazon e (ACTOS) 15 mg tablet 2021-06 0-13 00:00: 00 Yes [id number] 15mg Take 1 tablet by mouth in the morning. [facility] pioglitazon e (ACTOS) 15 mg tablet 2021-06 0-13 00:00: 00 Yes [id number] 15mg Take 1 tablet by mouth in the morning. [facility] pioglitazon e (ACTOS) 15 mg tablet 2021-06 0-13 00:00: 00 Yes [id number] 15mg Take 1 tablet by mouth in the morning. [facility] pioglitazon e (ACTOS) 15 mg tablet 2021-06 0-13 00:00: 00 Yes [id number] 15mg Take 1 tablet by mouth in the morning. [facility] pioglitazon e (ACTOS) 15 mg tablet 2021-06 0-13 00:00: 00 Yes [id number] 15mg Take 1 tablet by mouth in the morning. [facility] pioglitazon e (ACTOS) 15 mg tablet 2021-06 0-13 00:00: 00 Yes [id number] 15mg Take 1 tablet by mouth in the morning. [facility] pioglitazon e (ACTOS) 15 mg tablet 2021-06 0-13 00:00: 00 Yes [id number] 15mg Take 1 tablet by mouth in the morning. [facility] pioglitazon e (ACTOS) 15 mg tablet 2021-06 0-13 00:00: 00 Yes [id number] 15mg Take 1 tablet by mouth in the morning. [facility] pioglitazon e (ACTOS) 15 mg tablet 2021-06 0-13 00:00: 00 Yes [id number] 15mg Take 1 tablet by mouth in the morning. [facility] pioglitazon e (ACTOS) 15 mg tablet 2021-06 0-13 00:00: 00 Yes [id number] 15mg Take 1 tablet by mouth in the morning. [facility] pioglitazon e (ACTOS) 15 mg tablet 2021-06 0-13 00:00: 00 Yes [id number] 15mg Take 1 tablet by mouth in the morning. [facility] pioglitazon e (ACTOS) 15 mg tablet 2021-06 0-13 00:00: 00 Yes [id number] 15mg Take 1 tablet by mouth in the morning. [facility] pioglitazon e (ACTOS) 15 mg tablet 2021- 0-13 00:00: 00 Yes [id number] 15mg Take 1 tablet by mouth in the morning. [facility] pioglitazon e (ACTOS) 15 mg tablet 2021-06 0-13 00:00: 00 05-20 00:00 :00 No [id number] 15mg Take 1 tablet by mouth in the morning. [facility] pioglitazon e (ACTOS) 15 mg tablet 2021-06 0-13 00:00: 00 05-20 00:00 :00 No [id number] 15mg Take 1 tablet by mouth in the morning. [facility] pioglitazon e (ACTOS) 15 mg tablet 2021-06 0-13 00:00: 00 05-20 00:00 :00 No [id number] 15mg Take 1 tablet by mouth in the morning. [facility] pioglitazon e (ACTOS) 15 mg tablet 2021-06 0-13 00:00: 00 05-20 00:00 :00 No [id number] 15mg Take 1 tablet by mouth in the morning. [facility] pioglitazon e (ACTOS) 15 mg tablet 2021-06 0-13 00:00: 00 05-20 00:00 :00 No [id number] 15mg Take 1 tablet by mouth in the morning. [facility] pioglitazon e (ACTOS) 15 mg tablet 2021-06 0-13 00:00: 00 04-03 00:00 :00 No [id number] 15mg Take 1 tablet by mouth in the morning. [facility] pioglitazon e (ACTOS) 15 mg tablet 2021-06 0-13 00:00: 00 04-03 00:00 :00 No [id number] 15mg Take 1 tablet by mouth in the morning. [facility] lancets 31 gauge Misc 03-12 00:00: 00 Yes [id number] Use as directed [facility] blood sugar diagnostic (ACCU-CHEK SMARTVIEW TEST STRIP) strip 03-12 00:00: 00 Yes [id number] Use as directed [facility] lancets 31 gauge Misc 03-12 00:00: 00 Yes [id number] Use as directed [facility] blood sugar diagnostic (ACCU-CHEK SMARTVIEW TEST STRIP) strip 2021-0 - 00:00: 00 Yes [id number] Use as directed [facility] lancets 31 gauge [facility] 2021-0 03-12 00:00: 00 Yes [id number] Use as directed [facility] blood sugar diagnostic (ACCU-CHEK SMARTVIEW TEST STRIP) strip 2021-0 03-12 00:00: 00 Yes [id number] Use as directed [facility] lancets 31 gauge [facility] 2021-0 03-12 00:00: 00 Yes [id number] Use as directed [facility] blood sugar diagnostic (ACCU-CHEK SMARTVIEW TEST STRIP) strip 2021-0 03-12 00:00: 00 Yes [id number] Use as directed [facility] lancets 31 gauge [facility] 2021-0 03-12 00:00: 00 Yes [id number] Use as directed [facility] blood sugar diagnostic (ACCU-CHEK SMARTVIEW TEST STRIP) strip 2021-0 03-12 00:00: 00 Yes [id number] Use as directed [facility] lancets 31 gauge [facility] 2021-0 03-12 00:00: 00 Yes [id number] Use as directed [facility] blood sugar diagnostic (ACCU-CHEK SMARTVIEW TEST STRIP) strip 2021-0 03-12 00:00: 00 Yes [id number] Use as directed [facility] lancets 31 gauge [facility] 2021-0 03-12 00:00: 00 Yes [id number] Use as directed [facility] blood sugar diagnostic (ACCU-CHEK SMARTVIEW TEST STRIP) strip 2021-0 03-12 00:00: 00 Yes [id number] Use as directed [facility] lancets 31 gauge [facility] 2-0 -21 00:00: 00 Yes [id number] Use as directed [facility] blood sugar diagnostic (ACCU-CHEK SMARTVIEW TEST STRIP) strip 2021-0 - 00:00: 00 Yes [id number] Use as directed [facility] lancets 31 gauge [facility] 2-0 9-21 00:00: 00 Yes [id number] Use as directed [facility] blood sugar diagnostic (ACCU-CHEK SMARTVIEW TEST STRIP) strip 2021-0 9-21 00:00: 00 Yes [id number] Use as directed [facility] lancets 31 gauge [facility] 2-0 9-21 00:00: 00 Yes [id number] Use as directed [facility] blood sugar diagnostic (ACCU-CHEK SMARTVIEW TEST STRIP) strip 2021-0 -21 00:00: 00 Yes [id number] Use as directed [facility] lancets 31 gauge [facility] 2-0 -21 00:00: 00 Yes [id number] Use as directed [facility] blood sugar diagnostic (ACCU-CHEK SMARTVIEW TEST STRIP) strip 2021-0 03-12 00:00: 00 Yes [id number] Use as directed [facility] lancets 31 gauge [facility] 2021-0 -21 00:00: 00 Yes [id number] Use as directed [facility] blood sugar diagnostic (ACCU-CHEK SMARTVIEW TEST STRIP) strip 2021-0 21 00:00: 00 Yes [id number] Use as directed [facility] lancets 31 gauge [facility] 2021-0 -21 00:00: 00 Yes [id number] Use as directed [facility] blood sugar diagnostic (ACCU-CHEK SMARTVIEW TEST STRIP) strip 2021-0 -21 00:00: 00 Yes [id number] Use as directed [facility] lancets 31 gauge [facility] 2-0 9-21 00:00: 00 Yes [id number] Use as directed [facility] blood sugar diagnostic (ACCU-CHEK SMARTVIEW TEST STRIP) strip 2021-0 9-21 00:00: 00 Yes [id number] Use as directed [facility] lancets 31 gauge Misc 2-0 9-21 00:00: 00 Yes [id number] Use as directed [facility] blood sugar diagnostic (ACCU-CHEK SMARTVIEW TEST STRIP) strip 2-0 -21 00:00: 00 Yes [id number] Use as directed [facility] lancets 31 gauge Misc 2-0 9-21 00:00: 00 Yes [id number] Use as directed [facility] blood sugar diagnostic (ACCU-CHEK SMARTVIEW TEST STRIP) strip 2021-0 9-21 00:00: 00 Yes [id number] Use as directed [facility] lancets 31 gauge [facility] 2-0 9-21 00:00: 00 Yes [id number] Use as directed [facility] blood sugar diagnostic (ACCU-CHEK SMARTVIEW TEST STRIP) strip 2021-0 03-12 00:00: 00 Yes [id number] Use as directed [facility] lancets 31 gauge [facility] 2021-0 03-12 00:00: 00 Yes [id number] Use as directed [facility] blood sugar diagnostic (ACCU-CHEK SMARTVIEW TEST STRIP) strip 2021-0 03-12 00:00: 00 Yes [id number] Use as directed [facility] lancets 31 gauge [facility] 2-0 21 00:00: 00 Yes [id number] Use as directed [facility] blood sugar diagnostic (ACCU-CHEK SMARTVIEW TEST STRIP) strip 2021-0 03-12 00:00: 00 Yes [id number] Use as directed [facility] lancets 31 gauge [facility] 2-0 -21 00:00: 00 Yes [id number] Use as directed [facility] blood sugar diagnostic (ACCU-CHEK SMARTVIEW TEST STRIP) strip 2021-0 21 00:00: 00 Yes [id number] Use as directed [facility] lancets 31 gauge Misc 2-0 -21 00:00: 00 Yes [id number] Use as directed [facility] blood sugar diagnostic (ACCU-CHEK SMARTVIEW TEST STRIP) strip 2021-0 9-21 00:00: 00 Yes [id number] Use as directed [facility] lancets 31 gauge Misc 2-0 9-21 00:00: 00 Yes [id number] Use as directed [facility] blood sugar diagnostic (ACCU-CHEK SMARTVIEW TEST STRIP) strip 2021-0 - 00:00: 00 Yes [id number] Use as directed [facility] lancets 31 gauge [facility] 2021-0 03-12 00:00: 00 Yes [id number] Use as directed [facility] blood sugar diagnostic (ACCU-CHEK SMARTVIEW TEST STRIP) strip 2021-0 03-12 00:00: 00 Yes [id number] Use as directed [facility] lancets 31 gauge [facility] 2021-0 03-12 00:00: 00 Yes [id number] Use as directed [facility] blood sugar diagnostic (ACCU-CHEK SMARTVIEW TEST STRIP) strip 2021-0 03-12 00:00: 00 Yes [id number] Use as directed [facility] lancets 31 gauge [facility] 2021-0 03-12 00:00: 00 Yes [id number] Use as directed [facility] blood sugar diagnostic (ACCU-CHEK SMARTVIEW TEST STRIP) strip 2021-0 03-12 00:00: 00 Yes [id number] Use as directed [facility] lancets 31 gauge [facility] 2021-0 03-12 00:00: 00 Yes [id number] Use as directed [facility] blood sugar diagnostic (ACCU-CHEK SMARTVIEW TEST STRIP) strip 2021-0 03-12 00:00: 00 Yes [id number] Use as directed [facility] lancets 31 gauge [facility] 2021-0 03-12 00:00: 00 Yes [id number] Use as directed [facility] blood sugar diagnostic (ACCU-CHEK SMARTVIEW TEST STRIP) strip 2021-0 03-12 00:00: 00 Yes [id number] Use as directed [facility] lancets 31 gauge [facility] 2-0 -21 00:00: 00 Yes [id number] Use as directed [facility] blood sugar diagnostic (ACCU-CHEK SMARTVIEW TEST STRIP) strip 2021-0 - 00:00: 00 Yes [id number] Use as directed [facility] lancets 31 gauge [facility] 2-0 9-21 00:00: 00 Yes [id number] Use as directed [facility] blood sugar diagnostic (ACCU-CHEK SMARTVIEW TEST STRIP) strip 2021-0 9-21 00:00: 00 Yes [id number] Use as directed [facility] lancets 31 gauge [facility] 2-0 9-21 00:00: 00 Yes [id number] Use as directed [facility] blood sugar diagnostic (ACCU-CHEK SMARTVIEW TEST STRIP) strip 2021-0 -21 00:00: 00 Yes [id number] Use as directed [facility] lancets 31 gauge [facility] 2-0 -21 00:00: 00 Yes [id number] Use as directed [facility] blood sugar diagnostic (ACCU-CHEK SMARTVIEW TEST STRIP) strip 2021-0 03-12 00:00: 00 Yes [id number] Use as directed [facility] lancets 31 gauge [facility] 2021-0 -21 00:00: 00 Yes [id number] Use as directed [facility] blood sugar diagnostic (ACCU-CHEK SMARTVIEW TEST STRIP) strip 2021-0 21 00:00: 00 Yes [id number] Use as directed [facility] lancets 31 gauge [facility] 2021-0 -21 00:00: 00 Yes [id number] Use as directed [facility] blood sugar diagnostic (ACCU-CHEK SMARTVIEW TEST STRIP) strip 2021-0 -21 00:00: 00 Yes [id number] Use as directed [facility] lancets 31 gauge [facility] 2-0 9-21 00:00: 00 Yes [id number] Use as directed [facility] blood sugar diagnostic (ACCU-CHEK SMARTVIEW TEST STRIP) strip 2021-0 9-21 00:00: 00 Yes [id number] Use as directed [facility] lancets 31 gauge Misc 2-0 9-21 00:00: 00 Yes [id number] Use as directed [facility] blood sugar diagnostic (ACCU-CHEK SMARTVIEW TEST STRIP) strip 2-0 9-21 00:00: 00 Yes [id number] Use as directed [facility] lancets 31 gauge Misc 2022-0 9-21 00:00: 00 Yes [id number] Use as directed [facility] blood sugar diagnostic (ACCU-CHEK SMARTVIEW TEST STRIP) strip 2021-0 9-21 00:00: 00 Yes [id number] Use as directed [facility] lancets 31 gauge Misc 2022-0 9-21 00:00: 00 Yes [id number] Use as directed [facility] lancets 31 gauge Misc 2022-0 9-21 00:00: 00 Yes [id number] Use as directed [facility] lancets 31 gauge Misc 2022-0 9-21 00:00: 00 Yes [id number] Use as directed [facility] lancets 31 gauge Misc 2022-0 9-21 00:00: 00 Yes [id number] Use as directed [facility] lancets 31 gauge Misc 2022-0 9-21 00:00: 00 Yes [id number] Use as directed [facility] lancets 31 gauge Misc 2022-0 9-21 00:00: 00 Yes [id number] Use as directed [facility] lancets 31 gauge Misc 2022-0 9-21 00:00: 00 Yes [id number] Use as directed [facility] lancets 31 gauge Misc 2022-0 9-21 00:00: 00 Yes [id number] Use as directed [facility] lancets 31 gauge Misc 2022-0 9-21 00:00: 00 Yes [id number] Use as directed [facility] lancets 31 gauge Misc 2022-0 9-21 00:00: 00 Yes [id number] Use as directed [facility] lancets 31 gauge Misc 2022-0 9-21 00:00: 00 Yes [id number] Use as directed [facility] lancets 31 gauge Misc 2022-0 9-21 00:00: 00 Yes [id number] Use as directed [facility] lancets 31 gauge Misc 2022-0 9-21 00:00: 00 Yes [id number] Use as directed [facility] lancets 31 gauge Misc 2022-0 9-21 00:00: 00 Yes [id number] Use as directed [facility] lancets 31 gauge Misc 2022-0 9-21 00:00: 00 Yes [id number] Use as directed [facility] lancets 31 gauge Misc 2022-0 9-21 00:00: 00 Yes [id number] Use as directed [facility] lancets 31 gauge Misc 2022-0 9-21 00:00: 00 Yes [id number] Use as directed [facility] lancets 31 gauge Misc 2022-0 9-21 00:00: 00 Yes [id number] Use as directed [facility] lancets 31 gauge Misc 2022-0 9-21 00:00: 00 Yes [id number] Use as directed [facility] lancets 31 gauge Misc 2022-0 9-21 00:00: 00 Yes [id number] Use as directed [facility] lancets 31 gauge Misc 2022-0 9-21 00:00: 00 Yes [id number] Use as directed [facility] lancets 31 gauge Misc 2022-0 9-21 00:00: 00 Yes [id number] Use as directed [facility] lancets 31 gauge Misc 2022-0 9-21 00:00: 00 Yes [id number] Use as directed [facility] lancets 31 gauge Misc 2022-0 9-21 00:00: 00 Yes [id number] Use as directed [facility] lancets 31 gauge Misc 2022-0 9-21 00:00: 00 Yes [id number] Use as directed [facility] lancets 31 gauge Misc 2022-0 9-21 00:00: 00 Yes [id number] Use as directed [facility] lancets 31 gauge Misc 2022-0 9-21 00:00: 00 Yes [id number] Use as directed [facility] lancets 31 gauge [facility] 2-0 9-21 00:00: 00 Yes [id number] Use as directed [facility] 2021-0 9-21 00:00: 00 Yes [id number] Use as directed [facility] lancets [facility] 2021-0 - 00:00: 00 Yes [id number] Use as directed [facility] lancets 31 [facility] 2021-0 - 00:00: 00 Yes [id number] Use as directed [facility] lancets 31 [facility] 2021-0 - 00:00: 00 Yes [id number] Use as directed [facility] lancets 31 [facility] 2021-0 - 00:00: 00 Yes [id number] Use as directed [facility] lancets 31 [facility] 2021-0 - 00:00: 00 Yes [id number] Use as directed [facility] lancets 31 [facility] 0 03-12 00:00: 00 Yes [id number] Use as directed [facility] lancets 31 [facility] 2021-0 03-12 00:00: 00 Yes [id number] Use as directed [facility] lancets 31 [facility] 0 03-12 00:00: 00 Yes [id number] Use as directed [facility] lancets 31 [facility] 0 03-12 00:00: 00 Yes [id number] [facility] as directed [facility] SITagliptin -metformin (JANUMET XR) 100-1,000 mg per tablet 0 03-12 00:00: 00 Yes [id number] 1{tbl} Take 1 tablet by mouth in the morning. [facility] lancets 31 [facility] 0 03-12 00:00: 00 Yes [id number] Use as directed [facility] blood sugar diagnostic (ACCU-CHEK SMARTVIEW TEST STRIP) strip 03-12 00:00: 00 Yes [id number] Use as directed [facility] SITagliptin -metformin (JANUMET XR) 100-1,000 mg per tablet 03-12 00:00: 00 Yes [id number] 1{tbl} Take 1 tablet by mouth in the morning. [facility] lancets 31 [facility] 0 03-12 00:00: 00 Yes [id number] Use as directed [facility] blood sugar diagnostic (ACCU-CHEK SMARTVIEW TEST STRIP) strip 0 03-12 00:00: 00 Yes [id number] Use as directed [facility] SITagliptin -metformin (JANUMET XR) 100-1,000 mg per tablet 03-12 00:00: 00 Yes [id number] 1{tbl} Take 1 tablet by mouth in the morning. [facility] lancets 31 [facility] 0 03-12 00:00: 00 Yes [id number] Use as directed [facility] blood sugar diagnostic (ACCU-CHEK SMARTVIEW TEST STRIP) strip 0 03-12 00:00: 00 Yes [id number] Use as directed [facility] lancets 31 [facility] 0 03-12 00:00: 00 Yes [id number] Use as directed [facility] blood sugar diagnostic (ACCU-CHEK SMARTVIEW TEST STRIP) strip 0 03-12 00:00: 00 Yes [id number] Use as directed [facility] lancets 31 [facility] 0 03-12 00:00: 00 Yes [id number] Use as directed [facility] blood sugar diagnostic (ACCU-CHEK SMARTVIEW TEST STRIP) strip 0 03-12 00:00: 00 Yes [id number] Use as directed [facility] lancets 31 [facility] 0 03-12 00:00: 00 Yes [id number] Use as directed [facility] blood sugar diagnostic (ACCU-CHEK SMARTVIEW TEST STRIP) strip 0 03-12 00:00: 00 Yes [id number] Use as directed [facility] lancets 31 [facility] 0 03-12 00:00: 00 Yes [id number] [facility] directed [facility] sugar [facility] (ACCU-CHEK SMARTVIEW TEST STRIP) strip 03-12 00:00: 00 Yes [id number] Use as directed [facility] lancets 31 gauge Misc 03-12 00:00: 00 Yes [id number] Use as directed [facility] blood sugar diagnostic (ACCU-CHEK SMARTVIEW TEST STRIP) strip 03-12 00:00: 00 Yes [id number] Use as directed [facility] blood sugar diagnostic (ACCU-CHEK SMARTVIEW TEST STRIP) strip 03-12 00:00: 00 01-20 00:00 :00 No [id number] Use as directed [facility] SITagliptin -metformin (JANUMET XR) 100-1,000 mg per tablet 03-12 00:00: 00 04-03 00:00 :00 No [id number] 1{tbl} Take 1 tablet by mouth in the morning. [facility] SITagliptin -metformin (JANUMET XR) 100-1,000 mg per tablet 03-12 00:00: 00 04-03 00:00 :00 No [id number] 1{tbl} Take 1 tablet by mouth in the morning. [facility] losartan 25 mg tablet 03-03 00:00: 00 Yes [facility] losartan 25 mg tablet 03-03 00:00: 00 Yes [facility] losartan 25 mg tablet 03-03 00:00: 00 Yes [facility] losartan 25 mg tablet 03-03 00:00: 00 Yes [facility] losartan 25 mg tablet 03-03 00:00: 00 Yes [facility] losartan 25 mg tablet 03-03 00:00: 00 Yes [facility] losartan 25 mg tablet 03-03 00:00: 00 Yes [facility] losartan 25 mg tablet 03-03 00:00: 00 [...] [facility] losartan 25 mg tablet 0 03-03 00:00: 00 Yes [facility] losartan 25 mg tablet 2021-0 03-03 00:00: 00 Yes [facility] losartan 25 mg tablet 2021-0 03-03 00:00: 00 07-14 00:00 :00 No [facility] losartan 25 mg tablet 2021-0 03-03 00:00: 00 07-14 00:00 :00 No [facility] losartan 25 mg tablet 0 03-03 00:00: 00 07-14 00:00 :00 No [facility] SILDENAFIL 100 mg tablet 0 11-14 00:00: 00 Yes [id number] 100mg Take 1 tablet by mouth as needed for Other (Erectile Dysfunctio n). [facility] SILDENAFIL 100 mg tablet 2021-0 11-14 00:00: 00 Yes [id number] 100mg Take 1 tablet by mouth as needed for Other (Erectile Dysfunctio n). [facility] SILDENAFIL 100 mg tablet 0 11-14 00:00: 00 Yes [id number] 100mg Take 1 tablet by mouth as needed for Other (Erectile Dysfunctio n). [facility] SILDENAFIL 100 mg tablet 0 11-14 00:00: 00 Yes [id number] 100mg Take 1 tablet by mouth as needed for Other (Erectile Dysfunctio n). [facility] SILDENAFIL 100 mg tablet 2021-0 11-14 00:00: 00 Yes [id number] 100mg Take 1 tablet by mouth as needed for Other (Erectile Dysfunctio n). [facility] SILDENAFIL 100 mg tablet 2021-0 11-14 00:00: 00 Yes [id number] 100mg Take 1 tablet by mouth as needed for Other (Erectile Dysfunctio n). [facility] SILDENAFIL 100 mg tablet 2021-0 11-14 00:00: 00 Yes [id number] 100mg Take 1 tablet by mouth as needed for Other (Erectile Dysfunctio n). [facility] SILDENAFIL 100 mg tablet 2021-0 11-14 00:00: 00 Yes [id number] 100mg Take 1 tablet by mouth as needed for Other (Erectile Dysfunctio n). [facility] SILDENAFIL 100 mg tablet 0 11-14 00:00: 00 Yes [id number] 100mg Take 1 tablet by mouth as needed for Other (Erectile Dysfunctio n). [facility] SILDENAFIL 100 mg tablet 0 11-14 00:00: 00 Yes [id number] 100mg Take 1 tablet by mouth as needed for Other (Erectile Dysfunctio n). [facility] SILDENAFIL 100 mg tablet 0 11-14 00:00: 00 Yes [id number] 100mg Take 1 tablet by mouth as needed for Other (Erectile Dysfunctio n). [facility] SILDENAFIL 100 mg tablet 2021-0 11-14 00:00: 00 Yes [id number] 100mg Take 1 tablet by mouth as needed for Other (Erectile Dysfunctio n). [facility] SILDENAFIL 100 mg tablet 0 11-14 00:00: 00 Yes [id number] 100mg Take 1 tablet by mouth as needed for Other (Erectile Dysfunctio n). [facility] SILDENAFIL 100 mg tablet 0 11-14 00:00: 00 Yes [id number] 100mg Take 1 tablet by mouth as needed for Other (Erectile Dysfunctio n). [facility] SILDENAFIL 100 mg tablet 0 11-14 00:00: 00 Yes [id number] 100mg Take 1 tablet by mouth as needed for Other (Erectile Dysfunctio n). [facility] SILDENAFIL 100 mg tablet 2021-0 11-14 00:00: 00 Yes [id number] 100mg Take 1 tablet by mouth as needed for Other (Erectile Dysfunctio n). [facility] SILDENAFIL 100 mg tablet 2021-0 11-14 00:00: 00 Yes [id number] 100mg Take 1 tablet by mouth as needed for Other (Erectile Dysfunctio n). [facility] SILDENAFIL 100 mg tablet 2021-0 11-14 00:00: 00 Yes [id number] 100mg Take 1 tablet by mouth as needed for Other (Erectile Dysfunctio n). [facility] SILDENAFIL 100 mg tablet 2021-0 11-14 00:00: 00 Yes [id number] 100mg Take 1 tablet by mouth as needed for Other (Erectile Dysfunctio n). [facility] SILDENAFIL 100 mg tablet 2021-0 11-14 00:00: 00 Yes [id number] 100mg Take 1 tablet by mouth as needed for Other (Erectile Dysfunctio n). [facility] SILDENAFIL 100 mg tablet 2021-0 11-14 00:00: 00 Yes [id number] 100mg Take 1 tablet by mouth as needed for Other (Erectile Dysfunctio n). [facility] SILDENAFIL 100 mg tablet 0 11-14 00:00: 00 Yes [id number] 100mg Take 1 tablet by mouth as needed for Other (Erectile Dysfunctio n). [facility] SILDENAFIL 100 mg tablet 2021-0 11-14 00:00: 00 Yes [id number] 100mg Take 1 tablet by mouth as needed for Other (Erectile Dysfunctio n). [facility] SILDENAFIL 100 mg tablet 0 11-14 00:00: 00 Yes [id number] 100mg Take 1 tablet by mouth as needed for Other (Erectile Dysfunctio n). [facility] SILDENAFIL 100 mg tablet 2021-0 11-14 00:00: 00 Yes [id number] 100mg Take 1 tablet by mouth as needed for Other (Erectile Dysfunctio n). [facility] SILDENAFIL 100 mg tablet 2021-0 11-14 00:00: 00 Yes [id number] 100mg Take 1 tablet by mouth as needed for Other (Erectile Dysfunctio n). [facility] SILDENAFIL 100 mg tablet 2021-0 11-14 00:00: 00 Yes [id number] 100mg Take 1 tablet by mouth as needed for Other (Erectile Dysfunctio n). [facility] SILDENAFIL 100 mg tablet 2-0 11-14 00:00: 00 Yes [id number] 100mg Take 1 tablet by mouth as needed for Other (Erectile Dysfunctio n). [facility] SILDENAFIL 100 mg tablet 0 11-14 00:00: 00 Yes [id number] 100mg Take 1 tablet by mouth as needed for Other (Erectile Dysfunctio n). [facility] SILDENAFIL 100 mg tablet 0 11-14 00:00: 00 Yes [id number] 100mg Take 1 tablet by mouth as needed for Other (Erectile Dysfunctio n). [facility] SILDENAFIL 100 mg tablet 2021-0 11-14 00:00: 00 Yes [id number] 100mg Take 1 tablet by mouth as needed for Other (Erectile Dysfunctio n). [facility] SILDENAFIL 100 mg tablet 0 11-14 00:00: 00 Yes [id number] 100mg Take 1 tablet by mouth as needed for Other (Erectile Dysfunctio n). [facility] SILDENAFIL 100 mg tablet 0 11-14 00:00: 00 Yes [id number] 100mg Take 1 tablet by mouth as needed for Other (Erectile Dysfunctio n). [facility] SILDENAFIL 100 mg tablet 0 11-14 00:00: 00 Yes [id number] 100mg Take 1 tablet by mouth as needed for Other (Erectile Dysfunctio n). [facility] SILDENAFIL 100 mg tablet 0 11-14 00:00: 00 Yes [id number] 100mg Take 1 tablet by mouth as needed for Other (Erectile Dysfunctio n). [facility] SILDENAFIL 100 mg tablet 0 11-14 00:00: 00 Yes [id number] 100mg Take 1 tablet by mouth as needed for Other (Erectile Dysfunctio n). [facility] SILDENAFIL 100 mg tablet 2021-0 11-14 00:00: 00 Yes [id number] 100mg Take 1 tablet by mouth as needed for Other (Erectile Dysfunctio n). [facility] SILDENAFIL 100 mg tablet 2021-0 11-14 00:00: 00 Yes [id number] 100mg Take 1 tablet by mouth as needed for Other (Erectile Dysfunctio n). [facility] SILDENAFIL 100 mg tablet 2021-0 11-14 00:00: 00 Yes [id number] 100mg Take 1 tablet by mouth as needed for Other (Erectile Dysfunctio n). [facility] SILDENAFIL 100 mg tablet 2021-0 11-14 00:00: 00 Yes [id number] 100mg Take 1 tablet by mouth as needed for Other (Erectile Dysfunctio n). [facility] SILDENAFIL 100 mg tablet 2021-0 11-14 00:00: 00 Yes [id number] 100mg Take 1 tablet by mouth as needed for Other (Erectile Dysfunctio n). [facility] SILDENAFIL 100 mg tablet 2021-0 11-14 00:00: 00 Yes [id number] 100mg Take 1 tablet by mouth as needed for Other (Erectile Dysfunctio n). [facility] SILDENAFIL 100 mg tablet 2021-0 11-14 00:00: 00 Yes [id number] 100mg Take 1 tablet by mouth as needed for Other (Erectile Dysfunctio n). [facility] SILDENAFIL 100 mg tablet 2021-0 11-14 00:00: 00 Yes [id number] 100mg Take 1 tablet by mouth as needed for Other (Erectile Dysfunctio n). [facility] SILDENAFIL 100 mg tablet 2021-0 11-14 00:00: 00 Yes [id number] 100mg Take 1 tablet by mouth as needed for Other (Erectile Dysfunctio n). [facility] SILDENAFIL 100 mg tablet 2021-0 11-14 00:00: 00 Yes [id number] 100mg Take 1 tablet by mouth as needed for Other (Erectile Dysfunctio n). [facility] SILDENAFIL 100 mg tablet 2-0 11-14 00:00: 00 Yes [id number] 100mg Take 1 tablet by mouth as needed for Other (Erectile Dysfunctio n). [facility] SILDENAFIL 100 mg tablet 2-0 11-14 00:00: 00 Yes [id number] 100mg Take 1 tablet by mouth as needed for Other (Erectile Dysfunctio n). [facility] SILDENAFIL 100 mg tablet 0 11-14 00:00: 00 Yes [id number] 100mg Take 1 tablet by mouth as needed for Other (Erectile Dysfunctio n). [facility] SILDENAFIL 100 mg tablet 0 11-14 00:00: 00 Yes [id number] 100mg Take 1 tablet by mouth as needed for Other (Erectile Dysfunctio n). [facility] SILDENAFIL 100 mg tablet 0 11-14 00:00: 00 Yes [id number] 100mg Take 1 tablet by mouth as needed for Other (Erectile Dysfunctio n). [facility] SILDENAFIL 100 mg tablet 0 11-14 00:00: 00 Yes [id number] 100mg Take 1 tablet by mouth as needed for Other (Erectile Dysfunctio n). [facility] SILDENAFIL 100 mg tablet 0 11-14 00:00: 00 Yes [id number] 100mg Take 1 tablet by mouth as needed for Other (Erectile Dysfunctio n). [facility] SILDENAFIL 100 mg tablet 0 11-14 00:00: 00 Yes [id number] 100mg Take 1 tablet by mouth as needed for Other (Erectile Dysfunctio n). [facility] SILDENAFIL 100 mg tablet 0 11-14 00:00: 00 Yes [id number] 100mg Take 1 tablet by mouth as needed for Other (Erectile Dysfunctio n). [facility] SILDENAFIL 100 mg tablet 0 11-14 00:00: 00 Yes [id number] 100mg Take 1 tablet by mouth as needed for Other (Erectile Dysfunctio n). [facility] SILDENAFIL 100 mg tablet 0 11-14 00:00: 00 Yes [id number] 100mg Take 1 tablet by mouth as needed for Other (Erectile Dysfunctio n). [facility] SILDENAFIL 100 mg tablet 0 11-14 00:00: 00 Yes [id number] 100mg Take 1 tablet by mouth as needed for Other (Erectile Dysfunctio n). [facility] SILDENAFIL 100 mg tablet 0 11-14 00:00: 00 Yes [id number] 100mg Take 1 tablet by mouth as needed for Other (Erectile Dysfunctio n). [facility] SILDENAFIL 100 mg tablet 0 11-14 00:00: 00 Yes [id number] 100mg Take 1 tablet by mouth as needed for Other (Erectile Dysfunctio n). [facility] SILDENAFIL 100 mg tablet 0 11-14 00:00: 00 Yes [id number] 100mg Take 1 tablet by mouth as needed for Other (Erectile Dysfunctio n). [facility] SILDENAFIL 100 mg tablet 0 11-14 00:00: 00 Yes [id number] 100mg Take 1 tablet by mouth as needed for Other (Erectile Dysfunctio n). [facility] SILDENAFIL 100 mg tablet 0 11-14 00:00: 00 Yes [id number] 100mg Take 1 tablet by mouth as needed for Other (Erectile Dysfunctio n). [facility] SILDENAFIL 100 mg tablet 0 11-14 00:00: 00 Yes [id number] 100mg Take 1 tablet by mouth as needed for Other (Erectile Dysfunctio n). [facility] SILDENAFIL 100 mg tablet 0 11-14 00:00: 00 Yes [id number] 100mg Take 1 tablet by mouth as needed for Other (Erectile Dysfunctio n). [facility] SILDENAFIL 100 mg tablet 0 11-14 00:00: 00 Yes [id number] 100mg Take 1 tablet by mouth as needed for Other (Erectile Dysfunctio n). [facility] SILDENAFIL 100 mg tablet 0 11-14 00:00: 00 Yes [id number] 100mg Take 1 tablet by mouth as needed for Other (Erectile Dysfunctio n). [facility] SILDENAFIL 100 mg tablet 2021-0 11-14 00:00: 00 Yes [id number] 100mg Take 1 tablet by mouth as needed for Other (Erectile Dysfunctio n). [facility] SILDENAFIL 100 mg tablet 2021-0 11-14 00:00: 00 Yes [id number] 100mg Take 1 tablet by mouth as needed for Other (Erectile Dysfunctio n). [facility] SILDENAFIL 100 mg tablet 0 11-14 00:00: 00 Yes [id number] 100mg Take 1 tablet by mouth as needed for Other (Erectile Dysfunctio n). [facility] SILDENAFIL 100 mg tablet 2021-0 11-14 00:00: 00 Yes [id number] 100mg Take 1 tablet by mouth as needed for Other (Erectile Dysfunctio n). [facility] SILDENAFIL 100 mg tablet 2021-0 11-14 00:00: 00 Yes [id number] 100mg Take 1 tablet by mouth as needed for Other (Erectile Dysfunctio n). [facility] SILDENAFIL 100 mg tablet 0 11-14 00:00: 00 Yes [id number] 100mg Take 1 tablet by mouth as needed for Other (Erectile Dysfunctio n). [facility] SILDENAFIL 100 mg tablet 0 11-14 00:00: 00 Yes [id number] 100mg Take 1 tablet by mouth as needed for Other (Erectile Dysfunctio n). [facility] SILDENAFIL 100 mg tablet 0 11-14 00:00: 00 Yes [id number] 100mg Take 1 tablet by mouth as needed for Other (Erectile Dysfunctio n). [facility] SILDENAFIL 100 mg tablet 0 11-14 00:00: 00 Yes [id number] 100mg Take 1 tablet by mouth as needed for Other (Erectile Dysfunctio n). [facility] SILDENAFIL 100 mg tablet 2021-0 11-14 00:00: 00 Yes [id number] 100mg Take 1 tablet by mouth as needed for Other (Erectile Dysfunctio n). [facility] SILDENAFIL 100 mg tablet 2021-0 11-14 00:00: 00 Yes [id number] 100mg Take 1 tablet by mouth as needed for Other (Erectile Dysfunctio n). [facility] SILDENAFIL 100 mg tablet 2021-0 11-14 00:00: 00 Yes [id number] 100mg Take 1 tablet by mouth as needed for Other (Erectile Dysfunctio n). [facility] SILDENAFIL 100 mg tablet 0 11-14 00:00: 00 Yes [id number] 100mg Take 1 tablet by mouth as needed for Other (Erectile Dysfunctio n). [facility] SILDENAFIL 100 mg tablet 0 11-14 00:00: 00 Yes [id number] 100mg Take 1 tablet by mouth as needed for Other (Erectile Dysfunctio n). [facility] SILDENAFIL 100 mg tablet 0 11-14 00:00: 00 Yes [id number] 100mg Take 1 tablet by mouth as needed for Other (Erectile Dysfunctio n). [facility] SILDENAFIL 100 mg tablet 0 11-14 00:00: 00 Yes [id number] 100mg Take 1 tablet by mouth as needed for Other (Erectile Dysfunctio n). [facility] SILDENAFIL 100 mg tablet 0 11-14 00:00: 00 Yes [id number] 100mg Take 1 tablet by mouth as needed for Other (Erectile Dysfunctio n). [facility] SILDENAFIL 100 mg tablet 0 11-14 00:00: 00 Yes [id number] 100mg Take 1 tablet by mouth as needed for Other (Erectile Dysfunctio n). [facility] SILDENAFIL 100 mg tablet 0 11-14 00:00: 00 Yes [id number] 100mg Take 1 tablet by mouth as needed for Other (Erectile Dysfunctio n). [facility] rosuvastati n 10 mg tablet 0 15 14:24: 28 Yes 10mg Take 10 mg by mouth. [facility] amiodarone 200 mg tablet 0 15 14:24: 28 Yes 200mg Take 200 mg by mouth. [facility] rosuvastati n 10 mg tablet 0 15 14:24: 28 Yes 10mg Take 10 mg by mouth. [facility] amiodarone 200 mg tablet 0 15 14:24: 28 Yes 200mg Take 200 mg by mouth. [facility] rosuvastati n 10 mg tablet 2021-0 15 14:24: 28 Yes 10mg Take 10 mg by mouth. [facility] amiodarone 200 mg tablet 2021-0 15 14:24: 28 Yes 200mg Take 200 mg by mouth. [facility] rosuvastati n 10 mg tablet 2021-0 15 14:24: 28 Yes 10mg Take 10 mg by mouth. [facility] amiodarone 200 mg tablet 2021-0 15 14:24: 28 Yes 200mg Take 200 mg by mouth. [facility] rosuvastati n 10 mg tablet 2021-0 09-03 14:24: 28 Yes 10mg Take 10 mg by mouth. [facility] amiodarone 200 mg tablet 2021-0 09-03 14:24: 28 Yes 200mg Take 200 mg by mouth. [facility] rosuvastati n 10 mg tablet 2021-0 09-03 14:24: 28 Yes 10mg Take 10 mg by mouth. [facility] amiodarone 200 mg tablet 2021-0 09-03 14:24: 28 Yes 200mg Take 200 mg by mouth. [facility] rosuvastati n 10 mg tablet 2021-0 09-03 14:24: 28 Yes 10mg Take 10 mg by mouth. [facility] amiodarone 200 mg tablet 2021-0 15 14:24: 28 Yes 200mg Take 200 mg by mouth. [facility] rosuvastati n 10 mg tablet 2021-0 15 14:24: 28 Yes 10mg Take 10 mg by mouth. [facility] amiodarone 200 mg tablet 2021-0 15 14:24: 28 Yes 200mg Take 200 mg by mouth. [facility] rosuvastati n 10 mg tablet 2021-0 15 14:24: 28 Yes 10mg Take 10 mg by mouth. [facility] amiodarone 200 mg tablet 2021-0 15 14:24: 28 Yes 200mg Take 200 mg by mouth. [facility] rosuvastati n 10 mg tablet 2021-0 15 14:24: 28 Yes 10mg Take 10 mg by mouth. [facility] amiodarone 200 mg tablet 2021-0 15 14:24: 28 Yes 200mg Take 200 mg by mouth. [facility] rosuvastati n 10 mg tablet 2021-0 15 14:24: 28 Yes 10mg Take 10 mg by mouth. [facility] amiodarone 200 mg tablet 2021-0 15 14:24: 28 Yes 200mg Take 200 mg by mouth. [facility] rosuvastati n 10 mg tablet 2021-0 15 14:24: 28 Yes 10mg Take 10 mg by mouth. [facility] amiodarone 200 mg tablet 2021-0 09-03 14:24: 28 Yes 200mg Take 200 mg by mouth. [facility] rosuvastati n 10 mg tablet 0 09-03 14:24: 28 Yes 10mg Take 10 mg by mouth. [facility] amiodarone 200 mg tablet 2021-0 09-03 14:24: 28 Yes 200mg Take 200 mg by mouth. [facility] rosuvastati n 10 mg tablet 0 09-03 14:24: 28 Yes 10mg Take 10 mg by mouth. [facility] amiodarone 200 mg tablet 0 09-03 14:24: 28 Yes 200mg Take 200 mg by mouth. [facility] rosuvastati n 10 mg tablet 2021-0 15 14:24: 28 Yes 10mg Take 10 mg by mouth. [facility] amiodarone 200 mg tablet 2021-0 15 14:24: 28 Yes 200mg Take 200 mg by mouth. [facility] rosuvastati n 10 mg tablet 2021-0 15 14:24: 28 Yes 10mg Take 10 mg by mouth. [facility] amiodarone 200 mg tablet 2021-0 15 14:24: 28 Yes 200mg Take 200 mg by mouth. [facility] rosuvastati n 10 mg tablet 0 15 14:24: 28 Yes 10mg Take 10 mg by mouth. [facility] amiodarone 200 mg tablet 2021-0 15 14:24: 28 Yes 200mg Take 200 mg by mouth. [facility] rosuvastati n 10 mg tablet 2021-0 15 14:24: 28 Yes 10mg Take 10 mg by mouth. [facility] amiodarone 200 mg tablet 2021-0 15 14:24: 28 Yes 200mg Take 200 mg by mouth. [facility] rosuvastati n 10 mg tablet 2021-0 15 14:24: 28 Yes 10mg Take 10 mg by mouth. [facility] amiodarone 200 mg tablet 2021-0 15 14:24: 28 Yes 200mg Take 200 mg by mouth. [facility] rosuvastati n 10 mg tablet 2021-0 15 14:24: 28 Yes 10mg Take 10 mg by mouth. [facility] amiodarone 200 mg tablet 2021-0 15 14:24: 28 Yes 200mg Take 200 mg by mouth. [facility] rosuvastati n 10 mg tablet 2021-0 15 14:24: 28 Yes 10mg Take 10 mg by mouth. [facility] amiodarone 200 mg tablet 2021-0 15 14:24: 28 Yes 200mg Take 200 mg by mouth. [facility] rosuvastati n 10 mg tablet 2021-0 15 14:24: 28 Yes 10mg Take 10 mg by mouth. [facility] amiodarone 200 mg tablet 2021-0 15 14:24: 28 Yes 200mg Take 200 mg by mouth. [facility] rosuvastati n 10 mg tablet 2021-0 15 14:24: 28 Yes 10mg Take 10 mg by mouth. [facility] amiodarone 200 mg tablet 2021-0 15 14:24: 28 Yes 200mg Take 200 mg by mouth. [facility] rosuvastati n 10 mg tablet 2021-0 3-15 14:24: 28 Yes 10mg Take 10 mg by mouth. [facility] amiodarone 200 mg tablet 2021-0 15 14:24: 28 Yes 200mg Take 200 mg by mouth. [facility] rosuvastati n 10 mg tablet 2021-0 15 14:24: 28 Yes 10mg Take 10 mg by mouth. [facility] amiodarone 200 mg tablet 2021-0 15 14:24: 28 Yes 200mg Take 200 mg by mouth. [facility] rosuvastati n 10 mg tablet 2021-0 15 14:24: 28 Yes 10mg Take 10 mg by mouth. [facility] amiodarone 200 mg tablet 2021-0 15 14:24: 28 Yes 200mg Take 200 mg by mouth. [facility] rosuvastati n 10 mg tablet 2021-0 09-03 14:24: 28 Yes 10mg Take 10 mg by mouth. [facility] amiodarone 200 mg tablet 2021-0 15 14:24: 28 Yes 200mg Take 200 mg by mouth. [facility] rosuvastati n 10 mg tablet 2021-0 15 14:24: 28 Yes 10mg Take 10 mg by mouth. [facility] amiodarone 200 mg tablet 2021-0 15 14:24: 28 Yes 200mg Take 200 mg by mouth. [facility] rosuvastati n 10 mg tablet 2021-0 15 14:24: 28 Yes 10mg Take 10 mg by mouth. [facility] amiodarone 200 mg tablet 2021-0 15 14:24: 28 Yes 200mg Take 200 mg by mouth. [facility] rosuvastati n 10 mg tablet 2021-0 15 14:24: 28 Yes 10mg Take 10 mg by mouth. [facility] amiodarone 200 mg tablet 2021-0 15 14:24: 28 Yes 200mg Take 200 mg by mouth. [facility] rosuvastati n 10 mg tablet 2021-0 15 14:24: 28 Yes 10mg Take 10 mg by mouth. [facility] amiodarone 200 mg tablet 2021-0 -15 14:24: 28 Yes 200mg Take 200 mg by mouth. [facility] rosuvastati n 10 mg tablet 2021-0 15 14:24: 28 Yes 10mg Take 10 mg by mouth. [facility] amiodarone 200 mg tablet 2021-0 15 14:24: 28 Yes 200mg Take 200 mg by mouth. [facility] rosuvastati n 10 mg tablet 2021-0 15 14:24: 28 Yes 10mg Take 10 mg by mouth. [facility] amiodarone 200 mg tablet 2021-0 15 14:24: 28 Yes 200mg Take 200 mg by mouth. [facility] rosuvastati n 10 mg tablet 2021-0 15 14:24: 28 Yes 10mg Take 10 mg by mouth. [facility] amiodarone 200 mg tablet 2021-0 15 14:24: 28 Yes 200mg Take 200 mg by mouth. [facility] rosuvastati n 10 mg tablet 2021-0 15 14:24: 28 Yes 10mg Take 10 mg by mouth. [facility] amiodarone 200 mg tablet 2021-0 15 14:24: 28 Yes 200mg Take 200 mg by mouth. [facility] rosuvastati n 10 mg tablet 2021-0 15 14:24: 28 Yes 10mg Take 10 mg by mouth. [facility] amiodarone 200 mg tablet 2021-0 15 14:24: 28 Yes 200mg Take 200 mg by mouth. [facility] rosuvastati n 10 mg tablet 2021-0 15 14:24: 28 Yes 10mg Take 10 mg by mouth. [facility] amiodarone 200 mg tablet 2021-0 15 14:24: 28 Yes 200mg Take 200 mg by mouth. [facility] rosuvastati n 10 mg tablet 2021-0 3-15 14:24: 28 Yes 10mg Take 10 mg by mouth. [facility] amiodarone 200 mg tablet 2021-0 09-03 14:24: 28 Yes 200mg Take 200 mg by mouth. [facility] rosuvastati n 10 mg tablet 2021-0 09-03 14:24: 28 Yes 10mg Take 10 mg by mouth. [facility] amiodarone 200 mg tablet 2021-0 09-03 14:24: 28 Yes 200mg Take 200 mg by mouth. [facility] amiodarone 200 mg tablet 2021-0 09-03 14:24: 28 Yes 200mg Take 200 mg by mouth. [facility] amiodarone 200 mg tablet 2021-0 09-03 14:24: 28 Yes 200mg Take 200 mg by mouth. [facility] rosuvastati n 10 mg tablet 2021-0 09-03 14:24: 28 Yes 10mg Take 10 mg by mouth. [facility] amiodarone 200 mg tablet 0 09-03 14:24: 28 Yes 200mg Take 200 mg by mouth. [facility] rosuvastati n 10 mg tablet 0 09-03 14:24: 28 Yes 10mg Take 10 mg by mouth. [facility] amiodarone 200 mg tablet 2021-0 09-03 14:24: 28 Yes 200mg Take 200 mg by mouth. [facility] rosuvastati n 10 mg tablet 2021-0 09-03 14:24: 28 Yes 10mg Take 10 mg by mouth. [facility] amiodarone 200 mg tablet 2021-0 09-03 14:24: 28 Yes 200mg Take 200 mg by mouth. [facility] rosuvastati n 10 mg tablet 2021-0 09-03 14:24: 28 Yes 10mg Take 10 mg by mouth. [facility] amiodarone 200 mg tablet 2021-0 09-03 14:24: 28 Yes 200mg Take 200 mg by mouth. [facility] rosuvastati n 10 mg tablet 2021-0 3-15 14:24: 28 Yes 10mg Take 10 mg by mouth. [facility] amiodarone 200 mg tablet 2021-0 09-03 14:24: 28 Yes 200mg Take 200 mg by mouth. [facility] rosuvastati n 10 mg tablet 0 09-03 14:24: 28 Yes 10mg Take 10 mg by mouth. [facility] amiodarone 200 mg tablet 2021-0 09-03 14:24: 28 Yes 200mg Take 200 mg by mouth. [facility] rosuvastati n 10 mg tablet 2021-0 09-03 14:24: 28 Yes 10mg Take 10 mg by mouth. [facility] amiodarone 200 mg tablet 2021-0 09-03 14:24: 28 Yes 200mg Take 200 mg by mouth. [facility] rosuvastati n 10 mg tablet 2021-0 09-03 14:24: 28 Yes 10mg Take 10 mg by mouth. [facility] amiodarone 200 mg tablet 0 09-03 14:24: 28 Yes 200mg Take 200 mg by mouth. [facility] rosuvastati n 10 mg tablet 0 09-03 14:24: 28 Yes 10mg Take 10 mg by mouth. [facility] amiodarone 200 mg tablet 2021-0 09-03 14:24: 28 Yes 200mg Take 200 mg by mouth. [facility] rosuvastati n 10 mg tablet 2021-0 09-03 14:24: 28 Yes 10mg Take 10 mg by mouth. [facility] amiodarone 200 mg tablet 2021-0 15 14:24: 28 Yes 200mg Take 200 mg by mouth. [facility] rosuvastati n 10 mg tablet 2021-0 15 14:24: 28 Yes 10mg Take 10 mg by mouth. [facility] amiodarone 200 mg tablet 2021-0 15 14:24: 28 Yes 200mg Take 200 mg by mouth. [facility] rosuvastati n 10 mg tablet 2021-0 15 14:24: 28 Yes 10mg Take 10 mg by mouth. [facility] amiodarone 200 mg tablet 3-15 14:24: 28 Yes 200mg Take 200 mg by mouth. [facility] [place] [facility] [place] 12:49: 52 Yes 750mg 750 mg. [facility] docosahexae noic acid/epa (FISH OIL ORAL) 08-14 12:49: 52 Yes Take by mouth. [facility] Garlic 1,000 mg Cap 08-14 12:49: 52 Yes Take by mouth. [facility] [place] [facility] [place] 12:49: 52 Yes 750mg 750 mg. [facility] docosahexae noic acid/epa (FISH OIL ORAL) 08-14 12:49: 52 Yes Take by mouth. [facility] Garlic 1,000 mg Cap 08-14 12:49: 52 Yes Take by mouth. [facility] [place] [facility] [place] 12:49: 52 Yes 750mg 750 mg. [facility] docosahexae noic acid/epa (FISH OIL ORAL) 08-14 12:49: 52 Yes Take by mouth. [facility] Garlic 1,000 mg Cap 08-14 12:49: 52 Yes Take by mouth. [facility] [place] [facility] [place] 12:49: 52 Yes 750mg 750 mg. [facility] docosahexae noic acid/epa (FISH OIL ORAL) 08-14 12:49: 52 Yes Take by mouth. [facility] Garlic 1,000 mg Cap 08-14 12:49: 52 Yes Take by mouth. [facility] [place] [facility] [place] 12:49: 52 Yes 750mg 750 mg. [facility] docosahexae noic acid/epa (FISH OIL ORAL) 08-14 12:49: 52 Yes Take by mouth. [facility] Garlic 1,000 mg Cap 08-14 12:49: 52 Yes Take by mouth. [facility] [place] [facility] [place]14 12:49: 52 Yes 750mg 750 mg. [facility] docosahexae noic acid/epa (FISH OIL ORAL) 08-14 12:49: 52 Yes Take by mouth. [facility] Gar[facility],000 mg Cap 08-14 12:49: 52 Yes Take by mouth. [facility] [place] [facility] [place]14 12:49: 52 Yes 750mg 750 mg. [facility] docosahexae noic acid/epa (FISH OIL ORAL) 08-14 12:49: 52 Yes Take by mouth. [facility] Garlic 1,000 mg Cap 08-14 12:49: 52 Yes Take by mouth. [facility] [place] [facility] [place] 12:49: 52 Yes 750mg 750 mg. [facility] docosahexae noic acid/epa (FISH OIL ORAL) 08-14 12:49: 52 Yes Take by mouth. [facility] Garlic 1,000 mg Cap 08-14 12:49: 52 Yes Take by mouth. [facility] [place] [facility] [place] 12:49: 52 Yes 750mg 750 mg. [facility] docosahexae noic acid/epa (FISH OIL ORAL) 08-14 12:49: 52 Yes Take by mouth. [facility] Garlic 1,000 mg Cap 08-14 12:49: 52 Yes Take by mouth. [facility] [place] [facility] [place] 12:49: 52 Yes 750mg 750 mg. [facility] docosahexae noic acid/epa (FISH OIL ORAL) 08-14 12:49: 52 Yes Take by mouth. [facility] Garlic 1,000 mg Cap 08-14 12:49: 52 Yes Take by mouth. [facility] [place] [facility] [place] 12:49: 52 Yes 750mg 750 mg. [facility] docosahexae noic acid/epa (FISH OIL ORAL) 08-14 12:49: 52 Yes Take by mouth. [facility] Garlic 1,000 mg Cap 08-14 12:49: 52 Yes Take by mouth. [facility] [place] [facility] [place]14 12:49: 52 Yes 750mg 750 mg. [facility] docosahexae noic acid/epa (FISH OIL ORAL) 08-14 12:49: 52 Yes Take by mouth. [facility] Garlic 1,000 mg Cap 08-14 12:49: 52 Yes Take by mouth. [facility] [place] [facility] [place] 12:49: 52 Yes 750mg 750 mg. [facility] docosahexae noic acid/epa (FISH OIL ORAL) 08-14 12:49: 52 Yes Take by mouth. [facility] Garlic 1,000 mg Cap 08-14 12:49: 52 Yes Take by mouth. [facility] [place] [facility] [place] 12:49: 52 Yes 750mg 750 mg. [facility] docosahexae noic acid/epa (FISH OIL ORAL) 08-14 12:49: 52 Yes Take by mouth. [facility] Garlic 1,000 mg Cap 08-14 12:49: 52 Yes Take by mouth. [facility] [place] [facility] [place] 12:49: 52 Yes 750mg 750 mg. [facility] docosahexae noic acid/epa (FISH OIL ORAL) 08-14 12:49: 52 Yes Take by mouth. [facility] Garlic 1,000 mg Cap 08-14 12:49: 52 Yes Take by mouth. [facility] [place] [place]-14 12:49: 52 Yes 750mg 750 mg. [facility] docosahexae noic acid/epa (FISH OIL ORAL) 08-14 12:49: 52 Yes Take by mouth. [facility] Garlic 1,000 mg Cap 08-14 12:49: 52 Yes Take by mouth. [facility] [place] [facility] [place] 12:49: 52 Yes 750mg 750 mg. [facility] docosahexae noic acid/epa (FISH OIL ORAL) 08-14 12:49: 52 Yes Take by mouth. [facility] Garlic 1,000 mg Cap 08-14 12:49: 52 Yes Take by mouth. [facility] [place] [facility] [place] 12:49: 52 Yes 750mg 750 mg. [facility] docosahexae noic acid/epa (FISH OIL ORAL) 08-14 12:49: 52 Yes Take by mouth. [facility] Garlic 1,000 mg Cap 08-14 12:49: 52 Yes Take by mouth. [facility] [place] [facility] [place]14 12:49: 52 Yes 750mg 750 mg. [facility] docosahexae noic acid/epa (FISH OIL ORAL) 08-14 12:49: 52 Yes Take by mouth. [facility] Garlic 1,000 mg Cap 08-14 12:49: 52 Yes Take by mouth. [facility] [place] [facility] [place] 12:49: 52 Yes 750mg 750 mg. [facility] docosahexae noic acid/epa (FISH OIL ORAL) 08-14 12:49: 52 Yes Take by mouth. [facility] Garlic 1,000 mg Cap 08-14 12:49: 52 Yes Take by mouth. [facility] [place] [facility] [place]14 12:49: 52 Yes 750mg 750 mg. [facility] docosahexae noic acid/epa (FISH OIL ORAL) 08-14 12:49: 52 Yes Take by mouth. [facility] Garlic 1,000 mg Cap 08-14 12:49: 52 Yes Take by mouth. [facility] [place] [facility] [place]14 12:49: 52 Yes 750mg 750 mg. [facility] docosahexae noic acid/epa (FISH OIL ORAL) 08-14 12:49: 52 Yes Take by mouth. [facility] Garlic 1,000 mg Cap 08-14 12:49: 52 Yes Take by mouth. [facility] [place] [facility] [place]14 12:49: 52 Yes 750mg 750 mg. [facility] docosahexae noic acid/epa (FISH OIL ORAL) 08-14 12:49: 52 Yes Take by mouth. [facility] Garlic 1,000 mg Cap 08-14 12:49: 52 Yes Take by mouth. [facility] [place] [facility] [place]-14 12:49: 52 Yes 750mg 750 mg. [facility] docosahexae noic acid/epa (FISH OIL ORAL) 08-14 12:49: 52 Yes Take by mouth. [facility] Garlic 1,000 mg Cap 08-14 12:49: 52 Yes Take by mouth. [facility] [place] [place]-14 12:49: 52 Yes 750mg 750 mg. [facility] docosahexae noic acid/epa (FISH OIL ORAL) 08-14 12:49: 52 Yes Take by mouth. [facility] Garlic 1,000 mg Cap 08-14 12:49: 52 Yes Take by mouth. [facility] [place] [facility] [place] 12:49: 52 Yes 750mg 750 mg. [facility] docosahexae noic acid/epa (FISH OIL ORAL) 08-14 12:49: 52 Yes Take by mouth. [facility] Garlic 1,000 mg Cap 08-14 12:49: 52 Yes Take by mouth. [facility] [place] [facility] [place]14 12:49: 52 Yes 750mg 750 mg. [facility] docosahexae noic acid/epa (FISH OIL ORAL) 08-14 12:49: 52 Yes Take by mouth. [facility] Garlic 1,000 mg Cap 08-14 12:49: 52 Yes Take by mouth. [facility] [place] [facility] [place]14 12:49: 52 Yes 750mg 750 mg. [facility] docosahexae noic acid/epa (FISH OIL ORAL) 08-14 12:49: 52 Yes Take by mouth. [facility] Garlic 1,000 mg Cap 08-14 12:49: 52 Yes Take by mouth. [facility] [place] [facility] [place]14 12:49: 52 Yes 750mg 750 mg. [facility] docosahexae noic acid/epa (FISH OIL ORAL) 08-14 12:49: 52 Yes Take by mouth. [facility] Garlic 1,000 mg Cap 08-14 12:49: 52 Yes Take by mouth. [facility] [place] [facility] [place]-14 12:49: 52 Yes 750mg 750 mg. [facility] docosahexae noic acid/epa (FISH OIL ORAL) 08-14 12:49: 52 Yes Take by mouth. [facility] Garlic 1,000 mg Cap 08-14 12:49: 52 Yes Take by mouth. [facility] [place] [facility] [place] 08-14 12:49: 52 Yes 750mg 750 mg. [facility] docosahexae noic acid/epa (FISH OIL ORAL) 08-14 12:49: 52 Yes Take by mouth. [facility] Garlic 1,000 mg Cap 08-14 12:49: 52 Yes Take by mouth. [facility] [place] [facility] [place]-14 12:49: 52 Yes 750mg 750 mg. [facility] docosahexae noic acid/epa (FISH OIL ORAL) 08-14 12:49: 52 Yes Take by mouth. [facility] Garlic 1,000 mg Cap 08-14 12:49: 52 Yes Take by mouth. [facility] [place] [facility] [place]-14 12:49: 52 Yes 750mg 750 mg. [facility] docosahexae noic acid/epa (FISH OIL ORAL) 08-14 12:49: 52 Yes Take by mouth. [facility] Garlic 1,000 mg Cap 08-14 12:49: 52 Yes Take by mouth. [facility] [place] [facility] [place] 08-14 12:49: 52 Yes 750mg 750 mg. [facility] docosahexae noic acid/epa (FISH OIL ORAL) 08-14 12:49: 52 Yes Take by mouth. [facility] Garlic 1,000 mg Cap 08-14 12:49: 52 Yes Take by mouth. [facility] [place] [facility] [place]-14 12:49: 52 Yes 750mg 750 mg. [facility] docosahexae noic acid/epa (FISH OIL ORAL) 08-14 12:49: 52 Yes Take by mouth. [facility] Garlic 1,000 mg Cap 08-14 12:49: 52 Yes Take by mouth. [facility] [place] [facility] 08-14 12:49: 52 Yes 750mg 750 mg. [facility] docosahexae noic acid/epa (FISH OIL ORAL) 08-14 12:49: 52 Yes Take by mouth. [facility] Garlic 1,000 mg Cap 08-14 12:49: 52 Yes Take by mouth. [facility] [place] [facility] [place] 08-14 12:49: 52 Yes 750mg 750 mg. [facility] docosahexae noic acid/epa (FISH OIL ORAL) 08-14 12:49: 52 Yes Take by mouth. [facility] Garlic 1,000 mg Cap 08-14 12:49: 52 Yes Take by mouth. [facility] [place] [facility] [place] 08-14 12:49: 52 Yes 750mg 750 mg. [facility] docosahexae noic acid/epa (FISH OIL ORAL) 08-14 12:49: 52 Yes Take by mouth. [facility] Garlic 1,000 mg Cap 08-14 12:49: 52 Yes Take by mouth. [facility] [place] [facility] [place] 08-14 12:49: 52 Yes 750mg 750 mg. [facility] docosahexae noic acid/epa (FISH OIL ORAL) 08-14 12:49: 52 Yes Take by mouth. [facility] Garlic 1,000 mg Cap 08-14 12:49: 52 Yes Take by mouth. [facility] [place] [facility] 08-14 12:49: 52 Yes 750mg 750 mg. [facility] docosahexae noic acid/epa (FISH OIL ORAL) 08-14 12:49: 52 Yes Take by mouth. [facility] Garlic 1,000 mg Cap 08-14 12:49: 52 Yes Take by mouth. [facility] [place] [facility] [place] 08-14 12:49: 52 Yes 750mg 750 mg. [facility] docosahexae noic acid/epa (FISH OIL ORAL) 08-14 12:49: 52 Yes Take by mouth. [facility] Garlic 1,000 mg Cap 08-14 12:49: 52 Yes Take by mouth. [facility] [place] [facility] [place] 08-14 12:49: 52 Yes 750mg 750 mg. [facility] docosahexae noic acid/epa (FISH OIL ORAL) 08-14 12:49: 52 Yes Take by mouth. [facility] Garlic 1,000 mg Cap 08-14 12:49: 52 Yes Take by mouth. [facility] [place] [facility] [place] 08-14 12:49: 52 Yes 750mg 750 mg. [facility] docosahexae noic acid/epa (FISH OIL ORAL) 08-14 12:49: 52 Yes Take by mouth. [facility] Garlic 1,000 mg Cap 08-14 12:49: 52 Yes Take by mouth. [facility] [place] [place] 08-14 12:49: 52 Yes 750mg 750 mg. [facility] docosahexae noic acid/epa (FISH OIL ORAL) 08-14 12:49: 52 Yes Take by mouth. [facility] Garlic 1,000 mg Cap 08-14 12:49: 52 Yes Take by mouth. [facility] [place] [facility] 08-14 12:49: 52 Yes 750mg 750 mg. [facility] docosahexae noic acid/epa (FISH OIL ORAL) 08-14 12:49: 52 Yes Take by mouth. [facility] Garlic 1,000 mg Cap 08-14 12:49: 52 Yes Take by mouth. [facility] [place] [facility] 08-14 12:49: 52 Yes 750mg 750 mg. [facility] docosahexae noic acid/epa (FISH OIL ORAL) 08-14 12:49: 52 Yes Take by mouth. [facility] Garlic 1,000 mg Cap 08-14 12:49: 52 Yes Take by mouth. [facility] [place] [facility] 08-14 12:49: 52 Yes 750mg 750 mg. [facility] docosahexae noic acid/epa (FISH OIL ORAL) 08-14 12:49: 52 Yes Take by mouth. [facility] Garlic 1,000 mg Cap 08-14 12:49: 52 Yes Take by mouth. [facility] [place] [facility] [place] 08-14 12:49: 52 Yes 750mg 750 mg. [facility] docosahexae noic acid/epa (FISH OIL ORAL) 08-14 12:49: 52 Yes Take by mouth. [facility] Garlic 1,000 mg Cap 08-14 12:49: 52 Yes Take by mouth. [facility] [place] [facility] [place] 08-14 12:49: 52 Yes 750mg 750 mg. [facility] docosahexae noic acid/epa (FISH OIL ORAL) 08-14 12:49: 52 Yes Take by mouth. [facility] Garlic 1,000 mg Cap 08-14 12:49: 52 Yes Take by mouth. [facility] [place] [facility] 08-14 12:49: 52 Yes 750mg 750 mg. [facility] docosahexae noic acid/epa (FISH OIL ORAL) 08-14 12:49: 52 Yes Take by mouth. [facility] Garlic 1,000 mg Cap 08-14 12:49: 52 Yes Take by mouth. [facility] [place] [facility] [place] 08-14 12:49: 52 Yes 750mg 750 mg. [facility] docosahexae noic acid/epa (FISH OIL ORAL) 08-14 12:49: 52 Yes Take by mouth. [facility] Garlic 1,000 mg Cap 08-14 12:49: 52 Yes Take by mouth. [facility] [place] [facility] [place] 08-14 12:49: 52 Yes 750mg 750 mg. [facility] docosahexae noic acid/epa (FISH OIL ORAL) 08-14 12:49: 52 Yes Take by mouth. [facility] Garlic 1,000 mg Cap 08-14 12:49: 52 Yes Take by mouth. [facility] [place] [facility] [place] 08-14 12:49: 52 Yes 750mg 750 mg. [facility] docosahexae noic acid/epa (FISH OIL ORAL) 08-14 12:49: 52 Yes Take by mouth. [facility] Garlic 1,000 mg Cap 08-14 12:49: 52 Yes Take by mouth. [facility] apixaban (ELIQUIS) 5 mg tablet 08-14 12:48: 15 Yes Take by mouth. [facility] furosemide 40 mg tablet 08-14 12:48: 15 Yes 40mg Take 40 mg by mouth daily. [facility] apixaban (ELIQUIS) 5 mg tablet 0 08-14 12:48: 15 Yes Take by mouth. [facility] furosemide 40 mg tablet 2021-0 08-14 12:48: 15 Yes 40mg Take 40 mg by mouth daily. [facility] apixaban (ELIQUIS) 5 mg tablet 0 08-14 12:48: 15 Yes Take by mouth. [facility] furosemide 40 mg tablet 2021-0 08-14 12:48: 15 Yes 40mg Take 40 mg by mouth daily. [facility] apixaban (ELIQUIS) 5 mg tablet 08-14 12:48: 15 Yes Take by mouth. [facility] furosemide 40 mg tablet 0 08-14 12:48: 15 Yes 40mg Take 40 mg by mouth daily. [facility] apixaban (ELIQUIS) 5 mg tablet 08-14 12:48: 15 Yes Take by mouth. [facility] furosemide 40 mg tablet 0 08-14 12:48: 15 Yes 40mg Take 40 mg by mouth daily. [facility] apixaban (ELIQUIS) 5 mg tablet 08-14 12:48: 15 Yes Take by mouth. [facility] furosemide 40 mg tablet 0 08-14 12:48: 15 Yes 40mg Take 40 mg by mouth daily. [facility] apixaban (ELIQUIS) 5 mg tablet 0 08-14 12:48: 15 Yes Take by mouth. [facility] furosemide 40 mg tablet 2021-0 08-14 12:48: 15 Yes 40mg Take 40 mg by mouth daily. [facility] apixaban (ELIQUIS) 5 mg tablet 0 08-14 12:48: 15 Yes Take by mouth. [facility] furosemide 40 mg tablet 2021-0 08-14 12:48: 15 Yes 40mg Take 40 mg by mouth daily. [facility] apixaban (ELIQUIS) 5 mg tablet 2021-0 08-14 12:48: 15 Yes Take by mouth. [facility] furosemide 40 mg tablet 2021-0 08-14 12:48: 15 Yes 40mg Take 40 mg by mouth daily. [facility] apixaban (ELIQUIS) 5 mg tablet 0 08-14 12:48: 15 Yes Take by mouth. [facility] furosemide 40 mg tablet 2021-0 08-14 12:48: 15 Yes 40mg Take 40 mg by mouth daily. [facility] apixaban (ELIQUIS) 5 mg tablet 0 08-14 12:48: 15 Yes Take by mouth. [facility] furosemide 40 mg tablet 2021-08-14 12:48: 15 Yes 40mg Take 40 mg by mouth daily. [facility] apixaban (ELIQUIS) 5 mg tablet 08-14 12:48: 15 Yes Take by mouth. [facility] furosemide 40 mg tablet 0 08-14 12:48: 15 Yes 40mg Take 40 mg by mouth daily. [facility] apixaban (ELIQUIS) 5 mg tablet 08-14 12:48: 15 Yes Take by mouth. [facility] furosemide 40 mg tablet 2021-0 08-14 12:48: 15 Yes 40mg Take 40 mg by mouth daily. [facility] apixaban (ELIQUIS) 5 mg tablet 0 08-14 12:48: 15 Yes Take by mouth. [facility] furosemide 40 mg tablet 2021-0 08-14 12:48: 15 Yes 40mg Take 40 mg by mouth daily. [facility] apixaban (ELIQUIS) 5 mg tablet 2021-0 08-14 12:48: 15 Yes Take by mouth. [facility] furosemide 40 mg tablet 2021-0 08-14 12:48: 15 Yes 40mg Take 40 mg by mouth daily. [facility] apixaban (ELIQUIS) 5 mg tablet 2021-0 08-14 12:48: 15 Yes Take by mouth. [facility] furosemide 40 mg tablet 2021-0 08-14 12:48: 15 Yes 40mg Take 40 mg by mouth daily. [facility] apixaban (ELIQUIS) 5 mg tablet 0 08-14 12:48: 15 Yes Take by mouth. [facility] furosemide 40 mg tablet 2021-0 08-14 12:48: 15 Yes 40mg Take 40 mg by mouth daily. [facility] apixaban (ELIQUIS) 5 mg tablet 0 08-14 12:48: 15 Yes Take by mouth. [facility] furosemide 40 mg tablet 2021-0 08-14 12:48: 15 Yes 40mg Take 40 mg by mouth daily. [facility] apixaban (ELIQUIS) 5 mg tablet 2021-0 08-14 12:48: 15 Yes Take by mouth. [facility] furosemide 40 mg tablet 0 08-14 12:48: 15 Yes 40mg Take 40 mg by mouth daily. [facility] apixaban (ELIQUIS) 5 mg tablet 0 08-14 12:48: 15 Yes Take by mouth. [facility] furosemide 40 mg tablet 2021-0 08-14 12:48: 15 Yes 40mg Take 40 mg by mouth daily. [facility] apixaban (ELIQUIS) 5 mg tablet 2021-0 08-14 12:48: 15 Yes Take by mouth. [facility] furosemide 40 mg tablet 2021-0 08-14 12:48: 15 Yes 40mg Take 40 mg by mouth daily. [facility] apixaban (ELIQUIS) 5 mg tablet 2021-0 08-14 12:48: 15 Yes Take by mouth. [facility] furosemide 40 mg tablet 2021-0 08-14 12:48: 15 Yes 40mg Take 40 mg by mouth daily. [facility] apixaban (ELIQUIS) 5 mg tablet 2021-0 08-14 12:48: 15 Yes Take by mouth. [facility] furosemide 40 mg tablet 2021-0 08-14 12:48: 15 Yes 40mg Take 40 mg by mouth daily. [facility] apixaban (ELIQUIS) 5 mg tablet 08-14 12:48: 15 Yes Take by mouth. [facility] furosemide 40 mg tablet 08-14 12:48: 15 Yes 40mg Take 40 mg by mouth daily. [facility] apixaban (ELIQUIS) 5 mg tablet 08-14 12:48: 15 Yes Take by mouth. [facility] furosemide 40 mg tablet 08-14 12:48: 15 Yes 40mg Take 40 mg by mouth daily. [facility] apixaban (ELIQUIS) 5 mg tablet 08-14 12:48: 15 Yes Take by mouth. [facility] furosemide 40 mg tablet 08-14 12:48: 15 Yes 40mg Take 40 mg by mouth daily. [facility] apixaban (ELIQUIS) 5 mg tablet 08-14 12:48: 15 Yes Take by mouth. [facility] furosemide 40 mg tablet 08-14 12:48: 15 Yes 40mg Take 40 mg by mouth daily. [facility] apixaban (ELIQUIS) 5 mg tablet 08-14 12:48: 15 Yes Take by mouth. [facility] furosemide 40 mg tablet 08-14 12:48: 15 Yes 40mg Take 40 mg by mouth daily. [facility] apixaban (ELIQUIS) 5 mg tablet 08-14 12:48: 15 Yes Take by mouth. [facility] furosemide 40 mg tablet 0 08-14 12:48: 15 Yes 40mg Take 40 mg by mouth daily. [facility] apixaban (ELIQUIS) 5 mg tablet 08-14 12:48: 15 Yes Take by mouth. [facility] furosemide 40 mg tablet 08-14 12:48: 15 Yes 40mg Take 40 mg by mouth daily. [facility] apixaban (ELIQUIS) 5 mg tablet 08-14 12:48: 15 Yes Take by mouth. [facility] furosemide 40 mg tablet 08-14 12:48: 15 Yes 40mg Take 40 mg by mouth daily. [facility] apixaban (ELIQUIS) 5 mg tablet 08-14 12:48: 15 Yes Take by mouth. [facility] furosemide 40 mg tablet 08-14 12:48: 15 Yes 40mg Take 40 mg by mouth daily. [facility] apixaban (ELIQUIS) 5 mg tablet 08-14 12:48: 15 Yes Take by mouth. [facility] furosemide 40 mg tablet 08-14 12:48: 15 Yes 40mg Take 40 mg by mouth daily. [facility] apixaban (ELIQUIS) 5 mg tablet 08-14 12:48: 15 Yes Take by mouth. [facility] furosemide 40 mg tablet 08-14 12:48: 15 Yes 40mg Take 40 mg by mouth daily. [facility] apixaban (ELIQUIS) 5 mg tablet 08-14 12:48: 15 Yes Take by mouth. [facility] furosemide 40 mg tablet 08-14 12:48: 15 Yes 40mg Take 40 mg by mouth daily. [facility] apixaban (ELIQUIS) 5 mg tablet 08-14 12:48: 15 Yes Take by mouth. [facility] furosemide 40 mg tablet 08-14 12:48: 15 Yes 40mg Take 40 mg by mouth daily. [facility] apixaban (ELIQUIS) 5 mg tablet 0 08-14 12:48: 15 Yes Take by mouth. [facility] furosemide 40 mg tablet 08-14 12:48: 15 Yes 40mg Take 40 mg by mouth daily. [facility] apixaban (ELIQUIS) 5 mg tablet 08-14 12:48: 15 Yes Take by mouth. [facility] furosemide 40 mg tablet 2021-0 08-14 12:48: 15 Yes 40mg Take 40 mg by mouth daily. [facility] apixaban (ELIQUIS) 5 mg tablet 0 08-14 12:48: 15 Yes Take by mouth. [facility] furosemide 40 mg tablet 2021-0 08-14 12:48: 15 Yes 40mg Take 40 mg by mouth daily. [facility] apixaban (ELIQUIS) 5 mg tablet 2021-0 08-14 12:48: 15 Yes Take by mouth. [facility] furosemide 40 mg tablet 2021-0 08-14 12:48: 15 Yes 40mg Take 40 mg by mouth daily. [facility] apixaban (ELIQUIS) 5 mg tablet 0 08-14 12:48: 15 Yes Take by mouth. [facility] furosemide 40 mg tablet 0 08-14 12:48: 15 Yes 40mg Take 40 mg by mouth daily. [facility] apixaban (ELIQUIS) 5 mg tablet 0 08-14 12:48: 15 Yes Take by mouth. [facility] furosemide 40 mg tablet 0 08-14 12:48: 15 Yes 40mg Take 40 mg by mouth daily. [facility] apixaban (ELIQUIS) 5 mg tablet 0 08-14 12:48: 15 Yes Take by mouth. [facility] furosemide 40 mg tablet 2021-0 08-14 12:48: 15 Yes 40mg Take 40 mg by mouth daily. [facility] apixaban (ELIQUIS) 5 mg tablet 2021-0 08-14 12:48: 15 Yes Take by mouth. [facility] furosemide 40 mg tablet 2021-0 08-14 12:48: 15 Yes 40mg Take 40 mg by mouth daily. [facility] apixaban (ELIQUIS) 5 mg tablet 2021-0 08-14 12:48: 15 Yes Take by mouth. [facility] furosemide 40 mg tablet 2021-0 08-14 12:48: 15 Yes 40mg Take 40 mg by mouth daily. [facility] apixaban (ELIQUIS) 5 mg tablet 0 08-14 12:48: 15 Yes Take by mouth. [facility] furosemide 40 mg tablet 0 08-14 12:48: 15 Yes 40mg Take 40 mg by mouth daily. [facility] apixaban (ELIQUIS) 5 mg tablet 0 08-14 12:48: 15 Yes Take by mouth. [facility] furosemide 40 mg tablet 0 08-14 12:48: 15 Yes 40mg Take 40 mg by mouth daily. [facility] apixaban (ELIQUIS) 5 mg tablet 08-14 12:48: 15 Yes Take by mouth. [facility] furosemide 40 mg tablet 08-14 12:48: 15 Yes 40mg Take 40 mg by mouth daily. [facility] apixaban (ELIQUIS) 5 mg tablet 08-14 12:48: 15 Yes Take by mouth. [facility] furosemide 40 mg tablet 0 08-14 12:48: 15 Yes 40mg Take 40 mg by mouth daily. [facility] apixaban (ELIQUIS) 5 mg tablet 08-14 12:48: 15 Yes Take by mouth. [facility] furosemide 40 mg tablet 08-14 12:48: 15 Yes 40mg Take 40 mg by mouth daily. [facility] apixaban (ELIQUIS) 5 mg tablet 0 08-14 12:48: 15 Yes Take by mouth. [facility] furosemide 40 mg tablet 0 08-14 12:48: 15 Yes 40mg Take 40 mg by mouth daily. [facility] apixaban (ELIQUIS) 5 mg tablet 0 08-14 12:48: 15 Yes Take by mouth. [facility] furosemide 40 mg tablet 0 08-14 12:48: 15 Yes 40mg Take 40 mg by mouth daily. [facility] apixaban (ELIQUIS) 5 mg tablet 08-14 12:48: 15 Yes Take by mouth. [facility] furosemide 40 mg tablet 08-14 12:48: 15 Yes 40mg Take 40 mg by mouth daily. [facility] metoprolol succinate XL 100 mg 24 hr tablet 0 08-14 00:00: 00 Yes TAKE 1 TABLET BY MOUTH TWICE A DAY FOR 90 DAYS [facility] metoprolol succinate XL 100 mg 24 hr tablet 0 08-14 00:00: 00 Yes TAKE 1 TABLET BY MOUTH TWICE A DAY FOR [address] [facility]oprolol succinate XL 100 mg 24 hr tablet 0 08-14 00:00: 00 Yes TAKE 1 TABLET BY MOUTH TWICE A DAY FOR 90 DAYS [facility] metoprolol succinate XL 100 mg 24 hr tablet 0 08-14 00:00: 00 Yes TAKE 1 TABLET BY MOUTH TWICE A DAY FOR 90 DAYS [facility] metoprolol succinate XL 100 mg 24 hr tablet 08-14 00:00: 00 Yes TAKE 1 TABLET BY MOUTH TWICE A DAY FOR 90 DAYS [facility] metoprolol succinate XL 100 mg 24 hr tablet 0 08-14 00:00: 00 Yes TAKE 1 TABLET BY MOUTH TWICE A DAY FOR 90 DAYS [facility] metoprolol succinate XL 100 mg 24 hr tablet 0 08-14 00:00: 00 Yes TAKE 1 TABLET BY MOUTH TWICE A DAY FOR 90 DAYS [facility] metoprolol succinate XL 100 mg 24 hr tablet 0 08-14 00:00: 00 Yes TAKE 1 TABLET BY MOUTH TWICE A DAY FOR 90 DAYS [facility] metoprolol succinate XL 100 mg 24 hr tablet 0 08-14 00:00: 00 Yes TAKE 1 TABLET BY MOUTH TWICE A DAY FOR 90 DAYS [facility] metoprolol succinate XL 100 mg 24 hr tablet 2021-0 08-14 00:00: 00 Yes TAKE 1 TABLET BY MOUTH TWICE A DAY FOR 90 DAYS [facility] metoprolol succinate XL 100 mg 24 hr tablet 2021-0 08-14 00:00: 00 Yes TA[facility]oprolol succinate XL 100 mg 24 hr tablet 2021-0 2 00:00: 00 Yes TAKE 1 TABLET BY MOUTH TWICE A DAY FOR 90 [facility]YS [facility] succ[facility] XL 100 mg 24 hr tablet 2021-0 08-14 00:00: 00 Yes TAKE 1 TABLET BY MOUTH TWICE A DAY FOR [address] [facility] metoprolol succinate XL 100 mg 24 hr tablet 2021-0 2 00:00: 00 Yes TAKE 1 TABLET BY MOUTH TWICE A DAY FOR 90 DAYS [facility] metoprolol succinate XL 100 mg 24 hr tablet 2021-0 08-14 00:00: 00 Yes TAKE 1 TABLET BY MOUTH TWICE A DAY FOR 90 DAYS [facility] metoprolol succinate XL 100 mg 24 hr tablet 2021-0 08-14 00:00: 00 Yes TAKE 1 TABLET BY MOUTH TWICE A DAY FOR 90 DAYS [facility] metoprolol succinate XL 100 mg 24 hr tablet 2021-0 08-14 00:00: 00 Yes TAKE 1 TABLET BY MOUTH TWICE A DAY FOR 90 DAYS [facility] metoprolol succinate XL 100 mg 24 hr tablet 2021-0 08-14 00:00: 00 Yes TAKE 1 TABLET BY MOUTH TWICE A DAY FOR 90 DAYS [facility] metoprolol succinate XL 100 mg 24 hr tablet 2021-0 08-14 00:00: 00 Yes TAKE 1 TABLET BY MOUTH TWICE A DAY FOR 90 DAYS [facility] metoprolol succinate XL 100 mg 24 hr tablet 2021-0 08-14 00:00: 00 Yes TAKE 1 TABLET BY MOUTH TWICE A DAY FOR 90 DAYS [facility] metoprolol succinate XL 100 mg 24 hr tablet 2021-0 08-14 00:00: 00 Yes TAKE 1 TABLET BY MOUTH TWICE A DAY FOR 90 DAYS [facility] metoprolol succinate XL 100 mg 24 hr tablet 2021-0 08-14 00:00: 00 Yes TAKE 1 TABLET BY MOUTH TWICE A DAY FOR 90 DAYS [facility] metoprolol succinate XL 100 mg 24 hr tablet 2021-0 2 00:00: 00 Yes TAKE 1 TABLET BY MOUTH TWICE A DAY FOR 90 DAYS [facility] metoprolol succinate XL 100 mg 24 hr tablet 2021-0 2 00:00: 00 Yes TAKE 1 TABLET BY MOUTH TWICE A DAY FOR 90 DAYS [facility] metoprolol succinate XL 100 mg 24 hr tablet 2021-0 2 00:00: 00 Yes TAKE 1 TABLET BY MOUTH TWICE A DAY FOR 90 DAYS [facility] [facility] metoprolol succinate XL 100 mg 24 hr tablet 2-0 2 00:00: 00 Yes TAKE 1 TABLET BY MOUTH TWICE A DAY FOR [facility]YS [facility] 100 mg 24 hr tablet 2021-0 2 00:00: 00 Yes TAKE 1 TABLET BY MOUTH TWICE A DAY FOR 90 DAYS [facility] succinate XL 100 mg 24 hr tablet 2021-0 08-14 00:00: 00 Yes TAKE 1 TABLET BY MOUTH TWICE A DAY FOR [address]oprolol succinate XL 100 mg 24 hr tablet 2021-0 08-14 00:00: 00 Yes TAKE 1 TABLET BY MOUTH TWICE A DAY FOR 90 DAYS [facility] metoprolol succinate XL 100 mg 24 hr tablet 2021-0 08-14 00:00: 00 Yes TAKE 1 TABLET BY MOUTH TWICE A DAY FOR 90 DAYS [facility] metoprolol succinate XL 100 mg 24 hr tablet 2021-0 08-14 00:00: 00 Yes TAKE 1 TABLET BY MOUTH TWICE A DAY FOR 90 DAYS [facility] succinate XL 100 mg 24 hr tablet 2021-0 2 00:00: 00 Yes TAKE 1 TABLET BY MOUTH TWICE A DAY FOR 90 DAYS [facility] metoprolol succinate XL 100 mg 24 hr tablet 2021-0 2 00:00: 00 Yes TAKE 1 TABLET BY MOUTH TWICE A DAY FOR 90 DAYS [facility] metoprolol succinate XL 100 mg 24 hr tablet 2021-0 2 00:00: 00 Yes TAKE 1 TABLET BY MOUTH TWICE A DAY FOR 90 DAYS [facility] metoprolol succinate XL 100 mg 24 hr tablet 2021-0 2 00:00: 00 Yes TAKE 1 TABLET BY MOUTH TWICE A DAY FOR [address] metoprolol succinate XL 100 mg 24 hr tablet 2021-0 223 00:00: 00 Yes TAKE 1 TABLET BY MOUTH TWICE A DAY FOR 90 DAYS [facility] metoprolol succinate XL 100 mg 24 hr tablet 2021-0 08-14 00:00: 00 Yes TAKE 1 TABLET BY MOUTH TWICE A DAY FOR 90 DAYS [facility] metoprolol succinate XL 100 mg 24 hr tablet 2021-0 08-14 00:00: 00 Yes TAKE 1 TABLET BY MOUTH TWICE A DAY FOR 90 DAYS [facility] metoprolol succinate XL 100 mg 24 hr tablet 2021-0 08-14 00:00: 00 Yes TAKE 1 TABLET BY MOUTH TWICE A DAY FOR 90 DAYS [facility] metoprolol succinate XL 100 mg 24 hr tablet 2021-0 08-14 00:00: 00 Yes TAKE 1 TABLET BY MOUTH TWICE A DAY FOR [address] metoprolol succinate XL 100 mg 24 hr tablet 2021-0 08-14 00:00: 00 Yes TAKE 1 TABLET BY MOUTH TWICE A DAY FOR 90 DAYS [facility] metoprolol succinate XL 100 mg 24 hr tablet 2021-0 08-14 00:00: 00 Yes TAKE 1 TABLET BY MOUTH TWICE A DAY FOR 90 DAYS [facility] metoprolol succinate XL 100 mg 24 hr tablet 2021-0 08-14 00:00: 00 Yes TAKE 1 TABLET BY MOUTH TWICE A DAY FOR 90 DAYS [facility] metoprolol succinate XL 100 mg 24 hr tablet 2021-0 08-14 00:00: 00 Yes TAKE 1 TABLET BY MOUTH TWICE A DAY FOR 90 DAYS [facility] metoprolol succinate XL 100 mg 24 hr tablet 2021-0 08-14 00:00: 00 Yes TAKE 1 TABLET BY MOUTH TWICE A DAY FOR 90 DAYS [facility] metoprolol succinate XL 100 mg 24 hr tablet 2021-0 08-14 00:00: 00 Yes TAKE 1 TABLET BY MOUTH TWICE A DAY FOR 90 DAYS [facility] metoprolol succinate XL 100 mg 24 hr tablet 2021-0 08-14 00:00: 00 Yes TAKE 1 TABLET BY MOUTH TWICE A DAY FOR 90 DAYS [facility] metoprolol succinate XL 100 mg 24 hr tablet 2021-0 2 00:00: 00 Yes TAKE 1 TABLET BY MOUTH TWICE A DAY FOR 90 DAYS [facility] metoprolol succinate XL 100 mg 24 hr tablet 2021-0 2 00:00: 00 Yes TAKE 1 TABLET BY MOUTH TWICE A DAY FOR 90 DAYS [facility] metoprolol succinate XL 100 mg 24 hr tablet 2021-0 08-14 00:00: 00 Yes TAKE 1 TABLET BY MOUTH TWICE A DAY FOR 90 DAYS [facility] metoprolol succinate XL 100 mg 24 hr tablet 2021-0 08-14 00:00: 00 Yes TAKE 1 TABLET BY MOUTH TWICE A DAY FOR 90 DAYS [facility] metoprolol succinate XL 100 mg 24 hr tablet 2021-0 08-14 00:00: 00 Yes TAKE 1 TABLET BY MOUTH TWICE A DAY FOR [address] [facility] metoprolol succinate XL 100 mg 24 hr tablet 2021-0 08-14 00:00: 00 Yes TAKE 1 TABLET BY MOUTH TWICE A DAY FOR [address] [facility] metoprolol succinate XL 100 mg 24 hr tablet 2021-0 08-14 00:00: 00 Yes TAKE 1 TABLET BY MOUTH TWICE A DAY FOR [address] metoprolol succinate XL 100 mg 24 hr tablet 2021-0 08-14 00:00: 00 Yes TAKE 1 TABLET BY MOUTH TWICE A DAY FOR 90 DAYS [facility] metoprolol succinate XL 100 mg 24 hr tablet 2021-0 08-14 00:00: 00 Yes TAKE 1 TABLET BY MOUTH TWICE A DAY FOR 90 DAYS [facility] metoprolol succinate XL 100 mg 24 hr tablet 2021-0 08-14 00:00: 00 Yes TAKE 1 TABLET BY MOUTH TWICE A DAY FOR 90 DAYS [facility] metoprolol succinate XL 100 mg 24 hr tablet 2021-0 08-14 00:00: 00 Yes TAKE 1 TABLET BY MOUTH TWICE A DAY FOR 90 DAYS [facility] metoprolol succinate XL 100 mg 24 hr tablet 2021-0 08-14 00:00: 00 Yes TAKE 1 TABLET BY MOUTH TWICE A DAY FOR 90 DAYS [facility] metoprolol succinate XL 100 mg 24 hr tablet 2021-0 08-14 00:00: 00 Yes TAKE 1 TABLET BY MOUTH TWICE A DAY FOR 90 DAYS [facility] metoprolol succinate XL 100 mg 24 hr tablet 2021-0 2 00:00: 00 Yes TAKE 1 TABLET BY MOUTH TWICE A DAY FOR 90 DAYS [facility] metoprolol succinate XL 100 mg 24 hr tablet 2021-0 08-14 00:00: 00 Yes TAKE 1 TABLET BY MOUTH TWICE A DAY FOR 90 DAYS [facility] metoprolol succinate XL 100 mg 24 hr tablet 2021-0 2 00:00: 00 Yes TAKE 1 TABLET BY MOUTH TWICE A DAY FOR 90 DAYS [facility] metoprolol succinate XL 100 mg 24 hr tablet 2021-0 08-14 00:00: 00 Yes TAKE 1 TABLET BY MOUTH TWICE A DAY FOR 90 DAYS [facility] metoprolol succinate XL 100 mg 24 hr tablet 2021-0 08-14 00:00: 00 Yes TAKE 1 TABLET BY MOUTH TWICE A DAY FOR 90 DAYS [facility] metoprolol succinate XL 100 mg 24 hr tablet 2021-0 08-14 00:00: 00 Yes TAKE 1 TABLET BY MOUTH TWICE A DAY FOR 90 DAYS [facility] metoprolol succinate XL 100 mg 24 hr tablet 2021-0 08-14 00:00: 00 Yes TAKE 1 TABLET BY MOUTH TWICE A DAY FOR 90 DAYS [facility] metoprolol succinate XL 100 mg 24 hr tablet 2021-0 08-14 00:00: 00 Yes TAKE 1 TABLET BY MOUTH TWICE A DAY FOR 90 DAYS [facility] metoprolol succinate XL 100 mg 24 hr tablet 2021-0 08-14 00:00: 00 Yes TAKE 1 TABLET BY MOUTH TWICE A DAY FOR 90 DAYS [facility] metoprolol succinate XL 100 mg 24 hr tablet 2021-0 2 00:00: 00 Yes TAKE 1 TABLET BY MOUTH TWICE A DAY FOR 90 DAYS [facility] metoprolol succinate XL 100 mg 24 hr tablet 2021-0 2 00:00: 00 Yes TAKE 1 TABLET BY MOUTH TWICE A DAY FOR 90 DAYS [facility] metoprolol succinate XL 100 mg 24 hr tablet 2021-0 2 00:00: 00 Yes TAKE 1 TABLET BY MOUTH TWICE A DAY FOR 90 DAYS [facility] metoprolol succinate XL 100 mg 24 hr tablet 0 2 00:00: 00 Yes TAKE 1 TABLET BY MOUTH TWICE A DAY FOR 90 DAYS [facility] metoprolol succinate XL 100 mg 24 hr tablet 0 2 00:00: 00 Yes TAKE 1 TABLET BY MOUTH TWICE A DAY FOR 90 DAYS [facility] metoprolol succinate XL 50 mg 24 hr tablet 0 2 00:00: 00 Yes 100mg Take 2 tablets by mouth 2 (two) times daily. [facility] metoprolol succinate XL 100 mg 24 hr tablet 0 08-14 00:00: 00 Yes TAKE 1 TABLET BY MOUTH TWICE A DAY FOR 90 DAYS [facility] metoprolol succinate XL 50 mg 24 hr tablet 0 08-14 00:00: 00 Yes 100mg Take 2 tablets by mouth 2 (two) times daily. [facility] metoprolol succinate XL 100 mg 24 hr tablet 08-14 00:00: 00 Yes TAKE 1 TABLET BY MOUTH TWICE A DAY FOR 90 DAYS [facility] metoprolol succinate XL 50 mg 24 hr tablet 0 08-14 00:00: 00 Yes 100mg Take 2 tablets by mouth 2 (two) times daily. [facility] metoprolol succinate XL 100 mg 24 hr tablet 08-14 00:00: 00 Yes TAKE 1 TABLET BY MOUTH TWICE A DAY FOR 90 DAYS [facility] metoprolol succinate XL 50 mg 24 hr tablet 0 08-14 00:00: 00 Yes 100mg Take 2 tablets by mouth 2 (two) times daily. [facility] metoprolol succinate XL 100 mg 24 hr tablet 0 2 00:00: 00 Yes TAKE 1 TABLET BY MOUTH TWICE A DAY FOR 90 DAYS [facility] metoprolol succinate XL 50 mg 24 hr tablet 2021-0 08-14 00:00: 00 Yes 100mg Take 2 tablets by mouth 2 (two) times daily. [facility] metoprolol succinate XL 100 mg 24 hr tablet 2021-0 2 00:00: 00 Yes TAKE 1 TABLET BY MOUTH TWICE A DAY FOR [address] metoprolol succinate XL 50 mg 24 hr tablet 2021-0 223 00:00: 00 Yes 100mg Take 2 tablets by mouth 2 (two) times daily. [facility] metoprolol succinate XL 100 mg 24 hr tablet 2021-0 223 00:00: 00 Yes TAKE 1 TABLET BY MOUTH TWICE A DAY FOR 90 DAYS [facility] metoprolol succinate XL 50 mg 24 hr tablet 2021-0 2 00:00: 00 Yes 100mg Take 2 tablets by mouth 2 (two) times daily. [facility] metoprolol succinate XL 100 mg 24 hr tablet 2021-0 2 00:00: 00 Yes TAKE 1 TABLET BY MOUTH TWICE A DAY FOR 90 DAYS [facility] metoprolol succinate XL 50 mg 24 hr tablet 2021-0 2 00:00: 00 Yes 100mg Take 2 tablets by mouth 2 (two) times daily. [facility] metoprolol succinate XL 100 mg 24 hr tablet 2021-0 2 00:00: 00 Yes TAKE 1 TABLET BY MOUTH TWICE A DAY FOR 90 DAYS [facility] metoprolol succinate XL 50 mg 24 hr tablet 2021-0 08-14 00:00: 00 Yes 100mg Take 2 tablets by mouth 2 (two) times daily. [facility] metoprolol succinate XL 100 mg 24 hr tablet 2021-0 2 00:00: 00 Yes TAKE 1 TABLET BY MOUTH TWICE A DAY FOR 90 DAYS [facility] metoprolol succinate XL 100 mg 24 hr tablet 2021-0 2-23 00:00: 00 Yes TAKE 1 TABLET BY MOUTH TWICE A DAY FOR 90 DAYS [facility] metoprolol succinate XL 100 mg 24 hr tablet 2021-0 2 00:00: 00 Yes TAKE 1 TABLET BY MOUTH TWICE A DAY FOR 90 DAYS [facility] metoprolol succinate XL 100 mg 24 hr tablet 2021-0 2-23 00:00: 00 Yes TAKE 1 TABLET BY MOUTH TWICE A DAY FOR 90 DAYS [facility] metoprolol succinate XL 50 mg 24 hr tablet 2021-0 223 00:00: 00 202- 10-14 00:00 :00 No 100mg Take 2 tablets by mouth 2 (two) times daily. [facility] metoprolol succinate XL 50 mg 24 hr tablet 08-14 00:00: 00 04-04 00:00 :00 No 100mg Take 2 tablets by mouth 2 (two) times daily. [facility] metoprolol succinate XL 50 mg 24 hr tablet 08-14 00:00: 00 04-04 00:00 :00 No 100mg Take 2 tablets by mouth 2 (two) times daily. [facility] JANUMET XR 100-1,000 mg per tablet 2020-06 00:00: 00 Yes 1{tbl} Take 1 tablet by mouth every morning. [facility] JANUMET XR 100-1,000 mg per tablet 2020-06 00:00: 00 Yes 1{tbl} Take 1 tablet by mouth every morning. [facility] JANUMET XR 100-1,000 mg per tablet 2020-06 00:00: 00 Yes 1{tbl} Take 1 tablet by mouth every morning. [facility] JANUMET XR 100-1,000 mg per tablet 2020-06 00:00: 00 03-12 00:00 :00 No 1{tbl} Take 1 tablet by mouth every morning. [facility] JANUMET XR 100-1,000 mg per tablet 2020-06 00:00: 00 03-12 00:00 :00 No 1{tbl} Take 1 tablet by mouth every morning. [facility] Immunizations Ordered Immunization Name Filled Immunization Name Date Status Comments Source TDAP 2021-07-01 00:00:00 Completed [facility] TDAP 2021-07-01 00:00:00 Completed [facility] TDAP 2021-07-01 00:00:00 Completed [facility] TDAP 2021-07-01 00:00:00 Completed [facility] TDAP 2021-07-01 00:00:00 Completed [facility] TDAP 2021-07-01 00:00:00 Completed [facility] TDAP 2021-07-01 00:00:00 Completed [facility] TDAP 2021-07-01 00:00:00 Completed [facility] [place] TDAP 2021-07-01 00:00:00 Completed [facility] TDAP 2021-07-01 00:00:00 Completed [facility] TDAP 2021-07-01 00:00:00 Completed [facility] TDAP 2021-07-01 00:00:00 Completed [facility] TDAP 2021-07-01 00:00:00 Completed [facility] TDAP 2021-07-01 00:00:00 Completed [facility] TDAP 2021-07-01 00:00:00 Completed [facility] TDAP 2021-07-01 00:00:00 Completed [facility] TDAP 2021-07-01 00:00:00 Completed [facility] TDAP 2021-07-01 00:00:00 Completed [facility] TDAP 2021-07-01 00:00:00 Completed [facility] TDAP 2021-07-01 00:00:00 Completed [facility] TDAP 2021-07-01 00:00:00 Completed [facility] [place] TDAP 2021-07-01 00:00:00 Completed [facility] [place] TDAP 2021-07-01 00:00:00 Completed [facility] [place] TDAP 2021-07-01 00:00:00 Completed [facility] [place] TDAP 2021-07-01 00:00:[address] [facility] TDAP 2021-07-01 00:00:00 Completed [facility] TDAP 2021-07-01 00:00:00 Completed [facility] [place] TDAP 2021-07-01 00:00:00 Completed [facility] [place] TDAP 2021-07-01 00:00:00 Completed [facility] TDAP 2021-07-01 00:00:00 Completed [facility] [place] TDAP 2021-07-01 00:00:00 Completed [facility] TDAP 2021-07-01 00:00:00 Completed [facility] TDAP 2021-07-01 00:00:00 Completed [facility] TDAP 2021-07-01 00:00:00 Completed [facility] TDAP 2021-07-01 00:00:00 Completed [facility] TDAP 2021-07-01 00:00:00 Completed [facility] TDAP 2021-07-01 00:00:00 Completed [facility] TDAP 2021-07-01 00:00:00 Completed [facility] TDAP 2021-07-01 00:00:00 Completed [facility] TDAP 2021-07-01 00:00:00 Completed [facility] TDAP 2021-07-01 00:00:00 Completed [facility] TDAP 2021-07-01 00:00:00 Completed [facility] TDAP 2021-07-01 00:00:00 Completed [facility] TDAP 2021-07-01 00:00:00 Completed [facility] TDAP 2021-07-01 00:00:00 Completed [facility] TDAP 2021-07-01 00:00:00 Completed [facility] TDAP 2021-07-01 00:00:00 Completed [facility] TDAP 2021-07-01 00:00:00 Completed [facility] TDAP 2021-07-01 00:00:00 Completed [facility] TDAP 2021-07-01 00:00:00 Completed [facility] TDAP 2021-07-01 00:00:00 Completed [facility] TDAP 2021-07-01 00:00:00 Completed [facility] TDAP 2021-07-01 00:00:00 Completed [facility] TDAP 2021-07-01 00:00:00 Completed [facility] TDAP 2021-07-01 00:00:00 Completed [facility] TDAP 2021-07-01 00:00:00 Completed [facility] SARS-COV-2 COVID-19 VACCINE - (MODERNA) 2020-11-28 00:00:00 Completed [facility] SARS-COV-2 COVID-19 VACCINE - (MODERNA) 2020-11-28 00:00:00 Completed [facility] SARS-COV-2 COVID-19 VACCINE - (MODERNA) 2020-11-28 00:00:00 Completed [facility] SARS-COV-2 COVID-19 VACCINE - (MODERNA) 2020-11-28 00:00:00 Completed [facility] SARS-COV-2 COVID-19 VACCINE - (MODERNA) 2020-11-28 00:00:00 Completed [facility] SARS-COV-2 COVID-19 VACCINE - (MODERNA) 2020-11-28 00:00:00 Completed [facility] SARS-COV-2 COVID-19 VACCINE - (MODERNA) 2020-11-28 00:00:00 Completed [facility] SARS-COV-2 COVID-19 VACCINE - (MODERNA) 2020-11-28 00:00:00 Completed [facility] SARS-COV-2 COVID-19 VACCINE - (MODERNA) 2020-11-28 00:00:00 Completed [facility] SARS-COV-2 COVID-19 VACCINE - (MODERNA) 2020-11-28 00:00:00 Completed [facility] SARS-COV-2 COVID-19 VACCINE - (MODERNA) 2020-11-28 00:00:00 Completed [facility] SARS-COV-2 COVID-19 VACCINE - (MODERNA) 2020-11-28 00:00:00 Completed [facility] SARS-COV-2 COVID-19 VACCINE - (MODERNA) 2020-11-28 00:00:00 Completed [facility] SARS-COV-2 COVID-19 VACCINE - (MODERNA) 2020-11-28 00:00:00 Completed [facility] SARS-COV-2 COVID-19 VACCINE - (MODERNA) 2020-11-28 00:00:00 Completed [facility] SARS-COV-2 COVID-19 VACCINE - (MODERNA) 2020-11-28 00:00:00 Completed [facility] SARS-COV-2 COVID-19 VACCINE - (MODERNA) 2020-11-28 00:00:00 Completed [facility] SARS-COV-2 COVID-19 VACCINE - (MODERNA) 2020-11-28 00:00:00 Completed [facility] SARS-COV-2 COVID-19 VACCINE - (MODERNA) 2020-11-28 00:00:00 Completed [facility] SARS-COV-2 COVID-19 VACCINE - (MODERNA) 2020-11-28 00:00:00 Completed [facility] SARS-COV-2 COVID-19 VACCINE - (MODERNA) 2020-10-31 00:00:00 Completed [facility] SARS-COV-2 COVID-19 VACCINE - (MODERNA) 2020-10-31 00:00:00 Completed [facility] SARS-COV-2 COVID-19 VACCINE - (MODERNA) 2020-10-31 00:00:00 Completed [facility] SARS-COV-2 COVID-19 VACCINE - (MODERNA) 2020-10-31 00:00:00 Completed [facility] SARS-COV-2 COVID-19 VACCINE - (MODERNA) 2020-10-31 00:00:00 Completed [facility] SARS-COV-2 COVID-19 VACCINE - (MODERNA) 2020-10-31 00:00:00 Completed [facility] SARS-COV-2 COVID-19 VACCINE - (MODERNA) 2020-10-31 00:00:00 Completed [facility] SARS-COV-2 COVID-19 VACCINE - (MODERNA) 2020-10-31 00:00:00 Completed [facility] SARS-COV-2 COVID-19 VACCINE - (MODERNA) 2020-10-31 00:00:00 Completed [facility] SARS-COV-2 COVID-19 VACCINE - (MODERNA) 2020-10-31 00:00:00 Completed [facility] SARS-COV-2 COVID-19 VACCINE - (MODERNA) 2020-10-31 00:00:00 Completed [facility] SARS-COV-2 COVID-19 VACCINE - (MODERNA) 2020-10-31 00:00:00 Completed [facility] SARS-COV-2 COVID-19 VACCINE - (MODERNA) 2020-10-31 00:00:00 Completed [facility] SARS-COV-2 COVID-19 VACCINE - (MODERNA) 2020-10-31 00:00:00 Completed [facility] SARS-COV-2 COVID-19 VACCINE - (MODERNA) 2020-10-31 00:00:00 Completed [facility] SARS-COV-2 COVID-19 VACCINE - (MODERNA) 2020-10-31 00:00:00 Completed [facility] SARS-COV-2 COVID-19 VACCINE - (MODERNA) 2020-10-31 00:00:00 Completed [facility] SARS-COV-2 COVID-19 VACCINE - (MODERNA) 2020-10-31 00:00:00 Completed [facility] SARS-COV-2 COVID-19 VACCINE - (MODERNA) 2020-10-31 00:00:00 Completed [facility] SARS-COV-2 COVID-19 VACCINE - (MODERNA) 2020-10-31 00:00:00 Completed [facility] SARS-COV-2 COVID-19 VACCINE - (MODERNA) 2020-10-31 00:00:00 Completed [facility] SARS-COV-2 COVID-19 VACCINE - (MODERNA) 2020-10-31 00:00:00 Completed [facility] SARS-COV-2 COVID-19 VACCINE - (MODERNA) 2020-10-31 00:00:00 Completed [facility] SARS-COV-2 COVID-19 VACCINE - (MODERNA) 2020-10-31 00:00:00 Completed [facility] SARS-COV-2 COVID-19 VACCINE - (MODERNA) 2020-10-31 00:00:00 Completed [facility] SARS-COV-2 COVID-19 VACCINE - (MODERNA) 2020-10-31 00:00:00 Completed [facility] SARS-COV-2 COVID-19 VACCINE - (MODERNA) 2020-10-31 00:00:00 Completed [facility] SARS-COV-2 COVID-19 VACCINE - (MODERNA) 2020-10-31 00:00:00 Completed [facility] SARS-COV-2 COVID-19 VACCINE - (MODERNA) 2020-10-31 00:00:00 Completed [facility] SARS-COV-2 COVID-19 VACCINE - (MODERNA) 2020-10-31 00:00:00 Completed [facility] SARS-COV-2 COVID-19 VACCINE - (MODERNA) 2020-10-31 00:00:00 Completed [facility] SARS-COV-2 COVID-19 VACCINE - (MODERNA) 2020-10-31 00:00:00 Completed [facility] SARS-COV-2 COVID-19 VACCINE - (MODERNA) 2020-10-31 00:00:00 Completed [facility] SARS-COV-2 COVID-19 VACCINE - (MODERNA) 2020-10-31 00:00:00 Completed [facility] SARS-COV-2 COVID-19 VACCINE - (MODERNA) 2020-10-31 00:00:00 Completed [facility] SARS-COV-2 COVID-19 VACCINE - (MODERNA) 2020-10-31 00:00:00 Completed [facility] SARS-COV-2 COVID-19 VACCINE - (MODERNA) 2020-10-31 00:00:00 Completed [facility] SARS-COV-2 COVID-19 VACCINE - (MODERNA) 2020-10-31 00:00:00 Completed [facility] SARS-COV-2 COVID-19 VACCINE - (MODERNA) 2020-10-31 00:00:00 Completed [facility] SARS-COV-2 COVID-19 VACCINE - (MODERNA) 2020-10-31 00:00:00 Completed [facility] Pneumococcal Polysaccharide, PPSV23 (PNEUMOVAX) 2018-11-12 00:00:00 Completed [facility] Pneumococcal Polysaccharide, PPSV23 (PNEUMOVAX) 2018-11-12 00:00:00 Completed [facility] Pneumococcal Polysaccharide, PPSV23 (PNEUMOVAX) 2018-11-12 00:00:00 Completed [facility] Pneumococcal Polysaccharide, PPSV23 (PNEUMOVAX) 2018-11-12 00:00:00 Completed [facility] Pneumococcal Polysaccharide, PPSV23 (PNEUMOVAX) 2018-11-12 00:00:00 Completed [facility] Pneumococcal Polysaccharide, PPSV23 (PNEUMOVAX) 2018-11-12 00:00:00 Completed [facility] Pneumococcal Polysaccharide, PPSV23 (PNEUMOVAX) 2018-11-12 00:00:00 Completed [facility] Pneumococcal Polysaccharide, PPSV23 (PNEUMOVAX) 2018-11-12 00:00:00 Completed [facility] Pneumococcal Polysaccharide, PPSV23 (PNEUMOVAX) 2018-11-12 00:00:00 Completed [facility] Pneumococcal Polysaccharide, PPSV23 (PNEUMOVAX) 2018-11-12 00:00:00 Completed [facility] Pneumococcal Polysaccharide, PPSV23 (PNEUMOVAX) 2018-11-12 00:00:00 Completed [facility] Pneumococcal Polysaccharide, PPSV23 (PNEUMOVAX) 2018-11-12 00:00:00 Completed [facility] Pneumococcal Polysaccharide, PPSV23 (PNEUMOVAX) 2018-11-12 00:00:00 Completed [facility] Pneumococcal Polysaccharide, PPSV23 (PNEUMOVAX) 2018-11-12 00:00:00 Completed [facility] Pneumococcal Polysaccharide, PPSV23 (PNEUMOVAX) 2018-11-12 00:00:00 Completed [facility] Pneumococcal Polysaccharide, PPSV23 (PNEUMOVAX) 2018-11-12 00:00:00 Completed [facility] Pneumococcal Polysaccharide, PPSV23 (PNEUMOVAX) 2018-11-12 00:00:00 Completed [facility] Pneumococcal Polysaccharide, PPSV23 (PNEUMOVAX) 2018-11-12 00:00:00 Completed [facility] Pneumococcal Polysaccharide, PPSV23 (PNEUMOVAX) 2018-11-12 00:00:00 Completed [facility] Pneumococcal Polysaccharide, PPSV23 (PNEUMOVAX) 2018-11-12 00:00:00 Completed [facility] Pneumococcal Polysaccharide, PPSV23 (PNEUMOVAX) 2018-11-12 00:00:00 Completed [facility] Pneumococcal Polysaccharide, PPSV23 (PNEUMOVAX) 2018-11-12 00:00:00 Completed [facility] Pneumococcal Polysaccharide, PPSV23 (PNEUMOVAX) 2018-11-12 00:00:00 Completed [facility] Pneumococcal Polysaccharide, PPSV23 (PNEUMOVAX) 2018-11-12 00:00:00 Completed [facility] Pneumococcal Polysaccharide, PPSV23 (PNEUMOVAX) 2018-11-12 00:00:00 Completed [facility] Pneumococcal Polysaccharide, PPSV23 (PNEUMOVAX) 2018-11-12 00:00:00 Completed [facility] Pneumococcal Polysaccharide, PPSV23 (PNEUMOVAX) 2018-11-12 00:00:00 Completed [facility] Pneumococcal Polysaccharide, PPSV23 (PNEUMOVAX) 2018-11-12 00:00:00 Completed [facility] Pneumococcal Polysaccharide, PPSV23 (PNEUMOVAX) 2018-11-12 00:00:00 Completed [facility] Pneumococcal Polysaccharide, PPSV23 (PNEUMOVAX) 2018-11-12 00:00:00 Completed [facility] Pneumococcal Polysaccharide, PPSV23 (PNEUMOVAX) 2018-11-12 00:00:00 Completed [facility] Pneumococcal Polysaccharide, PPSV23 (PNEUMOVAX) 2018-11-12 00:00:00 Completed [facility] Pneumococcal Polysaccharide, PPSV23 (PNEUMOVAX) 2018-11-12 00:00:00 Completed [facility] Pneumococcal Polysaccharide, PPSV23 (PNEUMOVAX) 2018-11-12 00:00:00 Completed [facility] Pneumococcal Polysaccharide, PPSV23 (PNEUMOVAX) 2018-11-12 00:00:00 Completed [facility] Pneumococcal Polysaccharide, PPSV23 (PNEUMOVAX) 2018-11-12 00:00:00 Completed [facility] Pneumococcal Polysaccharide, PPSV23 (PNEUMOVAX) 2018-11-12 00:00:00 Completed [facility] Pneumococcal Polysaccharide, PPSV23 (PNEUMOVAX) 2018-11-12 00:00:00 Completed [facility] Pneumococcal Polysaccharide, PPSV23 (PNEUMOVAX) 2018-11-12 00:00:00 Completed [facility] Pneumococcal Polysaccharide, PPSV23 (PNEUMOVAX) 2018-11-12 00:00:00 Completed [facility] Pneumococcal Polysaccharide, PPSV23 (PNEUMOVAX) 2018-11-12 00:00:00 Completed [facility] Pneumococcal Polysaccharide, PPSV23 (PNEUMOVAX) 2018-11-12 00:00:00 Completed [facility] Pneumococcal Polysaccharide, PPSV23 (PNEUMOVAX) 2018-11-12 00:00:00 Completed [facility] Pneumococcal Polysaccharide, PPSV23 (PNEUMOVAX) 2018-11-12 00:00:00 Completed [facility] Pneumococcal Polysaccharide, PPSV23 (PNEUMOVAX) 2018-11-12 00:00:00 Completed [facility] Pneumococcal Polysaccharide, PPSV23 (PNEUMOVAX) 2018-11-12 00:00:00 Completed [facility] Pneumococcal Polysaccharide, PPSV23 (PNEUMOVAX) 2018-11-12 00:00:00 Completed [facility] Pneumococcal Polysaccharide, PPSV23 (PNEUMOVAX) 2018-11-12 00:00:00 Completed [facility] Pneumococcal Polysaccharide, PPSV23 (PNEUMOVAX) 2018-11-12 00:00:00 Completed [facility] Pneumococcal Polysaccharide, PPSV23 (PNEUMOVAX) 2018-11-12 00:00:00 Completed [facility] Pneumococcal Polysaccharide, PPSV23 (PNEUMOVAX) 2018-11-12 00:00:00 Completed [facility] Pneumococcal Polysaccharide, PPSV23 (PNEUMOVAX) 2018-11-12 00:00:00 Completed [facility] Pneumococcal Polysaccharide, PPSV23 (PNEUMOVAX) 2018-11-12 00:00:00 Completed [facility] Pneumococcal Polysaccharide, PPSV23 (PNEUMOVAX) 2018-11-12 00:00:00 Completed [facility] Pneumococcal Polysaccharide, PPSV23 (PNEUMOVAX) 2018-11-12 00:00:00 Completed [facility] Pneumococcal Polysaccharide, PPSV23 (PNEUMOVAX) 2018-11-12 00:00:00 Completed [facility] Pneumococcal Polysaccharide, PPSV23 (PNEUMOVAX) [facility] Completed [facility] SARS-COV-2 COVID-19 VACCINE - (MODERNA) Unknown Completed [facility] SARS-COV-2 COVID-19 VACCINE - (MODERNA) Unknown Completed [facility] SARS-COV-2 COVID-19 VACCINE - (MODERNA) Unknown Completed [facility] Pneumococcal Polysaccharide, PPSV23 (PNEUMOVAX) Unknown Completed [facility] TDAP Unknown Completed [facility] SARS-COV-2 COVID-19 VACCINE - (MODERNA) Unknown Completed [facility] SARS-COV-2 COVID-19 VACCINE - (MODERNA) Unknown Completed [facility] SARS-COV-2 COVID-19 VACCINE - (MODERNA) Unknown Completed [facility] Pneumococcal Polysaccharide, PPSV23 (PNEUMOVAX) Unknown Completed [facility] TDAP Unknown Completed [facility] SARS-COV-2 COVID-19 VACCINE - (MODERNA) Unknown Completed [facility] SARS-COV-2 COVID-19 VACCINE - (MODERNA) Unknown Completed [facility] SARS-COV-2 COVID-19 VACCINE - (MODERNA) Unknown Completed [facility] Pneumococcal Polysaccharide, PPSV23 (PNEUMOVAX) Unknown Completed [facility] TDAP Unknown Completed [facility] SARS-COV-2 COVID-19 VACCINE - (MODERNA) Unknown Completed [facility] SARS-COV-2 COVID-19 VACCINE - (MODERNA) Unknown Completed [facility] SARS-COV-2 COVID-19 VACCINE - (MODERNA) Unknown Completed [facility] Pneumococcal Polysaccharide, PPSV23 (PNEUMOVAX) Unknown Completed [facility] TDAP Unknown Completed [facility] SARS-COV-2 COVID-19 VACCINE - (MODERNA) Unknown Completed [facility] SARS-COV-2 COVID-19 VACCINE - (MODERNA) Unknown Completed [facility] SARS-COV-2 COVID-19 VACCINE - (MODERNA) Unknown Completed [facility] Pneumococcal Polysaccharide, PPSV23 (PNEUMOVAX) Unknown Completed [facility] TDAP Unknown Completed [facility] SARS-COV-2 COVID-19 VACCINE - (MODERNA) Unknown Completed [facility] SARS-COV-2 COVID-19 VACCINE - (MODERNA) Unknown Completed [facility] SARS-COV-2 COVID-19 VACCINE - (MODERNA) Unknown [facility]pleted [facility] Pneumococcal Polysaccharide, PPSV23 (PNEUMOVAX) Unknown Completed [facility] TDAP Unknown Completed [facility] SARS-COV-2 COVID-19 VACCINE - (MODERNA) Unknown Completed [facility] SARS-COV-2 COVID-19 VACCINE - (MODERNA) Unknown Completed [facility] SARS-COV-2 COVID-19 VACCINE - (MODERNA) Unknown Completed [facility] Pneumococcal Polysaccharide, PPSV23 (PNEUMOVAX) Unknown Completed [facility] TDAP Unknown Completed [facility] SARS-COV-2 COVID-19 VACCINE - (MODERNA) Unknown Completed [facility] SARS-COV-2 COVID-19 VACCINE - (MODERNA) Unknown Completed [facility] SARS-COV-2 COVID-19 VACCINE - (MODERNA) Unknown Completed [facility] Pneumococcal Polysaccharide, PPSV23 (PNEUMOVAX) Unknown Completed [facility] TDAP Unknown Completed [facility] SARS-COV-2 COVID-19 VACCINE - (MODERNA) Unknown Completed [facility] SARS-COV-2 COVID-19 VACCINE - (MODERNA) Unknown Completed [facility] SARS-COV-2 COVID-19 VACCINE - (MODERNA) Unknown Completed [facility] Pneumococcal Polysaccharide, PPSV23 (PNEUMOVAX) Unknown Completed [facility] TDAP Unknown Completed [facility] SARS-COV-2 COVID-19 VACCINE - (MODERNA) Unknown Completed [facility] SARS-COV-2 COVID-19 VACCINE - (MODERNA) Unknown Completed [facility] SARS-COV-2 COVID-19 VACCINE - (MODERNA) Unknown Completed [facility] Pneumococcal Polysaccharide, PPSV23 (PNEUMOVAX) Unknown Completed [facility] TDAP Unknown Completed [facility] SARS-COV-2 COVID-19 VACCINE - (MODERNA) Unknown Completed [facility] SARS-COV-2 COVID-19 VACCINE - (MODERNA) Unknown Completed [facility] SARS-COV-2 COVID-19 VACCINE - (MODERNA) Unknown Completed [facility] Pneumococcal Polysaccharide, PPSV23 (PNEUMOVAX) Unknown Completed [facility] TDAP Unknown Completed [facility] SARS-COV-2 COVID-19 VACCINE - (MODERNA) Unknown Completed [facility] SARS-COV-2 COVID-19 VACCINE - (MODERNA) Unknown Completed [facility] SARS-COV-2 COVID-19 VACCINE - (MODERNA) Unknown Completed [facility] Pneumococcal Polysaccharide, PPSV23 (PNEUMOVAX) Unknown Completed [facility] TDAP Unknown Completed [facility] SARS-COV-2 COVID-19 VACCINE - (MODERNA) Unknown Completed [facility] SARS-COV-2 COVID-19 VACCINE - (MODERNA) Unknown Completed [facility] SARS-COV-2 COVID-19 VACCINE - (MODERNA) Unknown Completed [facility] Pneumococcal Polysaccharide, PPSV23 (PNEUMOVAX) Unknown Completed [facility] TDAP Unknown Completed [facility] SARS-COV-2 COVID-19 VACCINE - (MODERNA) Unknown Completed [facility] SARS-COV-2 COVID-19 VACCINE - (MODERNA) Unknown Completed [facility] SARS-COV-2 COVID-19 VACCINE - (MODERNA) Unknown Completed [facility] Pneumococcal Polysaccharide, PPSV23 (PNEUMOVAX) Unknown Completed [facility] TDAP Unknown Completed [facility] SARS-COV-2 COVID-19 VACCINE - (MODERNA) Unknown Completed [facility] SARS-COV-2 COVID-19 VACCINE - (MODERNA) Unknown Completed [facility] SARS-COV-2 COVID-19 VACCINE - (MODERNA) Unknown Completed [facility] Pneumococcal Polysaccharide, PPSV23 (PNEUMOVAX) Unknown Completed [facility] TDAP Unknown Completed [facility] SARS-COV-2 COVID-19 VACCINE - (MODERNA) Unknown Completed [facility] SARS-COV-2 COVID-19 VACCINE - (MODERNA) Unknown Completed [facility] SARS-COV-2 COVID-19 VACCINE - (MODERNA) Unknown Completed [facility] Pneumococcal Polysaccharide, PPSV23 (PNEUMOVAX) Unknown Completed [facility] TDAP Unknown Completed [facility] SARS-COV-2 COVID-19 VACCINE - (MODERNA) Unknown Completed [facility] SARS-COV-2 COVID-19 VACCINE - (MODERNA) Unknown Completed [facility] SARS-COV-2 COVID-19 VACCINE - (MODERNA) Unknown Completed [facility] Pneumococcal Polysaccharide, PPSV23 (PNEUMOVAX) Unknown Completed [facility] TDAP Unknown Completed [facility] SARS-COV-2 COVID-19 VACCINE - (MODERNA) Unknown Completed [facility] SARS-COV-2 COVID-19 VACCINE - (MODERNA) Unknown Completed [facility] SARS-COV-2 COVID-19 VACCINE - (MODERNA) Unknown Completed [facility] Pneumococcal Polysaccharide, PPSV23 (PNEUMOVAX) Unknown Completed [facility] TDAP Unknown Completed [facility] SARS-COV-2 COVID-19 VACCINE - (MODERNA) Unknown Completed [facility] SARS-COV-2 COVID-19 VACCINE - (MODERNA) Unknown Completed [facility] SARS-COV-2 COVID-19 VACCINE - (MODERNA) Unknown Completed [facility] Pneumococcal Polysaccharide, PPSV23 (PNEUMOVAX) Unknown Completed [facility] TDAP Unknown Completed [facility] SARS-COV-2 COVID-19 VACCINE - (MODERNA) Unknown Completed [facility] SARS-COV-2 COVID-19 VACCINE - (MODERNA) Unknown Completed [facility] SARS-COV-2 COVID-19 VACCINE - (MODERNA) Unknown Completed [facility] Pneumococcal Polysaccharide, PPSV23 (PNEUMOVAX) Unknown Completed [facility] TDAP Unknown Completed [facility] SARS-COV-2 COVID-19 VACCINE - (MODERNA) Unknown Completed [facility] SARS-COV-2 COVID-19 VACCINE - (MODERNA) Unknown Completed [facility] SARS-COV-2 COVID-19 VACCINE - (MODERNA) Unknown Completed [facility] Pneumococcal Polysaccharide, PPSV23 (PNEUMOVAX) Unknown Completed [facility] TDAP Unknown Completed [facility] SARS-COV-2 COVID-19 VACCINE - (MODERNA) Unknown Completed [facility] SARS-COV-2 COVID-19 VACCINE - (MODERNA) Unknown Completed [facility] SARS-COV-2 COVID-19 VACCINE - (MODERNA) Unknown Completed [facility] Pneumococcal Polysaccharide, PPSV23 (PNEUMOVAX) Unknown Completed [facility] TDAP Unknown Completed [facility] SARS-COV-2 COVID-19 VACCINE - (MODERNA) Unknown Completed [facility] SARS-COV-2 COVID-19 VACCINE - (MODERNA) Unknown Completed [facility] SARS-COV-2 COVID-19 VACCINE - (MODERNA) Unknown Completed [facility] Pneumococcal Polysaccharide, PPSV23 (PNEUMOVAX) Unknown Completed [facility] TDAP Unknown Completed [facility] SARS-COV-2 COVID-19 VACCINE - (MODERNA) Unknown Completed [facility] SARS-COV-2 COVID-19 VACCINE - (MODERNA) Unknown Completed [facility] SARS-COV-2 COVID-19 VACCINE - (MODERNA) Unknown Completed [facility] Pneumococcal Polysaccharide, PPSV23 (PNEUMOVAX) Unknown Completed [facility] TDAP Unknown Completed [facility] SARS-COV-2 COVID-19 VACCINE - (MODERNA) Unknown Completed [facility] SARS-COV-2 COVID-19 VACCINE - (MODERNA) Unknown Completed [facility] SARS-COV-2 COVID-19 VACCINE - (MODERNA) Unknown Completed [facility] Pneumococcal Polysaccharide, PPSV23 (PNEUMOVAX) Unknown Completed [facility] TDAP Unknown Completed [facility] SARS-COV-2 COVID-19 VACCINE - (MODERNA) Unknown Completed [facility] SARS-COV-2 COVID-19 VACCINE - (MODERNA) Unknown Completed [facility] SARS-COV-2 COVID-19 VACCINE - (MODERNA) Unknown Completed [facility] Pneumococcal Polysaccharide, PPSV23 (PNEUMOVAX) Unknown Completed [facility] TDAP Unknown Completed [facility] SARS-COV-2 COVID-19 VACCINE - (MODERNA) Unknown Completed [facility] SARS-COV-2 COVID-19 VACCINE - (MODERNA) Unknown Completed [facility] SARS-COV-2 COVID-19 VACCINE - (MODERNA) Unknown Completed [facility] Pneumococcal Polysaccharide, PPSV23 (PNEUMOVAX) Unknown Completed [facility] TDAP Unknown Completed [facility] SARS-COV-2 COVID-19 VACCINE - (MODERNA) Unknown Completed [facility] SARS-COV-2 COVID-19 VACCINE - (MODERNA) Unknown Completed [facility] SARS-COV-2 COVID-19 VACCINE - (MODERNA) Unknown Completed [facility] Pneumococcal Polysaccharide, PPSV23 (PNEUMOVAX) Unknown Completed [facility] TDAP Unknown Completed [facility] SARS-COV-2 COVID-19 VACCINE - (MODERNA) Unknown Completed [facility] SARS-COV-2 COVID-19 VACCINE - (MODERNA) Unknown Completed [facility] SARS-COV-2 COVID-19 VACCINE - (MODERNA) Unknown Completed [facility] Pneumococcal Polysaccharide, PPSV23 (PNEUMOVAX) Unknown Completed [facility] TDAP Unknown Completed [facility] SARS-COV-2 COVID-19 VACCINE - (MODERNA) Unknown Completed [facility] SARS-COV-2 COVID-19 VACCINE - (MODERNA) Unknown Completed [facility] SARS-COV-2 COVID-19 VACCINE - (MODERNA) Unknown Completed [facility] Vital Signs Vital Name Observation Time Observation Value Comments S ource Body weight 2023-06-04 16:29:00 83.462 kg [facility] BMI 2023-06-04 16:29:00 25.66 kg/m2 [facility] Systolic blood pressure 2023-06-01 19:18:00 100 mm[Hg] [facility] Diastolic blood pressure 2023-06-01 19:18:00 64 mm[Hg] [facility] Heart rate 2023-06-01 19:18:00 60 /[facility] 2023-06-01 18:35:00 35.44 Vida [facility] Respiratory rate 2023-06-01 18:35:00 18 /min [facility] Body height 2023-06-01 18:35:00 180.3 cm [facility] Body weight 2023-06-01 18:35:00 83.598 kg [facility] BMI 2023-06-01 18:35:00 25.70 kg/m2 [facility] Oxygen saturation in Arterial blood by Pulse oximetry 2023-06-01 18:35:00 99 /min [facility] Systolic blood pressure 2023-05-18 21:03:00 131 mm[Hg] [facility] Diastolic blood pressure 2023-05-18 21:03:00 77 mm[Hg] [facility] Heart rate 2023-05-18 21:03:00 58 /min [facility] 2023-05-18 21:01:00 35.44 Vida [facility] Body height 2023-05-18 21:01:00 180.3 cm [facility] Body weight 2023-05-18 21:01:00 85.639 kg [facility] BMI 2023-05-18 21:01:00 26.33 kg/m2 [facility] Oxygen saturation in Arterial blood by Pulse oximetry 2023-05-18 21:01:00 95 /min [facility] Body height 2023-05-05 14:56:00 180.3 cm [facility] Body weight 2023-05-05 14:56:00 86.183 kg [facility] BMI 2023-05-05 14:56:00 26.50 kg/m2 [facility] Systolic blood pressure 2023-04-23 13:52:00 116 mm[Hg] [facility] Diastolic blood pressure 2023-04-23 13:52:00 74 mm[Hg] [facility] Heart rate 2023-04-23 13:52:00 60 /min [facility] Body temperature 2023-04-23 13:52:00 36.44 Vida [facility] Respiratory rate 2023-04-23 13:52:00 16 /min [facility] Body height 2023-04-23 13:52:00 180.3 cm [facility] Body weight 2023-04-23 13:52:00 86.274 kg [facility] BMI 2023-04-23 13:52:00 26.53 kg/m2 [facility] Oxygen saturation in Arterial blood by Pulse oximetry 2023-04-23 13:52:00 97 /min [facility] Systolic blood pressure 2023-04-07 13:30:00 121 mm[Hg] [facility] Diastolic blood pressure 2023-04-07 13:30:00 68 mm[Hg] [facility] Heart rate 2023-04-07 13:30:00 60 /min [facility] Body temperature 2023-04-07 13:30:00 35.44 Vida [facility] Respiratory rate 2023-04-07 13:30:00 16 /min [facility] Body height 2023-04-07 13:30:00 180.3 cm [facility] Body weight 2023-04-07 13:30:00 83.779 kg [facility] BMI 2023-04-07 13:30:00 25.76 kg/m2 [facility] Oxygen saturation in Arterial blood by Pulse oximetry 2023-04-07 13:30:00 97 /min [facility] Systolic blood pressure 2023-03-02 18:04:00 101 mm[Hg] [facility] Diastolic blood pressure 2023-03-02 18:04:00 59 mm[Hg] [facility] Heart rate 2023-03-02 18:03:00 61 /min [facility] Body temperature 2023-03-02 18:03:00 36.5 Vida [facility] Respiratory rate 2023-03-02 18:03:00 16 /min [facility] Body height 2023-03-02 18:03:00 180.3 cm [facility] Body weight 2023-03-02 18:03:00 87.862 kg [facility] BMI 2023-03-02 18:03:00 27.02 kg/m2 [facility] Systolic blood pressure 2023-02-19 15:33:00 148 mm[Hg] [facility] Diastolic blood pressure 2023-02-19 15:33:00 87 mm[Hg] [facility] Heart rate 2023-02-19 15:30:00 60 /min [facility] Body temperature 2023-02-19 15:30:00 36.44 Vida [facility] Respiratory rate 2023-02-19 15:30:00 16 /min [facility] Body height 2023-02-19 15:30:00 180.3 cm [facility] Body weight 2023-02-19 15:30:00 83.961 kg [facility] BMI 2023-02-19 15:30:00 25.82 kg/m2 [facility] Oxygen saturation in Arterial blood by Pulse oximetry 2023-02-19 15:30:00 98 /min [facility] Systolic blood pressure 2022-10-30 15:28:00 154 mm[Hg] [facility] Diastolic blood pressure 2022-10-30 15:28:00 92 mm[Hg] [facility] Heart rate 2022-10-30 15:26:00 60 /min [facility] Body temperature 2022-10-30 15:26:00 36.83 Vida [facility] Respiratory rate 2022-10-30 15:26:00 20 /min [facility] Body height 2022-10-30 15:26:00 [facility] 2022-10-30 15:26:00 86.546 kg [facility] BMI 2022-10-30 15:26:00 26.61 [facility] Syst[facility] 2022-08-01 20:43:00 123 mm[Hg] [facility] Diastolic blood pressure 2022-08-01 20:43:00 75 mm[Hg] [facility] Heart rate 2022-08-01 20:43:00 61 /min [facility] Body temperature 2022-08-01 20:43:00 36.39 Vida [facility] Respiratory rate 2022-08-01 20:43:00 18 /min [facility] Body height 2022-08-01 20:43:00 180.3 cm [facility] Body weight 2022-08-01 20:43:00 85.276 kg [facility] BMI 2022-08-01 20:43:00 26.22 kg/m2 [facility] Oxygen saturation in Arterial blood by Pulse oximetry 2022-08-01 20:43:00 97 /min [facility] Systolic blood pressure 2022-07-14 16:43:00 116 mm[Hg] [facility] Diastolic blood pressure 2022-07-14 16:43:00 77 mm[Hg] [facility] Heart rate 2022-07-14 16:43:00 60 /min [facility] Body temperature 2022-07-14 16:43:00 36.56 Vida [facility] Respiratory rate 2022-07-14 16:43:00 18 /min [facility] Body weight 2022-07-14 16:43:00 83.462 kg [facility] BMI 2022-07-14 16:43:00 25.66 kg/m2 [facility] Oxygen saturation in Arterial blood by Pulse oximetry 2022-07-14 16:43:00 100 /min [facility] Systolic blood pressure 2022-06-17 14:52:00 138 mm[Hg] [facility] Diastolic blood pressure 2022-06-17 14:52:00 84 mm[Hg] [facility] Heart rate 2022-06-17 14:52:00 60 /min [facility] Body temperature 2022-06-17 14:52:00 36.72 Vida [facility] Respiratory rate 2022-06-17 14:52:00 16 /min [facility] Body height 2022-06-17 14:52:00 180.3 cm [facility] Body weight 2022-06-17 14:52:00 86.456 kg [facility] BMI 2022-06-17 14:52:00 26.58 kg/m2 [facility] Oxygen saturation in Arterial blood by Pulse oximetry 2022-06-17 14:52:00 98 /min [facility] Systolic blood pressure 2022-05-20 16:17:00 138 mm[Hg] [facility] Diastolic blood pressure 2022-05-20 16:17:00 88 mm[Hg] [facility] Heart rate 2022-05-20 16:17:00 62 /min [facility] Body temperature 2022-05-20 16:17:00 36.67 Vida [facility] Respiratory rate 2022-05-20 16:17:00 18 /min [facility] Body weight 2022-05-20 16:17:00 89.359 kg [facility] BMI 2022-05-20 16:17:00 27.48 kg/m2 [facility] Oxygen saturation in Arterial blood by Pulse oximetry 2022-05-20 16:17:00 100 /min [facility] Systolic blood pressure 2022-05-13 15:12:00 144 mm[Hg] [facility] Diastolic blood pressure 2022-05-13 15:12:00 85 mm[Hg] [facility] Heart rate 2022-05-13 15:12:00 60 /min [facility] Body temperature 2022-05-13 15:10:00 35.44 Vida [facility] Respiratory rate 2022-05-13 15:10:00 16 /min [facility] Body height 2022-05-13 15:10:00 180.3 cm [facility] Body weight 2022-05-13 15:10:00 89.721 kg [facility] BMI 2022-05-13 15:10:00 27.59 kg/m2 [facility] Oxygen saturation in Arterial blood by Pulse oximetry 2022-05-13 15:10:00 99 /min [facility] Systolic blood pressure 2022-05-01 15:35:00 137 mm[Hg] [facility] Diastolic blood pressure 2022-05-01 15:35:00 87 mm[Hg] [facility] Heart rate 2022-05-01 15:35:00 60 /min [facility] Body temperature 2022-05-01 15:35:00 36.39 Vida [facility] Respiratory rate 2022-05-01 15:35:00 18 /min [facility] Body height 2022-05-01 15:35:00 180.3 cm [facility] Body weight 2022-05-01 15:35:00 87.998 kg [facility] BMI 2022-05-01 15:35:00 27.06 kg/m2 [facility] Oxygen saturation in Arterial blood by Pulse oximetry 2022-05-01 15:35:00 99 /min [facility] Systolic blood pressure 2022-04-03 15:16:00 168 mm[Hg] [facility] Diastolic blood pressure 2022-04-03 15:16:00 94 mm[Hg] [facility] Heart rate 2022-04-03 15:16:00 60 /min [facility] Body temperature 2022-04-03 15:16:00 36.33 Vida [facility] Respiratory rate 2022-04-03 15:16:00 20 /min [facility] Body height 2022-04-03 15:16:00 180.3 cm [facility] Body weight 2022-04-03 15:16:00 85.412 kg [facility] BMI 2022-04-03 15:16:00 26.26 kg/m2 [facility] Procedures Procedure Date / Time Performed Performing Clinician Source OCT, OPTIC NERVE - OU - BOTH EYES 2023-06-04 16:38:47 Barbara Bedoya [facility] PATIENT QUESTIONNAIRE 2023-04-07 05:01:00 Doctor Unassigned, Twilight [facility] LIPID PANEL (01703)(TOTAL CHOLESTEROL, TRIGLYCERIDES, HDL) 2022-10-30 16:28:00 IbyolispoSusanne Vang [facility] US ABDOMEN LIMITED WITH DOPPLER 2022-05-21 21:38:44 [facility] 2022-05-19 06:01:00 Do ctor Unassigned, Twilight [facility] FERRITIN SERUM 2022-05-13 16:21:[address] [facility] BILI UNCONJUGATED/BILI CONJUG 2022-05-13 16:21:00 [facility] COMP. METABOLIC PANEL (87826) 2022-05-13 16:21:00 Susanne Ibrahim [facility] ALPHA FETOPROTEIN 2022-05-13 16:21:00 [facility] CBC WITH DIFF 2022-05-13 16:21:00 Julius Todd [facility] PROTHROMBIN TIME / INR 2022-05-13 16:21:00 Jose Todd [facility] MISCELLANEOUS SEND OUT TEST 2022-05-13 16:21:00 Julius Todd [facility] EXTERNAL PROVIDER RECORDS 2022-04-28 06:01:00 Do ctor Unassigned, Twilight [facility] EXTERNAL PROVIDER RECORDS 2022-04-18 05:01:00 Do ctor Unassigned, Twilight [facility] US RETROPERITONEAL LIMITED 2022-04-10 19:34:37 I bidapo-Susanne Elizabeth [facility] COMP. METABOLIC PANEL (56236) 2022-04-03 16:21:00 Ibidapo-Susanne Elizabeth [facility] LIPID PANEL (10241)(TOTAL CHOLESTEROL, TRIGLYCERIDES, HDL) 2022-04-03 16:21:00 Ibidapo-ObSusanne ng [facility] GLYCOSYLATED HEMOGLOBIN (A1C) 2022-04-03 16:21:00 Ibyolispo-ObSusanne ng [facility] MEDICATION CORRESPONDENCE 2022-03-27 05:01:00 Do ctor Unassigned, Twilight [facility] MEDICATION CORRESPONDENCE 2022-02-26 05:01:00 Do ctor Unassigned, Twilight [facility] MEDICATION CORRESPONDENCE 2021-12-04 05:01:00 Do ctor Unassigned, Twilight [facility] MEDICATION CORRESPONDENCE 2021-11-13 05:01:00 Do ctor Unassigned, Twilight [facility] EXT LOWER VENOUS DOPPLER BILAT 2021-02-01 [facility]OPPL[facility] BILAT 2021-02-01 20:00:[address] [facility] DOPPLER VENOUS ARMS BILATERAL 2021-02-01 19:30:[address] [facility] DOPPLER VENOUS ARMS BILATERAL 2021-02-01 19:30:00 [facility] ECG 12-LEAD 2021-01-30 14:34:[facility] 2021-01-30 14:34:[facility] En[facility] Start Date/Time End Date/Time Encounter Type Admission Type Attending [facility] Care Department Encounter ID Source 2019-09-15 16:24:00 Inpatient Rakesh Zacarias Domingo [facility] [id number] [facility] 2023-06-12 00:00:00 2023-06-12 00:00:00 Refill LisapoSusanne Vang [facility] 1.2.840.114 350.1.13.10 4.2.7.2.686 [id number] [facility] 2023-06-04 10:00:00 2023-06-04 10:15:00 Office [facility] 1.2.840.114 350.1.13.10 4.2.7.2.686 [id number] [facility] 2023-06-04 10:00:00 2023-06-04 10:00:00 Outpatient BARBARA MCINTOSH WENJIE [facility] [id number] [facility] 2023-06-03 00:00:00 2023-06-03 00:00:00 [facility] 1.2840.114 350.1.13.10 4.2.7.2.686 [id number] [facility] 2023-06-01 13:00:00 2023-06-01 14:43:50 Outpatient R [facility] [id number] [facility] 2023-06-01 13:00:00 2023-06-01 14:43:50 [facility] 1.2840.114 350.1.13.10 4.2.7.2.686 [id number] [facility] 2023-06-01 12:00:00 2023-06-01 12:15:00 Licensed Appraiser Visit Vtc-Lab Armani [facility]PEC [facility] 1.2840.114 350.1.13.10 4.2.7.2.686 [id number] [facility] 2023-06-01 00:00:00 2023-06-01 00:00:00 Telephone Armani [facility] 1.2.840.114 350.1.13.10 4.2.7.2.686 [id number] [facility] 2023-06-01 00:00:00 2023-06-01 00:00:00 Patient Secure Msg [facility] 1.2.840.114 350.1.13.10 4.2.7.2.686 [id number] [facility] 2023-05-18 16:00:00 2023-05-18 16:15:00 Licensed Appraiser Visit [facility] 1.20.114 350.1.13.10 4.2.7.2.686 [id number] [facility] 2023-05-18 15:00:00 2023-05-18 16:14:37 Outpatient R [facility] [id number] [facility] 2023-05-18 15:00:00 2023-05-18 16:14:37 Office Visit [facility] 1.20.114 350.1.13.10 4.2.7.2.686 [id number] [facility] 2023-05-13 14:00:00 2023-05-13 14:00:00 Outpatient R SHANTANU GARZA [facility] [id number] [facility] 2023-05-05 09:00:00 2023-05-05 09:49:13 Outpatient R BARBARA BEDOYA WENJIE [facility] [id number] [facility] 2023-05-05 09:00:00 2023-05-05 09:49:13 [facility] 1.2.840.114 350.1.13.10 4.2.7.2.686 [id number] [facility] 2023-04-28 00:00:00 2023-04-28 00:00:00 Patient Secure Msg Doctor Unassigned, Twilight [facility] 1.2840.114 350.1.13.10 4.2.7.2.686 [id number] [facility] 2023-04-28 00:00:00 2023-04-28 00:00:00 Patient Secure Msg Doctor Unassigned, Twilight [facility] 1.2840.114 350.1.13.10 4.2.7.2.686 [id number] [facility] 2023-04-23 09:00:00 2023-04-23 09:30:00 [facility] 1.840.114 350.1.13.10 4.2.7.2.686 [id number] [facility] 2023-04-23 09:00:00 2023-04-23 09:00:00 Outpatient R [facility] [id number] [facility] 2023-04-15 00:00:00 2023-04-15 00:00:00 Outpatient DMG DMG [id number] [facility] 2023-04-08 00:00:00 2023-04-08 00:00:00 Telephone Shantanu Garza [facility] 1.0.114 350.1.13.10 4.2.7.2.686 [id number] [facility] 2023-04-07 10:30:00 2023-04-07 10:45:00 Licensed Appraiser Visit 2, [facility] 1.2840.114 350.1.13.10 4.2.7.2.686 [id number] [facility] 2023-04-07 09:00:00 2023-04-07 10:09:16 Outpatient R SHANTANU GARZA [facility] [id number] [facility] 2023-04-07 09:00:00 2023-04-07 10:09:16 Office Visit Shantanu Garza [facility] 1.2.840.114 350.1.13.10 4.2.7.2.686 [id number] [facility] 2023-04-07 00:00:00 2023-04-07 00:00:00 Orders Only Doctor Unassigned, Twilight [facility] 1.2.0.114 350.1.13.10 4.2.7.2.686 [id number] [facility] 2023-04-06 00:00:00 2023-04-06 00:00:00 Telephone Susanne Ibrahim [facility] 1.20.114 350.1.13.10 4.2.7.2.686 [id number] [facility] 2023-04-02 09:30:00 2023-04-02 09:30:00 Outpatient R TIFFANY MENDEZ [facility] [id number] [facility] 2023-03-02 13:30:00 2023-03-02 13:57:13 Outpatient R DARYL AWAD [facility] [id number] [facility] 2023-03-02 13:30:00 2023-03-02 13:57:13 Office Visit Daryl Awad [facility] 1.2.114 350.1.13.10 4.2.7.2.686 [id number] [facility] 2023-03-02 00:00:00 2023-03-02 00:00:00 [facility] 1.2.840.114 350.1.13.10 4.2.7.2.686 [id number] [facility] 2023-02-19 10:30:00 2023-02-19 11:02:51 Outpatient R [facility] [id number] [facility] 2023-02-19 10:30:00 2023-02-19 11:02:51 Office Visit [facility] 1.2.840.114 350.1.13.10 4.2.7.2.686 [id number] [facility] 2023-01-29 00:00:00 2023-01-29 00:00:00 Telephone [facility] 1.2.840.114 350.1.13.10 4.2.7.2.686 [id number] [facility] 2023-01-20 00:00:00 2023-01-20 00:00:00 Jeremy [facility] 1.2.840.114 350.1.13.10 4.2.7.2.686 [id number] [facility] 2022-12-22 00:00:00 2022-12-22 00:00:00 Telephone [facility] 1.2.840.114 350.1.13.10 4.2.7.2.686 [id number] [facility] 2022-11-19 00:00:00 2022-11-19 00:00:00 Telephone [facility] 1.2.840.114 350.1.13.10 4.2.7.2.686 [id number] [facility] 2022-10-30 10:30:00 2022-10-30 11:15:00 Outpatient R SUSANNE IBRAHIM [facility] [id number] [facility] 2022-10-30 10:30:00 2022-10-30 11:15:00 Office Visit Cathy [facility] 1.20.114 350.1.13.10 4.2.7.2.686 [id number] [facility] 2022-09-23 00:00:00 2022-09-23 00:00:00 Telephone Team, [facility] 1.0.114 350.1.13.10 4.2.7.2.686 [id number] [facility] 2022-08-01 15:00:00 2022-08-01 15:45:18 Outpatient R SUSANNE IBRAHIM [facility] [id number] [facility] 2022-08-01 15:00:00 2022-08-01 15:45:18 [facility] 1.20.114 350.1.13.10 4.2.7.2.686 [id number] [facility] 2022-07-14 11:29:21 2022-07-14 23:59:00 Outpatient R JOSE LUIS WHITAKER [facility] [id number] [facility] 2022-07-14 11:29:21 2022-07-14 23:59:00 Hospital Encounter Jose Luis Whitaker [facility] 1.840.114 350.1.13.10 4.2.7.2.686 [id number] [facility] 2022-07-14 10:30:00 2022-07-14 11:13:14 Office Visit Jose Luis Whitaker [facility] 1.2.840.114 350.1.13.10 4.2.7.2.686 [id number] [facility] 2022-07-04 00:00:00 2022-07-04 00:00:00 Refill Jeremy Galeas [facility] 1.2.840.114 350.1.13.10 4.2.7.2.686 [id number] [facility] 2022-07-01 00:00:00 2022-07-01 00:00:00 Refill Desirae[facility] 1.2.840.114 350.1.13.10 4.2.7.2.686 [id number] [facility] 2022-06-28 00:00:00 2022-06-28 00:00:00 Refill Lisapo-[facility] 1.2.840.114 350.1.13.10 4.2.7.2.686 [id number] [facility] 2022-06-24 00:00:00 2022-06-24 00:00:00 Telephone [facility] 1.2.840.114 350.1.13.10 4.2.7.2.686 [id number] [facility] 2022-06-17 09:30:00 2022-06-17 10:00:00 Office Visit Julius Todd [facility] 1.2.840.114 350.1.13.10 4.2.7.2.686 [id number] [facility] 2022-06-17 09:30:00 2022-06-17 09:30:00 Outpatient R DANIELLA [facility] [id number] [facility] 2022-06-17 00:00:00 2022-06-17 00:00:00 Telephone Norynicole [facility] 1.840.114 350.1.13.10 4.2.7.2.686 [id number] [facility] 2022-05-21 14:34:15 2022-05-21 23:59:00 Outpatient R DANIELLA [facility] [id number] [facility] 2022-05-21 14:34:15 2022-05-21 23:59:00 Hospital Encounter Rui[facility]isenicole [facility] ..114 350.1.13.10 4.2.7.2.686 [id number] [facility] 2022-05-20 10:30:00 2022-05-20 10:47:44 Outpatient R [facility]ID [facility] [id number] [facility] 2022-05-20 10:30:00 2022-05-20 10:47:44 Office Visit [facility] .114 350.1.13.10 4.2.7.2.686 [id number] [facility] 2022-05-19 00:00:00 2022-05-19 00:00:00 Orders Only Doctor Unassigned, Twilight [facility] .114 350.1.13.10 4.2.7.2.686 [id number] [facility] 2022-05-19 00:00:00 2022-05-19 00:00:00 [facility] 1.2840.114 350.1.13.10 4.2.7.2.686 [id number] [facility] 2022-05-19 00:00:00 2022-05-19 00:00:00 Telephone [facility] 1.840.114 350.1.13.10 4.2.7.2.686 [id number] [facility] 2022-05-13 09:00:00 2022-05-13 09:30:00 Office Visit [facility] 1.840.114 350.1.13.10 4.2.7.2.686 [id number] [facility] 2022-05-13 09:00:00 2022-05-13 09:00:00 [facility] [id number] [facility] 2022-05-12 00:00:00 2022-05-12 00:00:00 [facility] 1.840.114 350.1.13.10 4.2.7.2.686 [id number] [facility] 2022-05-01 10:00:00 2022-05-01 10:15:24 Outpatient R DAVID [facility] [id number] [facility] 2022-05-01 10:00:00 2022-05-01 10:15:24 [facility] 1.84.114 350.1.13.10 4.2.7.2.686 [id number] [facility] 2022-04-28 00:00:00 2022-04-28 00:00:00 Orders Only Doctor Unassigned, Twilight [facility] 1.840.114 350.1.13.10 4.2.7.2.686 [id number] [facility] 2022-04-23 00:00:00 2022-04-23 00:00:00 Patient Secure Msg Doctor Unassigned, Twilight [facility] 1.0.114 350.1.13.10 4.2.7.2.686 [id number] [facility] 2022-04-18 00:00:00 2022-04-18 00:00:00 Orders Only Doctor Unassigned, Twilight [facility] 1.0.114 350.1.13.10 4.2.7.2.686 [id number] [facility] 2022-04-12 00:00:00 2022-04-12 00:00:00 Patient Secure Msg Doctor Unassigned, Twilight [facility] 1.0.114 350.1.13.10 4.2.7.2.686 [id number] [facility] 2022-04-10 14:11:22 2022-04-10 23:59:00 Hospital Encounter [facility] 1..114 350.1.13.10 4.2.7.2.686 [id number] [facility] 2022-04-10 14:11:22 2022-04-10 23:59:00 Outpatient R SUSANNE IBRAHIM [facility] [id number] [facility] 2022-04-10 09:15:00 2022-04-10 09:30:00 Nurse Visit Only, [facility] 1..114 350.1.13.10 4.2.7.2.686 [id number] [facility] 2022-04-03 10:30:00 2022-04-03 11:00:00 [facility] 1.2.840.114 350.1.13.10 4.2.7.2.686 [id number] [facility] 2022-04-03 10:30:00 2022-04-03 10:30:00 Outpatient R [facility] [id number] [facility] 2022-04-03 00:00:00 2022-04-03 00:00:00 Pre Visit Outreach Alex Fernández [facility] 1.2.840.114 350.1.13.10 4.2.7.2.686 [id number] [facility] 2022-04-03 00:00:00 2022-04-03 00:00:00 Telephone Alexandria [facility] 1.2.840.114 350.1.13.10 4.2.7.2.686 [id number] [facility] 2022-04-03 00:00:00 2022-04-03 00:00:00 [facility] 1.2.840.114 350.1.13.10 4.2.7.2.686 [id number] [facility] 2022-03-27 00:00:00 2022-03-27 00:00:00 Orders Only Doctor Unassigned, Twilight [facility] 1.2.840.114 350.1.13.10 4.2.7.2.686 [id number] [facility] 2022-03-04 00:00:00 2022-03-04 00:00:[address] [facility] 1.2.840.114 350.1.13.10 4.2.7.2.686 [id number] [facility] 2022-02-26 00:00:00 2022-02-26 00:00:00 Orders Only Doctor Unassigned, Twilight [facility] 1.2.840.114 350.1.13.10 4.2.7.2.686 [id number] [facility] 2021-12-04 00:00:00 2021-12-04 00:00:00 [facility] 1.2.840.114 350.1.13.10 4.2.7.2.686 [id number] [facility] 2021-12-04 00:00:00 2021-12-04 00:00:00 Orders Only Doctor Unassigned, Twilight [facility] 1.2.840.114 350.1.13.10 4.2.7.2.686 [id number] [facility] 2021-11-13 00:00:00 2021-11-13 00:00:00 Brissa Kwong [facility] 1.2.840.114 350.1.13.10 4.2.7.2.686 [id number] [facility] 2021-11-13 00:00:00 2021-11-13 00:00:00 Orders Only Doctor Unassigned, Twilight [facility] 1.2.840.114 350.1.13.10 4.2.7.2.686 [id number] [facility] 2021-10-30 15:40:00 2021-10-30 16:13:46 Outpatient BRISSA CARBAJAL [facility] [id number] [facility] 2021-10-30 15:40:00 2021-10-30 16:13:46 Office Visit Jeremy Galeas Syed [facility] 1.2.840.114 350.1.13.10 4.2.7.2.686 [id number] [facility] 2021-10-30 15:40:00 2021-10-30 16:13:46 Outpatient BRISSA CARBAJAL [facility] [id number] [facility]10[facility] 09:00:00 2021-10-09 09:45:22 Outpatient LUIS CARLOS JACOBSEN [facility] [id number] [facility] 2021-10-09 09:00:00 2021-10-09 09:45:22 Ancillary Visit Yehuda Saha Brian A [facility] ([facility]) 1.2.840.114 350.1.13.10 4.2.7.2.686 [id number] [facility] 2021-10-07 09:30:00 2021-10-07 10:15:00 Ancillary Visit Jsutine Bahena Brian A [facility] ([facility]) 1.2.840.114 350.1.13.10 4.2.7.2.686 [id number] [facility] 2021-10-03 08:15:00 2021-10-03 09:08:22 Ancillary Visit Zarina Muñoz Brian A [facility] ([facility]) 1.2.840.114 350.1.13.10 4.2.7.2.686 [id number] [facility] 2021-09-19 09:45:00 2021-09-19 10:37:16 Outpatient LUIS CARLOS JACOBSEN [facility] [id number] [facility] 2021-09-19 09:45:00 2021-09-19 10:37:16 Ancillary Visit Yehuda Saha Brian A [facility] ([facility]) 1.2.840.114 350.1.13.10 4.2.7.2.686 [id number] [facility] 2021-09-19 09:45:00 2021-09-19 09:45:00 Outpatient LUIS CARLOS JACOSBEN [facility] [id number] [facility] 2021-09-03 09:13:30 2021-09-03 23:59:00 [id number] 2021-09-03 09:13:30 2021-09-03 23:59:00 Hospital Encounter Brissa Magallanes [facility] 1.2.840.114 350.1.13.10 4.2.7.2.686 [id number] [facility] 2021-09-03 14:00:00 2021-09-03 14:30:00 Office Visit Elpidio [facility] 1.2.840.114 350.1.13.10 4.2.7.2.686 [id number] [facility] 2021-09-03 09:13:30 2021-09-03 09:13:30 Outpatient R BRISSA MAGALLANES [facility] [id number] [facility] 2021-09-03 00:00:00 2021-09-03 00:00:00 Telephone Radha [facility] 1.2840.114 350.1.13.10 4.2.7.2.686 [id number] [facility] 2021-09-03 00:00:00 2021-09-03 00:00:00 Telephone Radha [facility] 1.2840.114 350.1.13.10 4.2.7.2.686 [id number] [facility] 2021-09-02 00:00:00 2021-09-02 00:00:00 Pre Visit Outreach Alex Fernández [facility] 1.2.840.114 350.1.13.10 4.2.7.2.686 [id number] [facility] 2021-09-02 00:00:00 2021-09-02 00:00:00 Telephone Stephanie Chaudhary [facility] 1.2.840.114 350.1.13.10 4.2.7.2.686 [id number] [facility] 2021-08-29 00:00:00 2021-08-29 00:00:00 Patient Outreach Sarah Kendrick [facility] 1.2.840.114 350.1.13.10 4.2.7.2.686 [id number] [facility] 2021-08-29 00:00:00 2021-08-29 00:00:00 Telephone Pavan Black [facility] 1.2.840.114 350.1.13.10 4.2.7.2.686 [id number] [facility] 2021-08-29 00:00:00 2021-08-29 00:00:00 [facility] 1.2.840.114 350.1.13.10 4.2.7.2.686 [id number] [facility] 2021-08-28 10:10:00 2021-08-28 11:24:37 Office Visit Isa Garcia Syed S [facility] 1.2.840.114 350.1.13.10 4.2.7.2.686 [id number] [facility] 2021-08-28 10:10:00 2021-08-28 11:24:37 Outpatient R BRISSA MAGALLANES [facility] [id number] [facility] 2021-08-28 10:10:00 2021-08-28 10:10:00 Outpatient R BRISSA MAGALLANES [facility] [id number] [facility] 2021-08-27 11:30:00 2021-08-27 11:45:00 Licensed Appraiser [facility] 1..114 350.1.13.10 4.2.7.2.686 [id number] [facility] 2021-08-27 11:30:00 2021-08-27 11:30:00 Outpatient R [facility] [id number] [facility] 2021-08-14 13:00:00 2021-08-14 14:06:31 Outpatient R DAVID IBRAHIMVALENTE [facility] [id number] [facility] 2021-08-14 13:00:00 2021-08-14 14:06:31 Office Visit Stephanie Chaudhary [facility] 1..114 350.1.13.10 4.2.7.2.686 [id number] [facility] 2021-08-14 00:00:00 2021-08-14 00:00:00 Orders Only Doctor Unassigned, Twilight [facility] 1..114 350.1.13.10 4.2.7.2.686 [id number] [facility] 2021-08-07 19:47:00 2021-08-11 15:55:00 Inpatient E UBALDO WAN [id number] 2021-07-01 15:45:00 2021-07-01 18:02:00 Emergency X DEEPIKA OSUNA [facility] [id number] [facility] 2021-07-01 15:45:00 2021-07-01 18:02:00 Emergency Deepika Osuna [facility] 1.2.840.114 350.1.13.10 4.2.7.2.686 [id number] [facility] 2021-02-01 13:52:00 2021-02-03 17:33:00 Inpatient U CORKY CHA [id number] 2021-01-30 00:00:00 2021-01-30 00:00:00 EXT [facility] OP Semaj Corky EXT [facility] LOCATION 1.2.840.114 350.1.13.58 9.2.7.2.686 [id number] [facility] 2021-01-30 00:00:00 2021-01-30 00:00:00 EXT [facility]HH OP Martínez Chaison EXT [facility] LOCATION 1.2.840.114 350.1.13.58 9.2.7.2.686 [id number] [facility] 2021-01-02 03:20:00 2021-01-02 03:20:00 Outpatient Ogletree_C [facility] [id number] [facility] 2020-12-14 07:17:00 2020-12-14 23:59:00 Outpatient BALBUENABYRON FLOR [facility] CAR 7503 [facility] 2020-12-07 00:00:00 2020-12-07 00:00:00 EXT MH OP EXT [facility] LOCATION 1.2.840.114 350.1.13.58 9.2.7.2.686 [id number] [facility] 2020-12-07 00:00:00 2020-12-07 00:00:00 EXT [facility] OP EXT [facility] LOCATION 1.2.840.114 350.1.13.58 9.2.7.2.686 [id number] [facility] 2020-12-06 00:00:00 2020-12-06 00:00:00 EXT [facility] OP Byron Balbuena EXT [facility] LOCATION 1.2.840.114 350.1.13.58 9.2.7.2.686 [id number] [facility] 2020-12-06 00:00:00 2020-12-06 00:00:00 EXT [facility] OP Byron Balbuena EXT [facility] LOCATION 1.2.840.114 350.1.13.58 9.2.7.2.686 [id number] [facility] 2020-09-21 07:02:00 2020-09-21 13:00:00 Outpatient LAVERNE SAMUELS [facility] [id number] [facility] Notes Date/Time Note Provider Source 2023-06-12 14:48:06 RfT2Tx6zs1RnYZqWOR8s GFnwm+JF/aZAJsS UXgQhdqitNGLLTQ0ra/XuGK0Gwpjt0072-9 4:48:06 Alfred He is a 68 year old male is needing a refill on the [facility] [id number] [place] [address] [facility]: Ncsudivfnrfvxb signed by Carlos Delcid at 06/12/2023 2:49 PM IMR55883-2Tvkxnknpi encounter XpfjZQ4926-75-69K14:49:39Telephone encounter NoteTXT1.2.840.785359.1.13.104.2.7. 2.350797|[id number] for patient wjkn52575-2RldaNEQXVIVUYWNLxivuqlip C-CDA narrative textUTMBUT - [address] Rv[id number] 6FQFKORXDYRQIDVAEQVZKAX1595-28-62U0 4:49:391.2.840.385840.1.72.3.15|1.2 .840.026854.1.13.104.2.7.2.727879_1 [id number] [facility] 2023-03-02 12:06:28 JSKzJU0Nf2zOTIzom1QQ Puq0hMR5MHRbiVc eBKVNTqH3+mU4mN0oizivwHyi2KVZ8145-9 2:06:28 Called pt to schedule appt, pt declined stating that he and discussed lowering blood sugar medication and he would like that to be done. I informed that I would send this message to his Doctor, he stated that he was down the road and he is on the way her.Informed Ibidapo 70026-6Upqzhsizh encounter KtsaQJ8281-63-89G62:09:01Telephone encounter NoteTXT1.2.840.704288.1.13.104.2.7. 2.192131|[id number] for patient zoow03412-7CtcmXR175528154Kcyktq N Tovar RN[address] Ermd[id number] 1MJNYRDTRUZBFJMZHYIKYGU0998-04-98U7 2:09:011.2.840.114893.1.72.3.15|1.2 .840.755844.1.13.104.2.7.2.727879_1 [id number] Sissy Maciel RN [facility] 2023-03-02 10:52:58 1euj5OBw486de2mBJIFV /zyKECEujBZdqjO ZsOdbp6Bxf+nfnsxr1sAM2/J7U8Q68913-0 9-11T10:52:58 Alfred He is a 68 year old malePt states his BS dropped last night and EMS had to be called. He requesting a call back to discuss changing his medication 32579-9Gkajvlfhx encounter RdaxSW7277-93-41S36:54:08Telephone encounter NoteTXT1.2.840.178588.1.13.104.2.7. 2.925971|[id number] for patient kgyo82108-4NefsGIVDPWSXJP[id number] 5XHJJMMTLGGETGIMXRTGTAS1119-75-19J4 0:54:081.2.840.591889.1.72.3.15|1.2 .840.491392.1.13.104.2.7.2.727879_1 [id number] [facility] 2023-02-04 08:16:17 jQe5RNUwbo7MGTdmdEJ/ gUKpWqzndgEGxtO W75wWMkvIMlJVpCx45rOmUDAChaPn7989-1 02-04T08:16:17 Specialty medication.Needs to see Urology. Pebbles Chao [facility] 60067-0Wzhmoakmc encounter LewyPF8529-59-53M99:16:42Telephone encounter NoteTXT1.2.840.119047.1.13.104.2.7. 2.932794|[id number] for patient whnr95593-8MkgoIVSNLHUCVR[id number] 6GNCEVKYKSDRLHHCFLHDAEU7919-93-90U6 8:16:421.2.840.756637.1.72.3.15|1.2 .840.538132.1.13.104.2.7.2.727879_1 [id number] [facility] 2023-01-30 08:42:10 YnQXRbhQUEIAgh0kGgrE Icg8dYwotl/6CsT txBJQlLHjrW5MLdrR7y3g6jJc8ZnP5922-3 01-30T08:42:10 Routing to provider for review 55838-1Opokdaebm encounter CbixPR9506-75-67Y64:42:35Telephone encounter NoteTXT1.2.840.377008.1.13.104.2.7. 2.371386|[id number] for patient rbfq76633-7QncbUM142344612Ddbzenk Jeffers [id number] 5ZCIYRANSERSPXCYILJIPEZ3397-63-80Q7 8:42:351.2.840.262766.1.72.3.15|1.2 .840.792179.1.13.104.2.7.2.727879_1 [id number] Sigrid Gonzalez MA [facility] 2023-01-29 15:49:55 nJX2ekPj6+wxa/vqGGEt zNE6fqUQ4ePctae +EyHgJxxBeh4aJehSUuOCHZWZn/IP1491-8 01-29T15:49:55 Alfred He is a 67 year old male Patient is calling to let Be aware that he takes tri-mix for ED and was told that he needs to have his pcp prescribe it. Meat Clerk does not prescribeRevive rx [id number] signed by Veena Luis at 01/29/2023 3:56 PM GYM89951-6Wfllbiwkg encounter BynuTM7944-26-38L52:56:42Telephone encounter NoteTXT1.2.840.056799.1.13.104.2.7. 2.347535|[id number] for patient fvwx73789-4RgenSHYQJJPAHR[address] YfvoFgnbyttvpFsqqnbantYNGH670631113 6QTHKVWFGFFLWHNMCOUGYPD3351-52-37J4 5:56:421.2.840.007879.1.72.3.15|1.2 .840.730017.1.13.104.2.7.2.727879_1 [id number] [facility]
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
[2023-07-02 14:50] VITALS: BP 137/93; TEMP 98; O2SAT 100
== END ==
LOC: ER 10:36
DX: S60.511A Abrasion of right hand, initial encounter (principal); S60.221A Contusion of right hand, initial encounter; V49.49XA Driver injured in collision with other motor vehicles in traffic accident, initial encounter; Z95.0 Presence of cardiac pacemaker
CPT/HCPCS: 99282

== ENCOUNTER 2024-07-23 19:00 | Emergency (ER) | payer MEDICARE ==
--- OUTSIDE RECORDS SUMMARY | 2024-07-23 19:04 | XMS REPORT | Continuity of Care Document ---
Author Name Unknown Address [address] [facility] [address] [place] [address] [facility] thconnect Address [address] [facility] 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 Role Phone Jas Maravilla Primary Care Physician Rakesh Zacarias Attending Clinician Rakesh Seaman Attending Clinician Margarita marte Pcp, Patient Does Not Have A Attending Clinician Shavon Camarena Attending Clinician [phone] Doctor Unassigned, [place] Attending Clinician U SHANTANU Dexter Attending Clinician Unavailable Barbara Bedoya OD Attending Clinician LOPEZ TUTTLE Attending Clinician Unavailable LOPEZ TUTTLE Attending Clinician Unavailable RADHA DALTON Attending Clinician Unavailabl e ALI_S Attending Clinician Unavailable \\R\\RSOH_Hessmer_Astori Attending Clinician Unava ilsharmin Ibrahim MD, Susanne Attending Clinician + BARBARA BEDOYA Attending Clinician Unavailable Vtc-Lab Attending Clinician Unavailable SUSANNE IBRAHIM Attending Clinician Unav Shantanu Kaufman MD Attending Clinician [phone], [facility] Attending Clinician Unavailable TIFFANY MENDEZ Attending Clinician Unavaila DARYL Vergara Attending Clinician Unavailable Daryl Awad MD Attending Clinician [phone] Jeremy Galeas MD Attending Clinician Unavailable JULIUS TODD Attending Clinician Unavailable Team, [facility] Attending Clinicia n Unavailable SHELLI JEAN Attending Clinician Unavailable JOSE LUIS WHITAKER Attending Clinician Unavailable Jose Luis Whitaker MD Attending Clinician [phone] Julius Todd MD Attending Clinician [phone] Only, [facility] Attending Clinician U navailable Alex Fernández LVN Attending Clinician Brissa Smith MD Attending Clinician [phone] BRISSA MAGALLANES Attending Clinician Unavailable LUIS CARLOS CHAN Attending Clinician Unavailable Yifan PT, Yehuda M Attending Clinician Luis Carlos Iverson MD Attending Clinician [phone] Justine Bahena PTA Attending Clinician Unav sharronable Zarina Muñoz PTA Attending Clinic blade Unavailable Radha IBANEZ, Isa Attending Clinician [phone] Stephanie Chaudhary MD Attending Clinician [phone] Sarah Kendrick LMSW Attending Clinician Unavaila Pavan Lewis MD Attending Clinician + [phone] Vls-Lab Attending Clinician Unavailable UBALDO WAN Attending Clinician Unavailable DEEPIKA OSUNA Attending Clinician Unavail able Deepika Osuna MD Attending Clinician [phone] CORKY CHA Attending Clinician Unavailable Corky Cha MD Attending Clinician [phone] [place]_C Attending Clinician Unavailable BYRON BALBUENA Attending Clinician UnavailByron Malik Attending Clinician [phone] LAVERNE SAMUELS Attending Clinician Unava ilable Rakesh Zacarias Admitting Clinician Unavaila rosanna ALI_S Admitting Clinician Unavailable \\R\\RSOH_[place]_Astori Admitting Clinician Unava ilable JULIUS TODD Admitting Clinician Unavailable TANIA ELLIOTT Admitting Clinician Unava ilable WESLEY FALK Admitting Clinician Unavailable CORKY CHA Admitting Clinician Unavailable Corky Cha MD Admitting Clinician [phone] [place]_C Admitting Clinician Unavailable Payers Payer Name Policy Type Policy Number Effective Date Expirati on Date Source [facility]ALTH (MEDICARE REPLACEMENT HMO) [id number] 00:00:00 MEDICARE PART A \\T\\ B [id number] 2020 00:00:00 [place]: [employer] SOLUTIONS [id number] 2020 00:00:00 [facility] Paired Health [id number] 2011 00:00:00 Problems Condition Name Condition Details Condition Category Status Onset Date Resolution Date Last Treatment Date Treating Clinician Comments Source Stage 3b chronic kidney disease Stage 3b chronic kidney disease Disease Active 2022-06 00:00: 00 [facility] Positive FIT (fecal immunochem ical test) Positive FIT (fecal immunochem ical test) Disease Active 2021-06 00:00: 00 Overview: Formattin g of this note might be different from the original. Added automatic ally from request for surgery [id number] [facility] Iron deficiency Iron deficiency Disease Active 2021-06 00:00: 00 Overview: Formattin g of this note might be different from the original. Added automatic ally from request for surgery [id number] [facility] Acute pain of right shoulder due to trauma Acute pain of right shoulder due to trauma Disease Active 09-25 00:00: 00 [facility] Acute pain of right shoulder due to trauma Acute pain of right shoulder due to trauma Disease Active 4 00:00: 00 [facility] Decreased ROM of right shoulder Decreased ROM of right shoulder Disease Active 4 00:00: 00 [facility] Decreased strength of upper extremity Decreased strength of upper extremity Disease Active 09-25 00:00: 00 [facility] Low back pain without sciatica Low back pain without sciatica Disease Active 4 00:00: 00 [facility] Decreased strength of lower extremity Decreased strength of lower extremity Disease Active 09-25 00:00: 00 [facility] Primary hypertensi on Primary hypertensi on Disease Active 2-25 00:00: 00 [facility] Diabetes Diabetes Disease Active 2-25 00:00: 00 [facility] Chronic systolic heart failure Chronic systolic heart failure Disease Active 2-25 00:00: 00 [facility] Pacemaker Pacemaker Disease Active 2-25 00:00: 00 [facility] Chest pain Chest pain Disease Active 24 00:00: 00 [facility] Allergies, Adverse Reactions, Alerts Allergy Name Allergy Type Status Severity Reaction(s) Onset Date Inactive Date Treating Clinician Comments Source No Known Allergie s Drug Active [facility] NO KNOWN ALLERGIE S Drug Class Active [facility] Social History Social Habit Start Date Stop Date Quantity Comments Source Gender identity [facility] Alcoholic beverage intake 2023-06-04 00:00:00 2023-06-04 00:00:00 0 /d [facility] Alcohol intake 2023-06-04 00:00:00 2023-06-04 00:00:00 0 /d [facility] Exposure to SARS-CoV-2 (event) 2022-10-20 00:00:00 2022-10-30 10:14:00 Not sure [facility] History of Social function 2022-05-20 00:00:00 2022-05-20 00:00:00 [facility] Sex Assigned At 1955 00:00:00 1955 00:00:00 [facility] Smoking Status Start Date Stop Date Source Never smoked tobacco [facility] Tobacco smoking consumption unknown [facility] Medications Ordered Medication Name Filled Medication Name Start Date Stop Date Current Medication? Ordering Clinician Indication Dosage Frequency Signature (SIG) Comments Components Source rosuvastati n 10 mg tablet 2023-06 00:00: 00 Yes [id number] 10mg Take 1 tablet by mouth at bedtime. [facility] blood sugar diagnostic (ACCU-CHEK BETI PLUS TEST STRP) strip 07-13 00:00: 00 Yes [id number] USE DIRECTED [facility] rosuvastati n 10 mg tablet 2022-06 12:55: 40 06-17 00:00 :00 No 10mg Take 1 tablet by mouth at bedtime. [facility] rosuvastati n 10 mg tablet 2022-06 00:00: 00 04-21 00:00 :00 No [id number] 10mg Take 1 tablet by mouth at bedtime. [facility] BITTER MELON EXTRACT ORAL 2022-06 21:10: 02 06-01 00:00 :00 No 1{capsu le} Take 1 capsule by mouth in the morning. [facility] docosahexae noic acid/epa (FISH OIL ORAL) 2022-06 21:08: 46 Yes Take by mouth. [facility] rosuvastati n 10 mg tablet 2022-06 21:08: 40 Yes 10mg Take 1 tablet by mouth at bedtime. [facility] apixaban (ELIQUIS) 5 mg tablet 2022-06 21:08: 37 Yes Take by mouth. [facility] DUNIA ROOT, BULK, MISC 2022-06 21:08: 34 Yes 750mg 750 mg. [facility] docosahexae noic acid/epa (FISH OIL ORAL) 2022-06 21:08: 34 Yes 750mg Take by mouth. [facility] Garlic 1,000 mg Cap 2022-06 21:08: 32 Yes Take by mouth. [facility] DUNIA ROOT, BULK, [facility] 2022-06 15:48: 22 Yes 750mg 750 mg. [facility] Garlic 1,000 mg Cap 2022-06 15:48: 17 Yes Take by mouth. [facility] docosahexae noic acid/epa (FISH OIL ORAL) 2022-06 15:48: 07 Yes Take by mouth. [facility] rosuvastati n 10 mg tablet 2022-06 15:46: 44 Yes 10mg Take 1 tablet by mouth at bedtime. [facility] apixaban (ELIQUIS) 5 mg tablet 2022-06 15:43: 30 Yes Take by mouth. [facility] papaverine- phentolamin e-PGE1 150mg-5mg-5 0mcg Soln 2022-06 13:41: 59 04-07 00:00 :00 No Inject as directed. [facility] apixaban (ELIQUIS) 5 mg tablet 2022-06 08:28: 34 Yes Take by mouth. [facility] DUNIA ROOT, BULK, [facility] 2022-06 08:28: 34 Yes 750mg 750 mg. [facility] docosahexae noic acid/epa (FISH OIL ORAL) 2022-06 08:28: 34 Yes Take by mouth. [facility] Garlic 1,000 mg Cap 2022-06 08:28: 34 Yes Take by mouth. [facility] papaverine- phentolamin e-PGE1 150mg-5mg-5 0mcg Soln 2022-06 0 08:28: 34 Yes Inject as directed. [facility] papaverine- phentolamin e-PGE1 150mg-5mg-5 0mcg Soln 2022-06 00:00: 00 Yes [id number] 7.5mL Inject 7.5 mL as directed as needed for Other (2-3 times/ week, every 48 hrs). [facility] DUNIA ROOT, BULK, MISC 03-02 13:48: 20 Yes 750mg 750 mg. [facility] Garlic 1,000 mg Cap 03-02 13:48: 20 Yes Take by mouth. [facility] docosahexae noic acid/epa (FISH OIL ORAL) 03-02 13:48: 09 Yes Take by mouth. [facility] apixaban (ELIQUIS) 5 mg tablet 03-02 13:48: 06 Yes Take by mouth. [facility] rosuvastati n 10 mg tablet 02-19 12:18: 47 02-19 00:00 :00 No 10mg Take 10 mg by mouth. [facility] rosuvastati n 10 mg tablet 02-19 00:00: 00 04-07 00:00 :00 No [id number] 10mg Take 1 tablet by mouth at bedtime. [facility] blood sugar diagnostic (ACCU-CHEK SMARTVIEW TEST STRIP) strip 01-20 00:00: 00 07-13 00:00 :00 No [id number] Use as directed [facility] glimepiride 1 mg tablet 12-22 00:00: 00 03-02 00:00 :00 No [id number] 1mg Take 1 tablet by mouth daily with breakfast. [facility] sacubitriL- valsartan (ENTRESTO) 49-51 mg tablet 10-30 00:00: 00 Yes 1{tbl} Take 1 tablet by mouth in the morning. [facility] iron sucrose (VENOFER) 500 mg in NaCl 0.9% (NS) 250 mL infusion - 02:30: 00 09-10 01:29 :00 No [id number] 500mg [facility] ferric derisomalto se (MONOFERRIC ) 1,000 mg in NaCl 0.9% (NS) 100 mL infusion 07-15 06:00: 00 07-15 17:59 :00 No [id number] 1000mg [facility] ferric derisomalto se (MONOFERRIC ) 1,000 mg in NaCl 0.9% (NS) 100 mL infusion 07-14 18:00: 00 07-14 17:19 :08 No [id number] 1000mg [facility] terbinafine HCL 250 mg tablet 07-07 00:00: 00 03-02 00:00 :00 No [id number] 250mg Take 1 tablet by mouth in the morning. [facility] ENTRESTO 49-51 mg tablet 07-03 00:00: 00 10-30 00:00 :00 No [facility] glimepiride 1 mg tablet 06-30 00:00: 00 12-22 00:00 :00 No [id number] 1mg Take 1 tablet by mouth daily with breakfast. [facility] terbinafine HCL 250 mg tablet 2021-06 00:00: 00 07-07 00:00 :00 No [id number] 250mg Take 1 tablet by mouth in the morning. [facility] glimepiride 1 mg tablet 2021-06 0-14 00:00: 00 06-30 00:00 :00 No [id number] 1mg Take 1 tablet by mouth daily with breakfast. [facility] terbinafine HCL 250 mg tablet 2021-06 0-14 00:00: 00 05-20 00:00 :00 No [id number] 250mg Take 1 tablet by mouth in the morning. [facility] pioglitazon e (ACTOS) 15 mg tablet 2021-06 0-13 00:00: 00 05-20 00:00 :00 No [id number] 15mg Take 1 tablet by mouth in the morning. [facility] lancets 31 gauge Misc 03-12 00:00: 00 Yes [id number] Use as directed [facility] blood sugar diagnostic (ACCU-CHEK SMARTVIEW TEST STRIP) strip 03-12 00:00: 00 01-20 00:00 :00 No [id number] Use as directed [facility] SITagliptin -metformin (JANUMET XR) 100-1,000 mg per tablet 03-12 00:00: 00 04-03 00:00 :00 No [id number] 1{tbl} Take 1 tablet by mouth in the morning. [facility] losartan 25 mg tablet 03-03 00:00: 00 07-14 00:00 :00 No [facility] SILDENAFIL 100 mg tablet 11-14 00:00: 00 Yes [id number] 100mg Take 1 tablet by mouth as needed for Other (Erectile Dysfunctio n). [facility] rosuvastati n 10 mg tablet 09-03 14:24: 28 Yes 10mg Take 10 mg by mouth. [facility] DUNIA ROOT, BULK, [facility] 08-14 12:49: 52 Yes 750mg 750 mg. [facility] docosahexae noic acid/epa (FISH OIL ORAL) 08-14 12:49: 52 Yes Take by mouth. [facility] Garlic 1,000 mg Cap 08-14 12:49: 52 Yes Take by mouth. [facility] Garlic 1,000 mg Cap 08-14 12:49: 52 Yes Take by mouth. [facility] apixaban (ELIQUIS) 5 mg tablet 08-14 12:48: 15 Yes Take by mouth. [facility] metoprolol succinate XL 100 mg 24 hr tablet 08-14 00:00: 00 Yes TAKE 1 TABLET BY MOUTH TWICE A DAY FOR 90 DAYS [facility] JANUMET XR 100-1,000 mg per tablet 2021-1 2-16 00:00: 00 03-12 00:00 :00 No 1{tbl} Take 1 tablet by mouth every morning. [facility] metoprolol succinate er 50 mg tablet er 24 hr metoprolol succinate er 50 mg tablet er 24 hr Yes [facility] furosemide 40 mg tablet furosemide 40 mg tablet Yes [facility] ELIQUIS 2.5 MG TABLET ELIQUIS 2.5 MG TABLET Yes [facility] amiodarone hcl 200 mg tablet amiodarone hcl 200 mg tablet Yes [facility] ENTRESTO 24-26 MG TABLET ENTRESTO 24-26 MG TABLET Yes [facility] Immunizations Ordered Immunization Name Filled Immunization Name Date Status Comments Source TDAP 2021-07-01 00:00:00 Completed [facility] TDAP 2021-07-01 00:00:00 Completed [facility] TDAP 2021-07-01 00:00:00 Completed [facility] TDAP 2021-07-01 00:00:00 Completed [facility] TDAP 2021-07-01 00:00:00 Completed [facility] TDAP 2021-07-01 00:00:00 Completed [facility] TDAP 2021-07-01 00:00:00 Completed [facility] TDAP 2021-07-01 00:00:00 Completed [facility] TDAP 2021-07-01 00:00:00 Completed [facility] TDAP 2021-07-01 00:00:00 Completed [facility] TDAP 2021-07-01 00:00:00 Completed [facility] TDAP 2021-07-01 00:00:00 Completed [facility] TDAP 2021-07-01 00:00:00 Completed [facility] TDAP 2021-07-01 00:00:00 Completed [facility] TDAP 2021-07-01 00:00:00 Completed [facility] TDAP 2021-07-01 00:00:00 Completed [facility] TDAP 2021-07-01 00:00:00 Completed [facility] TDAP 2021-07-01 00:00:00 Completed [facility] TDAP 2021-07-01 00:00:00 Completed [facility] TDAP 2021-07-01 00:00:00 Completed [facility] TDAP 2021-07-01 00:00:00 Completed [facility] TDAP 2021-07-01 00:00:00 Completed [facility] TDAP 2021-07-01 00:00:00 Completed [facility] TDAP 2021-07-01 00:00:00 Completed [facility] TDAP 2021-07-01 00:00:00 Completed [facility] TDAP 2021-07-01 00:00:00 Completed [facility] TDAP 2021-07-01 00:00:00 Completed [facility] TDAP 2021-07-01 00:00:00 Completed [facility] TDAP 2021-07-01 00:00:00 Completed [facility] TDAP 2021-07-01 00:00:00 Completed [facility] TDAP 2021-07-01 00:00:00 Completed [facility] TDAP 2021-07-01 00:00:00 Completed [facility] TDAP 2021-07-01 00:00:00 Completed [facility] TDAP 2021-07-01 00:00:00 Completed [facility] TDAP 2021-07-01 00:00:00 Completed [facility] TDAP 2021-07-01 00:00:00 Completed [facility] TDAP 2021-07-01 00:00:00 Completed [facility] TDAP 2021-07-01 00:00:00 Completed [facility] TDAP 2021-07-01 00:00:00 Completed [facility] TDAP 2021-07-01 00:00:00 Completed [facility] TDAP 2021-07-01 00:00:00 Completed [facility] TDAP 2021-07-01 00:00:00 Completed [facility] SARS-COV-2 COVID-19 VACCINE - (MODERNA) 2020-11-28 00:00:00 Completed [facility] SARS-COV-2 COVID-19 VACCINE - (MODERNA) 2020-11-28 00:00:00 Completed [facility] SARS-COV-2 COVID-19 VACCINE - (MODERNA) 2020-11-28 00:00:00 Completed [facility] SARS-COV-2 COVID-19 VACCINE - (MODERNA) 2020-11-28 00:00:00 Completed [facility] SARS-COV-2 COVID-19 VACCINE - (MODERNA) 2020-11-28 00:00:00 Completed [facility] SARS-COV-2 COVID-19 VACCINE - (MODERNA) 2020-11-28 00:00:00 Completed [facility] SARS-COV-2 COVID-19 VACCINE - (MODERNA) 2020-11-28 00:00:00 Completed [facility] SARS-COV-2 COVID-19 VACCINE - (MODERNA) 2020-11-28 00:00:00 Completed [facility] SARS-COV-2 COVID-19 VACCINE - (MODERNA) 2020-11-28 00:00:00 Completed [facility] SARS-COV-2 COVID-19 VACCINE - (MODERNA) 2020-11-28 00:00:00 Completed [facility] SARS-COV-2 COVID-19 VACCINE - (MODERNA) 2020-11-28 00:00:00 Completed [facility] SARS-COV-2 COVID-19 VACCINE - (MODERNA) 2020-11-28 00:00:00 Completed [facility] SARS-COV-2 COVID-19 VACCINE - (MODERNA) 2020-11-28 00:00:00 Completed [facility] SARS-COV-2 COVID-19 VACCINE - (MODERNA) 2020-10-31 00:00:00 Completed [facility] SARS-COV-2 COVID-19 VACCINE - (MODERNA) 2020-10-31 00:00:00 Completed [facility] SARS-COV-2 COVID-19 VACCINE - (MODERNA) 2020-10-31 00:00:00 Completed [facility] SARS-COV-2 COVID-19 VACCINE - (MODERNA) 2020-10-31 00:00:00 Completed [facility] SARS-COV-2 COVID-19 VACCINE - (MODERNA) 2020-10-31 00:00:00 Completed [facility] SARS-COV-2 COVID-19 VACCINE - (MODERNA) 2020-10-31 00:00:00 Completed [facility] SARS-COV-2 COVID-19 VACCINE - (MODERNA) 2020-10-31 00:00:00 Completed [facility] SARS-COV-2 COVID-19 VACCINE - (MODERNA) 2020-10-31 00:00:00 Completed [facility] SARS-COV-2 COVID-19 VACCINE - (MODERNA) 2020-10-31 00:00:00 Completed [facility] SARS-COV-2 COVID-19 VACCINE - (MODERNA) 2020-10-31 00:00:00 Completed [facility] SARS-COV-2 COVID-19 VACCINE - (MODERNA) 2020-10-31 00:00:00 Completed [facility] SARS-COV-2 COVID-19 VACCINE - (MODERNA) 2020-10-31 00:00:00 Completed [facility] SARS-COV-2 COVID-19 VACCINE - (MODERNA) 2020-10-31 00:00:00 Completed Pneumococcal Polysaccharide, PPSV23 (PNEUMOVAX) 2018-11-12 00:00:00 Completed [facility] Pneumococcal Polysaccharide, PPSV23 (PNEUMOVAX) 2018-11-12 00:00:00 Completed [facility] Pneumococcal Polysaccharide, PPSV23 (PNEUMOVAX) 2018-11-12 00:00:00 Completed [facility] Pneumococcal Polysaccharide, PPSV23 (PNEUMOVAX) 2018-11-12 00:00:00 Completed [facility] Pneumococcal Polysaccharide, PPSV23 (PNEUMOVAX) 2018-11-12 00:00:00 Completed [facility] Pneumococcal Polysaccharide, PPSV23 (PNEUMOVAX) 2018-11-12 00:00:00 Completed [facility] Pneumococcal Polysaccharide, PPSV23 (PNEUMOVAX) 2018-11-12 00:00:00 Completed [facility] Pneumococcal Polysaccharide, PPSV23 (PNEUMOVAX) 2018-11-12 00:00:00 Completed [facility] Pneumococcal Polysaccharide, PPSV23 (PNEUMOVAX) 2018-11-12 00:00:00 Completed [facility] Pneumococcal Polysaccharide, PPSV23 (PNEUMOVAX) 2018-11-12 00:00:00 Completed [facility] Pneumococcal Polysaccharide, PPSV23 (PNEUMOVAX) 2018-11-12 00:00:00 Completed [facility] Pneumococcal Polysaccharide, PPSV23 (PNEUMOVAX) 2018-11-12 00:00:00 Completed [facility] Pneumococcal Polysaccharide, PPSV23 (PNEUMOVAX) 2018-11-12 00:00:00 Completed [facility] Pneumococcal Polysaccharide, PPSV23 (PNEUMOVAX) 2018-11-12 00:00:00 Completed [facility] Pneumococcal Polysaccharide, PPSV23 (PNEUMOVAX) 2018-11-12 00:00:00 Completed [facility] Pneumococcal Polysaccharide, PPSV23 (PNEUMOVAX) 2018-11-12 00:00:00 Completed [facility] Pneumococcal Polysaccharide, PPSV23 (PNEUMOVAX) 2018-11-12 00:00:00 Completed [facility] Pneumococcal Polysaccharide, PPSV23 (PNEUMOVAX) 2018-11-12 00:00:00 Completed [facility] Pneumococcal Polysaccharide, PPSV23 (PNEUMOVAX) 2018-11-12 00:00:00 Completed [facility] Pneumococcal Polysaccharide, PPSV23 (PNEUMOVAX) 2018-11-12 00:00:00 Completed [facility] Pneumococcal Polysaccharide, PPSV23 (PNEUMOVAX) 2018-11-12 00:00:00 Completed [facility] Pneumococcal Polysaccharide, PPSV23 (PNEUMOVAX) 2018-11-12 00:00:00 Completed [facility] Pneumococcal Polysaccharide, PPSV23 (PNEUMOVAX) 2018-11-12 00:00:00 Completed [facility] Pneumococcal Polysaccharide, PPSV23 (PNEUMOVAX) 2018-11-12 00:00:00 Completed [facility] Pneumococcal Polysaccharide, PPSV23 (PNEUMOVAX) 2018-11-12 00:00:00 Completed [facility] Pneumococcal Polysaccharide, PPSV23 (PNEUMOVAX) 2018-11-12 00:00:00 Completed [facility] Pneumococcal Polysaccharide, PPSV23 (PNEUMOVAX) 2018-11-12 00:00:00 Completed [facility] Pneumococcal Polysaccharide, PPSV23 (PNEUMOVAX) 2018-11-12 00:00:00 Completed [facility] Pneumococcal Polysaccharide, PPSV23 (PNEUMOVAX) 2018-11-12 00:00:00 Completed [facility] Pneumococcal Polysaccharide, PPSV23 (PNEUMOVAX) 2018-11-12 00:00:00 Completed [facility] Pneumococcal Polysaccharide, PPSV23 (PNEUMOVAX) 2018-11-12 00:00:00 Completed [facility] Pneumococcal Polysaccharide, PPSV23 (PNEUMOVAX) 2018-11-12 00:00:00 Completed [facility] Pneumococcal Polysaccharide, PPSV23 (PNEUMOVAX) 2018-11-12 00:00:00 Completed [facility] Pneumococcal Polysaccharide, PPSV23 (PNEUMOVAX) 2018-11-12 00:00:00 Completed [facility] Pneumococcal Polysaccharide, PPSV23 (PNEUMOVAX) 2018-11-12 00:00:00 Completed [facility] Pneumococcal Polysaccharide, PPSV23 (PNEUMOVAX) 2018-11-12 00:00:00 Completed [facility] Pneumococcal Polysaccharide, PPSV23 (PNEUMOVAX) 2018-11-12 00:00:00 Completed [facility] Pneumococcal Polysaccharide, PPSV23 (PNEUMOVAX) 2018-11-12 00:00:00 Completed [facility] Pneumococcal Polysaccharide, PPSV23 (PNEUMOVAX) 2018-11-12 00:00:00 Completed [facility] Pneumococcal Polysaccharide, PPSV23 (PNEUMOVAX) 2018-11-12 00:00:00 Completed [facility] Pneumococcal Polysaccharide, PPSV23 (PNEUMOVAX) 2018-11-12 00:00:00 Completed [facility] Pneumococcal Polysaccharide, PPSV23 (PNEUMOVAX) 2018-11-12 00:00:00 Completed [facility] Pneumococcal Polysaccharide, PPSV23 (PNEUMOVAX) Unknown Completed [facility] TDAP Unknown Completed [facility] SARS-COV-2 COVID-19 VACCINE - (MODERNA) Unknown Completed [facility] Pneumococcal Polysaccharide, PPSV23 (PNEUMOVAX) Unknown Completed [facility] TDAP Unknown Completed [facility] SARS-COV-2 COVID-19 VACCINE - (MODERNA) Unknown Completed [facility] Pneumococcal Polysaccharide, PPSV23 (PNEUMOVAX) Unknown Completed [facility] TDAP Unknown Completed [facility] SARS-COV-2 COVID-19 VACCINE - (MODERNA) Unknown Completed [facility] Pneumococcal Polysaccharide, PPSV23 (PNEUMOVAX) Unknown Completed [facility] TDAP Unknown Completed [facility] SARS-COV-2 COVID-19 VACCINE - (MODERNA) Unknown Completed [facility] Pneumococcal Polysaccharide, PPSV23 (PNEUMOVAX) Unknown Completed [facility] TDAP Unknown Completed [facility] SARS-COV-2 COVID-19 VACCINE - (MODERNA) Unknown Completed [facility] Pneumococcal Polysaccharide, PPSV23 (PNEUMOVAX) Unknown Completed [facility] TDAP Unknown Completed [facility] SARS-COV-2 COVID-19 VACCINE - (MODERNA) Unknown Completed [facility] Pneumococcal Polysaccharide, PPSV23 (PNEUMOVAX) Unknown Completed [facility] TDAP Unknown Completed [facility] SARS-COV-2 COVID-19 VACCINE - (MODERNA) Unknown Completed [facility] Pneumococcal Polysaccharide, PPSV23 (PNEUMOVAX) Unknown Completed [facility] TDAP Unknown Completed [facility] SARS-COV-2 COVID-19 VACCINE - (MODERNA) Unknown Completed [facility] Pneumococcal Polysaccharide, PPSV23 (PNEUMOVAX) Unknown Completed [facility] TDAP Unknown Completed [facility] SARS-COV-2 COVID-19 VACCINE - (MODERNA) Unknown Completed [facility] Pneumococcal Polysaccharide, PPSV23 (PNEUMOVAX) Unknown Completed [facility] TDAP Unknown Completed [facility] SARS-COV-2 COVID-19 VACCINE - (MODERNA) Unknown Completed [facility] Pneumococcal Polysaccharide, PPSV23 (PNEUMOVAX) Unknown Completed [facility] TDAP Unknown Completed [facility] SARS-COV-2 COVID-19 VACCINE - (MODERNA) Unknown Completed [facility] Pneumococcal Polysaccharide, PPSV23 (PNEUMOVAX) Unknown Completed [facility] TDAP Unknown Completed [facility] SARS-COV-2 COVID-19 VACCINE - (MODERNA) Unknown Completed [facility] Pneumococcal Polysaccharide, PPSV23 (PNEUMOVAX) Unknown Completed [facility] TDAP Unknown Completed [facility] SARS-COV-2 COVID-19 VACCINE - (MODERNA) Unknown Completed [facility] Pneumococcal Polysaccharide, PPSV23 (PNEUMOVAX) Unknown Completed [facility] TDAP Unknown Completed [facility] SARS-COV-2 COVID-19 VACCINE - (MODERNA) Unknown Completed [facility] Pneumococcal Polysaccharide, PPSV23 (PNEUMOVAX) Unknown Completed [facility] TDAP Unknown Completed [facility] SARS-COV-2 COVID-19 VACCINE - (MODERNA) Unknown Completed [facility] Pneumococcal Polysaccharide, PPSV23 (PNEUMOVAX) Unknown Completed [facility] TDAP Unknown Completed [facility] SARS-COV-2 COVID-19 VACCINE - (MODERNA) Unknown Completed [facility] Pneumococcal Polysaccharide, PPSV23 (PNEUMOVAX) Unknown Completed [facility] TDAP Unknown Completed [facility] SARS-COV-2 COVID-19 VACCINE - (MODERNA) Unknown Completed [facility] Pneumococcal Polysaccharide, PPSV23 (PNEUMOVAX) Unknown Completed [facility] TDAP Unknown Completed [facility] SARS-COV-2 COVID-19 VACCINE - (MODERNA) Unknown Completed [facility] Pneumococcal Polysaccharide, PPSV23 (PNEUMOVAX) Unknown [facility] Unknown Completed [facility] SARS-COV-2 COVID-19 VACCINE - (MODERNA) Unknown Completed [facility] Pneumococcal Polysaccharide, PPSV23 (PNEUMOVAX) Unknown [facility] TDAP Unknown Completed [facility] SARS-COV-2 COVID-19 VACCINE - (MODERNA) Unknown Completed [facility] Pneumococcal Polysaccharide, PPSV23 (PNEUMOVAX) Unknown Completed [facility] TDAP Unknown Completed [facility] SARS-COV-2 COVID-19 VACCINE - (MODERNA) Unknown Completed [facility] Pneumococcal Polysaccharide, PPSV23 (PNEUMOVAX) Unknown Completed [facility] TDAP Unknown Completed [facility] SARS-COV-2 COVID-19 VACCINE - (MODERNA) Unknown Completed [facility] Vital Signs Vital Name Observation Time Observation Value Comments Mila whitehead Body weight 2023-06-04 16:29:00 83.462 kg [facility] BMI 2023-06-04 16:29:00 25.66 kg/m2 [facility] Systolic blood pressure 2023-06-01 19:18:00 100 mm[Hg] [facility] Diastolic blood pressure 2023-06-01 19:18:00 64 mm[Hg] [facility] Heart rate 2023-06-01 19:18:00 60 /min [facility] Body temperature 2023-06-01 18:35:00 35.44 Vida [facility] Respiratory rate 2023-06-01 18:35:00 18 /min [facility] Body height 2023-06-01 18:35:00 180.3 cm [facility] Body weight 2023-06-01 18:35:00 83.598 kg [facility] BMI 2023-06-01 18:35:00 25.70 kg/m2 [facility] Oxygen saturation in Arterial blood by Pulse oximetry 2023-06-01 18:35:00 99 /min [facility] Systolic blood pressure 2023-05-18 21:03:00 131 mm[Hg] [facility] Diastolic blood pressure 2023-05-18 21:03:00 77 mm[Hg] [facility] Heart rate 2023-05-18 21:03:00 58 /min [facility] Body temperature 2023-05-18 21:01:00 35.44 Vida [facility] Body height 2023-05-18 21:01:00 180.3 cm [facility] Body weight 2023-05-18 21:01:00 85.639 kg [facility] BMI 2023-05-18 21:01:00 26.33 kg/m2 [facility] Oxygen saturation in Arterial blood by Pulse oximetry 2023-05-18 21:01:00 95 /min [facility] Body height 2023-05-05 14:56:00 180.3 cm [facility] Body weight 2023-05-05 14:56:00 86.183 kg [facility] BMI 2023-05-05 14:56:00 26.50 kg/m2 [facility] Systolic blood pressure 2023-04-23 13:52:00 116 mm[Hg] [facility] Diastolic blood pressure 2023-04-23 13:52:00 74 mm[Hg] [facility] Heart rate 2023-04-23 13:52:00 60 /min [facility] Body temperature 2023-04-23 13:52:00 36.44 Vida [facility] Respiratory rate 2023-04-23 13:52:00 16 /min [facility] Body height 2023-04-23 13:52:00 180.3 cm [facility] Body weight 2023-04-23 13:52:00 86.274 kg [facility] BMI 2023-04-23 13:52:00 26.53 kg/m2 [facility] Oxygen saturation in Arterial blood by Pulse oximetry 2023-04-23 13:52:00 97 /min [facility] Systolic blood pressure 2023-04-07 13:30:00 121 mm[Hg] [facility] Diastolic blood pressure 2023-04-07 13:30:00 68 mm[Hg] [facility] Heart rate 2023-04-07 13:30:00 60 /min [facility] Body temperature 2023-04-07 13:30:00 35.44 Vida [facility] Respiratory rate 2023-04-07 13:30:00 16 /min [facility] Body height 2023-04-07 13:30:00 180.3 cm [facility] 2023-04-07 13:30:00 83.779 kg [facility] BMI 2023-04-07 13:30:00 25.76 kg/m2 [facility] Oxygen saturation in Arterial blood by Pulse oximetry 2023-04-07 13:30:00 97 /min [facility] Systolic blood pressure 2023-03-02 18:04:00 101 mm[Hg] [facility] Diastolic blood pressure 2023-03-02 18:04:00 59 mm[Hg] [facility] Heart rate 2023-03-02 18:03:00 61 /min [facility] Body temperature 2023-03-02 18:03:00 36.5 Vida [facility] Respiratory rate 2023-03-02 18:03:00 16 /min [facility] Body height 2023-03-02 18:03:00 180.3 cm [facility] Body weight 2023-03-02 18:03:00 87.862 kg [facility] BMI 2023-03-02 18:03:00 27.02 kg/m2 [facility] Systolic blood pressure 2023-02-19 15:33:00 148 mm[Hg] [facility] Diastolic blood pressure 2023-02-19 15:33:00 87 mm[Hg] [facility] Heart rate 2023-02-19 15:30:00 60 /min [facility] Body temperature 2023-02-19 15:30:00 36.44 Vida [facility] Respiratory rate 2023-02-19 15:30:00 16 /min [facility] Body height 2023-02-19 15:30:00 180.3 cm [facility] Body weight 2023-02-19 15:30:00 83.961 kg [facility] BMI 2023-02-19 15:30:00 25.82 kg/m2 [facility] Oxygen saturation in Arterial blood by Pulse oximetry 2023-02-19 15:30:00 98 /min [facility] Systolic blood pressure 2022-10-30 15:28:00 154 mm[Hg] [facility] Diastolic blood pressure 2022-10-30 15:28:00 92 mm[Hg] [facility] Heart rate 2022-10-30 15:26:00 60 /min [facility] Body temperature 2022-10-30 15:26:00 36.83 Vida [facility] Respiratory rate 2022-10-30 15:26:00 20 /min [facility] Body height 2022-10-30 15:26:00 180.3 cm [facility] Body weight 2022-10-30 15:26:00 86.546 kg [facility] BMI 2022-10-30 15:26:00 26.61 kg/m2 [facility] Systolic blood pressure 2022-08-01 20:43:00 123 mm[Hg] [facility] Diastolic blood pressure 2022-08-01 20:43:00 75 mm[Hg] [facility] Heart rate 2022-08-01 20:43:00 61 /min [facility] Body temperature 2022-08-01 20:43:00 36.39 Vida [facility] Respiratory rate 2022-08-01 20:43:00 18 /min [facility] Body height 2022-08-01 20:43:00 180.3 cm [facility] Body weight 2022-08-01 20:43:00 85.276 kg [facility] BMI 2022-08-01 20:43:00 26.22 kg/m2 [facility] Oxygen saturation in Arterial blood by Pulse oximetry 2022-08-01 20:43:00 97 /min [facility] Systolic blood pressure 2022-07-14 16:43:00 116 mm[Hg] [facility] Diastolic blood pressure 2022-07-14 16:43:00 77 mm[Hg] [facility] Heart rate 2022-07-14 16:43:00 60 /min [facility] Body temperature 2022-07-14 16:43:00 36.56 Vida [facility] Respiratory rate 2022-07-14 16:43:00 18 /min [facility] Body weight 2022-07-14 16:43:00 83.462 kg [facility] BMI 2022-07-14 16:43:00 25.66 kg/m2 [facility] Oxygen saturation in Arterial blood by Pulse oximetry 2022-07-14 16:43:00 100 /min [facility] Systolic blood pressure 2022-06-17 14:52:00 138 mm[Hg] [facility] Diastolic blood pressure 2022-06-17 14:52:00 84 mm[Hg] [facility] Heart rate 2022-06-17 14:52:00 60 /min [facility] Body temperature 2022-06-17 14:52:00 36.72 Vida [facility] Respiratory rate 2022-06-17 14:52:00 16 /min [facility] Body height 2022-06-17 14:52:00 180.3 cm [facility] Body weight 2022-06-17 14:52:00 86.456 kg [facility] BMI 2022-06-17 14:52:00 26.58 kg/m2 [facility] Oxygen saturation in Arterial blood by Pulse oximetry 2022-06-17 14:52:00 98 /min [facility] Systolic blood pressure 2022-05-20 16:17:00 138 mm[Hg] [facility] Diastolic blood pressure 2022-05-20 16:17:00 88 mm[Hg] [facility] Heart rate 2022-05-20 16:17:00 62 /min [facility] Body temperature 2022-05-20 16:17:00 36.67 Vida [facility] Respiratory rate 2022-05-20 16:17:00 18 /min [facility] Body weight 2022-05-20 16:17:00 89.359 kg [facility] BMI 2022-05-20 16:17:00 27.48 kg/m2 [facility] Oxygen saturation in Arterial blood by Pulse oximetry 2022-05-20 16:17:00 100 /min [facility] Systolic blood pressure 2022-05-13 15:12:00 144 mm[Hg] [facility] Diastolic blood pressure 2022-05-13 15:12:00 85 mm[Hg] [facility] Heart rate 2022-05-13 15:12:00 60 /min [facility] Body temperature 2022-05-13 15:10:00 35.44 Vida [facility] Respiratory rate 2022-05-13 15:10:00 16 /min [facility] Body height 2022-05-13 15:10:00 180.3 cm [facility] Body weight 2022-05-13 15:10:00 89.721 kg [facility] BMI 2022-05-13 15:10:00 27.59 kg/m2 [facility] Oxygen saturation in Arterial blood by Pulse oximetry 2022-05-13 15:10:00 99 /min [facility] Respiratory rate 2022-05-01 15:35:00 18 /min [facility] Body height 2022-05-01 15:35:00 180.3 cm [facility] Body weight 2022-05-01 15:35:00 87.998 kg [facility] BMI 2022-05-01 15:35:00 27.06 kg/m2 [facility] Oxygen saturation in Arterial blood by Pulse oximetry 2022-05-01 15:35:00 99 /min [facility] Systolic blood pressure 2022-05-01 15:35:00 137 mm[Hg] [facility] Diastolic blood pressure 2022-05-01 15:35:00 87 mm[Hg] [facility] Heart rate 2022-05-01 15:35:00 60 /min [facility] Body temperature 2022-05-01 15:35:00 36.39 Vida [facility] Systolic blood pressure 2022-04-03 15:16:00 168 mm[Hg] [facility] Diastolic blood pressure 2022-04-03 15:16:00 94 mm[Hg] [facility] Heart rate 2022-04-03 15:16:00 60 /min [facility] Body temperature 2022-04-03 15:16:00 36.33 Vida [facility] Respiratory rate 2022-04-03 15:16:00 20 /min [facility] Body height 2022-04-03 15:16:00 180.3 cm [facility] Body weight 2022-04-03 15:16:00 85.412 kg [facility] BMI 2022-04-03 15:16:00 26.26 kg/m2 [facility] Procedures Procedure Date / Time Performed Performing Clinician Source OCT, OPTIC NERVE - OU - BOTH EYES 2023-06-04 16:38:47 Barbara Bedoya [facility] PATIENT QUESTIONNAIRE 2023-04-07 05:01:00 Doctor Unassigned, [place] LIPID PANEL (44905)(TOTAL CHOLESTEROL, TRIGLYCERIDES, HDL) 2022-10-30 16:28:00 Susanne Ibrahim [facility] US ABDOMEN LIMITED WITH DOPPLER 2022-05-21 21:38:44 [facility] 2022-05-19 06:01:00 Do ctor Unassigned, [place] [facility] FERRITIN SERUM 2022-05-13 16:21:00 Julius Todd [facility] BILI UNCONJUGATED/BILI CONJUG 2022-05-13 16:21[facility]00 [facility] COMP. METABOLIC PANEL ([id number]) 2022-05-13 16:21:00 Susanne Ibrahim [facility] ALPHA FETOPROTEIN 2022-05-13 16:21:00 Julius Todd [facility] CBC WITH DIFF 2022-05-13 16:21:00 Julius Todd [facility] PROTHROMBIN TIME / INR 2022-05-13 16:21:00 Jose Todd [facility] MISCELLANEOUS SEND OUT TEST 2022-05-13 16:21:00 Julius Todd [facility] EXTERNAL PROVIDER RECORDS 2022-04-28 06:01:00 Do ctor Unassigned, [facility] EXTERNAL PROVIDER RECORDS 2022-04-18 05:01:00 Do ctor Unassigned, [place] US RETROPERITONEAL LIMITED 2022-04-10 19:34:37 Susanne Rich [facility] COMP. METABOLIC PANEL ([id number]) 2022-04-03 16:21:00 [facility] LIPID PANEL (23428)(TOTAL CHOLESTEROL, TRIGLYCERIDES, HDL) 2022-04-03 16:21:00 Desirae-Jayy [facility] GLYCOSYLATED HEMOGLOBIN (A1C) 2022-04-03 16:21:00 [facility] MEDICATION CORRESPONDENCE 2022-03-27 05:01:00 Do ctor Unassigned, [facility] MEDICATION CORRESPONDENCE 2022-02-26 05:01:00 Do ctor Unassigned, [place] MEDICATION CORRESPONDENCE 2021-12-04 05:01:00 Do ctor Unassigned, [place] MEDICATION CORRESPONDENCE 2021-11-13 05:01:00 Do ctor Unassigned, [facility] EXT LOWER VENOUS DOPPLER BILAT 2021-02-01 20:00:[address] [facility] EXT LOWER VENOUS DOPPLER BILAT 2021-02-01 20:00:[address] [facility] DOPPLER VENOUS ARMS BILATERAL 2021-02-01 19:30:[address] [facility] DOPPLER VENOUS ARMS BILATERAL 2021-02-01 19:30:00 [facility] ECG 12-LEAD 2021-01-30 [facility] 2021-01-30 14:34:07 Renita [facility] Encounters Start Date/Time End Date/Time Encounter Type Admission Type Attending [facility] Care Facility Care Department Encounter ID Source 2019-09-15 16:24:00 Inpatient Rakesh Zacarias Domingo [facility] CRD [id number] [facility] 2024-04-21 00:00:00 2024-04-21 12:38:22 Refill Pcp, Patient Does Not Have A [facility] 1.114 [id number] [facility] 2024-03-07 11:00:00 2024-03-07 11:30:00 [facility] Check-in Shavon Migue 2..840. [id number] A [facility] 2023-11-10 00:00:00 2023-12-12 18:19:30 Patient Secure Msg Doctor Unassigned, [place] 1..114 [id number] [facility] 2023-10-06 11:30:00 2023-10-06 11:30:00 Outpatient [facility] [facility] [id number] [facility] 2023-09-23 00:00:00 2023-09-23 00:00:00 Telephone Barbara Bedoya [facility] 1.840.114 350.1.13.10 4.2.7.2.686 [id number] [facility] 2023-07-17 00:00:00 2023-07-17 00:00:00 Outpatient ALI_S PANRSOH PANRSOH [id number] PANRSOH 2023-07-15 10:52:06 2023-07-15 10:52:06 Outpatient SFA ÁLVARO [id number] Serjio Wheeler 2023-07-13 00:00:00 2023-07-13 00:00:00 Outpatient \\R\\RSOH_Hou ston_Astori PANRSOH PANRSOH [id number] [facility] 2023-07-12 00:00:00 2023-07-12 00:00:00 [facility] 1.2840.114 350.1.13.10 4.2.7.2.686 [id number] [id number] [facility] 2023-06-12 00:00:00 2023-06-12 00:00:00 Refill Ibidapo-Oblisette [facility] 1.84.114 350.1.13.10 4.2.7.2.686 [id number] [facility] 2023-06-04 10:00:00 2023-06-04 10:15:00 Office Visit [facility] 1.84.114 350.1.13.10 4.2.7.2.686 [id number] [facility] 2023-06-04 10:00:00 2023-06-04 10:00:00 Outpatient BARBARA [facility]H [facility] [id number] [facility] 2023-06-03 00:00:00 2023-06-03 00:00:00 Telephone Lopez Tuttle [facility] 1.84.114 350.1.13.10 4.2.7.2.686 [id number] [facility] 2023-06-01 13:00:00 2023-06-01 14:43:50 Outpatient R LOPEZ TUTTLE LOVETTE [facility] [id number] [facility] 2023-06-01 13:00:00 2023-06-01 14:43:50 Office Visit Lopez Tuttle [facility]IS[facility] 1.2.840.114 350.1.13.10 4.2.7.2.686 [id number] [facility] 2023-06-01 12:00:00 2023-06-01 12:15:00 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 [facility] 1.2.840.114 350.1.13.10 4.2.7.2.686 [id number] [facility] 2023-06-01 00:00:00 2023-06-01 00:00:00 [facility] 1.2.840.114 350.1.13.10 4.2.7.2.686 [id number] [facility] 2023-06-01 00:00:00 2023-06-01 00:00:00 Patient Secure M[facility] 1.2.840.114 350.1.13.10 4.2.7.2.686 [id number] [facility] 2023-05-18 16:00:00 2023-05-18 16:15:00 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 [facility] 1.2.840.114 350.1.13.10 4.2.7.2.686 [id number] [facility] 2023-05-18 15:00:00 2023-05-18 16:14:37 Outpatient R LOPEZ TUTTLE LOVETTE [facility] [id number] [facility] 2023-05-18 15:00:00 2023-05-18 16:14:37 [facility] 1.2.840.114 350.1.13.10 4.2.7.2.686 [id number] [facility] 2023-05-13 14:00:00 2023-05-13 14:00:00 Outpatient R RUFINOSHANTANU Jeffrey [facility] [id number] [facility] 2023-05-05 09:00:00 2023-05-05 09:49:13 Outpatient R BARBARA BEDOYA NathenLisette [facility] [id number] [facility] 2023-05-05 09:00:00 2023-05-05 09:49:13 Office Visit Aide Bedoyalisette [facility] 1.2840.114 350.1.13.10 4.2.7.2.686 [id number] [facility] 2023-04-28 00:00:00 2023-04-28 00:00:00 Patient Secure Msg Doctor Unassigned, [facility] 1.2.840.114 350.1.13.10 4.2.7.2.686 [id number] [facility] 2023-04-28 00:00:00 2023-04-28 00:00:00 Patient Secure Msg Doctor Unassigned, [facility] 1.2.840.114 350.1.13.10 4.2.7.2.686 [id number] [facility] 2023-04-23 09:00:00 2023-04-23 09:30:00 Office Visit Susanne Ibrahim [facility] 1.2840.114 350.1.13.10 4.2.7.2.686 [id number] [facility] 2023-04-23 09:00:00 2023-04-23 09:00:00 Outpatient R SUSANNE IBRAHIM [facility] [id number] [facility] 2023-04-15 00:00:00 2023-04-15 00:00:00 Outpatient DMG DM [id number] [facility] 2023-04-08 00:00:00 2023-04-08 00:00:00 Telephone Felixjudy [facility] 1.840.114 350.1.13.10 4.2.7.2.686 [id number] [facility] 2023-04-07 10:30:00 2023-04-07 10:45:00 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 2, [facility] 1.2.840.114 350.1.13.10 4.2.7.2.686 [id number] [facility] 2023-04-07 09:00:00 2023-04-07 10:09:16 Outpatient R [facility] [id number] [facility] 2023-04-07 09:00:00 2023-04-07 10:09:16 Office Visit Sophie [facility] 1.2.840.114 350.1.13.10 4.2.7.2.686 [id number] [facility] 2023-04-07 00:00:00 2023-04-07 00:00:00 Orders Only Doctor Unassigned, [facility] 1.2.840.114 350.1.13.10 4.2.7.2.686 [id number] [facility] 2023-04-06 00:00:00 2023-04-06 00:00:00 Telephone Susanne Ibrahim [facility] 1.2840.114 350.1.13.10 4.2.7.2.686 [id number] [facility] 2023-04-02 09:30:00 2023-04-02 09:30:00 Outpatient R NATALIA MENDEZTNEY [facility] [id number] [facility] 2023-03-02 13:30:00 2023-03-02 13:57:13 Outpatient R DARYL AWAD [facility] [id number] [facility] 2023-03-02 13:30:00 2023-03-02 13:57:13 Office Visit Daryl Awad [facility] 1.0.114 350.1.13.10 4.2.7.2.686 [id number] [facility] 2023-03-02 00:00:00 2023-03-02 00:00:00 Telephone [place] [facility] 1.0.114 350.1.13.10 4.2.7.2.686 [id number] [id number] [facility] 2023-02-19 10:30:00 2023-02-19 11:02:51 Outpatient R ALEXANDRIA MITCHELLSARAINikitaCAROLINAS [facility] [id number] [facility] 2023-02-19 10:30:00 2023-02-19 11:02:51 Office Visit [place] [facility] 1..114 350.1.13.10 4.2.7.2.686 [id number] [id number] [facility] 2023-01-29 00:00:00 2023-01-29 00:00:00 Telephone [place] [facility] 1..114 350.1.13.10 4.2.7.2.686 [id number] [id number] [facility] 2023-01-20 00:00:00 2023-01-20 00:00:00 Jeremy Lee [facility] 1.2.840.114 350.1.13.10 4.2.7.2.686 [id number] [facility] 2022-12-22 00:00:00 2022-12-22 00:00:00 [facility] 1.2.840.114 350.1.13.10 4.2.7.2.686 [id number] 044 [id number] [facility] 2022-11-19 00:00:00 2022-11-19 00:00:00 Telephone [place] [facility] 1.2.840.114 350.1.13.10 4.2.7.2.686 [id number] [id number] [facility] 2022-10-30 10:30:00 2022-10-30 11:15:00 Outpatient R ALEXANDRIA [facility] [id number] [facility] 2022-10-30 10:30:00 2022-10-30 11:15:00 Office Visit [place] [facility] 1.2.840.114 350.1.13.10 4.2.7.2.686 [id number] [facility] 2022-09-23 00:00:00 2022-09-23 00:00:00 Telephone Team, [facility] 1.2.840.114 350.1.13.10 4.2.7.2.686 [id number] [facility] 2022-08-01 15:00:00 2022-08-01 15:45:18 Outpatient R ALEXANDRIA [facility] [id number] [facility] 2022-08-01 15:00:00 2022-08-01 15:45:18 Office Visit Susanne Ibrahim [facility] 1.2.840.114 350.1.13.10 4.2.7.2.686 [id number] [facility] 2022-07-14 11:29:21 2022-07-14 23:59:00 Outpatient R JOSE LUIS WHITAKER [facility] [id number] [facility] 2022-07-14 11:29:21 2022-07-14 23:59:00 Hospital Encounter Jose Luis Whitaker [facility] 1.2.840.114 350.1.13.10 4.2.7.2.686 [id number] [facility] 2022-07-14 10:30:00 2022-07-14 11:13:14 Office Visit Jose Luis Whitaker [facility] 1.2.840.114 350.1.13.10 4.2.7.2.686 [id number] [id number] [facility] 2022-07-04 00:00:00 2022-07-04 00:00:00 Refill Jeremy Galeas [facility] 1.2840.114 350.1.13.10 4.2.7.2.686 [id number] 044 [id number] [facility] 2022-07-01 00:00:00 2022-07-01 00:00:00 [facility] 1.2840.114 350.1.13.10 4.2.7.2.686 [id number] [facility] 2022-06-28 00:00:00 2022-06-28 00:00:00 [facility] 1.2.114 350.1.13.10 4.2.7.2.686 [id number] 044 [id number] [facility] 2022-06-24 00:00:00 2022-06-24 00:00:00 [facility] 1.84.114 350.1.13.10 4.2.7.2.686 [id number] [facility] 2022-06-17 09:30:00 2022-06-17 10:00:00 Office Visit Daniella [facility] 1..840.114 350.1.13.10 4.2.7.2.686 [id number] [facility] 2022-06-17 09:30:00 2022-06-17 09:30:00 Outpatient R DANIELLA [facility] [id number] [facility] 2022-06-17 00:00:00 2022-06-17 00:00:00 [facility]..840.114 350.1.13.10 4.2.7.2.686 [id number] [facility] 2022-05-21 14:34:15 2022-05-21 23:59:00 Outpatient R DANIELLA [facility] [id number] [facility] 2022-05-21 14:34:15 2022-05-21 23:59:00 Hospital Encounter Daniella [facility] 1.840.114 350.1.13.10 4.2.7.2.686 [id number] [facility] 2022-05-20 10:30:00 2022-05-20 10:47:44 Outpatient R IBIDAPO-OBE , [facility] [id number] [facility] 2022-05-20 10:30:00 2022-05-20 10:47:44 Office Visit Jeremy Galeas [facility] 1.840.114 350.1.13.10 4.2.7.2.686 [id number] [facility] 2022-05-19 00:00:00 2022-05-19 00:00:00 Orders Only Doctor Unassigned, [facility] 1.0.114 350.1.13.10 4.2.7.2.686 [id number] [facility] 2022-05-19 00:00:00 2022-05-19 00:00:00 Telephone OtisMikki [facility] 1.840.114 350.1.13.10 4.2.7.2.686 [id number] [facility] 2022-05-19 00:00:00 2022-05-19 00:00:00 Telephone OtisMikki [facility] 1.2.840.114 350.1.13.10 4.2.7.2.686 [id number] [facility] 2022-05-13 09:00:00 2022-05-13 09:30:00 Office Visit OtisMikki [facility] 1.2840.114 350.1.13.10 4.2.7.2.686 [id number] [facility] 2022-05-13 09:00:00 2022-05-13 09:00:00 Outpatient R DANIELLA [facility] [id number] [facility] 2022-05-12 00:00:00 2022-05-12 00:00:00 Telephone Daniella Yamam [facility] 1.2.840.114 350.1.13.10 4.2.7.2.686 [id number] [facility] 2022-05-01 10:00:00 2022-05-01 10:15:24 [facility] [id number] [facility] 2022-05-01 10:00:00 2022-05-01 10:15:24 [facility] 1.2.840.114 350.1.13.10 4.2.7.2.686 [id number] [facility] 2022-04-28 00:00:00 2022-04-28 00:00:00 Orders Only Doctor Unassigned, [facility] 1.2.840.114 350.1.13.10 4.2.7.2.686 [id number] [facility] 2022-04-23 00:00:00 2022-04-23 00:00:00 Patient Secure Msg Doctor Unassigned, [facility] 1.2.840.114 350.1.13.10 4.2.7.2.686 [id number] [facility] 2022-04-18 00:00:00 2022-04-18 00:00:00 Orders Only Doctor Unassigned, [facility] 1.2.840.114 350.1.13.10 4.2.7.2.686 [id number] [facility] 2022-04-12 00:00:00 2022-04-12 00:00:00 Patient Secure Msg Doctor Unassigned, [facility] 1.2.840.114 350.1.13.10 4.2.7.2.686 [id number] [facility] 2022-04-10 14:11:22 2022-04-10 23:59:00 Hospital Encounter [place] [facility] 1.2840.114 350.1.13.10 4.2.7.2.686 [id number] [facility] 2022-04-10 14:11:22 2022-04-10 23:59:00 Outpatient R ALEXANDRIA [facility] [id number] [facility] 2022-04-10 09:15:00 2022-04-10 09:30:00 Nurse Visit Only, [facility] [place] [facility] 1.2840.114 350.1.13.10 4.2.7.2.686 [id number] [id number] [facility] 2022-04-03 10:30:00 2022-04-03 11:00:00 Office Visit DesiraeGlenn [facility] 1.20.114 350.1.13.10 4.2.7.2.686 [id number] [facility] 2022-04-03 10:30:00 2022-04-03 10:30:00 Outpatient R GAMALIELYISHARLENE [facility] [id number] [facility] 2022-04-03 00:00:00 2022-04-03 00:00:00 Pre Visit Outreach Alex Fernández [facility] 1.2.114 350.1.13.10 4.2.7.2.686 [id number] [facility] 2022-04-03 00:00:00 2022-04-03 00:00:00 Telephone [place] [facility] 1.2.840.114 350.1.13.10 4.2.7.2.686 [id number] [facility] 2022-04-03 00:00:00 2022-04-03 00:00:00 Telephone Susanne Ibrahim [facility] 1.2.840.114 350.1.13.10 4.2.7.2.686 [id number] [facility] 2022-03-27 00:00:00 2022-03-27 00:00:00 Orders Only Doctor Unassigned, [facility] 1.2.840.114 350.1.13.10 4.2.7.2.686 [id number] [facility] 2022-03-04 00:00:00 2022-03-04 00:00:00 Telephone Gudelia [facility] 1.2.840.114 350.1.13.10 4.2.7.2.686 [id number] 044 [id number] [facility] 2022-02-26 00:00:00 2022-02-26 00:00:00 Orders Only Doctor Unassigned, [facility] 1.2.840.114 350.1.13.10 4.2.7.2.686 [id number] [facility] 2021-12-04 00:00:00 2021-12-04 00:00:00 Telephone Gudelia [facility] 1.2.840.114 350.1.13.10 4.2.7.2.686 [id number] 044 [id number] [facility] 2021-12-04 00:00:00 2021-12-04 00:00:00 Orders Only Doctor Unassigned, [facility] 1.2.840.114 350.1.13.10 4.2.7.2.686 [id number] [facility] 2021-11-13 00:00:00 2021-11-13 00:00:00 Refsyeda Magallanes Brissa [facility] 1.0.114 350.1.13.10 4.2.7.2.686 [id number] [facility] 2021-11-13 00:00:00 2021-11-13 00:00:00 Orders Only Doctor Unassigned, [facility] 1.840.114 350.1.13.10 4.2.7.2.686 [id number] [facility] 2021-10-30 15:40:00 2021-10-30 16:13:46 Outpatient Meera MAGALLANES BRISSA [facility] [id number] [facility] 2021-10-30 15:40:00 2021-10-30 16:13:46 Office Visit Jeremy Galeas [facility] 1..114 350.1.13.10 4.2.7.2.686 [id number] [facility] 2021-10-30 15:40:00 2021-10-30 16:13:46 Outpatient Meera MAGALLANES BRISSA [facility] [id number] [facility] 2021-10-09 09:00:00 2021-10-09 09:45:22 Outpatient LUIS CARLOS JACOBSEN [facility] [id number] [facility] 2021-10-09 09:00:00 2021-10-09 09:45:22 Ancillary Visit Yehuda Saha Brian A [facility] 1..114 350.1.13.10 4.2.7.2.686 [id number] [facility] 2021-10-07 09:30:00 2021-10-07 10:15:00 Ancillary Visit Justine Bahena Brian A [facility] 1.2.840.114 350.1.13.10 4.2.7.2.686 [id number] [facility] 2021-10-03 08:15:00 2021-10-03 09:08:22 Ancillary Visit Zarina Muñoz Brian A [facility] 1.2840.114 350.1.13.10 4.2.7.2.686 [id number] [facility] 2021-09-19 09:45:00 2021-09-19 10:37:16 Outpatient LUIS CARLOS JACOBSEN [facility] [id number] [facility] 2021-09-19 09:45:00 2021-09-19 10:37:16 Ancillary Visit Yehuda Saha Brian A [facility] 1.2840.114 350.1.13.10 4.2.7.2.686 [id number] [facility] 2021-09-19 09:45:00 2021-09-19 09:45:00 Outpatient LUIS CARLOS JACOBSEN [facility] [id number] [facility] 2021-09-03 09:13:30 2021-09-03 23:59:00 Outpatient BRISSA CARBAJAL [facility] [id number] [facility] 2021-09-03 09:13:30 2021-09-03 23:59:00 Hospital Encounter Brissa Magallanes [facility] 1.20.114 350.1.13.10 4.2.7.2.686 [id number] [facility] 2021-09-03 14:00:00 2021-09-03 14:30:00 Office Visit Brissa Magallanes [facility] 1.2.840.114 350.1.13.10 4.2.7.2.686 [id number] [facility] 2021-09-03 09:13:30 2021-09-03 09:13:30 Outpatient R BRISSA MAGALLANES [facility] [id number] Terry s [facility] 2021-09-03 00:00:00 2021-09-03 00:00:00 Telephone Garcia, [facility] 1.2.840.114 350.1.13.10 4.2.7.2.686 [id number] 044 [id number] [facility] 2021-09-03 00:00:00 2021-09-03 00:00:00 Telephone Radha [facility] 1.2.840.114 350.1.13.10 4.2.7.2.686 [id number] [facility] 2021-09-02 00:00:00 2021-09-02 00:00:00 Pre Visit Outreach Alex Fernández [facility] 1.2.840.114 350.1.13.10 4.2.7.2.686 [id number] [facility] 2021-09-02 00:00:00 2021-09-02 00:00:00 Telephone Stephanie Chaudhary [facility] 1.2.840.114 350.1.13.10 4.2.7.2.686 [id number] [facility] 2021-08-29 00:00:00 2021-08-29 00:00:00 Patient Outreach Sarah Kendrick [facility] 1.2.840.114 350.1.13.10 4.2.7.2.686 [id number] [facility] 2021-08-29 00:00:00 2021-08-29 00:00:00 Telephone Rajat Blacknathen Lara [facility] 1.2.840.114 350.1.13.10 4.2.7.2.686 [id number] [facility] 2021-08-29 00:00:00 2021-08-29 00:00:[address] [facility] 1.2.840.114 350.1.13.10 4.2.7.2.686 [id number] [facility] 2021-08-28 10:10:00 2021-08-28 11:24:37 Office Visit Isa Garcia Syed [facility] 1.2.840.114 350.1.13.10 4.2.7.2.686 [id number] [facility] 2021-08-28 10:10:00 2021-08-28 11:24:37 Outpatient BRISSA CARBAJAL [facility] [id number] [facility] 2021-08-28 10:10:00 2021-08-28 10:10:00 Outpatient BRISSA CARBAJAL [facility] [id number] [facility] 2021-08-27 11:30:00 2021-08-27 11:45:00 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 [facility] Susanne Ibrahim [facility] 1.2.840.114 350.1.13.10 4.2.7.2.686 [id number] [facility] 2021-08-27 11:30:00 2021-08-27 11:30:00 Outpatient SUSANNE LEDBETTER [facility] [id number] [facility] 2021-08-14 13:00:00 2021-08-14 14:06:31 Outpatient SUSANNE LEDBETTER [facility] [id number] [facility] 2021-08-14 13:00:00 2021-08-14 14:06:31 Office Visit Stephanie Chaudhary [facility] 1.114 350.1.13.10 4.2.7.2.686 [id number] [facility] 2021-08-14 00:00:00 2021-08-14 00:00:00 Orders Only Doctor Unassigned, [facility] 1.114 350.1.13.10 4.2.7.2.686 [id number] [facility] 2021-08-07 19:47:00 2021-08-11 15:55:00 Inpatient UBALDO FARMER [facility] [address] [facility] 2021-07-01 15:45:00 2021-07-01 18:02:00 Emergency X DEEPIKA OSUNA [facility] ERT [id number] [facility] 2021-07-01 15:45:00 2021-07-01 18:02:00 Emergency Deepika Osuna [facility] ([facility]) 1..114 [id number] [facility] 2021-02-01 13:52:00 2021-02-03 17:33:00 Inpatient [facility]Y [facility]CLA[facility] [id number] [facility] 2021-01-30 00:00:00 2021-01-30 00:00:00 EXT [facility] Corky Fuller EXT [facility] LOCATION [id number] [facility] 2021-01-30 00:00:00 2021-01-30 00:00:00 EXT [facility] OP Corky Cha EXT [facility] LOCATION [id number] [facility] 2021-01-02 03:20:00 2021-01-02 03:20:00 Outpatient Og[place]ree_C [facility] [id number] [facility] 2020-12-14 07:17:00 2020-12-14 23:59:00 Outpatient BYRON BALBUENA [facility] CAR [address] [facility] 2020-12-07 00:00:00 2020-12-07 00:00:00 EXT MH OP EXT [facility] LOCATION [id number] [facility] 2020-12-07 00:00:00 2020-12-07 00:00:00 EXT [facility] OP EXT [facility] LOCATION [id number] [facility] 2020-12-06 00:00:00 2020-12-06 00:00:00 EXT [facility] OP Byron Balbuena EXT [facility] LOCATION [id number] [facility] 2020-12-06 00:00:00 2020-12-06 00:00:00 EXT [facility] OP Byron Balbuena EXT [facility] LOCATION [id number] [facility] 2020-09-21 07:02:00 2020-09-21 13:00:00 Outpatient LAVERNE SAMUELS [facility] MED [id number]
[2024-07-23] MEDS ORDERED: KETOROLAC 10 MG TAB ONE (19:59)
[2024-07-23] MEDS ORDERED: HYDROCODONE/APAP 5/325 MG TAB ONE (20:00)
[2024-07-23] MEDS ORDERED: methocarbamoL 750 MG TAB ONE (20:00)
[2024-07-23] MEDS ORDERED: TDAP (DIPHTH,PERTUSS(ACELL),TET VAC) 0.5 ML VIAL IMVAC ONE (20:00)
[2024-07-23] MEDS ORDERED: LIDOCAINE 1% 20 ML MDV ONE (20:01)
[2024-07-23] MEDS ORDERED: LORazepam 2 MG/ML VIAL ONE (20:34)
--- NOTE | 2024-07-23 21:03 | RAD REPORT ---
EXAM: XR Hand Left 3 View HISTORY: [facility] MAIN left hand injury Bed: COMPARISON: None TECHNIQUE: 3 radiographic views of the LEFT hand submitted. FINDINGS: No evidence of acute fracture or dislocation. Joint alignment is maintained. No soft tissu e swelling is seen.. Mild degenerative changes at the thumb base.. IMPRESSION: No significant bone or joint abnormality.
--- NOTE | 2024-07-23 21:30 | RAD REPORT ---
EXAM: CT Head Brain Wo Cont HISTORY: head injury COMPARISON: None TECHNIQUE: Multiple contiguous axial images were obtained for a CT of the brain without contrast. Sag ittal and coronal reformats were performed. One or more of the following dose reduction techniques were used: Automated exposure control, adjus tment of the mA and kV according to patient size, and iterative reconstruction. Unless otherwise specified, incidental findings do not require dedicated imaging follow-up. FINDINGS: No evidence of hydrocephalus, intracranial hemorrhage, or extra-axial fluid collection. The brain is normal in morphology. The calvarium is intact. The visualized paranasal sinuses and mastoid air cells are essentially clear . IMPRESSION: No evidence of acute intracranial abnormality.
--- NOTE | 2024-07-23 21:33 | RAD REPORT ---
EXAMINATION: CT MAXILLOFACIAL WITHOUT CONTRAST CLINICAL INDICATION: [facility] MAIN facial injury left Bed: TECHNIQUE: Axial images were obtained through the facial bones and orbits without intravenous contras t. Sagittal and coronal reconstructions were created from the data. One or more of the following dose reduction techniques were used: Automated exposure control, adjustment of the mA and/or kV accor ding to patient size, and/or iterative reconstruction. Unless otherwise specified, incidental findings do not require dedicated imaging follow-up. COMPARISON: No prior exam. FINDINGS: SOFT TISSUE: No significant abnormalities. BONES: No evidence of fracture, dislocation, or aggressive osseous lesions. No lesion of the visuali zed skull base or calvarium. Heterogeneous pattern of the included cervical spine cancellus bone, nonspecific. ORBITS: The globes are intact. No intraorbital hemorrhage or mass. Rightward nasal septal deviation. SINUSES: The paranasal sinuses and tympanomastoid cavities are predominantly clear. IMPRESSION: No acute facial fractures. Nonspecific heterogeneous marrow pattern of the included upper cervical spine, may reflect sequelae o f degenerative changes, although other etiologies including a metabolic or marrow infiltrative process may be considered.
--- NOTE | 2024-07-23 22:15 | ER ---
Nurse's Notes [facility] Name: Adrian He Age: 69 yrs Sex: Male : 1955 Arrival Date: 07/23/2024 Time: 19:00 Bed 17 Private MD: Diagnosis: Laceration without foreign body of left hand, initial encounter;Contusion of left knee;Unspecified injury of head, initial encounter;Acute left facial abrasion, acute fall at home, acute left knee abrasion, acute left hand laceration palmar surface Presentation: 07/23 19:10 Chief complaint: Patient states: Tripped and fell today. Pt has abrasion to left knee cm10 and left cheek. Pt has laceration to left hand, bleeding controlled. Coronavirus screen: Client denies travel out of the [place] in the last 14 days. Ebola Screen: Patient denies travel to an Ebola-affected area in the 21 days before illness onset. Initial Sepsis Screen: Does the patient meet any 2 criteria? No. Patient's initial sepsis screen is negative. Does the patient have a suspected source of infection? No. Patient's initial sepsis screen is negative. Risk Assessment: Do you want to hurt yourself or someone else? Patient reports no desire to harm self or others. Onset of symptoms was July 23, 2024. 19:10 Method Of Arrival: Ambulatory cm10 19:10 Acuity: LACHELLE 4 cm10 Triage Assessment: 19:14 General: Appears in no apparent distress. uncomfortable, Behavior is calm, cooperative. cm10 Neuro: No deficits noted. Level of Consciousness is awake, alert, obeys commands, Oriented to person, place, time, situation, Appropriate for age. Respiratory: No deficits noted. Airway is patent Respiratory effort is even, unlabored, Respiratory pattern is regular, symmetrical. Historical: - Allergies: 19:13 No Known Allergies; cm10 - PMHx: 19:13 diabetes mellitus; Hypertension; Myocardial infarction; cm10 - PSHx: 19:13 pacemaker; cm10 - Immunization history:: Adult Immunizations unknown, Last tetanus immunization: unknown. - Infectious Disease History:: Denies. - Social history:: Smoking status: Patient denies any tobacco usage or history of. - Family history:: not pertinent. Screenin:15 [facility] ED Fall Risk Assessment (Adult) History of falling in the last 3 months, ay including since admission Yes- single mechanical fall (1 pt) Confusion or Disorientation No (0 pts) Intoxicated or Sedated No (0 pts) Impaired Gait No (0 pts) Mobility Assist Device Used No (0 pt) Altered Elimination No (0 pt) Score/Fall Risk Level 0 - 2 = Low Risk Oriented to surroundings, Maintained a safe environment, Educated pt \T\ family on fall prevention, incl call for assistance when getting out of bed. Abuse screen: Denies threats or abuse. Nutritional screening: No deficits noted. Tuberculosis screening: No symptoms or risk factors identified. Assessment: 19:20 General: Appears distressed, uncomfortable, Behavior is calm, cooperative. Pain: ay Complains of pain in left arm. 19:20 Cardiovascular: Capillary refill < 3 seconds. ay 19:20 Cardiovascular:. Respiratory: Denies shortness of breath at rest, on exertion. GI: No ay signs and/or symptoms were reported involving the gastrointestinal system. : No signs and/or symptoms were reported regarding the genitourinary system. EENT: No signs and/or symptoms were reported regarding the EENT system. Derm: No signs and/or symptoms reported regarding the dermatologic system. 20:30 Neuro: Level of Consciousness is confused, Seizure activity noted at this time. Type of ha1 seizure: partial seizure. Seizure lasted approximately 0.5 minutes. 20:30 Reassessment: CARE PROVIDER ИРИНА NOTIFIED. ha1 Vital Signs: 19:10 BP 136 / 71; Pulse 59; Resp 15; Temp 97.7(O); Pulse Ox 100% on R/A; Weight 84.37 kg; cm10 Height 5 ft. 11 in. ; Pain 10/10; 20:15 BP 140 / 67; Pulse 60; Resp 17 S; Pulse Ox 99% on R/A; ay 22:15 BP 115 / 70; Pulse 60; Resp 20; Pulse Ox 99% on R/A; ay 19:10 Body Mass Index 25.94 (84.37 kg, 180.34 cm) cm10 19:10 Pain Scale: Adult cm10 Aguanga Coma Score: 20:15 Eye Response: spontaneous(4). Motor Response: obeys commands(6). Verbal Response: ay oriented(5). Total: 15. 20:52 Eye Response: spontaneous(4). Motor Response: obeys commands(6). Verbal Response: sp4 oriented(5). Total: 15. ED Course: 19:01 Patient arrived in ED. ra3 19:05 Bobby Sprague MD is Attending Physician. sp4 19:13 Triage completed. cm10 19:13 Arm band placed on right wrist. Patient placed in waiting room. cm10 19:28 Hand Left 3 View XRAY In Process Unspecified. EDMS 19:54 Kinsey Kennedy, RN is Primary Nurse. ay 20:15 Patient has correct armband on for positive identification. Bed in low position. Call ay light in reach. Side rails up X2. Adult w/ patient. 20:15 Assist provider with laceration repair on left palm. Inserted saline lock: 22 gauge in ay left forearm, using aseptic technique. 20:52 CT Head Brain wo Cont In Process Unspecified. EDMS 20:52 Facial Bones W/O Con CT In Process Unspecified. EDMS 22:19 Knee Left 3 View XRAY In Process Unspecified. EDMS 22:46 IV discontinued, intact, bleeding controlled, No redness/swelling at site. Pressure ay dressing applied. Administered Medications: 20:11 Drug: HYDROcodone-acetaminophen PO 5 mg-325 mg 2 tabs PO once Route: PO; ay 22:12 Follow up: Response: No adverse reaction ay 20:11 Drug: Methocarbamol PO 1500 mg PO once Route: PO; ay 22:11 Follow up: Response: No adverse reaction ay 20:11 Drug: Ketorolac PO 10 mg PO once Route: PO; ay 22:11 Follow up: Response: No adverse reaction ay 20:25 Drug: Ativan IVP 1 mg IVP once Route: IVP; Site: left forearm; ha1 22:11 Follow up: Response: No adverse reaction ay 22:11 Drug: Lidocaine Infiltration (1 %) 20 ml 20 ml Infiltration once; to bedside Volume: 20 ay ml; Route: Infiltration; 22:12 Follow up: Response: No adverse reaction ay 22:13 Not Given (Pt stated he is up to date): boostrix tdap0.5 ml IM once; as a single dose ay Medication: 20:15 VIS not applicable for this client. ay Outcome: 22:14 Discharge ordered by . sp4 22:46 Discharged to home via wheelchair, ay 22:46 Condition: stable 22:46 Discharge instructions given to patient, Instructed on discharge instructions, follow up and referral plans. Demonstrated understanding of instructions, follow-up care, medications, wound care, Prescriptions given X 2, 22:47 Patient left the ED. ay Signatures: Dispatcher [employer] EDMS Anisa Samayoa, RN RN ha1 Bobby Sprague MD MD sp4 Jyotsna Coombs RN RN cm10 Brenna Hoffman 3 Kinsey Kennedy RN RN ay
--- NOTE | 2024-07-23 22:15 | EDPHYS ---
Physician Documentation [facility] Name: Adrian He Age: 69 yrs Sex: Male : 1955 Arrival Date: 07/23/2024 Time: 19:00 Bed 17 Private MD: ED Physician Bobby Sprague HPI: 07/23 19:05 This 69 yrs old Black Male presents to ER via Unassigned with complaints of Fall sp4 Injury, Hand Injury - Laceration, Facial Injury. 20:51 The patient has 69-year-old male who presents after acute fall at home on a concrete sp4 surface. Patient has a laceration left palm, also left facial contusion and abrasion, also left knee contusion and abrasion infrapatellar area. Denied LOC.. Historical: - Allergies: 19:13 No Known Allergies; cm10 - PMHx: 19:13 diabetes mellitus; Hypertension; Myocardial infarction; cm10 - PSHx: 19:13 pacemaker; cm10 - Immunization history:: Adult Immunizations unknown, Last tetanus immunization: unknown. - Infectious Disease History:: Denies. - Social history:: Smoking status: Patient denies any tobacco usage or history of. - Family history:: not pertinent. ROS: 20:52 Constitutional: Negative for fever, chills, and weight loss, positive for head sp4 injury, positive for left facial contusion, positive left facial abrasion, positive left palm laceration, positive left knee contusion, positive left knee abrasion 20:52 All other systems are negative, Exam: 20:52 Constitutional: This is a well developed, well nourished patient who is awake, alert, sp4 and in no acute distress. Head/Face: Normocephalic, positive for left facial contusion, positive left facial abrasion, positive left palm laceration, Eyes: Pupils equal round and reactive to light, extra-ocular motions intact. Lids and lashes normal. Conjunctiva and sclera are not injected. Cornea within normal limits. Periorbital areas with no swelling, redness, or edema. ENT: Nares patent. No nasal discharge, no septal abnormalities noted. Tympanic membranes are normal and external auditory canals are clear. Oropharynx with no redness, swelling, or masses, exudates, or evidence of obstruction, uvula midline. Mucous membranes moist. Neck: Trachea midline, no thyromegaly or masses palpated, and no cervical lymphadenopathy. Supple, full range of motion without nuchal rigidity, or vertebral point tenderness. Chest/axilla: Normal chest wall appearance and motion. Nontender with no deformity. No lesions are appreciated. Cardiovascular: Regular rate and rhythm with a normal S1 and S2. No gallops, murmurs, or rubs. Normal PMI, no JVD. No pulse deficits. Respiratory: Lungs have equal breath sounds bilaterally, clear to auscultation and percussion. No rales, rhonchi or wheezes noted. No increased work of breathing, no retractions or nasal flaring. Abdomen/GI: Soft, with normal bowel sounds. No distension or tympany. No guarding or rebound. No evidence of tenderness throughout. Back: No spinal tenderness. No costovertebral tenderness. Skin: Warm, dry with normal turgor. Normal color with no rashes, no lesions, and no evidence of cellulitis. MS/ Extremity: Pulses equal, no cyanosis. Neurovascular intact. Full, normal range of motion. Positive left infrapatellar contusion and abrasion, positive left hand laceration about 3 cm long, palmar surface, otherwise normal Neuro: Awake and alert, GCS 15, oriented to person, place, time, and situation. Cranial nerves II-XII grossly intact. Motor strength 5/5 in all extremities. Sensory grossly intact. Psych: Awake, alert, with orientation to person, place and time. Behavior, mood, and affect are within normal limits Vital Signs: 19:10 BP 136 / 71; Pulse 59; Resp 15; Temp 97.7(O); Pulse Ox 100% on R/A; Weight 84.37 kg; cm10 Height 5 ft. 11 in. ; Pain 10/10; 20:15 BP 140 / 67; Pulse 60; Resp 17 S; Pulse Ox 99% on R/A; ay 22:15 BP 115 / 70; Pulse 60; Resp 20; Pulse Ox 99% on R/A; ay 19:10 Body Mass Index 25.94 (84.37 kg, 180.34 cm) cm10 19:10 Pain Scale: Adult cm10 Queenie Coma Score: 20:15 Eye Response: spontaneous(4). Motor Response: obeys commands(6). Verbal Response: ay oriented(5). Total: 15. 20:52 Eye Response: spontaneous(4). Motor Response: obeys commands(6). Verbal Response: sp4 oriented(5). Total: 15. Laceration: 22:32 Wound Repair of 3cm ( 1.2in ) subcutaneous laceration to palm of left hand. Linear sp4 shaped.. Minimal bleeding noted.. Distal neuro/vascular/tendon intact. Anesthesia: Wound infiltrated with 20 mls of 1% lidocaine. Wound prep: Moderate cleansing by me, Copious irrigation. Skin closed with 7 4-0 Silk using vertical mattress sutures and sterile technique. Dressed with 4x4's, Kerlix. Patient tolerated well. MDM: 19:13 Medical Screening Exam initiated sp4 20:49 ED course: . sp4 22:11 Differential diagnosis: abrasion, closed head injury, contusion, fracture, laceration, sp4 multiple trauma, sprain, strain. Data reviewed: vital signs, nurses notes. 22:11 ED course: EXAM: CT Head Brain Wo Cont HISTORY: head injury COMPARISON: None TECHNIQUE: sp4 Multiple contiguous axial images were obtained for a CT of the brain without contrast. Sagittal and coronal reformats were performed. One or more of the following dose reduction techniques were used: Automated exposure control, adjustment of the mA and kV according to patient size, and iterative reconstruction. Unless otherwise specified, incidental findings do not require dedicated imaging follow-up. FINDINGS: No evidence of hydrocephalus, intracranial hemorrhage, or extra-axial fluid collection. The brain is normal in morphology. The calvarium is intact. The visualized paranasal sinuses and mastoid air cells are essentially clear. IMPRESSION: No evidence of acute intracranial abnormality. . ED course: EXAMINATION: CT MAXILLOFACIAL WITHOUT CONTRAST CLINICAL INDICATION: [facility] [[email or web address] MAIN facial injury left Bed: TECHNIQUE: Axial images were obtained through the facial bones and orbits without intravenous contrast. Sagittal and coronal reconstructions were created from the data. One or more of the following dose reduction techniques were used: Automated exposure control, adjustment of the mA and/or kV according to patient size, and/or iterative reconstruction. Unless otherwise specified, incidental findings do not require dedicated imaging follow-up. COMPARISON: No prior exam. FINDINGS: SOFT TISSUE: No significant abnormalities. BONES: No evidence of fracture, dislocation, or aggressive osseous lesions. No lesion of the visualized skull base or calvarium. Heterogeneous pattern of the included cervical spine cancellus bone, nonspecific. ORBITS: The globes are intact. No intraorbital hemorrhage or mass. Rightward nasal septal deviation. SINUSES: The paranasal sinuses and tympanomastoid cavities are predominantly clear. IMPRESSION: No acute facial fractures. Nonspecific heterogeneous marrow pattern of the included upper cervical spine, may reflect sequelae of degenerative changes, although other etiologies including a metabolic or marrow infiltrative process may be considered. . ED course: EXAM: XR Hand Left 3 View HISTORY: [facility] [[email or web address]] MAIN left hand injury Bed: COMPARISON: None TECHNIQUE: 3 radiographic views of the LEFT hand submitted. FINDINGS: No evidence of acute fracture or dislocation. Joint alignment is maintained. No soft tissue swelling is seen.. Mild degenerative changes at the thumb base.. IMPRESSION: No significant bone or joint abnormality. . 22:28 Consideration of Admission/Observation Escalation of care including sp4 admission/observation considered. ED course: EXAM: XR Knee Left 3 View HISTORY: [facility] knee injury Bed Name: 17 COMPARISON: None TECHNIQUE: 3 views of the left knee were obtained. FINDINGS: Mild knee effusion is seen. There is no evidence of acute fracture or dislocation. Mild degenerative changes are seen. No soft tissue swelling or other soft tissue abnormality is present. IMPRESSION: No evidence of acute osseous abnormality. Mild knee joint effusion. Mild degenerative changes. . 07/23 19:12 Order name: CT Head Brain wo Cont; Complete Time: 02:41 sp4 07/23 19:12 Order name: Facial Bones W/O Con CT; Complete Time: 02:41 sp4 07/23 19:13 Order name: Hand Left 3 View XRAY; Complete Time: 02:41 sp4 07/23 20:58 Order name: Knee Left 3 View XRAY; Complete Time: 02:41 sp4 07/23 19:12 Order name: Dressing - Wound; Complete Time: 22:14 sp4 07/23 19:12 Order name: Gloves, Sterile; Complete Time: 22:14 sp4 07/23 19:12 Order name: Setup Suture Tray; Complete Time: 22:14 sp4 07/23 19:13 Order name: Wound Care; Complete Time: 22:14 sp4 Administered Medications: 20:11 Drug: HYDROcodone-acetaminophen PO 5 mg-325 mg 2 tabs PO once Route: PO; ay 22:12 Follow up: Response: No adverse reaction ay 20:11 Drug: Methocarbamol PO 1500 mg PO once Route: PO; ay 22:11 Follow up: Response: No adverse reaction ay 20:11 Drug: Ketorolac PO 10 mg PO once Route: PO; ay 22:11 Follow up: Response: No adverse reaction ay 20:25 Drug: Ativan IVP 1 mg IVP once Route: IVP; Site: left forearm; ha1 22:11 Follow up: Response: No adverse reaction ay 22:11 Drug: Lidocaine Infiltration (1 %) 20 ml 20 ml Infiltration once; to bedside Volume: 20 ay ml; Route: Infiltration; 22:12 Follow up: Response: No adverse reaction ay 22:13 Not Given (Pt stated he is up to date): boostrix tdap0.5 ml IM once; as a single dose ay Disposition Summary: 07/23/24 22:14 Discharge Ordered Notes: Location: Home sp4 Problem: new sp4 Symptoms: have improved sp4 Condition: Stable sp4 Diagnosis - Laceration without foreign body of left hand, initial encounter sp4 - Contusion of left knee sp4 - Unspecified injury of head, initial encounter sp4 - Acute left facial abrasion, acute fall at home, acute left knee abrasion, acute sp4 left hand laceration palmar surface Followup: sp4 - With: Private Physician - When: 10 - 14 days - Reason: Recheck today's complaints Discharge Instructions: - Discharge Summary Sheet sp4 - Laceration Care, Adult, [id number] sp4 Forms: - Patient Portal Instructions sp4 Prescriptions: - acetaminophen-codeine 300-60 mg Oral tablet - take 1 tablet ORAL route every 8 hours PRN pain; 20 tablet; Refills: 0, Product sp4 Selection Permitted - Bactrim DS 800-160 mg Oral Tablet - take 1 tablet ORAL route every 12 hours for 10 days; 20 tablet; Refills: 0, sp4 Product Selection Permitted Signatures: Dispatcher [employer] Anisa Interiano RN RN ha1 Bobby Sprague MD MD sp4 Jyotsna Coombs RN RN cm10 Rodrick Damon, TETRYL DISSOLVER OPERATOR-C TETRYL DISSOLVER OPERATOR-Cdr5 Kinsey Kennedy, RN RN ay
--- NOTE | 2024-07-23 22:23 | RAD REPORT ---
EXAM: XR Knee Left 3 View HISTORY: [facility] MAIN knee injury Bed Name: 17 COMPARISON: None TECHNIQUE: 3 views of the left knee were obtained. FINDINGS: Mild knee effusion is seen. There is no evidence of acute fracture or dislocation. Mild de generative changes are seen. No soft tissue swelling or other soft tissue abnormality is present. IMPRESSION: No evidence of acute osseous abnormality. Mild knee joint effusion. Mild degenerative ch anges.
[2024-07-23 23:03] VITALS: BP 115/70; TEMP 97.7; O2SAT 99
== END 2024-07-23 22:47 | disposition home or self-care (01) ==
LOC: ER 19:00
DX: S61.412A Laceration without foreign body of left hand, initial encounter (principal); S00.81XA Abrasion of other part of head, initial encounter; S80.212A Abrasion, left knee, initial encounter; W18.30XA Fall on same level, unspecified, initial encounter; Y92.009 Unspecified place in unspecified non-institutional (private) residence as the place of occurrence of the external cause; Z95.0 Presence of cardiac pacemaker
CPT/HCPCS: 70450; 70486; 76377; 73130; 73562; 96374; 99284; 12042; J2003

== ENCOUNTER 2024-08-12 17:35 | Emergency (ER) | payer MEDICARE ==
--- OUTSIDE RECORDS SUMMARY | 2024-08-12 17:40 | XMS REPORT | Continuity of Care Document ---
Author Name Unknown Address [address] [facility] [address] [place] [address] [facility] Address [address] [facility] [address] [place] [address] Care Team Providers Care Radio Electronics Officer Name Role Phone Jas Maravilla Primary Care Physician Rakesh Zacarias Attending Clinician Rakesh Seaman Attending Clinician Ghada Henry Attending Clinician Jeremy Galeas MD Attending Clinician Pcp, Patient Does Not Have A Attending Clinician Shavon Camarena Attending Clinician [phone] Doctor Unassigned, Rattan Attending Clinician U navailSHANTANU Alexandre Attending Clinician Unavailable Barbara Bedoya OD Attending Clinician [phone] LOPEZ TUTTLE Attending Clinician Unavailable LOPEZ TUTTLE Attending Clinician Unavailable RADHA DALTON Attending Clinician Unavailabl e ALI_S Attending Clinician Unavailable \\R\\RSOH_[place] Attending Clinician Unava ilSusanne Morgan MD Attending Clinician + BARBARA BEDOYA Attending Clinician Unavailable V[facility] Attending Clinician Unavailable SUSANNE IBRAHIM Attending Clinician Unav Shantanu Kaufman MD Attending Clinician [phone], [facility] Attending Clinician Unavailable TIFFANY MENDEZ Attending Clinician UnavailDARYL Douglas Attending Clinician Unavailable Daryl Zapata MD Attending Clinician [phone] Jeremy Galeas MD Attending Clinician Unavailable JULIUS BREWER Attending Clinician Unavailable Team, [facility] Attending Clinicia n Unavailable SHELLI JEAN Attending Clinician Unavailable JOSE LUIS CHAND Attending Clinician Unavailable Jose Luis Chand MD Attending Clinician [phone] Julius Brewer MD Attending Clinician [phone] Only, [facility] Attending Clinician U Alex Johnson LVN Attending Clinician Brissa Smith MD Attending Clinician [phone] BRISSA JUAREZ Attending Clinician Unavailable LUIS CARLOS CHAN Attending Clinician Unavailable Yifan PT, Yehuda M Attending Clinician Luis Carlos Iverson MD Attending Clinician [phone] Justine Bahena PTA Attending Clinician Unav Zarina Herzog PTA Attending Clinic blade Unavailable Isa Garcia MD Attending Clinician [phone] Stephanie Chaudhary MD Attending Clinician [phone] Aroldo ELMORE, Sarah F Attending Clinician UnavailPavan Gonzales MD Attending Clinician [phone] Vls-Lab Attending Clinician Unavailable UBALDO WAN Attending Clinician Unavailable DEEPIKA OSUNA Attending Clinician Unavail able Deepika Osuna MD Attending Clinician [phone] CORKY CHA Attending Clinician Unavailable Corky Cha MD Attending Clinician [phone] [place]_C Attending Clinician Unavailable BYRON BALBUENA Attending Clinician UnavailByron Malik Attending Clinician [phone] LAVERNE SAMUELS Attending Clinician Unava ilable Rakesh Zacarias Admitting Clinician Unavaila ble ALI_S Admitting Clinician Unavailable \\R\\RSOH_[place] Admitting Clinician Unava ilable JULIUS BREWER Admitting Clinician Unavailable TANIA ELLIOTT Admitting Clinician Unava ilable WESLEY FALK Admitting Clinician Unavailable CORKY CHA Admitting Clinician Unavailable Corky Cha MD Admitting Clinician [phone] [place]_C Admitting Clinician Unavailable Payers Payer Name Policy Type Policy Number Effective Date Expirati on Date Source [facility] (MEDICARE REPLACEMENT HMO) [id number] 00:00:00 MEDICARE PART A \\T\\ B [id number] 2020 00:00:00 [place] [employer] [id number] 2020 00:00:00 [facility] [id number] 2011 00:00:00 Problems Condition Name Condition Details Condition Category Status Onset Date Resolution Date Last Treatment Date Treating Clinician Comments Source Stage 3b chronic kidney disease Stage 3b chronic kidney disease Disease Active 2022-06 00:00: 00 [facility] Positive FIT (fecal immunochem ical test) Positive FIT (fecal immunochem ical test) Disease Active 2021-06 00:00: 00 Overview: Formattin g of this note might be different from the original. Added automatic ally from request for surgery [id number] [facility] Iron deficiency Iron deficiency Disease Active 2021-06 00:00: 00 Overview: Formattin g of this note might be different from the original. Added automatic ally from request for surgery [id number] [facility] Acute pain of right shoulder due to trauma Acute pain of right shoulder due to trauma Disease Active 0 4 00:00: 00 [facility] Acute pain of right shoulder due to trauma Acute pain of right shoulder due to trauma Disease Active 4-06 00:00: 00 [facility] Decreased ROM of right shoulder Decreased ROM of right shoulder Disease Active 09-25 00:00: 00 [facility] Decreased strength of upper extremity Decreased strength of upper extremity Disease Active 4 00:00: 00 [facility] Low back pain without sciatica Low back pain without sciatica Disease Active 09-25 00:00: 00 [facility] Decreased strength of lower extremity Decreased strength of lower extremity Disease Active 09-25 00:00: 00 [facility] Primary hypertensi on Primary hypertensi on Disease Active 2-25 00:00: 00 [facility] Diabetes Diabetes Disease Active 2-25 00:00: 00 [facility] Chronic systolic heart failure Chronic systolic heart failure Disease Active 2-25 00:00: 00 [facility] Pacemaker Pacemaker Disease Active 2-25 00:00: 00 [facility] Chest pain Chest pain Disease Active 0 5-24 00:00: 00 [facility] Allergies, Adverse Reactions, Alerts Allergy Name Allergy Type Status Severity Reaction(s) Onset Date Inactive Date Treating Clinician Comments Source No Known Allergie s Drug Active [facility] NO KNOWN ALLERGIE S Drug Class Active [facility] Social History Social Habit Start Date Stop Date Quantity Comments Source [facility] Alcohol intake 2023-06-04 00:00:00 2023-06-04 00:00:00 0 /d [facility] Exposure to SARS-CoV-2 (event) 2022-10-20 00:00:00 2022-10-30 10:14:00 Not sure [facility] History of Social function 2022-05-20 00:00:00 2022-05-20 00:00:00 [facility] Alcoholic beverage intake 2021-10-30 00:00:00 2021-10-30 00:00:00 0 /d [facility] Sex Ass[birth year] At 1955 00:00:00 1955 00:00:00 [facility] Smoking Status Start Date Stop Date Source Never smoked tobacco [facility] Tobacco smoking consumption unknown [facility] Medications Ordered Medication Name Filled Medication Name Start Date Stop Date Current Medication? Ordering Clinician Indication Dosage Frequency Signature (SIG) Comments Components Source blood sugar diagnostic (ACCU-CHEK BETI PLUS TEST STRP) strip 07-13 00:00: 00 Yes [id number] USE DIRECTED [facility] BITTER MELON EXTRACT ORAL 2022-06 21:10: 02 06-01 00:00 :00 No 1{capsu le} Take 1 capsule by mouth in the morning. [facility] docosahexae noic acid/epa (FISH OIL ORAL) 2022-06 21:08: 46 Yes Take by mouth. [facility] apixaban (ELIQUIS) 5 mg tablet 2022-06 21:08: 37 Yes Take by mouth. [facility] DUNIA ROOT, BULK, [facility] 2022-06 21:08: 34 Yes 750mg 750 mg. [facility] docosahexae noic acid/epa (FISH OIL ORAL) 2022-06 21:08: 34 Yes 750mg Take by mouth. [facility] Garlic 1,000 mg Cap 2022-06 21:08: 32 Yes Take by mouth. [facility] DUNIA ROOT, BULK, [facility] 2022-06 15:48: 22 Yes 750mg 750 mg. [facility] Garlic 1,000 mg Cap 2022-06 15:48: 17 Yes Take by mouth. [facility] docosahexae noic acid/epa (FISH OIL ORAL) 2022-06 15:48: 07 Yes Take by mouth. [facility] apixaban (ELIQUIS) 5 mg tablet 2022-06 15:43: 30 Yes Take by mouth. [facility] papaverine- phentolamin e-PGE1 150mg-5mg-5 0mcg Soln 2022-06 13:41: 59 04-07 00:00 :00 No Inject as directed. [facility] apixaban (ELIQUIS) 5 mg tablet 2022-06 08:28: 34 Yes Take by mouth. [facility] 2022-06 08:28: 34 Yes 750mg 750 mg. [facility] docosahexae noic acid/epa (FISH OIL ORAL) 2022-06 08:28: 34 Yes Take by mouth. [facility] Garlic 1,000 mg Cap 2022-06 08:28: 34 Yes Take by mouth. [facility] papaverine- phentolamin e-PGE1 150mg-5mg-5 0mcg [facility] 2022-06 08:28: 34 Yes Inject as directed. [facility] papaverine- phentolamin e-PGE1 150mg-5mg-5 0mcg [facility] 2022-06 00:00: 00 Yes [id number] 7.5mL Inject 7.5 mL as directed as needed for Other (2-3 times/ week, every 48 hrs). [facility] DUNIA RO[facility]UL[facility] 03-02 13:48: 20 Yes 750mg 750 mg. [facility] Garlic 1,000 mg Cap 03-02 13:48: 20 Yes Take by mouth. [facility] docosahexae noic acid/epa (FISH OIL ORAL) 03-02 13:48: 09 Yes Take by mouth. [facility] apixaban (ELIQUIS) 5 mg tablet 03-02 13:48: 06 Yes Take by mouth. [facility] blood sugar diagnostic (ACCU-CHEK SMARTVIEW TEST STRIP) strip 8- 00:00: 00 07-13 00:00 :00 No [id number] Use as directed [facility] glimepiride 1 mg tablet 12-22 00:00: 00 03-02 00:00 :00 No [id number] 1mg Take 1 tablet by mouth daily with breakfast. [facility] sacubitriL- valsartan (ENTRESTO) 49-51 mg tablet 10-30 00:00: 00 Yes 1{tbl} Take 1 tablet by mouth in the morning. [facility] iron sucrose (VENOFER) 500 mg in NaCl 0.9% (NS) 250 mL infusion 08-13 02:30: 00 09-10 01:29 :[id number] [facility] ferric derisomalto se (MONOFERRIC ) 1,000 mg in NaCl 0.9% (NS) 100 mL infusion 07-15 06:00: 00 07-15 17:59 :00 No [id number] 1000mg [facility] ferric derisomalto se (MONOFERRIC ) 1,000 mg in NaCl 0.9% (NS) 100 mL infusion 07-14 18:00: 00 07-14 17:19 :08 No [id number] 1000mg [facility] terbinafine HCL 250 mg tablet 1-16 00:00: 00 03-02 00:00 :00 No [id number] 250mg Take 1 tablet by mouth in the morning. [facility] ENTRESTO 49-51 mg tablet -12 00:00: 00 10-30 00:00 :00 No [facility] glimepiride 1 mg tablet - 00:00: 00 12-22 00:00 :00 No [id number] 1mg Take 1 tablet by mouth daily with breakfast. [facility] terbinafine HCL 250 mg tablet 2021-06 00:00: 00 07-07 00:00 :00 No [id number] 250mg Take 1 tablet by mouth in the morning. [facility] glimepiride 1 mg tablet 2021-06 0-14 00:00: 00 06-30 00:00 :00 No [id number] 1mg Take 1 tablet by mouth daily with breakfast. [facility] terbinafine HCL 250 mg tablet 2021-06 0-14 00:00: 00 05-20 00:00 :00 No [id number] 250mg Take 1 tablet by mouth in the morning. [facility] pioglitazon e (ACTOS) 15 mg tablet 2021-06 00:00: 00 05-20 00:00 :00 No [id number] 15mg Take 1 tablet by mouth in the morning. [facility] lancets [address] [facility] 03-12 00:00: 00 Yes [id number] Use as directed [facility] blood sugar diagnostic (ACCU-CHEK SMARTVIEW TEST STRIP) strip 03-12 00:00: 00 01-20 00:00 :00 No [id number] Use as directed [facility] SITagliptin -metformin (JANUMET XR) 100-1,000 mg per tablet 03-12 00:00: 00 04-03 00:00 :00 No [id number] 1{tbl} Take 1 tablet by mouth in the morning. [facility] losartan 25 mg tablet 03-03 00:00: 00 07-14 00:00 :00 No [facility] SILDENAFIL 100 mg tablet 11-14 00:00: 00 Yes [id number] 100mg Take 1 tablet by mouth as needed for Other (Erectile Dysfunctio n). [facility] DUNIA ROOT, BULK, [facility] 08-14 12:49: 52 Yes 750mg 750 mg. [facility] docosahexae noic acid/epa (FISH OIL ORAL) 08-14 12:49: 52 Yes Take by mouth. [facility] Garlic 1,000 mg Cap 08-14 12:49: 52 Yes Take by mouth. [facility] Garlic 1,000 mg Cap 08-14 12:49: 52 Yes Take by mouth. [facility] apixaban (ELIQUIS) 5 mg tablet 08-14 12:48: 15 Yes Take by mouth. [facility] metoprolol succinate XL 100 mg 24 hr tablet 08-14 00:00: 00 Yes TAKE 1 TABLET BY MOUTH TWICE A DAY FOR 90 DAYS [facility] JANUMET XR 100-1,000 mg per tablet 2020-06 00:00: 00 03-12 00:00 :00 No 1{tbl} Take 1 tablet by mouth every morning. [facility] ELIQUIS 2.5 MG TABLET ELIQUIS 2.5 MG TABLET Yes [facility] amiodarone hcl 200 mg tablet amiodarone hcl 200 mg tablet Yes [facility] ENTRESTO 24-26 MG TABLET ENTRESTO 24-26 MG TABLET Yes [facility] rosuvastati n calcium 10 mg tablet rosuvastati n calcium 10 mg tablet Yes [facility] metoprolol succinate er 50 mg tablet er [...] ENTRESTO 24-26 MG TABLET Yes [facility] rosuvastati n calcium 10 mg tablet rosuvastati n calcium 10 mg tablet Yes [facility] metoprolol succinate er 50 mg tablet er 24 hr metoprolol succinate er 50 mg tablet er 24 hr Yes [facility] furosemide 40 mg tablet furosemide 40 mg tablet Yes [facility] Immunizations Ordered Immunization Name Filled Immunization Name Date Status Comments Source TDAP 2021-07-01 00:00:00 Completed [facility] TDAP 2021-07-01 00:00:00 Completed [facility] TDAP 2021-07-01 00:00:00 Completed [facility] TDAP 2021-07-01 00:00:00 Completed [facility] TDAP 2021-07-01 00:00:00 Completed [facility] TDAP 2021-07-01 00:00:00 Completed [facility] TDAP 2021-07-01 00:00:00 Completed [facility] TDAP 2021-07-01 00:00:00 Completed [facility] TDAP 2021-07-01 00:00:00 Completed [facility] TDAP 2021-07-01 00:00:00 Completed [facility] TDAP 2021-07-01 00:00:00 Completed [facility] TDAP 2021-07-01 00:00:00 Completed [facility] TDAP 2021-07-01 00:00:00 Completed [facility] TDAP 2021-07-01 00:00:00 Completed [facility] TDAP 2021-07-01 00:00:00 Completed [facility] TDAP 2021-07-01 00:00:00 Completed [facility] TDAP 2021-07-01 00:00:00 Completed [facility] TDAP 2021-07-01 00:00:00 Completed [facility] TDAP 2021-07-01 00:00:00 Completed [facility] TDAP 2021-07-01 00:00:00 Completed [facility] TDAP 2021-07-01 00:00:00 Completed [facility] 2021-07-01 00:00:00 Completed [facility] TDAP 2021-07-01 00:00:00 Completed [facility] TDAP 2021-07-01 00:00:00 Completed [facility] TDAP 2021-07-01 00:00:00 Completed [facility] TDAP 2021-07-01 00:00:00 Completed [facility] TDAP 2021-07-01 00:00:00 Completed [facility] [place] TDAP 2021-07-01 00:00:00 Completed [facility] [place] TDAP 2021-07-01 00:00:00 Completed [facility] TDAP 2021-07-01 00:00:00 Completed [facility] TDAP 2021-07-01 00:00:00 Completed [facility] TDAP 2021-07-01 00:00:00 Completed [facility] TDAP 2021-07-01 00:00:00 Completed [facility] TDAP 2021-07-01 00:00:00 Completed [facility] TDAP 2021-07-01 00:00:00 Completed [facility] TDAP 2021-07-01 00:00:00 Completed [facility] TDAP 2021-07-01 00:00:00 Completed [facility] TDAP 2021-07-01 00:00:00 Completed [facility] TDAP 2021-07-01 00:00:00 Completed [facility] TDAP 2021-07-01 00:00:00 Completed [facility] TDAP 2021-07-01 00:00:00 Completed [facility] TDAP 2021-07-01 00:00:00 Completed [facility] SARS-COV-2 COVID-19 VACCINE - (MODERNA) 2020-11-28 00:00:00 Completed [facility] SARS-COV-2 COVID-19 VACCINE - (MODERNA) 2020-11-28 00:00:00 Completed [facility] SARS-COV-2 COVID-19 VACCINE - (MODERNA) 2020-11-28 00:00:00 Completed [facility] SARS-COV-2 COVID-19 VACCINE - (MODERNA) 2020-11-28 00:00:00 Completed [facility] SARS-COV-2 COVID-19 VACCINE - (MODERNA) 2020-11-28 00:00:00 Completed [facility] SARS-COV-2 COVID-19 VACCINE - (MODERNA) 2020-11-28 00:00:00 Completed [facility] SARS-COV-2 COVID-19 VACCINE - (MODERNA) 2020-11-28 00:00:00 Completed [facility] SARS-COV-2 COVID-19 VACCINE - (MODERNA) 2020-11-28 00:00:00 Completed [facility] SARS-COV-2 COVID-19 VACCINE - (MODERNA) 2020-11-28 00:00:00 Completed [facility] SARS-COV-2 COVID-19 VACCINE - (MODERNA) 2020-11-28 00:00:00 Completed [facility] SARS-COV-2 COVID-19 VACCINE - (MODERNA) 2020-11-28 00:00:00 Completed [facility] SARS-COV-2 COVID-19 VACCINE - (MODERNA) 2020-11-28 00:00:00 Completed [facility] SARS-COV-2 COVID-19 VACCINE - (MODERNA) 2020-11-28 00:00:00 Completed [facility] SARS-COV-2 COVID-19 VACCINE - (MODERNA) 2020-10-31 00:00:00 Completed [facility] SARS-COV-2 COVID-19 VACCINE - (MODERNA) 2020-10-31 00:00:00 Completed [facility] SARS-COV-2 COVID-19 VACCINE - (MODERNA) 2020-10-31 00:00:00 Completed [facility] SARS-COV-2 COVID-19 VACCINE - (MODERNA) 2020-10-31 00:00:00 Completed [facility] SARS-COV-2 COVID-19 VACCINE - (MODERNA) 2020-10-31 00:00:00 Completed [facility] SARS-COV-2 COVID-19 VACCINE - (MODERNA) 2020-10-31 00:00:00 Completed [facility] SARS-COV-2 COVID-19 VACCINE - (MODERNA) 2020-10-31 00:00:00 Completed [facility] SARS-COV-2 COVID-19 VACCINE - (MODERNA) 2020-10-31 00:00:00 Completed [facility] SARS-COV-2 COVID-19 VACCINE - (MODERNA) 2020-10-31 00:00:00 Completed [facility] SARS-COV-2 COVID-19 VACCINE - (MODERNA) 2020-10-31 00:00:00 Completed [facility] SARS-COV-2 COVID-19 VACCINE - (MODERNA) 2020-10-31 00:00:00 Completed [facility] SARS-COV-2 COVID-19 VACCINE - (MODERNA) 2020-10-31 00:00:00 Completed [facility] SARS-COV-2 COVID-19 VACCINE - (MODERNA) 2020-10-31 00:00:00 Completed Pneumococcal Polysaccharide, PPSV23 (PNEUMOVAX) 2018-11-12 00:00:00 Completed [facility] Pneumococcal Polysaccharide, PPSV23 (PNEUMOVAX) 2018-11-12 00:00:00 Completed [facility] Pneumococcal Polysaccharide, PPSV23 (PNEUMOVAX) 2018-11-12 00:00:00 Completed [facility] Pneumococcal Polysaccharide, PPSV23 (PNEUMOVAX) 2018-11-12 00:00:00 Completed [facility] Pneumococcal Polysaccharide, PPSV23 (PNEUMOVAX) 2018-11-12 00:00:00 Completed [facility] Pneumococcal Polysaccharide, PPSV23 (PNEUMOVAX) 2018-11-12 00:00:00 Completed [facility] Pneumococcal Polysaccharide, PPSV23 (PNEUMOVAX) 2018-11-12 00:00:00 Completed [facility] Pneumococcal Polysaccharide, PPSV23 (PNEUMOVAX) 2018-11-12 00:00:00 Completed [facility] Pneumococcal Polysaccharide, PPSV23 (PNEUMOVAX) 2018-11-12 00:00:00 Completed [facility] Pneumococcal Polysaccharide, PPSV23 (PNEUMOVAX) 2018-11-12 00:00:00 Completed [facility] Pneumococcal Polysaccharide, PPSV23 (PNEUMOVAX) 2018-11-12 00:00:00 Completed [facility] Pneumococcal Polysaccharide, PPSV23 (PNEUMOVAX) 2018-11-12 00:00:00 Completed [facility] Pneumococcal Polysaccharide, PPSV23 (PNEUMOVAX) 2018-11-12 00:00:00 Completed [facility] Pneumococcal Polysaccharide, PPSV23 (PNEUMOVAX) 2018-11-12 00:00:00 Completed [facility] Pneumococcal Polysaccharide, PPSV23 (PNEUMOVAX) 2018-11-12 00:00:00 Completed [facility] Pneumococcal Polysaccharide, PPSV23 (PNEUMOVAX) 2018-11-12 00:00:00 Completed [facility] Pneumococcal Polysaccharide, PPSV23 (PNEUMOVAX) 2018-11-12 00:00:00 Completed [facility] Pneumococcal Polysaccharide, PPSV23 (PNEUMOVAX) 2018-11-12 00:00:00 Completed [facility] Pneumococcal Polysaccharide, PPSV23 (PNEUMOVAX) 2018-11-12 00:00:00 Completed [facility] Pneumococcal Polysaccharide, PPSV23 (PNEUMOVAX) 2018-11-12 00:00:00 Completed [facility] Pneumococcal Polysaccharide, PPSV23 (PNEUMOVAX) 2018-11-12 00:00:00 Completed [facility] Pneumococcal Polysaccharide, PPSV23 (PNEUMOVAX) 2018-11-12 00:00:00 Completed [facility] Pneumococcal Polysaccharide, PPSV23 (PNEUMOVAX) 2018-11-12 00:00:00 Completed [facility] Pneumococcal Polysaccharide, PPSV23 (PNEUMOVAX) 2018-11-12 00:00:00 Completed [facility] Pneumococcal Polysaccharide, PPSV23 (PNEUMOVAX) 2018-11-12 00:00:00 Completed [facility] Pneumococcal Polysaccharide, PPSV23 (PNEUMOVAX) 2018-11-12 00:00:00 Completed [facility] Pneumococcal Polysaccharide, PPSV23 (PNEUMOVAX) 2018-11-12 00:00:00 Completed [facility] Pneumococcal Polysaccharide, PPSV23 (PNEUMOVAX) 2018-11-12 00:00:00 Completed [facility] Pneumococcal Polysaccharide, PPSV23 (PNEUMOVAX) 2018-11-12 00:00:00 Completed [facility] Pneumococcal Polysaccharide, PPSV23 (PNEUMOVAX) 2018-11-12 00:00:00 Completed [facility] Pneumococcal Polysaccharide, PPSV23 (PNEUMOVAX) 2018-11-12 00:00:00 Completed [facility] Pneumococcal Polysaccharide, PPSV23 (PNEUMOVAX) 2018-11-12 00:00:00 Completed [facility] Pneumococcal Polysaccharide, PPSV23 (PNEUMOVAX) 2018-11-12 00:00:00 Completed [facility] Pneumococcal Polysaccharide, PPSV23 (PNEUMOVAX) 2018-11-12 00:00:00 Completed [facility] Pneumococcal Polysaccharide, PPSV23 (PNEUMOVAX) 2018-11-12 00:00:00 Completed [facility] Pneumococcal Polysaccharide, PPSV23 (PNEUMOVAX) 2018-11-12 00:00:00 Completed [facility] Pneumococcal Polysaccharide, PPSV23 (PNEUMOVAX) 2018-11-12 00:00:00 Completed [facility] Pneumococcal Polysaccharide, PPSV23 (PNEUMOVAX) 2018-11-12 00:00:00 Completed [facility] Pneumococcal Polysaccharide, PPSV23 (PNEUMOVAX) 2018-11-12 00:00:00 Completed [facility] Pneumococcal Polysaccharide, PPSV23 (PNEUMOVAX) 2018-11-12 00:00:00 Completed [facility] Pneumococcal Polysaccharide, PPSV23 (PNEUMOVAX) 2018-11-12 00:00:00 Completed [facility] Pneumococcal Polysaccharide, PPSV23 (PNEUMOVAX) 2018-11-12 00:00:00 Completed [facility] Pneumococcal Polysaccharide, PPSV23 (PNEUMOVAX) Unknown Completed [facility] TDAP Unknown Completed [facility] SARS-COV-2 COVID-19 VACCINE - (MODERNA) Unknown Completed [facility] Pneumococcal Polysaccharide, PPSV23 (PNEUMOVAX) Unknown Completed [facility] TDAP Unknown Completed [facility] SARS-COV-2 COVID-19 VACCINE - (MODERNA) Unknown Completed [facility] Pneumococcal Polysaccharide, PPSV23 (PNEUMOVAX) Unknown Completed [facility] TDAP Unknown Completed [facility] SARS-COV-2 COVID-19 VACCINE - (MODERNA) Unknown Completed [facility] Pneumococcal Polysaccharide, PPSV23 (PNEUMOVAX) Unknown Completed [facility] TDAP Unknown Completed [facility] SARS-COV-2 COVID-19 VACCINE - (MODERNA) Unknown Completed [facility] Pneumococcal Polysaccharide, PPSV23 (PNEUMOVAX) Unknown Completed [facility] TDAP Unknown Completed [facility] SARS-COV-2 COVID-19 VACCINE - (MODERNA) Unknown Completed [facility] Pneumococcal Polysaccharide, PPSV23 (PNEUMOVAX) Unknown Completed [facility] TDAP Unknown Completed [facility] SARS-COV-2 COVID-19 VACCINE - (MODERNA) Unknown Completed [facility] Pneumococcal Polysaccharide, PPSV23 (PNEUMOVAX) Unknown Completed [facility] TDAP Unknown Completed [facility] SARS-COV-2 COVID-19 VACCINE - (MODERNA) Unknown Completed [facility] Pneumococcal Polysaccharide, PPSV23 (PNEUMOVAX) Unknown Completed [facility] TDAP Unknown Completed [facility] SARS-COV-2 COVID-19 VACCINE - (MODERNA) Unknown Completed [facility] Pneumococcal Polysaccharide, PPSV23 (PNEUMOVAX) Unknown Completed [facility] TDAP Unknown Completed [facility] SARS-COV-2 COVID-19 VACCINE - (MODERNA) Unknown Completed [facility] Pneumococcal Polysaccharide, PPSV23 (PNEUMOVAX) Unknown Completed [facility] TDAP Unknown Completed [facility] SARS-COV-2 COVID-19 VACCINE - (MODERNA) Unknown Completed [facility] Pneumococcal Polysaccharide, PPSV23 (PNEUMOVAX) [facility] SARS-COV-2 COVID-19 VACCINE - (MODERNA) Unknown Completed [facility] Pneumococcal Polysaccharide, PPSV23 (PNEUMOVAX) Unknown Completed [facility] TDAP Unknown Completed [facility] SARS-COV-2 COVID-19 VACCINE - (MODERNA) Unknown Completed [facility] Pneumococcal Polysaccharide, PPSV23 (PNEUMOVAX) Unknown Completed [facility] TDAP Unknown Completed [facility] SARS-COV-2 COVID-19 VACCINE - (MODERNA) Unknown Completed [facility] Pneumococcal Polysaccharide, PPSV23 (PNEUMOVAX) Unknown Completed [facility] TDAP Unknown Completed [facility] SARS-COV-2 COVID-19 VACCINE - (MODERNA) Unknown Completed [facility] Pneumococcal Polysaccharide, PPSV23 (PNEUMOVAX) Unknown Completed [facility] TDAP Unknown Completed [facility] SARS-COV-2 COVID-19 VACCINE - (MODERNA) Unknown Completed [facility] Pneumococcal Polysaccharide, PPSV23 (PNEUMOVAX) Unknown Completed [facility] TDAP Unknown Completed [facility] SARS-COV-2 COVID-19 VACCINE - (MODERNA) Unknown Completed [facility] Pneumococcal Polysaccharide, PPSV23 (PNEUMOVAX) Unknown Completed [facility] TDAP Unknown Completed [facility] SARS-COV-2 COVID-19 VACCINE - (MODERNA) Unknown Completed [facility] Pneumococcal Polysaccharide, PPSV23 (PNEUMOVAX) Unknown Completed [facility] TDAP Unknown Completed [facility] SARS-COV-2 COVID-19 VACCINE - (MODERNA) Unknown Completed [facility] Pneumococcal Polysaccharide, PPSV23 (PNEUMOVAX) Unknown Completed [facility] TDAP Unknown Completed [facility] SARS-COV-2 COVID-19 VACCINE - (MODERNA) Unknown Completed [facility] Pneumococcal Polysaccharide, PPSV23 (PNEUMOVAX) Unknown Completed [facility] TDAP Unknown Completed [facility] SARS-COV-2 COVID-19 VACCINE - (MODERNA) Unknown Completed [facility] Pneumococcal Polysaccharide, PPSV23 (PNEUMOVAX) Unknown Completed [facility] TDAP Unknown Completed [facility] SARS-COV-2 COVID-19 VACCINE - (MODERNA) Unknown Completed [facility] Pneumococcal Polysaccharide, PPSV23 (PNEUMOVAX) Unknown Completed [facility] TDAP Unknown Completed [facility] SARS-COV-2 COVID-19 VACCINE - (MODERNA) Unknown Completed [facility] Vital Signs Vital Name Observation Time Observation Value Comments S ource Body weight 2023-06-04 16:29:00 83.462 kg [facility] BMI 2023-06-04 16:29:00 25.66 kg/m2 [facility] Systolic blood pressure 2023-06-01 19:18:00 100 mm[Hg] [facility] Diastolic blood pressure 2023-06-01 19:18:00 64 mm[Hg] [facility] Heart rate 2023-06-01 19:18:00 60 /min [facility] Body temperature 2023-06-01 18:35:00 35.44 Vida [facility] Respiratory rate 2023-06-01 18:35:00 18 /min [facility] Body height 2023-06-01 18:35:00 180.3 cm [facility] 2023-06-01 18:35:00 83.598 kg [facility] BMI 2023-06-01 18:35:00 25.70 kg/m2 [facility] Oxygen saturation in Arterial blood by Pulse oximetry 2023-06-01 18:35:00 99 /min [facility] Systolic blood pressure 2023-05-18 21:03:00 131 mm[Hg] [facility] Diastolic blood pressure 2023-05-18 21:03:00 77 mm[Hg] [facility] Heart rate 2023-05-18 21:03:00 58 /min [facility] Body temperature 2023-05-18 21:01:00 35.44 Vida [facility] Body height 2023-05-18 21:01:00 180.3 cm [facility] 2023-05-18 21:01:00 85.639 kg [facility] BMI 2023-05-18 21:01:00 26.33 kg/m2 [facility] Oxygen saturation in Arterial blood by Pulse oximetry 2023-05-18 21:01:00 95 /min [facility] Body height 2023-05-05 14:56:00 180.3 cm [facility] 2023-05-05 14:56:00 86.183 kg [facility] BMI 2023-05-05 14:56:00 26.50 kg/m2 [facility] Systolic blood pressure 2023-04-23 13:52:00 116 mm[Hg] [facility] Diastolic blood pressure 2023-04-23 13:52:00 74 mm[Hg] [facility] Heart rate 2023-04-23 13:52:00 60 /min [facility] Body temperature 2023-04-23 13:52:00 36.44 Vida [facility] Respiratory rate 2023-04-23 13:52:00 16 /min [facility] Body height 2023-04-23 13:52:00 180.3 cm [facility] Body weight 2023-04-23 13:52:00 86.274 kg [facility] BMI 2023-04-23 13:52:00 26.53 kg/m2 [facility] Oxygen saturation in Arterial blood by Pulse oximetry 2023-04-23 13:52:00 97 /min [facility] Systolic blood pressure 2023-04-07 13:30:00 121 mm[Hg] [facility] Diastolic blood pressure 2023-04-07 13:30:00 68 mm[Hg] [facility] Heart rate 2023-04-07 13:30:00 60 /min [facility] Body temperature 2023-04-07 13:30:00 35.44 Vida [facility] Respiratory rate 2023-04-07 13:30:00 16 /min [facility] Body height 2023-04-07 13:30:00 180.3 cm [facility] Body weight 2023-04-07 13:30:00 83.779 kg [facility] BMI 2023-04-07 13:30:00 25.76 kg/m2 [facility] Oxygen saturation in Arterial blood by Pulse oximetry 2023-04-07 13:30:00 97 /min [facility] Systolic blood pressure 2023-03-02 18:04:00 101 mm[Hg] [facility] Diastolic blood pressure 2023-03-02 18:04:00 59 mm[Hg] [facility] Heart rate 2023-03-02 18:03:00 61 /min [facility] Body temperature 2023-03-02 18:03:00 36.5 Vida [facility] Respiratory rate 2023-03-02 18:03:00 16 /min [facility] Body height 2023-03-02 18:03:00 180.3 cm [facility] Body weight 2023-03-02 18:03:00 87.862 kg [facility] BMI 2023-03-02 18:03:00 27.02 kg/m2 [facility] Systolic blood pressure 2023-02-19 15:33:00 148 mm[Hg] [facility] Diastolic blood pressure 2023-02-19 15:33:00 87 mm[Hg] [facility] Heart rate 2023-02-19 15:30:00 60 /min [facility] Body temperature 2023-02-19 15:30:00 36.44 Vida [facility] Respiratory rate 2023-02-19 15:30:00 16 /min [facility] Body height 2023-02-19 15:30:00 180.3 cm [facility] Body weight 2023-02-19 15:30:00 83.961 kg [facility] BMI 2023-02-19 15:30:00 25.82 kg/m2 [facility] Oxygen saturation in Arterial blood by Pulse oximetry 2023-02-19 15:30:00 98 /min [facility] Systolic blood pressure 2022-10-30 15:28:00 154 mm[Hg] [facility] Diastolic blood pressure 2022-10-30 15:28:00 92 mm[Hg] [facility] Heart rate 2022-10-30 15:26:00 60 /min [facility] Body temperature 2022-10-30 15:26:00 36.83 Vida [facility] Respiratory rate 2022-10-30 15:26:00 20 /min [facility] Body height 2022-10-30 15:26:00 180.3 cm [facility] Body weight 2022-10-30 15:26:00 86.546 kg [facility] BMI 2022-10-30 15:26:00 26.61 kg/m2 [facility] Systolic blood pressure 2022-08-01 20:43:00 123 mm[Hg] [facility] Diastolic blood pressure 2022-08-01 20:43:00 75 mm[Hg] [facility] Heart rate 2022-08-01 20:43:00 61 /min [facility] Body temperature 2022-08-01 20:43:00 36.39 Vida [facility] Respiratory rate 2022-08-01 20:43:00 18 /min [facility] Body height 2022-08-01 20:43:00 180.3 cm [facility] Body weight 2022-08-01 20:43:00 85.276 kg [facility] BMI 2022-08-01 20:43:00 26.22 kg/m2 [facility] Oxygen saturation in Arterial blood by Pulse oximetry 2022-08-01 20:43:00 97 /min [facility] Systolic blood pressure 2022-07-14 16:43:00 116 mm[Hg] [facility] Diastolic blood pressure 2022-07-14 16:43:00 77 mm[Hg] [facility] Heart rate 2022-07-14 16:43:00 60 /min [facility] Body temperature 2022-07-14 16:43:00 36.56 Vida [facility] Respiratory rate 2022-07-14 16:43:00 18 /min [facility] Body weight 2022-07-14 16:43:00 83.462 kg [facility] BMI 2022-07-14 16:43:00 25.66 kg/m2 [facility] Oxygen saturation in Arterial blood by Pulse oximetry 2022-07-14 16:43:00 100 /min [facility] Systolic blood pressure 2022-06-17 14:52:00 138 mm[Hg] [facility] Diastolic blood pressure 2022-06-17 14:52:00 84 mm[Hg] [facility] Heart rate 2022-06-17 14:52:00 60 /min [facility] Body temperature 2022-06-17 14:52:00 36.72 Vida [facility] Respiratory rate 2022-06-17 14:52:00 16 /min [facility] Body height 2022-06-17 14:52:00 180.3 cm [facility] Body weight 2022-06-17 14:52:00 86.456 kg [facility] BMI 2022-06-17 14:52:00 26.58 kg/m2 [facility] Oxygen saturation in Arterial blood by Pulse oximetry 2022-06-17 14:52:00 98 /min [facility] Systolic blood pressure 2022-05-20 16:17:00 138 mm[Hg] [facility] Diastolic blood pressure 2022-05-20 16:17:00 88 mm[Hg] [facility] Heart rate 2022-05-20 16:17:00 62 /min [facility] Body temperature 2022-05-20 16:17:00 36.67 Vida [facility] Respiratory rate 2022-05-20 16:17:00 18 /min [facility] Body weight 2022-05-20 16:17:00 89.359 kg [facility] BMI 2022-05-20 16:17:00 27.48 kg/m2 [facility] Oxygen saturation in Arterial blood by Pulse oximetry 2022-05-20 16:17:00 100 /min [facility] Systolic blood pressure 2022-05-13 15:12:00 144 mm[Hg] [facility] Diastolic blood pressure 2022-05-13 15:12:00 85 mm[Hg] [facility] Heart rate 2022-05-13 15:12:00 60 /min [facility] Body temperature 2022-05-13 15:10:00 35.44 Vida [facility] Respiratory rate 2022-05-13 15:10:00 16 /min [facility] Body height 2022-05-13 15:10:00 180.3 cm [facility] Body weight 2022-05-13 15:10:00 89.721 kg [facility] BMI 2022-05-13 15:10:00 27.59 kg/m2 [facility] Oxygen saturation in Arterial blood by Pulse oximetry 2022-05-13 15:10:00 99 /min [facility] Heart rate 2022-05-01 15:35:00 60 /min [facility] Body temperature 2022-05-01 15:35:00 36.39 Vida [facility] Respiratory rate 2022-05-01 15:35:00 18 /min [facility] Body height 2022-05-01 15:35:00 180.3 cm [facility] Body weight 2022-05-01 15:35:00 87.998 kg [facility] BMI 2022-05-01 15:35:00 27.06 kg/m2 [facility] Oxygen saturation in Arterial blood by Pulse oximetry 2022-05-01 15:35:00 99 /min [facility] Systolic blood pressure 2022-05-01 15:35:00 137 mm[Hg] [facility] Diastolic blood pressure 2022-05-01 15:35:00 87 mm[Hg] [facility] Systolic blood pressure 2022-04-03 15:16:00 168 mm[Hg] [facility] Diastolic blood pressure 2022-04-03 15:16:00 94 mm[Hg] [facility] Heart rate 2022-04-03 15:16:00 60 /min [facility] Body temperature 2022-04-03 15:16:00 36.33 Vida [facility] Respiratory rate 2022-04-03 15:16:00 20 /min [facility] Body height 2022-04-03 15:16:00 180.3 cm [facility] Body weight 2022-04-03 15:16:00 85.412 kg [facility] BMI 2022-04-03 15:16:00 26.26 kg/m2 [facility] Procedures Procedure Date / Time Performed Performing Clinician Source OCT, OPTIC NERVE - OU - BOTH EYES 2023-06-04 16:38:47 Barbara Bedoya [facility] PATIENT QUESTIONNAIRE 2023-04-07 05:01:00 Doctor Unassigned, Rattan [facility] LIPID PANEL ([id number])(TOTAL CHOLESTEROL, TRIGLYCERIDES, HDL) 2022-10-30 16:28:00 Susanne Ibrahim [facility] US ABDOMEN LIMITED WITH DOPPLER 2022-05-21 21:38:44 Julius Brewer [facility] EXTERNAL PROVIDER RECORDS 2022-05-19 06:01:00 Do ctor Unassigned, Rattan [facility] FERRITIN SERUM 2022-05-13 16:21:00 Julius Brewer [facility] BILI UNCONJUGATED/BILI CONJUG 2022-05-13 16:21:00 Julius Brewer [facility] COMP. METABOLIC PANEL ([id number]) 2022-05-13 16:21:00 [facility] ALPHA FETOPROTEIN 2022-05-13 16:21:00 Julius Brewer [facility] CBC WITH DIFF 2022-05-13 16:21:00 Julius Brewer [facility] PROTHROMBIN TIME / INR 2022-05-13 16:21:00 Jose Brewer [facility] MISCELLANEOUS SEND OUT TEST 2022-05-13 16:21:00 Julius Brewer [facility] EXTERNAL PROVIDER RECORDS 2022-04-28 06:01:00 Do ctor Unassigned, Rattan [facility] EXTERNAL PROVIDER RECORDS 2022-04-18 05:01:00 Do ctor Unassigned, Rattan [facility] US RETROPERITONEAL LIMITED 2022-04-10 19:34:37 I bidapo-Susanne Elizabeth [facility] COMP. METABOLIC PANEL ([id number]) 2022-04-03 16:21:00 [facility] LIPID PANEL ([id number])(TOTAL CHOLESTEROL, TRIGLYCERIDES, HDL) 2022-04-03 16:21:00 Ibjaimie-Glenn [facility] GLYCOSYLATED HEMOGLOBIN (A1C) 2022-04-03 16:21:00 Farzana-Glenn [facility] MEDICATION CORRESPONDENCE 2022-03-27 05:01:00 Do ctor Unassigned, Rattan [facility] MEDICATION CORRESPONDENCE 2022-02-26 05:01:00 Do ctor Unassigned, Rattan [facility] MEDICATION CORRESPONDENCE 2021-12-04 05:01:00 Do ctor Unassigned, Rattan [facility] MEDICATION CORRESPONDENCE 2021-11-13 05:01:00 Do ctor Unassigned, Rattan [facility] US EXT LOWER VENOUS DOPPLER BILAT 2021-02-01 20:00:00 [facility] US EXT LOWER VENOUS DOPPLER BILAT 2021-02-01 20:00:00 [facility] DOPPLER VENOUS ARMS BILATERAL 2021-02-01 19:30:00 [facility] DOPPLER VENOUS ARMS BILATERAL 2021-02-01 19:30:00 [facility] ECG 12-LEAD 2021-01-30 14:34:07 [facility] ECG 12-LEAD 2021-01-30 14:34:07 [facility] Encounters Start Date/Time End Date/Time Encounter Type Admission Type Attending [facility] Care Facility Care Department Encounter ID Source 2019-09-15 16:24:00 Inpatient Rakesh Zacarias Domingo [facility] CRD [id number] [facility] 2024-08-09 12:09:00 2024-08-09 12:39:00 Care Coordinati on Non Billable Ghada [place]ton [id number] [facility] 2022-03-11 00:00:00 2024-08-06 02:46:10 Orders Only Jeremy Galeas [facility] [id number] [facility] 2024-04-21 00:00:00 2024-04-21 12:38:22 Refill Pcp, Patient Does Not Have A [facility] 1.114 [id number] [facility] 2024-03-07 11:00:00 2024-03-07 11:30:00 D2Me Check-in Shavon Migue 2..840. [id number] 2..[id number] [facility] 2023-11-10 00:00:00 2023-12-12 18:19:30 Patient Secure Msg Doctor Unassigned, Rattan [facility] 1..114 [id number] [facility] 2023-10-06 11:30:00 2023-10-06 11:30:00 Outpatient R SHANTANU BARRIOS [facility] [id number] [facility] 2023-09-23 00:00:00 2023-09-23 00:00:00 Telephone Barbara Bedoya [facility] [id number] [id number] [facility] 2023-07-17 00:00:00 2023-07-17 00:00:00 Outpatient ALI_S PANRSOH PANRSOH [id number] PANRS[facility] 2023-07-15 10:52:06 2023-07-15 10:52:06 Outpatient ÁLVARO REA [id number] Serjio Wheeler 2023-07-13 00:00:00 2023-07-13 00:00:00 Outpatient \\R\\RSOH_Hou ston_Astori PANRSOH PANRSOH [id number] PANRSOH 2023-07-12 00:00:00 2023-07-12 00:00:00 Refill Ibidapo-Obhernandez [facility] 1..114 [id number] [id number] [facility] 2023-06-12 00:00:00 2023-06-12 00:00:00 Refill Ibidapo-Obhernandez [facility] 1..114 350.1.13.10 4.2.7.2.686 [id number] 044 [id number] [facility] 2023-06-04 10:00:00 2023-06-04 10:15:00 Office Visit Barbara Bedoya [facility] 1.114 350.1.13.10 4.2.7.2.686 [id number] [facility] 2023-06-04 10:00:00 2023-06-04 10:00:00 Outpatient R BARBARA BEDOYA [facility] [id number] [facility] 2023-06-03 00:00:00 2023-06-03 00:00:00 [facility] 1.114 350.1.13.10 4.2.7.2.686 [id number] [facility] 2023-06-01 13:00:00 2023-06-01 14:43:50 Outpatient R LOPEZ TUTTLE LOVETTE [facility] [id number] [facility] 2023-06-01 13:00:00 2023-06-01 14:43:50 Office Visit Lopez Tuttle [facility] 1.114 350.1.13.10 4.2.7.2.686 [id number] [facility] 2023-06-01 12:00:00 2023-06-01 12:15:00 [facility] 1.2.840.114 350.1.13.10 4.2.7.2.686 [id number] [facility] 2023-06-01 00:00:00 2023-06-01 00:00:00 [facility] 1.2.840.114 350.1.13.10 4.2.7.2.686 [id number] [facility] 2023-06-01 00:00:00 2023-06-01 00:00:00 Patient Secure Msg [facility] 1.2.840.114 350.1.13.10 4.2.7.2.686 [id number] 312 [id number] [facility] 2023-05-18 16:00:00 2023-05-18 16:15:00 Ad Operations Intern Visit [facility] 1.2.840.114 350.1.13.10 4.2.7.2.686 [id number] [facility] 2023-05-18 15:00:00 2023-05-18 16:14:37 Outpatient R [facility]ARR[facility] [place] [id number] [facility] 2023-05-18 15:00:00 2023-05-18 16:14:37 [facility] 1.2.840.114 350.1.13.10 4.2.7.2.686 [id number] [facility] 2023-05-13 14:00:00 2023-05-13 14:00:00 Outpatient R SHANTANU BARRIOS [facility] [id number] [facility] 2023-05-05 09:00:00 2023-05-05 09:49:13 Outpatient R BARBARA BEDOYA WENJIE [facility] [id number] [facility] 2023-05-05 09:00:00 2023-05-05 09:49:13 Office Visit Barbara Bedoya [facility] 1.0.114 350.1.13.10 4.2.7.2.686 [id number] [facility] 2023-04-28 00:00:00 2023-04-28 00:00:00 Patient Secure Msg Doctor Unassigned, Rattan [facility] 1.840.114 350.1.13.10 4.2.7.2.686 [id number] [id number] [facility] 2023-04-28 00:00:00 2023-04-28 00:00:00 Patient Secure Msg Doctor Unassigned, Rattan [facility] 1.2.840.114 350.1.13.10 4.2.7.2.686 [id number] [id number] [facility] 2023-04-23 09:00:00 2023-04-23 09:30:00 Office Visit Susanne Ibrahim [facility] 1.0.114 350.1.13.10 4.2.7.2.686 [id number] [id number] [facility] 2023-04-23 09:00:00 2023-04-23 09:00:00 Outpatient R SUSANNE IBRAHIM [facility] [id number] [facility] 2023-04-15 00:00:00 2023-04-15 00:00:00 Outpatient DMG DMG [id number] [facility] 2023-04-08 00:00:00 2023-04-08 00:00:00 Telephone Sophie [facility] 1.2840.114 350.1.13.10 4.2.7.2.686 [id number] [facility] 2023-04-07 10:30:00 2023-04-07 10:45:00 Ad Operations Intern Visit 2, [facility] 1.2840.114 350.1.13.10 4.2.7.2.686 [id number] [facility] 2023-04-07 09:00:00 2023-04-07 10:09:16 Outpatient R SOPHIE [facility] [id number] [facility] 2023-04-07 09:00:00 2023-04-07 10:09:16 Office Visit Sophie [facility] 1.2840.114 350.1.13.10 4.2.7.2.686 [id number] [facility] 2023-04-07 00:00:00 2023-04-07 00:00:00 Orders Only Doctor Unassigned, Rattan [facility] 1.2840.114 350.1.13.10 4.2.7.2.686 [id number] [facility] 2023-04-06 00:00:00 2023-04-06 00:00:00 Telephone Susanne Ibrahim [facility] 1.2840.114 350.1.13.10 4.2.7.2.686 [id number] 044 [id number] [facility] 2023-04-02 09:30:00 2023-04-02 09:30:00 Outpatient R TIFFANY MENDEZ [facility] [id number] [facility] 2023-03-02 13:30:00 2023-03-02 13:57:13 Outpatient R DARYL ZAPATA [facility] [id number] [facility] 2023-03-02 13:30:00 2023-03-02 13:57:13 Office Visit Gualberto Zapataley [facility] 1..114 350.1.13.10 4.2.7.2.686 [id number] [id number] [facility] 2023-03-02 00:00:00 2023-03-02 00:00:00 Telephone David IbrahimFormerly [facility] 1..114 350.1.13.10 4.2.7.2.686 [id number] 044 [id number] [facility] 2023-02-19 10:30:00 2023-02-19 11:02:51 [facility] [id number] 2023-02-19 10:30:00 2023-02-19 11:02:51 Office Visit David IbrahimFormerly [facility] 1.114 350.1.13.10 4.2.7.2.686 [id number] [id number] [facility] 2023-01-29 00:00:00 2023-01-29 00:00:00 Telephone David IbrahimFormerly [facility] 1..114 350.1.13.10 4.2.7.2.686 [id number] [id number] [facility] 2023-01-20 00:00:00 2023-01-20 00:00:00 Jeremy Lee [facility] 1.2.840.114 350.1.13.10 4.2.7.2.686 [id number] 044 [id number] [facility] 2022-12-22 00:00:00 2022-12-22 00:00:00 [facility] 1.2.840.114 350.1.13.10 4.2.7.2.686 [id number] 044 [id number] [facility] 2022-11-19 00:00:00 2022-11-19 00:00:00 Telephone Alexandria [facility] 1.2.840.114 350.1.13.10 4.2.7.2.686 [id number] 044 [id number] [facility] 2022-10-30 10:30:00 2022-10-30 11:15:00 [facility] [id number] [facility] 2022-10-30 10:30:00 2022-10-30 11:15:00 [facility] 1.2.840.114 350.1.13.10 4.2.7.2.686 [id number] 044 [id number] [facility] 2022-09-23 00:00:00 2022-09-23 00:00:00 Telephone Team, [facility] 1.2.840.114 350.1.13.10 4.2.7.2.686 [id number] [facility] 2022-08-01 15:00:00 2022-08-01 15:45:18 Outpatient R SUSANNE IBRAHIM [facility] [id number] [facility] 2022-08-01 15:00:00 2022-08-01 15:45:18 Office Visit Elaine Ibrahimchristophervalente [facility] 1.2.840.114 350.1.13.10 4.2.7.2.686 [id number] [id number] [facility] 2022-07-14 11:29:21 2022-07-14 23:59:00 Outpatient R JOSE LUIS CHAND [facility] [id number] [facility] 2022-07-14 11:29:21 2022-07-14 23:59:00 Hospital Encounter Jose Luis Chand [facility] 1.2.840.114 350.1.13.10 4.2.7.2.686 [id number] [facility] 2022-07-14 10:30:00 2022-07-14 11:13:14 Office Visit Linus Chandu Nikita [facility] 1.2.840.114 350.1.13.10 4.2.7.2.686 [id number] 044 [id number] [facility] 2022-07-04 00:00:00 2022-07-04 00:00:00 Refill Jeremy Galeas [facility] 1.2.840.114 350.1.13.10 4.2.7.2.686 [id number] 044 [id number] [facility] 2022-07-01 00:00:00 2022-07-01 00:00:00 Refill GamalielpoJayy VangesperanzaquincynikiatFormerly [facility] 1.2.840.114 350.1.13.10 4.2.7.2.686 [id number] 044 [id number] [facility] 2022-06-28 00:00:00 2022-06-28 00:00:00 Refill Elaine IbrahimnikitaFormerly [facility] 1.2.840.114 350.1.13.10 4.2.7.2.686 [id number] 044 [id number] [facility] 2022-06-24 00:00:00 2022-06-24 00:00:00 [facility] 1..840.114 350.1.13.10 4.2.7.2.686 [id number] 044 [id number] [facility] 2022-06-17 09:30:00 2022-06-17 10:00:00 [facility] 1..840.114 350.1.13.10 4.2.7.2.686 [id number] [facility] 2022-06-17 09:30:00 2022-06-17 09:30:00 Outpatient R RUIMIKKI [facility] [id number] [facility] 2022-06-17 00:00:00 2022-06-17 00:00:00 Telephone [facility] 1..840.114 350.1.13.10 4.2.7.2.686 [id number] [id number] [facility] 2022-05-21 14:34:15 2022-05-21 23:59:00 Outpatient R RUIMIKKI [facility] [id number] [facility] 2022-05-21 14:34:15 2022-05-21 23:59:00 Hospital Encounter RuiMikki [facility] 1..840.114 350.1.13.10 4.2.7.2.686 [id number] [facility] 2022-05-20 10:30:00 2022-05-20 10:47:44 Out[facility] [id number] [facility] 2022-05-20 10:30:00 2022-05-20 10:47:44 Office Visit Jeremy Galeas [facility] 1.2.840.114 350.1.13.10 4.2.7.2.686 [id number] 044 [id number] [facility] 2022-05-19 00:00:00 2022-05-19 00:00:00 Orders Only Doctor Unassigned, Rattan [facility] 1.2.840.114 350.1.13.10 4.2.7.2.686 [id number] [facility] 2022-05-19 00:00:00 2022-05-19 00:00:00 Telephone Daniella [facility] 1.2.840.114 350.1.13.10 4.2.7.2.686 [id number] [id number] [facility] 2022-05-19 00:00:00 2022-05-19 00:00:00 Telephone RuiMikki [facility] 1.2.840.114 350.1.13.10 4.2.7.2.686 [id number] 072 [id number] [facility] 2022-05-13 09:00:00 2022-05-13 09:30:00 Office Visit Daniella [facility] 1.2.840.114 350.1.13.10 4.2.7.2.686 [id number] 072 [id number] [facility] 2022-05-13 09:00:00 2022-05-13 09:00:00 Outpatient R DANIELLA [facility] [id number] [facility] 2022-05-12 00:00:00 2022-05-12 00:00:00 Telephone Daniella [facility] 1.2840.114 350.1.13.10 4.2.7.2.686 [id number] 072 [id number] [facility] 2022-05-01 10:00:00 2022-05-01 10:15:24 [facility] [id number] [facility] 2022-05-01 10:00:00 2022-05-01 10:15:24 Office Visit GamalielRigohernandez ElaineFormerly [facility] 1.2.840.114 350.1.13.10 4.2.7.2.686 [id number] 044 [id number] [facility] 2022-04-28 00:00:00 2022-04-28 00:00:00 Orders Only Doctor Unassigned, Rattan [facility] 1.2.840.114 350.1.13.10 4.2.7.2.686 [id number] [facility] 2022-04-23 00:00:00 2022-04-23 00:00:00 Patient Secure Msg Doctor Unassigned, Rattan [facility] 1.2.840.114 350.1.13.10 4.2.7.2.686 [id number] 044 [id number] [facility] 2022-04-18 00:00:00 2022-04-18 00:00:00 Orders Only Doctor Unassigned, Rattan [facility] 1.2.840.114 350.1.13.10 4.2.7.2.686 [id number] [facility] 2022-04-12 00:00:00 2022-04-12 00:00:00 Patient Secure Msg Doctor Unassigned, Rattan [facility] 1.2.840.114 350.1.13.10 4.2.7.2.686 [id number] [id number] [facility] 2022-04-10 14:11:22 2022-04-10 23:59:00 Hospital Encounter FarzanaGonzálezGlenn [facility] 1.2.840.114 350.1.13.10 4.2.7.2.686 [id number] [facility] 2022-04-10 14:11:22 2022-04-10 23:59:00 Outpatient R FARZANAGonzálezGLENN [facility] [id number] [facility] 2022-04-10 09:15:00 2022-04-10 09:30:00 Nurse Visit Only, [facility] 1.2.840.114 350.1.13.10 4.2.7.2.686 [id number] 044 [id number] [facility] 2022-04-03 10:30:00 2022-04-03 11:00:00 Office Visit Alexandria [facility] 1.2840.114 350.1.13.10 4.2.7.2.686 [id number] 044 [id number] [facility] 2022-04-03 10:30:00 2022-04-03 10:30:00 Outpatient R GAMALIELYISHARLENE [facility] [id number] [facility] 2022-04-03 00:00:00 2022-04-03 00:00:00 Pre Visit Outreach Alex Fernández [facility] 1.2840.114 350.1.13.10 4.2.7.2.686 [id number] 082 [id number] [facility] 2022-04-03 00:00:00 2022-04-03 00:00:00 Telephone [facility] 1.2840.114 350.1.13.10 4.2.7.2.686 [id number] 044 [id number] [facility] 2022-04-03 00:00:00 2022-04-03 00:00:00 Telephone Susanne Ibrahim [facility] 1.2.840.114 350.1.13.10 4.2.7.2.686 [id number] 044 [id number] [facility] 2022-03-27 00:00:00 2022-03-27 00:00:00 Orders Only Doctor Unassigned, Rattan [facility] 1.2.840.114 350.1.13.10 4.2.7.2.686 [id number] [facility] 2022-03-04 00:00:00 2022-03-04 00:00:00 Telephone Gudelia [facility] 1.2.840.114 350.1.13.10 4.2.7.2.686 [id number] 044 [id number] [facility] 2022-02-26 00:00:00 2022-02-26 00:00:00 Orders Only Doctor Unassigned, Rattan [facility] 1.2.840.114 350.1.13.10 4.2.7.2.686 [id number] [id number] [facility] 2021-12-04 00:00:00 2021-12-04 00:00:00 Telephone Gudelia [facility] 1.2.840.114 350.1.13.10 4.2.7.2.686 [id number] 044 [id number] [facility] 2021-12-04 00:00:00 2021-12-04 00:00:00 Orders Only Doctor Unassigned, Rattan [facility] 1.2.840.114 350.1.13.10 4.2.7.2.686 [id number] [id number] [facility] 2021-11-13 00:00:00 2021-11-13 00:00:00 Refill Elpidio Brissa [facility] 1.840.114 350.1.13.10 4.2.7.2.686 [id number] 044 [id number] [facility] 2021-11-13 00:00:00 2021-11-13 00:00:00 Orders Only Doctor Unassigned, Rattan [facility] 1.2840.114 350.1.13.10 4.2.7.2.686 [id number] [facility] 2021-10-30 15:40:00 2021-10-30 16:13:46 Outpatient BRISSA CARBAJAL [facility] [id number] [facility] 2021-10-30 15:40:00 2021-10-30 16:13:46 Office Visit Jeremy Galeas [facility] 1.840.114 350.1.13.10 4.2.7.2.686 [id number] 044 [id number] [facility] 2021-10-30 15:40:00 2021-10-30 16:13:46 Outpatient BRISSA CARBAJAL [facility] [id number] [facility] 2021-10-09 09:00:00 2021-10-09 09:45:22 Outpatient LUIS CARLOS JACOBSEN [facility] [id number] [facility] 2021-10-09 09:00:00 2021-10-09 09:45:22 Ancillary Visit Yehuda Saha Brian A [facility] 1..840.114 350.1.13.10 4.2.7.2.686 [id number] [facility] 2021-10-07 09:30:00 2021-10-07 10:15:00 Ancillary Visit Justine Bahena Brian A [facility] 1.2.840.114 350.1.13.10 4.2.7.2.686 [id number] [facility] 2021-10-03 08:15:00 2021-10-03 09:08:22 Ancillary Visit Zarina Muñoz Brian A [facility] 1.2.840.114 350.1.13.10 4.2.7.2.686 [id number] [facility] 2021-09-19 09:45:00 2021-09-19 10:37:16 Outpatient LUIS CARLOS JACOBSEN [facility] [id number] [facility] 2021-09-19 09:45:00 2021-09-19 10:37:16 Ancillary Visit Yehuda Saha Brian A [facility] 1.2840.114 350.1.13.10 4.2.7.2.686 [id number] [facility] 2021-09-19 09:45:00 2021-09-19 09:45:00 Outpatient LUIS CARLOS JACOBSEN [facility] [id number] [facility] 2021-09-03 09:13:30 2021-09-03 23:59:00 Outpatient BRISSA CARBAJAL [facility] [id number] [facility] 2021-09-03 09:13:30 2021-09-03 23:59:00 Hospital Encounter Brissa Juarez [facility] 1.2840.114 350.1.13.10 4.2.7.2.686 [id number] [facility] 2021-09-03 14:00:00 2021-09-03 14:30:00 Office Visit Brissa Juarez [facility] 1.2840.114 350.1.13.10 4.2.7.2.686 [id number] 044 [id number] [facility] 2021-09-03 09:13:30 2021-09-03 09:13:30 Outpatient R BRISSA JUAREZ [facility] [id number] Moeharmony raymond [facility] 2021-09-03 00:00:00 2021-09-03 00:00:00 Telephone Radha Isa [facility] 1.2.840.114 350.1.13.10 4.2.7.2.686 [id number] 044 [id number] [facility] 2021-09-03 00:00:00 2021-09-03 00:00:00 Telephone Radha Isa [facility] 1.2.840.114 350.1.13.10 4.2.7.2.686 [id number] 044 [id number] [facility] 2021-09-02 00:00:00 2021-09-02 00:00:00 Pre Visit Outreach Alex Fernández [facility] 1.2.840.114 350.1.13.10 4.2.7.2.686 [id number] 082 [id number] [facility] 2021-09-02 00:00:00 2021-09-02 00:00:00 Telephone Stephanie Chaudhary [facility] 1.2.840.114 350.1.13.10 4.2.7.2.686 [id number] 044 [id number] [facility] 2021-08-29 00:00:00 2021-08-29 00:00:00 Patient Outreach Sarah Kendrick [facility] 1.2.840.114 350.1.13.10 4.2.7.2.686 [id number] 044 [id number] [facility] 2021-08-29 00:00:00 2021-08-29 00:00:00 Telephone Pavan Black [facility] 1.2.840.114 350.1.13.10 4.2.7.2.686 [id number] [id number] [facility] 2021-08-29 00:00:00 2021-08-29 00:00:00 Telephone Stephanie Chaudhary [facility] 1.2.840.114 350.1.13.10 4.2.7.2.686 [id number] [facility] 2021-08-28 10:10:00 2021-08-28 11:24:37 Office Visit Isa Garcia Syed [facility] 1.2840.114 350.1.13.10 4.2.7.2.686 [id number] [id number] [facility] 2021-08-28 10:10:00 2021-08-28 11:24:37 Outpatient Meera JUAREZ [facility] [id number] [facility] 2021-08-28 10:10:00 2021-08-28 10:10:00 Outpatient Meera JUAREZ BRISSA [facility] [id number] [facility] 2021-08-27 11:30:00 2021-08-27 11:45:00 Ad Operations Intern Visit V[facility] David Ibrahimvalente [facility] 1.2.840.114 350.1.13.10 4.2.7.2.686 [id number] [facility] 2021-08-27 11:30:00 2021-08-27 11:30:00 Outpatient R SUSANNE IBRAHIM [facility] [id number] [facility] 2021-08-14 13:00:00 2021-08-14 14:06:31 Outpatient R SUSANNE IBRAHIM [facility] [id number] [facility] 2021-08-14 13:00:00 2021-08-14 14:06:31 Office Visit Stephanie Chaudhary , Susanne [facility] 1..114 350.1.13.10 4.2.7.2.686 [id number] 044 [id number] [facility] 2021-08-14 00:00:00 2021-08-14 00:00:00 Orders Only Doctor Unassigned, Rattan [facility] 1.2840.114 350.1.13.10 4.2.7.2.686 [id number] [facility] 2021-08-07 19:47:00 2021-08-11 15:55:00 Inpatient E UBALDO WAN [id number] 2021-07-01 15:45:00 2021-07-01 18:02:00 Emergency X DEEPIKA OSUNA [facility] ERT [id number] [facility] 2021-07-01 15:45:00 2021-07-01 18:02:00 Emergency Deepika Osuna [facility] 1.0.114 350.1.13.10 4.2.7.2.686 [id number] [facility] 2021-02-01 13:52:00 2021-02-03 17:33:00 Inpatient CORKY SINCLAIR [facility] [id number] [facility] 2021-01-30 00:00:00 2021-01-30 00:00:00 EXT [facility] OP Corky Cha EXT MSR[facility] LOCATION 1.840.114 350.1.13.58 9.2.7.2.686 [id number] [facility] 2021-01-30 00:00:00 2021-01-30 00:00:00 EXT [facility] OP Corky Cha EXT [facility]SR[facility] LOCATION 1.840.114 350.1.13.58 9.2.7.2.686 [id number] [facility] 2021-01-02 03:20:00 2021-01-02 03:20:00 Outpatient Ogletree_C [facility] [id number] [facility] 2020-12-14 07:17:00 2020-12-14 23:59:00 Outpatient BYRON BALBUENA [facility] CAR [id number] [facility] 2020-12-07 00:00:00 2020-12-07 00:00:00 EXT [facility] OP EXT [facility] LOCATION 1.2.840.114 350.1.13.58 9.2.7.2.686 [id number] [facility] 2020-12-07 00:00:00 2020-12-07 00:00:00 EXT [facility] OP EXT [facility] LOCATION 1.2.840.114 350.1.13.58 9.2.7.2.686 [id number] [facility] 2020-12-06 00:00:00 2020-12-06 00:00:00 EXT [facility] OP Byron Balbuena EXT MSRDP LOCATION 1.2.840.114 350.1.13.58 9.2.7.2.686 [id number] [facility] 2020-12-06 00:00:00 2020-12-06 00:00:00 EXT [facility] OP Byron Balbuena EXT [facility] LOCATION 1.2.840.114 350.1.13.58 9.2.7.2.686 [id number] [facility] 2020-09-21 07:02:00 2020-09-21 13:00:00 Outpatient LAVERNE SAMUELS [facility] MED [id number] [facility] Notes Date/Time Note Provider Source 2024-08-09 12:09:00 Reason For Action: Medication Refill Notes: Patient requesting refill of eliquis and [employer] test strips. He is enrolled in [employer] for his eliquis coverage. Confirmed his dose is 2.5mg twice daily. Pharmacy is [address] Reports he is otherwise doing well. No other concerns or needs at this time. Ghada Lawton [facility] 2024-03-07 11:00:00 ASSESSMENT SUMMARY ALFRED HE is a 69 year old man seen today by [facility] for a [facility] Visit. 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 This visit DOES NOT replace the your Annual Medicare Visit with the patient. The member was encouraged to schedule an AWV with their PCP to review our visit summary & recommendations. See below for teaching and instruction given regarding specific diagnoses. Member verbalized understanding to all. Members Preferred Language [place] Patient Currently Located in their home state of [place], YES DIAGNOSIS [id number] - [id number] - Body mass index [BMI] 25.0-25.9, adult PATIENT INTAKE Has the patient had an Annual Wellness Visit this calendar year?: AWV already completed Has the patient received an influenza vaccine this flu season? No Intake Notes: declines to get flu vaccine MEDICATION RECONCILIATION Did you review the patient's prescription and non-prescription drugs, vitamins, herbal remedies, and other supplements, AND is the accompanying medication list documented in the medical record?: Yes GENERAL ASSESSMENT Feet: 5 Inches: 11 Pounds: 184 Patient BMI: 25.66 Dx: E66.3 - Overweight Notes for E66.3: - BMI: 25.66 - BMI represents overweight. - Recommend increasing cardiovascular exercise and healthy eating to achieve a healthy weight. - Follow with PCPDISCUSSED: Dietary counseling was provided Dx: Z68.25 - Body mass index [BMI] 25.0-25.9, adult Notes for Z68.25: - BMI: 25.66 - BMI represents overweight. - Recommend increasing cardiovascular exercise and healthy eating to achieve a healthy weight. - Follow with PCP Systolic Blood Pressure: 126 Diastolic Blood Pressure: 71 Temperature: 97.3 Pulse: 60 O2 Saturation: 97 Supplemental oxygen status: Room Air Supplemental Oxygen Needs: Does not need supplemental oxygen PHYSICAL EXAM alert, well-nourished, well-developed, NAD: Yes good judgement, normal mood, normal affect: Yes oriented x 3, recent memory normal, remote memory normal, normal gait: Yes Increased work of breathing: No Tachypneic: No Dyspneic: No PULMONARY - Chronic Lung Disease [EMPHYSEMA] Emphysematous changes seen on imaging AND current symptom of dyspnea?: No Signs or symptoms of an acute exacerbation of COPD?: No Chronic Lung Disease Notes: He has quit smoking 6 days ago MEDICATION REFILLS Please confirm: Are any of the medications listed above within 30 days of their next fill date, or past due of their next fill date?: No ADDITIONAL MEDICAL HISTORY Condition: Hypertension Condition Stability: Stable Medication Adherence: Taking medication as prescribed Medication Regimen Recommendations: No changes recommended Follows with (provider): PCP,Information Developer, Batch Maker Additional Notes-: BP today = 126/71 APPOINTMENT CPT CODE* Please indicate how this visit was conducted: Video Please select the video platform used during the visit: [employer] Video Room Please record the total amount of time you spent on this patient visit- Total time includes time spent on preparation, speaking with the patient, documentation, and post-visit coordination of care - This is limited to time spent ON THE DATE OF SERVICE (e.g. does not include time spent on days prior to or after the date of service) 20 - 29 minutes Shavon Camarena [facility] 2023-09-23 11:19:32 Called pt and got verbal permission to send records to [facility]. Records have been faxed to and emailed to [email or web address] [facility] 2023-09-23 10:20:19 Images from the original note were not included. [facility] [employer] 2023-07-13 08:47:07 Requested Prescriptions Pending Prescriptions Disp Refills ACCU-CHEK BETI PLUS TEST STRP strip [Pharmacy Med Name: ACCU-CHEK BETI PLUS TEST STRP] 100 Strip 1 Sig: USE DIRECTED There is no refill protocol information for this order D SIGNAL DESIGN ENGINEER Sissy Maciel RN [facility] 2023-06-12 14:48:06 Alfred He is a 68 year old male is needing a refill on the rosuvastatin [id number] [facility] 2023-03-02 12:06:28 Formatting of this n ote might be different from the original. Called pt to schedule appt, pt declined stating that he and discussed lowering blood sugar medication and he would like that to be done. I informed that I would send this message to his Doctor, he stated that he was down the road and he is on the way her. Mckay Merrill Sissy Maciel RN [facility] 2023-03-02 10:52:58 Formatting of this n ote might be different from the original. Alfred He is a 68 year old male Pt states his BS dropped last night and EMS had to be called. He requesting a call back to discuss changing his medication [facility] 2023-02-04 08:16:17 Formatting of this n ote might be different from the original. Specialty medication. Needs to see Urology. Pebbles Ibrahim MD [facility] 2023-01-30 08:42:10 Formatting of this n ote might be different from the original. Routing to provider for review Sigrid Gonzalez MA [facility] 2023-01-29 15:49:55 Formatting of this n ote might be different from the original. Alfred He is a 67 year old male Patient is calling to let Be aware that he takes tri-mix for ED and was told that he needs to have his pcp prescribe it. Information Developer does not prescribe Revive rx [phone] [facility]
[2024-08-12] MEDS ORDERED: LIDOCAINE VISCOUS 2% 10ML ORAL SOLN ONE (19:48)
--- NOTE | 2024-08-12 20:36 | EDPHYS ---
Physician Documentation [facility] Name: Adrian He Age: 69 yrs Sex: Male : 1955 Arrival Date: 08/12/2024 Time: 17:35 Bed 10 Private MD: ED Physician Avel Goldman HPI: 08/12 18:30 This 69 yrs old Black Male presents to ER via Ambulatory with complaints of Suture cp Removal. 18:30 The patient has sutures on the dennison side of left hand. Previous treatment: The cp patient was initially treated approximately 3 weeks ago, the care was rendered at [facility], Treatment type: The patient's original treatment included sutures, Previous recheck: the patient has not been checked since the original treatment. Sutures/tylor progress: The patient has no c/o's. The wound is well-healing with no redness, swelling, discharge, or dehiscence reported. Historical: - Allergies: 18:03 No Known Allergies; ap3 - PMHx: 18:03 diabetes mellitus; Hypertension; Myocardial infarction; ap3 - PSHx: 18:03 pacemaker; ap3 - Immunization history:: Adult Immunizations up to date. - Infectious Disease History:: Denies. - Social history:: Smoking status: Patient denies any tobacco usage or history of. ROS: 18:35 Constitutional: history per hpi cp 18:35 Skin: Positive for of the dennison side of left hand, repaired laceration, cp Exam: 18:40 Skin: reevaluation of repaired laceration to dennison side left hand: [address], cp skin intact with no erythema, no swelling, no dehiscence noted. 18:40 Head/Face: Normocephalic, atraumatic. cp 18:40 Constitutional: The patient appears in no acute distress, alert, awake, non-toxic, well developed, well nourished, 18:40 Cardiovascular: Rate: normal, 18:40 Respiratory: the patient does not display signs of respiratory distress, Respirations: normal, Vital Signs: 18:02 BP 109 / 60; Pulse 60; Resp 18; Temp 98.6(TE); Pulse Ox 98% ; Weight 80.74 kg; Height 5 ap3 ft. 11 in. ; Pain 8/10; 20:47 BP 115 / 67; Pulse 62; Resp 17; Temp 98.1; Pulse Ox 100% ; kb3 18:02 Body Mass Index 24.83 (80.74 kg, 180.34 cm) ap3 18:02 Pain Scale: Adult ap3 Procedures: 20:32 Suture/Staple removal: Removed 6 sutures, from dennison side of left hand, site appears cp well healed, dressed with gauze bandage, Neosporin, Patient tolerated well. MDM: 18:06 Medical Screening Exam initiated cp 20:35 Data reviewed: vital signs, nurses notes, and as a result, I will discharge patient. cp 20:35 I considered the following discharge prescriptions or medication management in the cp emergency department Medications were administered in the Emergency Department. See MAR. Counseling: I had a detailed discussion with the patient and/or guardian regarding the historical points, exam findings, and any diagnostic results supporting the discharge/admit diagnosis, to return to the emergency department if symptoms worsen or persist or if there are any questions or concerns that arise at home. Response to treatment: the patient's symptoms have markedly improved after treatment, and as a result, I will discharge patient. 08/12 20:32 Order name: Wound dressing; Complete Time: 20:47 cp Administered Medications: No medications were administered Disposition Summary: 08/12/24 20:35 Discharge Ordered Notes: Location: Home cp Problem: new cp Symptoms: have improved cp Condition: Stable cp Diagnosis - Encounter for removal of sutures cp Followup: cp - With: Private Physician - When: 2 - 3 days - Reason: Worsening of condition Discharge Instructions: - Discharge Summary Sheet cp - How to Change Your Wound Dressing cp - Suture Removal, Care After cp Forms: - Medication Reconciliation Form cp - Antibiotic Education cp - Prescription Opioid Use cp - Patient Portal Instructions cp - Leadership Thank You Letter cp Addendum: 08/16/2024 07:08 Co-signature as Attending Physician, Avel Goldman MD I reviewed the patient's care r n provided by the Advanced Practice Provider and agree with the diagnosis and treatment plan. Signatures: Avel Goldman MD MD rn Page, Corey, PA PA cp Prokisch, Amanda, RN RN ap3
--- NOTE | 2024-08-12 20:36 | ER ---
Nurse's Notes [facility] Name: Adrian He Age: 69 yrs Sex: Male : 1955 Arrival Date: 08/12/2024 Time: 17:35 Bed 10 Private MD: Diagnosis: Encounter for removal of sutures Presentation: 08/12 18:02 Chief complaint: Patient states: he was evaluated here a few weeks ago, and got sutures ap3 in his left hand. patient doesn't remember when he was supposed to come get them out, but states that they are hurting him and he wants them out. Coronavirus screen: At this time, the client does not indicate any symptoms associated with coronavirus-19. Ebola Screen: No symptoms or risks identified at this time. Initial Sepsis Screen: Does the patient meet any 2 criteria? No. Patient's initial sepsis screen is negative. Does the patient have a suspected source of infection? No. Patient's initial sepsis screen is negative. Risk Assessment: Do you want to hurt yourself or someone else? Patient reports no desire to harm self or others. Onset of symptoms is unknown. 18:02 Method Of Arrival: Ambulatory ap3 18:02 Acuity: LACHELLE 4 ap3 Triage Assessment: 18:04 General: Appears in no apparent distress. Behavior is calm, cooperative, appropriate ap3 for age. Pain: Complains of pain in left hand. Neuro: Level of Consciousness is awake, alert, obeys commands, Oriented to person, place, time, situation, Appropriate for age. Cardiovascular: Patient's skin is warm and dry. Respiratory: Airway is patent Respiratory effort is even, unlabored, Respiratory pattern is regular, symmetrical. Historical: - Allergies: 18:03 No Known Allergies; ap3 - PMHx: 18:03 diabetes mellitus; Hypertension; Myocardial infarction; ap3 - PSHx: 18:03 pacemaker; ap3 - Immunization history:: Adult Immunizations up to date. - Infectious Disease History:: Denies. - Social history:: Smoking status: Patient denies any tobacco usage or history of. Screenin:04 Abuse screen: Denies threats or abuse. Nutritional screening: No deficits noted. ap3 Tuberculosis screening: No symptoms or risk factors identified. 19:43 [facility] ED Fall Risk Assessment (Adult) History of falling in the last 3 months, me1 including since admission No falls in past 3 months (0 pts) Confusion or Disorientation No (0 pts) Intoxicated or Sedated No (0 pts) Impaired Gait No (0 pts) Mobility Assist Device Used No (0 pt) Altered Elimination No (0 pt) Score/Fall Risk Level 0 - 2 = Low Risk Maintained a safe environment, Provided non-skid footwear, Hourly rounding (assess needs \T\ fall precautionary measures) done. Assessment: 19:43 General: Appears in no apparent distress. well groomed, well developed, well nourished, me1 Behavior is calm, cooperative, appropriate for age, Reports sutures to palm of left hand. Pain: Denies pain. Neuro: Level of Consciousness is awake, alert, obeys commands, Oriented to person, place, time, situation, Appropriate for age. Cardiovascular: Patient's skin is warm and dry. Respiratory: Airway is patent Respiratory effort is even, unlabored, Respiratory pattern is regular, symmetrical. GI: No signs and/or symptoms were reported involving the gastrointestinal system. : No signs and/or symptoms were reported regarding the genitourinary system. EENT: No signs and/or symptoms were reported regarding the EENT system. Derm: Wound noted left hand Wound is healed laceration with sutures. Vital Signs: 18:02 BP 109 / 60; Pulse 60; Resp 18; Temp 98.6(TE); Pulse Ox 98% ; Weight 80.74 kg; Height 5 ap3 ft. 11 in. ; Pain 8/10; 20:47 BP 115 / 67; Pulse 62; Resp 17; Temp 98.1; Pulse Ox 100% ; kb3 18:02 Body Mass Index 24.83 (80.74 kg, 180.34 cm) ap3 18:02 Pain Scale: Adult ap3 ED Course: 17:36 Patient arrived in ED. im 17:37 Nathaniel Ewing PA is PHCP. cp 17:37 Avel Goldman MD is Attending Physician. cp 18:03 Triage completed. ap3 18:04 Arm band placed on right wrist. ap3 19:37 Era Richard, KOKO is Primary Nurse. me1 19:43 Patient has correct armband on for positive identification. Bed in low position. Call me1 light in reach. Side rails up X 1. Provided Education on: POC. Verbalized understanding.. 19:43 No provider procedures requiring assistance completed. Patient did not have IV access me1 during this emergency room visit. Administered Medications: No medications were administered Medication: 19:43 VIS not applicable for this client. me1 Outcome: 20:35 Discharge ordered by . dorota 20:52 Discharged to home ambulatory, kb3 20:52 Condition: stable 20:52 Discharge instructions given to patient, Instructed on discharge instructions, follow up and referral plans. wound care, Demonstrated understanding of instructions, follow-up care, wound care, 20:52 Patient left the ED. kb3 Signatures: Nathaniel Ewing PA PA cp Prokisch, Amanda, RN RN ap3 Anika Patel, RN RN kb3 Kelly Cueva Michelle, RN RN me1 Corrections: (The following items were deleted from the chart) :43 18:02 Chief complaint: Patient states: he was evaluated here a few weeks ago, and got me1 sutures in his left hand. patient doesn't remember when he was supposed to come get them out, but states that they are hurting him and he wants them out. ap3
[2024-08-13 09:08] VITALS: BP 115/67; TEMP 98.1; O2SAT 100
== END 2024-08-12 20:52 | disposition home or self-care (01) ==
LOC: ER 17:35
DX: Z48.02 Encounter for removal of sutures (principal)
CPT/HCPCS: 99281; 99283